=== PATIENT | male | born 1940 | race Caucasian/White ===

== ENCOUNTER → 2018-05-02 17:20 | Observation (INO) ==
--- NOTE | 2018-05-01 13:08 | Progress Note ---
Subjective Date: 05/01/18 Time: 13:05 Principal diagnosis: chest pain Interval history: Pt was seen in office today for chest pain/SOA at rest consistent with unstable angina class 4. Due to multiple CRF's he was admitted for stabilization with plans to proceed with cardiac cath in AM. Please see the office note on the chart. Exam - *Routine Neck Exam Present: supple. Absent: JVD, carotid bruit - *Routine Respiratory Exam Present: CTA bilaterally. Absent: accessory muscle use, rales, rhonchi, wheezes - *Routine Cardiovascular Exam Present: RRR. Absent: murmur, gallop, rubs - *Routine Neurological Exam Present: alert, oriented X3, moving all extremities Progress Note: A&P (1) Angina pectoris Status: Acute Current Visit: No (2) SOB (shortness of breath) Status: Acute Current Visit: No (3) Afib Status: Chronic Current Visit: No (4) CAD (coronary artery disease) Status: Chronic Current Visit: No (5) Diabetes mellitus Status: Chronic Current Visit: No (6) HHD (hypertensive heart disease) Status: Chronic Current Visit: No (7) HLD (hyperlipidemia) Status: Chronic Current Visit: No (8) Obesity Status: Chronic Current Visit: No Assessment and Plan for All Diagnoses:: continue home meds Add norvasc and nitro paste Cardiac cath in AM
[2018-05-01 15:09] LABS: Basophils # 0.1 K/mm3 (0-0.2); Basophils % 0.6 % (0.1-2.0); Eosinophils # 0.4 K/mm3 (0.0-0.4); Eosinophils % 4.1 % (0.1-12.0); Hematocrit 45.2 % (42.0-52.0); Hemoglobin 14.8 g/dL (14.1-18.0); Lymphocytes # 1.9 K/mm3 (0.7-4.5); Lymphocytes % 20.1 % (10-50); Mean Corpuscular HGB Conc 32.7 g/dL (31.8-35.4); Mean Corpuscular Hemoglobin 28.1 pg (27.0-31.2); Mean Platelet Volume 7.4 fl (7.4-10.4); Monocytes # 0.5 K/mm3 (0.1-1.0); Monocytes % 5.4 % (1.7-9.3); Neutrophils # 6.4 K/mm3 (1.8-7.8); Neutrophils % 69.8 % (37.0-80.0); Platelet Count 206 K/mm3 (142-424); Red Blood Count 5.26 M/mm3 (4.60-6.20); Red Cell Distribution Width 13.6 % (11.5-17.5); White Blood Count 9.2 K/mm3 (4.8-10.8)
[2018-05-01 15:12] LABS: INR 1.28 (0.9-1.1); Prothrombin Time 13.1 seconds (9.4-11.8)
[2018-05-01 23:28] LABS: Albumin Level 3.5 gm/dL (3.4-5.0); Bilirubin,Direct 0.1 mg/dL (0.0-0.2); Bilirubin,Indirect 0.4 mg/dL (0.0-0.9); Bilirubin,Total 0.5 mg/dL (0.2-1.0); Total Protein,Serum 7.1 gm/dL (6.4-8.2)
[2018-05-02 06:30] LABS: Chol/HDL Ratio 3.9 (1-3.5)
--- NOTE | 2018-05-02 07:45 | Pharmacy Consult Notes ---
[facility] Pharmacy VTE Monitoring - Patient Demographics Admission date: 05/01/18 Report Date: 05/02/18 Time: 07:45 Allergies/Adverse Reactions: Patient Allergies amoxicillin [From Augmentin] Allergy (Severe, Verified 05/01/18 13:16) edema clavulanic acid [From Augmentin] Allergy (Severe, Verified 05/01/18 13:16) edema Height: 1.88 m Weight: 137.24 kg - VTE Risk Labs: VTE Related Lab Results Hgb 14.8 g/dL (14.1-18.0) 05/01/18 13:08 Hct 45.2 % (42.0-52.0) 05/01/18 13:08 Plt Count 206 K/mm3 (142-424) 05/01/18 13:08 PT 13.1 seconds (9.4-11.8) H 05/01/18 13:08 INR 1.28 (0.9-1.1) H 05/01/18 13:08 BUN 15 mg/dL (7-18) 05/01/18 13:08 Creatinine 1.18 mg/dL (0.70-1.30) 05/01/18 13:08 Estimated Creat Clear 105 mL/min (50-200) 05/01/18 13:08 - Prophylaxis VTE Prophylaxis Ordered?: Yes Types of VTE Prophylaxis: TEDS Knee High Location of Applied Device: Bilateral Lower Extremeties - VTE Diagnosis Confirmed Treatment or plan recommended: Continue Current Treatment
--- NOTE | 2018-05-02 08:26 | Progress Note ---
Addendum entered and electronically signed by PEDRO Hernandez 05/02/18 12:51: Cardiac cath showed occlusion of SVG to diagonal. Medical therapy recommended. OK for discharge home on home meds plus isosorbide mononitrate 30 mg daily and norvasc 5 mg daily. Follow up in 2 wks. Original Note: Subjective Date: 05/02/18 Time: 08:25 Principal diagnosis: chest pain Interval history: 77-year-old white male in bed in no acute distress. No complaints of chest pain overnight. Complains of nasal congestion for which he usually takes Flonase. Exam Vital signs and Labs for Last 24 Hours: Temp Pulse Resp BP Pulse Ox 98.3 F 68 17 113/62 97 05/02/18 07:31 05/02/18 07:31 05/02/18 07:31 05/02/18 07:31 05/02/18 07:31 Laboratory Results - last 24 hr 05/01/18 13:08: WBC 9.2, RBC 5.26, Hgb 14.8, Hct 45.2, MCV 86.0, MCH 28.1, MCHC 32.7, RDW 13.6, Plt Count 206, MPV 7.4, Neut % (Auto) 69.8, Lymph % (Auto) 20.1, Lucas % (Auto) 5.4, Eos % (Auto) 4.1, Baso % (Auto) 0.6, Neut # (Auto) 6.4, Lymph # (Auto) 1.9, Lucas # (Auto) 0.5, Eos # (Auto) 0.4, Baso # (Auto) 0.1 05/01/18 13:08: PT 13.1 H, INR 1.28 H 05/01/18 13:08: Sodium 136, Potassium 4.0, Chloride 99, Carbon Dioxide 27, Anion Gap 14.0, BUN 15, Creatinine 1.18, Estimated Creat Clear 105, Estimated GFR 60, Est GFR ( Amer) 73, Glucose 369 H, Calcium 9.0 05/01/18 13:08: Total Bilirubin 0.5, Direct Bilirubin 0.1, Indirect Bilirubin 0.4, AST 19, ALT 33, Alkaline Phosphatase 145 H, Total Protein 7.1, Albumin 3.5 05/01/18 17:03: POC Glucose 364 H* 05/01/18 21:18: POC Glucose 271 H 05/02/18 05:46: POC Glucose 151 H 05/02/18 05:52: Triglycerides 145, Cholesterol 145, LDL Cholesterol 79, VLDL Cholesterol 29, HDL Cholesterol 37, Cholesterol/HDL Ratio 3.9 H I & O for Last 24 hours: Intake & Output 04/29/18 04/30/18 05/01/18 05/02/18 11:59 11:59 11:59 11:59 Intake Total 380 / 380 Output Total 800 / 800 Balance -420 / -420 Weight 302 lb 9 oz - *Routine Respiratory Exam Present: CTA bilaterally. Absent: accessory muscle use, rales, rhonchi, wheezes - *Routine Cardiovascular Exam Present: RRR. Absent: murmur, gallop, rubs Progress Note: A&P (1) Angina pectoris Status: Acute Current Visit: No (2) SOB (shortness of breath) Status: Acute Current Visit: No (3) Afib Status: Chronic Current Visit: No (4) CAD (coronary artery disease) Status: Chronic Current Visit: No (5) Diabetes mellitus Status: Chronic Current Visit: No (6) HHD (hypertensive heart disease) Status: Chronic Current Visit: No (7) HLD (hyperlipidemia) Status: Chronic Current Visit: No (8) Obesity Status: Chronic Current Visit: No Assessment and Plan for All Diagnoses:: Plan is for cardiac catheterization today with further recommendations to follow. Possible discharge home later this evening.
--- NOTE | 2018-05-02 16:40 | H&P/Discharge Summary ---
General - General Admission date:: 05/01/18 Discharge date: 05/02/18 *Admission Date: 05/01/18 *Chief complaint: chest pain *History of present illness: 77-year-old male patient was seen in Dr. Gutierrez's office yesterday complaining of chest pain and shortness of breath at rest consistent with unstable angina class 4. Due to multiple CRF's he was admitted for stabilization with plans to proceed with cardiac cath in AM. [facility] History I have reviewed the patient's past medical history: Yes 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: Reports:: Atrial Fibrillation, Coronary Artery Disease, Diabetes Mellitus Type 2, Gastroesophageal Reflux Disease(GERD), Hiatal Hernia, Hyperlipidemia, Hypertension Other 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: Reports: Anemia Other Surgeries: Yes: Angioplasty (, 2x 07/2012), Hernia Repair - *Social History Smoking Status: Former smoker Alcohol Intake: never Occupational Status: disabled - Psychiatric History Expresses thoughts of harming self/others: None Suicide Plan Description: No Plan Review of Systems - Review of Systems Review of systems:: pertinent systems reviewed and negative unless documented below - Constitutional Denies fever(s) - Eyes Denies change in vision - ENT Denies change in voice - *Cardiovascular Reports chest pain, Reports chest pain at rest, Reports chest pain with activity, Reports shortness of breath, Reports shortness of breath with activity - *Respiratory Reports shortness of breath with activity - *Gastrointestinal Denies difficulty swallowing - *Genitourinary Denies urinary frequency - *Musculoskeletal Denies decreased muscle mass - Integumentary/Breasts Denies rash - *Neurologic Denies restless legs - Psychiatric Denies anxiety - Endocrine Denies flushing - Hematologic/Lymphatic Denies enlarged lymph nodes - Allergic/Immunologic Denies lip swelling Exam Vital signs and Labs for Last 24 Hours: Temp Pulse Resp BP Pulse Ox 98.0 F 81 16 127/73 95 05/02/18 10:42 05/02/18 15:45 05/02/18 15:45 05/02/18 15:45 05/02/18 15:45 Laboratory Results - last 24 hr 05/01/18 13:08: Total Bilirubin 0.5, Direct Bilirubin 0.1, Indirect Bilirubin 0.4, AST 19, ALT 33, Alkaline Phosphatase 145 H, Total Protein 7.1, Albumin 3.5 05/01/18 17:03: POC Glucose 364 H* 05/01/18 21:18: POC Glucose 271 H 05/02/18 05:46: POC Glucose 151 H 05/02/18 05:52: Triglycerides 145, Cholesterol 145, LDL Cholesterol 79, VLDL Cholesterol 29, HDL Cholesterol 37, Cholesterol/HDL Ratio 3.9 H I & O for Last 24 hours: Intake & Output 04/30/18 05/01/18 05/02/18 05/03/18 11:59 11:59 11:59 11:59 Intake Total 380 / 380 240 / 240 Output Total 1100 / 1100 700 / 700 Balance -720 / -720 -460 / -460 Weight 302 lb 9 oz 302 lb 8.998 oz - *Routine HEENT Exam Head: Present: normocephalic Eye: Present: EOMI, PERRL ENT: Present: mucous membranes moist - *Routine Neck Exam Present: supple. Absent: lymphadenopathy - *Routine Respiratory Exam Present: CTA bilaterally - *Routine Cardiovascular Exam Present: RRR - *Routine Abdominal Exam Present: soft, normoactive bowel sounds. Absent: tenderness - *Routine Extremities Exam Absent: cyanosis, clubbing, edema - *Routine Skin Exam Present: warm. Absent: rash - *Routine Neurological Exam Present: alert, oriented X3 Hospital Course Hospital Course: heart cath IMPRESSION: 1. Coronary artery disease as described above 2. Preserved ejection fraction 3. Normal left ventricular end-diastolic pressure PLAN: 1. Medical management 2. Patient has been experiencing an indeterminate amount of emotional stress with the recent loss of his brother and 3. Low-dose anxiolytics may benefit patient in the short-term with his significant anxiety 4. Maximize antianginal medications with specific maintained on controlling atrial fibrillation rate. Higher dose beta blockers may benefit patient 5. LDL less than 55 6. Aggressive control of risk factors 7. Cardiac rehabilitation Results Labs on day of discharge: Labs from last 24 hours 05/02/18 05/02/18 05/01/18 05:52 05:46 21:18 POC Glucose 151 H 271 H Total Bilirubin Direct Bilirubin Indirect Bilirubin AST ALT Alkaline Phosphatase Total Protein Albumin Triglycerides 145 Cholesterol 145 LDL Cholesterol 79 VLDL Cholesterol 29 HDL Cholesterol 37 Cholesterol/HDL Ratio 3.9 H 05/01/18 05/01/18 17:03 13:08 POC Glucose 364 H* Total Bilirubin 0.5 Direct Bilirubin 0.1 Indirect Bilirubin 0.4 AST 19 ALT 33 Alkaline Phosphatase 145 H Total Protein 7.1 Albumin 3.5 Triglycerides Cholesterol LDL Cholesterol VLDL Cholesterol HDL Cholesterol Cholesterol/HDL Ratio DS: Diagnosis - Discharge Diagnosis (1) Angina pectoris Status: Acute (2) SOB (shortness of breath) Status: Acute (3) Afib Status: Chronic (4) CAD (coronary artery disease) Status: Chronic (5) Diabetes mellitus Status: Chronic (6) HHD (hypertensive heart disease) Status: Chronic (7) HLD (hyperlipidemia) Status: Chronic (8) Obesity Status: Chronic Discharge Medications - Medications for Discharge Home Medication List at Discharge: No Action acetaminophen 500 mg tablet 500 mg PO Q4H PRN PRN Reason: pain albuterol sulfate 1.25 mg/3 mL solution for nebulization 2.5 mg INHALATION Q6H PRN PRN Reason: breathing atorvastatin 40 mg tablet 40 mg PO HS tab fluticasone 50 mcg/actuation nasal spray,suspension 1 spray INTRANASAL DAILY g hydrocodone 7.5 mg-acetaminophen 325 mg tablet 1 tab PO Q6H insulin aspart U- 100 100 unit/mL subcutaneous pen 10 unit SUB-Q QAM ml clopidogrel 75 mg tablet 75 mg PO DAILY tab albuterol sulfate HFA 90 mcg/actuation aerosol inhaler 2 puff INHALATION Q6H insulin glargine (U-100) 100 unit/mL (3 mL) subcutaneous pen 55 unit SUB-Q BID ml isosorbide mononitrate ER 30 mg tablet,extended release 24 hr 30 mg PO DAILY #30 tab pantoprazole 40 mg tablet,delayed release 40 mg PO QAM torsemide 100 mg tablet 100 mg PO DAILY tab amlodipine 5 mg tablet 5 mg PO DAILY #30 tab Rivaroxaban [Xarelto 20mg Tablet] 20 mg PO DAILY Carvedilol [Carvedilol 25mg Tab] 50 mg PO BID Digoxin 125 mcg PO DAILY Disposition Disposition: Home, Self-Care
== END | disposition home or self-care (01) ==
LOC: 2ND
PROVIDERS: ADMIT Emergency Medicine; ATTEND Emergency Medicine
CPT/HCPCS: 36415; 80048; 80061; 80076; 82962; 85025; 85610; 93005; 93459; 99152; C1725; C1760; C1769; C1894; G0378; J1644; Q9967

== ENCOUNTER → 2019-01-15 14:06 | Outpatient (CLI) | payer MEDICARE, SELFPAY ==
--- NOTE | 2019-01-15 14:09 | CA_ITS ---
APPROVED REPORT EXAM: Comprehensive 2D, Doppler, and color-flow Echocardiogram Security Installation Sales Technician: Milly Beckford RDCS Ht: 6 ft 2 in Wt: 303lbs BSA: 2.59 BP: 135/74 mmHg Indications: DIZZINESS,CAD,AF,GALLOWAY,OBESITY,HTN,HLP 2D Dimensions LVOT 2.00 cm (M/F) 1.5-2.5 M-Mode Dimensions RVDd 3.20 cm (0.9-2.6) LA Diam 5.50 cm (1.9-4.0) LVDd 5.10 cm (3.5-5.7) Ao Diam 4.00 cm (2.0-3.7) LVDs 3.90 cm (3.5-5.7) AV Cusp 2.30 cm (1.5-2.6) IVSd 0.90 cm (0.6-1.1) PWd 1.00 cm (0.6-1.1) EF (Teich) 46.90% FS 23.50% EDV (Teich) 124.00 mL ESV (Teich) 65.90 mL LV Diastology E/A Ratio 3.8 Mitral Valve MV E Max Jacob. 92.80 (40-130 cm/s) MV A Velocity 24.70 (40-130 cm/s) E/A Ratio 3.80 Tricuspid Valve TR P. Velocity 320.00 cm/s RAP Estimate 10.00 mmHg RVSP 51.00 mmHg Left Ventricle Left atrium is moderately enlarged, left ventricular is normal size, there is mild concentric left ventricular hypertrophy, visually estimated ejection fraction 55% with no regional wall motion abnormality, diastolic parameters are inconclusive. Right Ventricle Right atrium and right ventricular mildly enlarged with normal contractility. Aortic Valve Aortic valve is minimally thickened and calcified, there is no aortic stenosis or aortic insufficiency. Mitral Valve Mitral valve is grossly normal, there is mild mitral regurgitation. Tricuspid Valve Tricuspid valve is grossly normal, there is mild tricuspid regurgitation, calculated right ventricular systolic pressure is 39 mmHg which is mildly elevated. Pulmonic Valve Pulmonic valve is poorly visualized. Great Vessels Aortic root is normal size. Pericardium No significant pericardial effusion noted. Conclusion 1. Biatrial enlargement, normal left ventricular size, mild concentric left ventricular hypertrophy, visually estimated ejection fraction 55% with no regional wall motion abnormality, diastolic parameters are inconclusive. 2. Mildly enlarged right ventricle with normal contractility. 3. Mild mitral and tricuspid regurgitation, calculated right ventricular systolic pressure is 39 mmHg which is mildly elevated. 4. No significant pericardial effusion noted. Electronically signed by : Mak Pineda, 01/15/2019 16:54:37
--- NOTE | 2019-01-15 14:09 | CA_ITS ---
APPROVED REPORT Supervisor Liquefaction: CT Laterality: Bilateral Study Quality: Fair Indications: dizziness Risk Factors Hypertension: Hyperlipidemia CAD, Doppler Spectral Velocity Analysis ECA (R) 244.00/ cm/s ECA (L) 81.10/ cm/s dICA (R) 95.30/31.40 cm/s dICA (L) 101.00/38.50 cm/s Marlen (R) 56.90/19.50 cm/s Marlen (L) 68.50/24.10 cm/s pICA (R) 48.10/14.80 cm/s pICA (L) 33.80/13.80 cm/s dCCA (R) 59.00/11.60 cm/s dCCA (L) 60.10/17.60 cm/s pCCA (R) 105.00/18.10 cm/s pCCA (L) 98.70/13.20 cm/s Vert (R) 38.80/ cm/s Vert (L) 68.90/ cm/s ICA/CCA 1.62 ICA/CCA 1.68 Findings Duplex evaluation demonstrates stenosis of the right proximal internal carotid artery in the range of 20-49%. Duplex evaluation demonstrates stenosis of the left proximal internal carotid artery in the range of 20-49%. Right ECA >60%. Duplex evaluation demonstrates antegrade flow of the bilateral Vertebral Arteries. Thyroid cysts noted. Conclusion Duplex evaluation demonstrates stenosis of the right proximal internal carotid artery in the range of 20-49%. Duplex evaluation demonstrates stenosis of the left proximal internal carotid artery in the range of 20-49%. Electronically signed by : Kel Wyatt MD 01/16/2019 13:30:29
== END ==
PROVIDERS: PCP Family Medicine; Visit Provider Nurse Practitioner Family
DX: R42 Dizziness and giddiness (principal); R07.9 Chest pain, unspecified; E11.9 Type 2 diabetes mellitus without complications; E66.09 Other obesity due to excess calories; I11.0 Hypertensive heart disease with heart failure; I25.118 Atherosclerotic heart disease of native coronary artery with other forms of angina pectoris; I48.2 Chronic atrial fibrillation; I50.32 Chronic diastolic (congestive) heart failure; R06.02 Shortness of breath
CPT/HCPCS: 93306; 93880

== ENCOUNTER → 2020-12-09 17:13 | Outpatient (CLI) | payer MEDICARE, SELFPAY ==
[2020-12-09 17:56] LABS: Basophils # 0.1 K/mm3 (0-0.2); Basophils % 0.6 % (0.1-2.0); Eosinophils # 0.5 K/mm3 (0.0-0.4); Eosinophils % 5.6 % (0.1-12.0); Hematocrit 41.9 % (42.0-52.0); Lymphocytes # 1.5 K/mm3 (0.7-4.5); Lymphocytes % 18.8 % (10-50); Mean Corpuscular HGB Conc 33.5 g/dL (31.8-35.4); Mean Corpuscular Hemoglobin 27.8 pg (27.0-31.2); Mean Corpuscular Volume 82.7 fl (80-94); Mean Platelet Volume 7.8 fl (7.4-10.4); Monocytes # 0.4 K/mm3 (0.1-1.0); Monocytes % 5.1 % (1.7-9.3); Neutrophils # 5.6 K/mm3 (1.8-7.8); Neutrophils % 69.9 % (37.0-80.0); Platelet Count 205 K/mm3 (142-424); Red Blood Count 5.06 M/mm3 (4.60-6.20); Red Cell Distribution Width 15.6 % (11.5-17.5)
[2020-12-09 18:12] LABS: Hemoglobin A1C 10.8 % (4.0-6.0)
[2020-12-09 19:09] LABS: Chloride 106 mmol/L (98-107); Sodium 139 mmol/L (136-145)
[2020-12-09 19:12] LABS: Alanine Aminotransferase 27 U/L (12-78); Albumin Level 3.9 g/dl (3.5-5.0); Albumin/Globulin Ratio 1.5 (1.1-1.8); Alkaline Phosphatase 144 U/L (38-126); Aspartate Amino Transferase 29 U/L (17-59); Bilirubin,Total 0.7 mg/dl (0.2-1.3); Blood Urea Nitrogen 24 mg/dl (9-20); Carbon Dioxide 22 mmol/L (22.0-30.0); Estimated Glomerular Filt Rate 59 ml/min (>60); GFR (African American) 71 ML/MIN (>60); Globulin 2.6 g/dL (1.3-3.2); Total Protein,Serum 6.5 g/dl (6.3-8.2)
[2020-12-09 19:43] LABS: Thyroid Stimulating Hormone 0.96 uIU/mL (0.465-4.68)
[2020-12-09 19:58] LABS: Glucose 397 mg/dl (74-100)
[2020-12-11 11:38] LABS: Hep A Ab, IgM Negative (Negative); Hepatitis B Core Antibody IgM Negative (Negative); Hepatitis B Surface Antigen Negative (Negative); Hepatitis C Antibody <0.1 s/co ratio (0.0-0.9)
== END ==
PROVIDERS: Visit Provider Family Medicine
DX: E11.9 Type 2 diabetes mellitus without complications (principal); E78.5 Hyperlipidemia, unspecified; I25.10 Atherosclerotic heart disease of native coronary artery without angina pectoris; R06.02 Shortness of breath; R42 Dizziness and giddiness; Z20.5 Contact with and (suspected) exposure to viral hepatitis; I50.9 Heart failure, unspecified; Z79.4 Long term (current) use of insulin; R74.8 Abnormal levels of other serum enzymes
CPT/HCPCS: 80053; 80074; 83036; 84443; 85025

== ENCOUNTER → 2021-03-21 14:36 | Outpatient (CLI) | payer MEDICARE, SELFPAY ==
--- NOTE | 2021-03-21 14:37 | CA_ITS ---
APPROVED REPORT EXAM: Comprehensive 2D, Doppler, and color-flow Echocardiogram [employer] Specialist: Kate Arvizu CRT Ht: 6 ft 2 in Wt: 295lbs BSA: 2.56 BP: 133/63 mmHg Indications: Congenital Heart Disease, Congestive Heart Failure, Shortness of Breath, Atrial Fibrillation, Obesity, Hyperlipidemia, Hypertension/HDD 2D Dimensions LVOT 2.00 cm (M/F) 1.5-2.5 LA Volume 91.80 mL LA Volume Index 35.90 mL/m2 (M/F) 16-34 M-Mode Dimensions RVDd 5.09 cm (0.9-2.6) LA Diam 4.47 cm (1.9-4.0) LVDd 5.09 cm (3.5-5.7) Ao Diam 4.83 cm (2.0-3.7) LVDs 3.48 cm (3.5-5.7) IVSd 1.61 cm (0.6-1.1) PWd 0.72 cm (0.6-1.1) EF (Teich) 59.30% FS 31.60% EDV (Teich) 123.20 mL TAPSE 1.28 (<1.7) ESV (Teich) 50.20 mL LV Diastology E Decel Time 200.00 (160-240 msec) E/A Ratio 5.26 MED E' 4.00 (< 7 cm/sec) MED A' 2.60 cm/s E'/MED E' Ratio 19.32 (>14) LAT E' 9.10 (<10 cm/sec) LAT A' 4.00 cm/s E/LAT E' Ratio 8.49 (>14) Mitral Valve MV E Max Jacob. 77.00 (40-130 cm/s) MV A Velocity 15.00 (40-130 cm/s) E/A Ratio 5.26 MV Decel. Time 200.00 (160-240 ms) MV PHT 59.00 ms Pulmonary Valve PV Peak Velocity 191.00 (50-150 cm/s) Tricuspid Valve TR P. Velocity 274.00 cm/s RAP Estimate 10.00 mmHg RVSP 40.10 mmHg Left Ventricle Technically difficult study, left atrium is mildly enlarged, left ventricle is normal size, mild concentric left ventricular hypertrophy, visually estimated ejection fraction 55% with no obvious regional wall motion abnormality, diastolic parameters are inconclusive. Right Ventricle Right atrium and right ventricle mildly enlarged with normal contractility. Aortic Valve Aortic valve is minimally thickened and calcified, there is no Doppler evidence of aortic stenosis or significant aortic insufficiency. Mitral Valve Mitral valve leaflets are minimally thickened, there is mild mitral regurgitation. Tricuspid Valve Tricuspid grossly normal, there is mild tricuspid regurgitation, calculated right ventricular systolic pressure 38 mmHg. Pulmonic Valve Pulmonic valve is poorly visualized. Great Vessels Aortic root is normal size. Inferior vena cava normal size with normal inspiratory collapse. Pericardium No significant pericardial effusion noted. Conclusion 1. Mild biatrial enlargement, normal left ventricular size, mild concentric left ventricular hypertrophy, visually estimated ejection fraction 55% with no regional wall motion abnormality, diastolic parameters inconclusive. 2. Mild mitral and tricuspid regurgitation. 3. Mildly enlarged right ventricle with normal contractility. 4. No significant pericardial effusion noted. 5. Inferior vena cava normal size with normal inspiratory collapse. Electronically signed by : Mak Pineda MD 03/21/2021 19:33:45
--- NOTE | 2021-03-21 14:37 | CA_ITS ---
APPROVED REPORT Horticulture Professor: NOAH Laterality: Bilateral Study Quality: Good, Due to body habitus. Indications: AFIB, dizziness, htn Risk Factors CAD, Doppler Spectral Velocity Analysis ECA (R) 202.10/2.80 cm/s ECA (L) 95.40/8.70 cm/s dICA (R) 63.60/14.10 cm/s dICA (L) 62.90/18.00 cm/s Marlen (R) 51.70/16.10 cm/s Marlen (L) 70.60/18.00 cm/s pICA (R) 34.70/14.10 cm/s pICA (L) 32.70/10.30 cm/s dCCA (R) 50.30/8.50 cm/s dCCA (L) 69.30/11.60 cm/s pCCA (R) 74.90/5.30 cm/s pCCA (L) 114.60/14.40 cm/s Vert (R) 48.30/12.00 cm/s Vert (L) 34.70/10.90 cm/s ICA/CCA 1.28 ICA/CCA 1.02 Findings Duplex evaluation demonstrates stenosis of the right proximal internal carotid artery in the range of 20-49% with PSV <140 cm/sec, EDV <100 cm/sec, and IC/CC Ratio <4.0. Duplex evaluation demonstrates stenosis of the left proximal internal carotid artery in the range of 20-49% with PSV <140 cm/sec, EDV <100 cm/sec, and IC/CC Ratio <4.0. Duplex evaluation demonstrates antegrade flow of the bilateral Vertebral Arteries. Moderate heterogenous plaque noted in bilateral distal CCA's. Conclusion Duplex evaluation demonstrates stenosis of the right proximal internal carotid artery in the range of 20-49% with PSV <140 cm/sec, EDV <100 cm/sec, and IC/CC Ratio <4.0. Duplex evaluation demonstrates stenosis of the left proximal internal carotid artery in the range of 20-49% with PSV <140 cm/sec, EDV <100 cm/sec, and IC/CC Ratio <4.0. Duplex evaluation demonstrates antegrade flow of the bilateral Vertebral Arteries. Moderate heterogenous plaque noted in bilateral distal CCA's. Electronically signed by : Kel Wyatt MD 03/22/2021 19:34:10
== END ==
PROVIDERS: PCP Family Medicine; Visit Provider Urology
DX: E66.9 Obesity, unspecified (principal); I25.10 Atherosclerotic heart disease of native coronary artery without angina pectoris; I48.91 Unspecified atrial fibrillation; I50.9 Heart failure, unspecified; R06.02 Shortness of breath; R42 Dizziness and giddiness; I11.0 Hypertensive heart disease with heart failure; Z68.37 Body mass index [BMI] 37.0-37.9, adult
CPT/HCPCS: 93306; 93880

== ENCOUNTER → 2022-01-12 21:27 | Outpatient (CLI) | payer MEDICARE, SELFPAY ==
[2022-01-12 16:50] LABS: Basophils # 0.1 K/mm3 (0-0.2); Basophils % 0.7 % (0.1-2.0); Eosinophils % 15.5 % (0.1-12.0); Hematocrit 45.8 % (42.0-52.0); Hemoglobin 14.2 g/dL (14.1-18.0); Lymphocytes # 1.4 K/mm3 (0.7-4.5); Mean Corpuscular HGB Conc 31.1 g/dL (31.8-35.4); Mean Corpuscular Hemoglobin 27.9 pg (27.0-31.2); Mean Corpuscular Volume 89.7 fl (80-94); Mean Platelet Volume 7.8 fl (7.4-10.4); Monocytes # 0.4 K/mm3 (0.1-1.0); Monocytes % 6.3 % (1.7-9.3); Neutrophils # 3.6 K/mm3 (1.8-7.8); Neutrophils % 55.5 % (37.0-80.0); Platelet Count 183 K/mm3 (142-424); Red Cell Distribution Width 14.4 % (11.5-17.5); White Blood Count 6.4 K/mm3 (4.8-10.8)
[2022-01-12 17:29] LABS: Hemoglobin A1C 8.3 % (4.0-6.0)
[2022-01-12 17:35] LABS: Chloride 107 mmol/L (98-107); Sodium 141 mmol/L (136-145)
[2022-01-12 17:36] LABS: Potassium 3.9 mmoL/L (3.5-5.1)
[2022-01-12 17:38] LABS: Alanine Aminotransferase 30 U/L (12-78); Albumin/Globulin Ratio 1.4 (1.1-1.8); Alkaline Phosphatase 161 U/L (38-126); Anion Gap 13.9 mEq/L (5-15); Aspartate Amino Transferase 36 U/L (17-59); Bilirubin,Total 0.4 mg/dl (0.2-1.3); Blood Urea Nitrogen 12 mg/dl (9-20); Carbon Dioxide 24 mmol/L (22.0-30.0); Cholesterol 159 mg/dl (140-200); Estimated Glomerular Filt Rate 93 ml/min (>60); GFR (African American) 113 ML/MIN (>60); Globulin 2.9 g/dL (1.3-3.2); Total Protein,Serum 6.9 g/dl (6.3-8.2); Triglycerides 188 mg/dl (30-150); VLDL Cholesterol 38 mg/dL (0-40)
[2022-01-12 17:39] LABS: Calcium 8.5 mg/dl (8.4-10.2); Chol/HDL Ratio 4.4 (1-3.5); Glucose 167 mg/dl (74-100); HDL Cholesterol 36 mg/dl (40-60)
[2022-01-12 17:50] LABS: Direct LDL Cholesterol 84.28 mg/dL (100-129)
[2022-01-12 18:11] LABS: Thyroid Stimulating Hormone 2.21 uIU/mL (0.465-4.68)
[2022-01-12 19:09] LABS: Prostate Specific Ag Screen 0.5 ng/ml (0.0-4.0)
== END ==
PROVIDERS: PCP Family Medicine; Visit Provider Family Medicine
DX: E78.5 Hyperlipidemia, unspecified (principal); Z12.5 Encounter for screening for malignant neoplasm of prostate; E66.09 Other obesity due to excess calories; Z68.39 Body mass index [BMI] 39.0-39.9, adult; E11.9 Type 2 diabetes mellitus without complications; Z79.4 Long term (current) use of insulin; I50.32 Chronic diastolic (congestive) heart failure
CPT/HCPCS: 80053; 80061; 83036; 84443; 85025; G0103

== ENCOUNTER → 2022-04-10 13:40 | Outpatient (CLI) | payer MEDICARE, SELFPAY ==
[2022-04-10 18:51] LABS: Basophils # 0.1 K/mm3 (0-0.2); Basophils % 1.1 % (0.1-2.0); Eosinophils # 0.9 K/mm3 (0.0-0.4); Eosinophils % 9.4 % (0.1-12.0); Hematocrit 48.6 % (42.0-52.0); Lymphocytes # 1.7 K/mm3 (0.7-4.5); Lymphocytes % 17.3 % (10-50); Mean Corpuscular HGB Conc 32.9 g/dL (31.8-35.4); Mean Corpuscular Volume 88.1 fl (80-94); Mean Platelet Volume 7.9 fl (7.4-10.4); Monocytes # 0.5 K/mm3 (0.1-1.0); Monocytes % 5.1 % (1.7-9.3); Neutrophils # 6.7 K/mm3 (1.8-7.8); Neutrophils % 67.1 % (37.0-80.0); Platelet Count 217 K/mm3 (142-424); Red Blood Count 5.52 M/mm3 (4.60-6.20); Red Cell Distribution Width 14.5 % (11.5-17.5); White Blood Count 9.9 K/mm3 (4.8-10.8)
== END ==
PROVIDERS: PCP Family Medicine; Visit Provider Family Medicine
DX: E66.09 Other obesity due to excess calories (principal); Z68.39 Body mass index [BMI] 39.0-39.9, adult
CPT/HCPCS: 85025

== ENCOUNTER → 2022-05-21 14:20 | Outpatient (CLI) | payer MEDICARE, SELFPAY ==
[2022-05-21 16:58] LABS: Microalbumin/Creatinine Ratio 51.5
[2022-05-21 16:59] LABS: Creatinine,Urine Random 39 mg/dL (Not Estab.)
== END ==
PROVIDERS: PCP Family Medicine; Visit Provider Family Medicine
DX: R30.0 Dysuria (principal); E11.9 Type 2 diabetes mellitus without complications
CPT/HCPCS: 82043; 82570; 87086

== ENCOUNTER → 2022-06-26 23:34 | Outpatient (CLI) | payer MEDICARE, SELFPAY ==
[2022-06-26 20:00] LABS: Hemoglobin A1C 9.4 % (4.0-6.0)
== END ==
PROVIDERS: PCP Family Medicine; Visit Provider Family Medicine
DX: E11.9 Type 2 diabetes mellitus without complications (principal); Z79.4 Long term (current) use of insulin
CPT/HCPCS: 83036

== ENCOUNTER 2022-07-18 12:56 | Observation (INO) | payer MEDICARE, SELFPAY ==
--- NOTE | 2022-07-18 13:10 | PC.NURSE ---
arrived to floor by w/c from [facility]
[2022-07-18 13:24] VITALS: BP 140/62; PULSE 75; RESP 18; TEMP 36.6; O2SAT 95; BMI 39.3
--- NOTE | 2022-07-18 13:35 | EXP.CARD.PN ---
Subjective Subjective Date: 07/18/22 Time: 13:35 Principal diagnosis: Diastolic CHF, labile HTN Interval history: Pt was seen in office today by Dr. Gutierrez and was admitted for complaint of SOA felt due to exacerbation of diastolic CHF. Patient also mentioned wide swings in blood pressure from 180/110 down to 100/50 mmHg. Will monitor blood pressure during stay. PMH: 1. CAD with history of CABG, 1998. Prior MIRELLA in 2012. [facility]. [facility], 05/02/2018,ANGIOGRAPHIC RESULTS: 1.? The left main artery? normal 2.? The left anterior descending artery? has proximal 20-30% stenosis and then occluded after the second diagonal artery 3.? The circumflex artery? is a nondominant yet still large vessel? and has a stent in the proximal segment which bifurcates into the first and second obtuse marginal artery. The ostial segment of the first obtuse marginal artery has 40% in-stent restenosis while the ostium of the second obtuse marginal artery stent has 20-30% stenoses. The second obtuse marginal artery has 70% or greater stenosis at an area less than 1 mm diameter. It then bifurcates into 2 1-mm branches 4.? The right coronary artery is a dominant vessel has proximal 20 and 30% stenoses followed by an area of vascular ectasia. An additional 20 and 30% stenoses are present in the mid segment. Distally there is moderate vascular ectasia. The posterior lateral branch is patent and medium in size. This vessel has an ostial 50-60% stenosis while the posterior descending artery is proximally occluded 5.? The SOLOMON ventriculogram reveals preserved 60% 6.? The left ventricular end-diastolic pressure 10 to 15 mmHg 7.? The KINCAID to the LAD is widely patent 8.? The saphenous vein graft to the right coronary artery is ostially occluded 9.? The saphenous vein graft the circumflex artery is ostially occluded 10.? The saphenous vein graft to the diagonal artery has a large thrombus in its proximal and mid segment. It is then occluded and thrombosed throughout its distal segment with no antegrade flow on to the [place] diagonal artery IMPRESSION: 1.? Coronary artery disease as described above 2.? Preserved ejection fraction 3.? Normal left ventricular end-diastolic pressure [facility]. [facility] with grafts, 08/23/2020, Dr. Art Oneil, [place], [place], PTCA/kissing balloon dilatation, noncompliant balloon to OM and circumflex with PCI/MIRELLA to proximal circumflex. Patent KINCAID to LAD, patent SVG to diagonal. C. C with grafts, 10/19/2021, Dr. Oneil at [facility], no intervention required. Severe three-vessel disease, occluded SVG to PDA, SVG to OM. Patent SVG to diagonal with graft vessel size mismatch. Patent stents circumflex with nonobstructive disease in OM. Patent stents in proximal RCA and distal RCA. Patent KINCAID to LAD. Patient did have V-fib during injection of the SVG to diagonal requiring defibrillation with 360 J. No further recurrence after that. 2. Chronic atrial fibrillation for which he is on anticoagulation with Xarelto 3. Diabetes mellitus 4. Hypertension A. Echo, 07/2019, biatrial enlargement, normal LV size, mild concentric LVH, EF 55% with no regional WMA. Diastolic parameters inconclusive. Mild RV enlargement with normal contractility. Mild MR/TR with RVSP 39 mmHg. B. Echocardiogram, 08/2020, mild LV dilatation, normal LV wall thickness with EF 60-65%. Biatrial enlargement, moderate. Mild MR. Estimated PA systolic pressure 43 mmHg. C. Echocardiogram, 10/18/2021, normal LV size, thickness with EF 60-65%. Normal RV size and systolic function. No significant valve disease noted. 5. Hyperlipidemia 6. Carotid artery disease, 20-49% bilaterally, 07/23/2021 Exam Data for Last 24 hours Vital signs and Labs for Last 24 Hours: Temp Pulse Resp BP Pulse Ox 97.8 F 75 18 140/62 95 07/18/22 13:24 07/18/22 13:24 07/18/22 13:24 07/18/22 13:24 07/18/22 13:24 I & O for Last 24 hours: Intake & Output 07/16/22 07/17/22
--- NOTE | 2022-07-18 14:05 | CA_ITS ---
FINAL REPORT TECHNIQUE: Grayscale, color Doppler and duplex Doppler ultrasound of the kidneys, aorta and renal arteries was performed. Multiple velocities were measured. CLINICAL HISTORY: labile HTN, Afib, CAD-CABG, Obesity FINDINGS: Aorta velocity: 81 cm/sec Right kidney: 15.1 cm. No evidence of hydronephrosis or mass. Right intrarenal RI: 0.79 Right renal artery velocity: 227 cm/sec. Right RAR (Renal artery-Aortic Ratio): 2.8 Left Kidney: 14.6 cm. No evidence of hydronephrosis or mass. Left intrarenal RI: 0.76 Left renal artery velocity: 146 cm/sec. Left RAR (Renal Artery-Aortic Ratio): 1.8 IMPRESSION: There is no evidence of renal artery stenosis on the left. There is less than 60% stenosis on the right. Recommend CTA or catheter angiogram. Reviewed, Interpreted and Dictated by Misbah Cordon III, MD Transcribed by Tammi Ferrari Authenticated and [facility]
--- NOTE | 2022-07-18 14:13 | XR_ITS ---
FINAL REPORT CLINICAL HISTORY: SOA, CHF COMPARISON: none FINDINGS: Two views of the chest were obtained. Cardiomegaly is noted. There is mild pulmonary vascular congestion. There is evidence of prior median sternotomy. No acute pulmonary abnormality is identified. There is no pneumothorax. The bony thorax is intact. IMPRESSION: Cardiomegaly with mild pulmonary vascular congestion. Reviewed, Interpreted and Dictated by Misbah Cordon III, MD Transcribed by Hoda Cooper Authenticated and [facility]
--- NOTE | 2022-07-18 14:19 | CA_ITS ---
APPROVED REPORT EXAM: Comprehensive 2D, Doppler, and color-flow Echocardiogram Communication Arts Lecturer: Geneva Mcfadden, RONIT, RVS Ht: 6 ft 0 in Wt: 306lbs BSA: 2.55 BP: 142/62 mmHg Rhythm: Atrial Fibrillation Indications: afib,Obesity, CHF, CAD-cabg, HTN, HLD, DM 2D Dimensions IVSd 1.59 cm M: 0.6-1.2 LVEF (Visual) 60.80 % PWd 1.34 cm M: 0.6 - 1.2 LA Volume 79.90 mL LVDd 5.70 cm M: 4.2 - 5.9 LA Volume Index 31.30 mL/m2 (M/F) 16-34 LVDs 3.82 cm M: 2.5 - 4.0 Aortic Root 3.35 cm M: 3.1 - 3.7 Left Atrium 5.08 cm M: 3.0 - 4.0 LVOT 2.22 cm (M/F) 1.5-2.5 M-Mode Dimensions RVDd 3.30 cm (0.9-2.6) LA Diam 5.20 cm (1.9-4.0) LVDd 5.76 cm (3.5-5.7) Ao Diam 3.84 cm (2.0-3.7) LVDs 4.33 cm (3.5-5.7) IVSd 1.56 cm (0.6-1.1) PWd 1.29 cm (0.6-1.1) EF (Teich) 48.50% EPSs 0.45 cm FS 24.80% EDV (Teich) 163.90 mL TAPSE 1.23 (<1.7) ESV (Teich) 84.40 mL LV Diastology MED E' 7.20 (< 7 cm/sec) LAT E' 7.10 (<10 cm/sec) Aortic Valve LVOT Max 48.00 (70-110 cm/s) LVOT VTI 8.89 cm AoV Peak Jacob. 105.00 (50-130 cm/s) AO Peak GR. 4.40 mmHg AO Mean GR. 2.30 (<5 mmHg) AO VTI 17.64 (18-25 cm) ROYAL (VTI) 1.95 (2.5-4.5 cm2) Pulmonary Valve PV Peak Velocity 80.00 (50-150 cm/s) AZ End VMAX 216.00 cm/s Tricuspid Valve TR P. Velocity 335.00 cm/s RAP Estimate 10.00 mmHg RVSP 54.80 mmHg Left Ventricle Left atrium is moderately enlarged, left ventricle is normal size mild concentric left ventricular hypertrophy, estimated ejection fraction 55% with no regional wall motion abnormality, diastolic parameters are inconclusive. Right Ventricle Right atrium and right ventricular moderately enlarged with normal contractility. Aortic Valve Aortic valve is thickened and calcified without Doppler evidence of aortic stenosis aortic insufficiency. Mitral Valve Mitral valve leaflets are minimally thickened, there is mild mitral regurgitation. Tricuspid Valve Tricuspid valve leaflets are minimally thickened, there is moderate tricuspid regurgitation, calculated right ventricular systolic pressure is 54 mmHg. Pulmonic Valve Pulmonic valve is poorly visualized. Great Vessels Aortic root is normal size. Inferior vena cava is mildly dilated with no significant inspiratory collapse. Pericardium No significant pericardial effusion noted. Conclusion 1. Biatrial enlargement, normal left ventricular size, mild concentric left ventricular hypertrophy, estimated ejection fraction is 55% with no regional wall motion abnormality, diastolic parameters are inconclusive. 2. Moderately enlarged right ventricle with normal contractility. 3. Mild mitral and moderate tricuspid regurgitation, calculated right ventricular systolic pressure is 54 mmHg. 4. No significant pericardial effusion noted. 5. Inferior vena cava is mildly dilated with no significant inspiratory collapse. Electronically signed by : Mak Pineda MD 07/19/2022 06:16:17
--- NOTE | 2022-07-18 14:48 | EXP.HP ---
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 His care was transitioned to [facility] inpatient service for management of acute on chronic HFpEF, uncontrolled blood pressure and dyspnea. The patient reports 5 to 6 months of shortness of air not improving with home medical therapy. He reports the shortness of air has increased in intensity and is now occurring with minimal exertional activity. He is NYHA class III. He has not identified any increasing pedal edema, cough, confusion or hemoptysis. He reports no calf edema or calf pain. He reports no associated fever or chills. He reports occasional retrosternal tightness lasting a few seconds and resolving spontaneously. He has identified elevated blood pressures with ED evaluations identifying his concerns. He reports occasional dizziness with no falls, syncope or mental status changes. He reports compliance with his NIPPV therapy at home. 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 [facility] 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 (Updated 07/18/22 @ 15:34 by Ollie Contreras MD) Afib BMI 39.0-39.9,adult CAD (coronary artery disease) CHF (congestive heart failure) Diabetes mellitus HHD (hypertensive heart disease) HLD (hyperlipidemia) OAB (overactive bladder) ONEIDA and COPD overlap syndrome Surgical History (Updated 07/18/22 @ 15:05 by Ollie Contreras MD) History of left heart catheterization (LHC) History of left inguinal hernia repair History of umbilical hernia repair Hx of CABG Family History (Updated 07/18/22 @ 15:13 by Ollie Contreras MD) Mother Coronary artery disease Father Tuberculosis Social History (Updated 07/18/22 @ 15:17 by Ollie Contreras MD) Smoking Status: Former smoker years smoked: 30 smoking status stop date: 1992 alcohol intake: never substance use type: denies use current occupational status: disabled Travel in the last 8 weeks: None Review of Systems Review of Systems Review of systems:: pertinent systems reviewed and negative unless documented below Constitutional Constitutional: Reports fatigue *Cardiovascular Cardiovascular: Reports dyspnea and Reports dyspnea on exertion *Respiratory Respiratory: Denies cough, Reports dyspnea, Reports dyspnea on exertion, Denies excessive phlegm production and Denies hemoptysis Endocrine Endocrine: Reports fatigue Meds Home Medications and Allergies Home Medications Medication Instructions Recorded Confirmed Type fluticasone propionate 50 1 spray intranasal DAILY nose 06/10/17 07/18/22 History mcg/actuation nasal spray,suspension albuterol sulfate 90 mcg/actuation 2 puff inhalation Q6H brething 01/12/22 07/18/22 Rx aerosol inhaler (ProAir HFA) #8.5 grams atorvastatin 40 mg tablet 40 mg PO HS Cholesterol #90 tabs 01/12/22 07/18/22 Rx clopidogrel 75 mg tablet (Plavix) 75 mg PO DAILY Blood thinner #90 01/12/22 07/18/22 Rx tabs empagliflozin 25 mg tablet 25 mg PO DAILY Diabetes 06/27/22 07/18/22 History (Jardiance) blood sugar diagnostic (Advanced 07/18/22 07/18/22 History Glucose Meter Test Strips) blood-glucose meter (Advanced 07/18/22 07/18/22 History Glucose Meter) carvedilol 25 mg tablet (Coreg) 25 mg PO BID High blood pressure 07/18/22 07/18/22 History citalopram 20 mg tablet 20 mg PO DAILY Depression 07/18/22 07/18/22 History digoxin 125 mcg (0.125 mg) tablet 125 mcg PO DAILY heart rate 07/18/22 07/18/22 History finasteride 5 mg tablet 5 mg PO DAILY bladder problems 07/18/22 07/18/22 History fluticasone 250 mcg-salmeterol 50 1 inh inhalation BID Breathing 07/18/22 07/18/22 History mcg/dose blistr powdr for problems inhalation furosemide 40 mg tablet 40 mg PO DAILY Fluid 07/18/22 07/18/22 History gabapentin 300 mg c
[2022-07-18 15:08] LABS: Chloride 102 mmol/L (98-107); Potassium 3.9 mmoL/L (3.5-5.1); Sodium 137 mmol/L (136-145)
[2022-07-18 15:10] LABS: Alanine Aminotransferase 33 U/L (12-78); Aspartate Amino Transferase 31 U/L (17-59); Bilirubin,Unconjugated 0.7 mg/dL (0.0-1.1); Blood Urea Nitrogen 15 mg/dl (9-20); Creatinine Clearance Estimated 116 mL/min (50-200); Estimated Glomerular Filt Rate 81 ml/min (>60); GFR (African American) 98 ML/MIN (>60)
[2022-07-18 15:11] LABS: Albumin Level 3.8 g/dl (3.5-5.0); Alkaline Phosphatase 132 U/L (38-126); Anion Gap 10.9 mEq/L (5-15); Bilirubin,Indirect 0.7 mg/dL (0.0-0.9); Bilirubin,Total 0.7 mg/dl (0.2-1.3); Calcium 8.5 mg/dl (8.4-10.2); Carbon Dioxide 28 mmol/L (22.0-30.0); Chol/HDL Ratio 5.4 (1-3.5); Cholesterol 163 mg/dl (140-200); Glucose 225 mg/dl (74-100); HDL Cholesterol 30 mg/dl (40-60); Total Protein,Serum 6.9 g/dl (6.3-8.2); Triglycerides 255 mg/dl (30-150); VLDL Cholesterol 51 mg/dL (0-40)
[2022-07-18 15:13] LABS: INR 1.39 (0.9-1.1); Prothrombin Time 14.7 seconds (10.1-12.5)
[2022-07-18 15:21] LABS: Magnesium 1.7 mg/dl (1.6-2.3); NT Pro Brain Natriuretic Pep. 1310 pg/mL (0-450)
[2022-07-18 15:23] LABS: Direct LDL Cholesterol 91.24 mg/dL (100-129)
[2022-07-18 15:26] LABS: Troponin I 0.01 ng/ml (0.00-0.034)
--- NOTE | 2022-07-18 15:33 | ECG_ITS ---
APPROVED REPORT Exam: Resting ECG HR:76 bpm ECG Measurements Heart Rate 76 AXES QRSd 166 QRS -83 QT 438 T 61 QTc 468 Conclusion ATRIAL FIBRILLATION RIGHT BUNDLE BRANCH BLOCK [120+ ms QRS DURATION, UPRIGHT V1, 40+ ms S IN I/aVL/V4/V5/V6] LEFT ANTERIOR FASCICULAR BLOCK [QRS AXIS <= -45, QR IN I, RS IN II] MODERATE T-WAVE ABNORMALITY, CONSIDER LATERAL ISCHEMIA [-0.1+ mV T-WAVE IN I/aVL/V5/V6] ABNORMAL ECG UNCONFIRMED REPORT Electronically signed by : Bk Johnson MD 07/18/2022 20:23:47
[2022-07-18 15:39] LABS: Basophils # 0.1 K/mm3 (0-0.2); Eosinophils # 0.7 K/mm3 (0.0-0.4); Eosinophils % 9.4 % (0.1-12.0); Hematocrit 42.6 % (42.0-52.0); Hemoglobin 13.8 g/dL (14.1-18.0); Lymphocytes # 1.2 K/mm3 (0.7-4.5); Lymphocytes % 16.5 % (10-50); Mean Corpuscular HGB Conc 32.4 g/dL (31.8-35.4); Mean Corpuscular Hemoglobin 28.6 pg (27.0-31.2); Mean Corpuscular Volume 88.3 fl (80-94); Mean Platelet Volume 7.7 fl (7.4-10.4); Monocytes # 0.4 K/mm3 (0.1-1.0); Monocytes % 5.1 % (1.7-9.3); Platelet Count 177 K/mm3 (142-424); Red Blood Count 4.83 M/mm3 (4.60-6.20); Red Cell Distribution Width 14.8 % (11.5-17.5); White Blood Count 7.4 K/mm3 (4.8-10.8)
[2022-07-18 16:00] VITALS: BP 134/76; PULSE 70; RESP 18; TEMP 36.8; O2SAT 100
[2022-07-18 16:04] LABS: Hemoglobin A1C 9.8 % (4.0-6.0)
[2022-07-18 16:33] VITALS: PULSE 70
[2022-07-18 17:35] LABS: Thyroid Stimulating Hormone 1.63 uIU/mL (0.465-4.68)
[2022-07-18 18:09] LABS: Troponin I 0.01 ng/ml (0.00-0.034)
[2022-07-18 18:24] VITALS: PULSE 71
[2022-07-18 18:31] LABS: POC Glucose,Bedside 239 (70-110)
[2022-07-18 19:09] LABS: Coronavirus 19, PCR Not Detected (NotDetected); Influenza A, PCR Not Detected (NotDetected); Influenza B, PCR Not Detected (NotDetected)
[2022-07-18 20:00] VITALS: BP 154/81; PULSE 85; RESP 18; TEMP 36.9; O2SAT 95
--- NOTE | 2022-07-18 20:30 | PC.NURSE ---
noted pt prescribed solostar lantus insulin which is new for patient, pt is on soliqua 50 units daily at home and has already taken his dose this am, confirmed with [address] to administer lantus as prescribed, telephone instructions given to administer the lantus as prescribed and hold ssi, recheck bs at 10.
[2022-07-18 21:18] LABS: Troponin I 0.02 ng/ml (0.00-0.034)
[2022-07-18 22:03] LABS: POC Glucose,Bedside 315 (70-110)
--- NOTE | 2022-07-18 22:45 | PC.NURSE ---
informed sixto allna of fsbs recheck is 263, instructions given to hold ssi at this time.
[2022-07-18 23:06] LABS: POC Glucose,Bedside 263 (70-110)
[2022-07-18 23:34] VITALS: PULSE 85
[2022-07-19] VITALS (7 sets, daily range): BP systolic 146–164; BP diastolic 69–79; PULSE 70–87; RESP 18; TEMP 36.7–37.1; O2SAT 91–97; BMI 39.1
--- NOTE | 2022-07-19 04:00 | PC.NURSE ---
no change from previous assessment, pt refused to wear cpap through the night, pt remains npo, telemetry reveals atrial fib with bbb, no acute distress.
[2022-07-19 06:36] LABS: POC Glucose,Bedside 141 (70-110)
--- NOTE | 2022-07-19 07:16 | HMH.PHAINT1 ---
Pharmacy Intervention Comments: Medication reconciliation completed using external fill history and list from last PCP visit (06/13/22)
--- NOTE | 2022-07-19 10:22 | EXP.CARD.PN ---
Subjective Subjective Date: 07/19/22 Time: 10:23 Principal diagnosis: Diastolic CHF, labile HTN Interval history: 82-year-old white male in bed in no acute distress. States his breathing and edema have improved. Dietary indiscretion (specifically his soda intake) reviewed with recommendation to drastically cut down his soda intake. BNP was elevated at 1300 Chest x-ray showed cardiomegaly with mild pulmonary congestion Renal duplex showed less than 60% stenosis on the right and no significant stenosis on the left. Echocardiogram results noted below: 1.? Biatrial enlargement, normal left ventricular size, mild concentric left ventricular hypertrophy, estimated ejection fraction is 55% with no regional wall motion abnormality, diastolic parameters are inconclusive. 2.? Moderately enlarged right ventricle with normal contractility. 3.? Mild mitral and moderate tricuspid regurgitation, calculated right ventricular systolic pressure is 54 mmHg. 4.? No significant pericardial effusion noted. 5.? Inferior vena cava is mildly dilated with no significant inspiratory collapse. Electronically signed by : Mak Pineda MD? 07/19/2022 06:16:17 Exam Data for Last 24 hours Vital signs and Labs for Last 24 Hours: Temp Pulse Resp BP Pulse Ox 98.1 F 80 18 164/79 H 91 L 07/19/22 07:40 07/19/22 08:00 07/19/22 07:40 07/19/22 07:40 07/19/22 07:40 Laboratory Results - last 24 hr 07/18/22 14:50: WBC 7.4, RBC 4.83, Hgb 13.8 L, Hct 42.6, MCV 88.3, MCH 28.6, MCHC 32.4, RDW 14.8, Plt Count 177, MPV 7.7, Neut % (Auto) 68.0, Lymph % (Auto) 16.5, [place] % (Auto) 5.1, Eos % (Auto) 9.4, Baso % (Auto) 1.0, Neut # (Auto) 5.0, Lymph # (Auto) 1.2, [place] # (Auto) 0.4, Eos # (Auto) 0.7 H, Baso # (Auto) 0.1 07/18/22 14:50: Sodium 137, Potassium 3.9, Chloride 102, Carbon Dioxide 28, Anion Gap 10.9, BUN 15, Creatinine 0.90, Estimated Creat Clear 116, Estimated GFR 81, Est GFR ( Amer) 98, Glucose 225 H, Calcium 8.5, Total Bilirubin 0.7, Direct Bilirubin 0.0, Conjugated Bilirubin 0.0, Indirect Bilirubin 0.7, Unconjugated Bilirubin 0.7, AST 31, ALT 33, Alkaline Phosphatase 132 H, NT-Pro-B Natriuret Pep 1310 H, Total Protein 6.9, Albumin 3.8, Triglycerides 255 H, Cholesterol 163, LDL Cholesterol Direct 91.24 L, VLDL Cholesterol 51 H, HDL Cholesterol 30 L, Cholesterol/HDL Ratio 5.4 H 07/18/22 14:50: Troponin I 0.01 07/18/22 14:50: PT 14.7 H, INR 1.39 H 07/18/22 14:50: Magnesium 1.7, TSH 1.63 07/18/22 14:50: Hemoglobin A1c 9.8 H 07/18/22 14:50: Digoxin 0.50 07/18/22 17:41: Troponin I 0.01 07/18/22 18:22: POC Glucose 239 H 07/18/22 19:00: SARS-CoV-2 (PCR) Not detected, Influenza A Untype (PCR) Not detected, Influenza Type B (PCR) Not detected 07/18/22 20:15: POC Glucose 315 H* 07/18/22 20:39: Troponin I 0.02 07/18/22 22:36: POC Glucose 263 H 07/19/22 06:26: POC Glucose 141 H I & O for Last 24 hours: Intake & Output 07/16/22 07/17/22 07/18/22 07/19/22 11:59 11:59 11:59 11:59 Intake Total 720 / 720 Output Total 2875 / 2875 Balance -2155 / -2155 Weight 305 lb 2 oz Constitutional Constitutional: no acute distress *Routine Respiratory Exam Respiratory: Present rhonchi and diminished air movement *Routine Cardiovascular Exam Cardiovascular: Present irregularly irregular *Routine Extremities Exam Extremities: Present edema Progress Note: A&P Assessment and plan (1) Acute on chronic heart failure with preserved ejection fraction (HFpEF): Status: Acute (2) ONEIDA and COPD overlap syndrome: Status: Acute (3) BMI 39.0-39.9,adult: Status: Acute (4) CAD (coronary artery disease): Problem details: MIRELLA and angioplasty (2021) per [facility] [place] Recent Cath in 08/2020 showed Occluded SVG X 2, patent KINCAID to LAD, patient SVG to diagonal, severe disease OM in 1 stent, mid circ. Medical management in 2018. MIRELLA in 2012. Hx of CABG. Status: Chronic (5) Afib: Status: Chronic (6) Diabetes mellitus: Status: Ch
--- NOTE | 2022-07-19 10:55 | EXP.DC.SUM ---
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 His care was transitioned to [facility] inpatient service for management of acute on chronic HFpEF, uncontrolled blood pressure and dyspnea. The patient reports 5 to 6 months of shortness of air not improving with home medical therapy. He reports the shortness of air has increased in intensity and is now occurring with minimal exertional activity. He is NYHA class III. He has not identified any increasing pedal edema, cough, confusion or hemoptysis. He reports no calf edema or calf pain. He reports no associated fever or chills. He reports occasional retrosternal tightness lasting a few seconds and resolving spontaneously. He has identified elevated blood pressures with ED evaluations identifying his concerns. He reports occasional dizziness with no falls, syncope or mental status changes. He reports compliance with his NIPPV therapy at home. 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 Hospital Course Hospital Course Hospital Course: The patient was admitted to the medical unit with cardiac monitoring. Cardiology was consulted. He underwent echocardiogram that identified LVH with EF 55%, aortic stenosis and elevated right ventricular systolic pressure 54 mmHg. His chest x-ray identified cardiomegaly with pulmonary vascular congestion. A duplex of his renal arteries identified <60% on right. Nursing staff reported improved blood pressures with restarting his home meds. The patient identified concerns with occasional medication noncompliance. Cardiology recommended discharge to follow-up in the office. He will undergo a CTA abdomen and pelvis with runoffs to better delineate his renal arteries and assess for peripheral vascular disease. He will continue with his chronic anticoagulation for A-fib and P2 Y12 inhibitor therapy for his coronary artery disease. We have recommended initiation of Eliquis and discontinuation of Xarelto with evidence concerning his age group and bleeding. His CBC and CMP identified normal results. His glucose is elevated with an hemoglobin A1c 9.8% identified uncontrolled diabetes. His proBNP was elevated. He was maintained on loop diuretic therapy with good diuresing. The patient identified improvement and inquired about discharge home. He will be discharged home to follow-up with his PCP in 1 week and utility aircrewman as scheduled. Exam Data for Last 24 hours Vital signs and Labs for Last 24 Hours: Temp Pulse Resp BP Pulse Ox 98.1 F 80 18 164/79 H 91 L 07/19/22 07:40 07/19/22 08:00 07/19/22 07:40 07/19/22 07:40 07/19/22 07:40 Laboratory Results - last 24 hr 07/18/22 14:50: WBC 7.4, RBC 4.83, Hgb 13.8 L, Hct 42.6, MCV 88.3, MCH 28.6, MCHC 32.4, RDW 14.8, Plt Count 177, MPV 7.7, Neut % (Auto) 68.0, Lymph % (Auto) 16.5, [place] % (Auto) 5.1, Eos % (Auto) 9.4, Baso % (Auto) 1.0, Neut # (Auto) 5.0, Lymph # (Auto) 1.2, [place] # (Auto) 0.4, Eos # (Auto) 0.7 H, Baso # (Auto) 0.1 07/18/22 14:50: Sodium 137, Potassium 3.9, Chloride 102, Carbon Dioxide 28, Anion Gap 10.9, BUN 15, Creatinine 0.90, Estimated Creat Clear 116, Estimated GFR 81, Est GFR ( Amer) 98, Glucose 225 H, Calcium 8.5, Total Bilirubin 0.7, Direct Bilirubin 0.0, Conjugated Bilirubin 0.0, Indirect Bilirubin 0.7, Unconjugated Bilirubin 0.7, AST 31, ALT 33, Alkaline Phosphatase 132 H, NT-Pro-B Natriuret Pep 1310 H, Total Protein 6.9, Albumin 3.8, Triglycerides 255 H, Cholesterol 163, LDL Cholesterol Direct 91.24 L, VLDL Cholesterol 51 H, HDL Cholesterol 30 L, Cholesterol/HDL Ratio 5.4 H 07/18/22 14:50: Troponin I 0.01 07/18/22 14:50: PT 14.7 H, INR 1.39 H 07/18/22 14:50: Magnesium 1.7, TSH 1.63 07/18/22 14:50: Hemoglobin A1c 9.8 H 07/18/22 14:50: Digoxin 0.50 07/18/22 17:41: Troponin I 0.01 07/18/22 18:22: POC Glucose 2
--- NOTE | 2022-07-19 11:16 | HMH.PHAINT1 ---
Pharmacy Intervention Comments: Discussed discharge medications with patient. Patient verbalized understanding and had no questions at this time.
--- NOTE | 2022-07-19 11:28 | PC.NURSE ---
Patient refused to have his blood glucose checked. Patient states, I would rather just do it like I do at home since I'm going home. The patient wished to take his usual insulin dose once he gets home.
--- NOTE | 2022-07-20 13:58 | CARE MANAGER ---
Contacted patient related to hospital discharge. Patient states he is feeling well. He did get his medication and is aware of follow up appointments. KAUSHIK New
== END 2022-07-19 11:38 | disposition home or self-care (01) ==
PROVIDERS: Physician Assistant; Admitting Provider Family Medicine; PCP Family Medicine; Visit Provider Family Medicine
DX: I25.118 Atherosclerotic heart disease of native coronary artery with other forms of angina pectoris (principal); I11.0 Hypertensive heart disease with heart failure; Z79.4 Long term (current) use of insulin; E11.65 Type 2 diabetes mellitus with hyperglycemia; E78.2 Mixed hyperlipidemia; Z95.1 Presence of aortocoronary bypass graft; Z79.01 Long term (current) use of anticoagulants; Z79.899 Other long term (current) drug therapy; I50.33 Acute on chronic diastolic (congestive) heart failure; E66.01 Morbid (severe) obesity due to excess calories; Z68.39 Body mass index [BMI] 39.0-39.9, adult; Z95.828 Presence of other vascular implants and grafts; Z20.822 Contact with and (suspected) exposure to COVID-19
CPT/HCPCS: G0378; G0379; 36415; 71046; 80048; 80061; 80076; 80162; 82962; 83036; 83735; 83880; 84443; 84484; 85025; 85610; 93005; 93306; 93976; 94640; C9803; U0003; U0005

== ENCOUNTER → 2022-07-30 10:05 | Outpatient (CLI) | payer MEDICARE, SELFPAY ==
--- NOTE | 2022-07-30 10:06 | CT_ITS ---
FINAL REPORT TECHNIQUE: Post contrast axial imaging of the aorta and bilateral lower extremity was obtained and reviewed.This study was performed with techniques to keep radiation doses as low as reasonably achievable (ALARA). Individualized dose reduction techniques using automated exposure control or adjustment of mA and/or kV according to the patient''s size were employed. CLINICAL HISTORY: labile hypertension, leg pain FINDINGS: There is no abdominal aortic aneurysm or dissection. Celiac axis is patent with mild stenosis seen of its origin. There is mild stenosis of the SMA, which is patent. There is a replaced hepatic artery arising from the SMA. Distal branches are patent. Calcifications are seen of the origins of the bilateral renal arteries without significant stenosis. ALINA is patent. Bilateral common iliac, external and internal iliac arteries are patent. Right: Superficial femoral, profundal and popliteal arteries are patent with scattered calcifications. Three-vessel runoff is seen in the proximal calf. At the level of the ankle, contrast is not well visualized. Some collateralization is seen at the medial foot. Left: Superficial femoral, profundal and popliteal arteries are patent with scattered calcifications. Contrast is seen only in the proximal portions of the calf vessels. No opacification is identified in the mid/distal calf. Lung bases demonstrate several right lower lung pulmonary nodules. Mixed density nodule is seen in the inferior right upper lobe measuring 12 mm. There is also a 12 mm nodule in the right middle lobe and 10 mm nodule just above the right hemidiaphragm. There is interlobular septal thickening. Mild edema not excluded. Review of the remaining abdomen and pelvis demonstrates no evidence of mass or adenopathy. There is no small bowel obstruction. Prostate is enlarged. There is no lymphadenopathy or ascites. No acute osseous abnormalities identified. IMPRESSION: Atherosclerotic disease, predominantly of the distal calf vessels bilaterally as above. No aneurysm or dissection. Right lower lung nodules which may be infectious, inflammatory or neoplastic. Recommend follow-up chest CT. Reviewed, Interpreted and Dictated by Lida Edward MD Transcribed by Kelly Gomez Authenticated and [facility]
== END ==
PROVIDERS: PCP Family Medicine; Visit Provider Internal Medicine
DX: E11.9 Type 2 diabetes mellitus without complications (principal); E66.09 Other obesity due to excess calories; G47.33 Obstructive sleep apnea (adult) (pediatric); I25.10 Atherosclerotic heart disease of native coronary artery without angina pectoris; J44.9 Chronic obstructive pulmonary disease, unspecified; R09.89 Other specified symptoms and signs involving the circulatory and respiratory systems; R60.0 Localized edema; Z68.39 Body mass index [BMI] 39.0-39.9, adult; Z79.4 Long term (current) use of insulin; I48.20 Chronic atrial fibrillation, unspecified
CPT/HCPCS: 75635; Q9967

== ENCOUNTER → 2022-09-13 23:11 | Outpatient (CLI) | payer MEDICARE, SELFPAY ==
[2022-09-13 18:26] LABS: Alanine Aminotransferase 51 U/L (12-78); Albumin Level 3.6 g/dl (3.5-5.0); Albumin/Globulin Ratio 1.3 (1.1-1.8); Alkaline Phosphatase 138 U/L (38-126); Anion Gap 18.1 mEq/L (5-15); Aspartate Amino Transferase 40 U/L (17-59); Bilirubin,Total 0.7 mg/dl (0.2-1.3); Blood Urea Nitrogen 19 mg/dl (9-20); Calcium 8.5 mg/dl (8.4-10.2); Carbon Dioxide 31 mmol/L (22.0-30.0); Chloride 93 mmol/L (98-107); Estimated Glomerular Filt Rate 64 ml/min (>60); GFR (African American) 78 ML/MIN (>60); Globulin 2.7 g/dL (1.3-3.2); Glucose 316 mg/dl (74-100); Potassium 4.1 mmoL/L (3.5-5.1); Sodium 138 mmol/L (136-145); Total Protein,Serum 6.3 g/dl (6.3-8.2)
[2022-09-13 18:58] LABS: Thyroid Stimulating Hormone 2.06 uIU/mL (0.465-4.68)
== END ==
PROVIDERS: PCP Family Medicine; Visit Provider Family Medicine
DX: E11.9 Type 2 diabetes mellitus without complications; Z79.4 Long term (current) use of insulin; Z09 Encounter for follow-up examination after completed treatment for conditions other than malignant neoplasm; I25.10 Atherosclerotic heart disease of native coronary artery without angina pectoris; R09.89 Other specified symptoms and signs involving the circulatory and respiratory systems; R60.0 Localized edema
CPT/HCPCS: 80053; 83036; 84443

== ENCOUNTER 2023-05-09 09:35 | Outpatient (CLI) | payer MEDICARE, SELFPAY ==
[2023-05-09 23:02] LABS: Amphetamine/Metha Screen,Urine Negative ng/ml (<1000); Barbiturates Screen,Urine Negative ng/ml (<200); Benzodiazepines Screen,Urine Negative ng/ml (<200); Cannabinoid Screen,Urine Negative ng/ml (<50); Cocaine Screen,Urine Negative ng/ml (<300); Methadone Screen,Urine Negative ng/ml (<300); Opiate Screen,Urine Positive ng/ml (<300)
[2023-05-09 23:11] LABS: Phencyclidine Screen,Urine Negative ng/ml (<25)
== END 2023-05-09 23:59 ==
LOC: LAB.DROPOF 05-10 10:37
PROVIDERS: PCP Family Medicine; Visit Provider Family Medicine
DX: Z79.899 Other long term (current) drug therapy (principal)
CPT/HCPCS: 80307

== ENCOUNTER 2023-05-29 12:14 | Observation (INO) | payer MEDICARE, SELFPAY ==
[2023-05-29] VITALS (18 sets, daily range): BP systolic 93–155; BP diastolic 53–85; PULSE 72–93; RESP 13–19; TEMP 36.5–36.8; O2SAT 91–96; BMI 36.8
--- NOTE | 2023-05-29 12:20 | ECG_ITS ---
APPROVED REPORT Exam: Resting ECG HR:79 bpm ECG Measurements Heart Rate 79 AXES QRSd 179 QRS -71 QT 441 T 18 QTc 476 Conclusion ATRIAL FIBRILLATION RIGHT BUNDLE BRANCH BLOCK [120+ ms QRS DURATION, UPRIGHT V1, 40+ ms S IN I/aVL/V4/V5/V6] LEFT ANTERIOR FASCICULAR BLOCK [QRS AXIS <= -45, QR IN I, RS IN II] ABNORMAL ECG UNCONFIRMED REPORT Electronically signed by : Bk Johnson MD 05/31/2023 14:42:16
--- NOTE | 2023-05-29 12:40 | XR_ITS ---
FINAL REPORT CLINICAL HISTORY: syncope, SOA, weakness COMPARISON: 07/18/2022 FINDINGS: SINGLE-VIEW CHEST There is moderate cardiomegaly. The patient is status post median sternotomy. There is mild interstitial opacity at bases, probably related to edema superimposed on chronic interstitial opacity. There is no pneumothorax. IMPRESSION: Edema superimposed on chronic interstitial opacity. Reviewed, Interpreted and Dictated by Damir Palmer MD Transcribed by Tammi Ferrari Authenticated and [facility]
[2023-05-29 12:47] LABS: Basophils % 0.6 % (0.1-2.0); Eosinophils # 0.8 K/mm3 (0.0-0.4); Eosinophils % 17.6 % (0.1-12.0); Hematocrit 35.5 % (42.0-52.0); Hemoglobin 11.3 g/dL (14.1-18.0); Lymphocytes % 20.3 % (10-50); Mean Corpuscular HGB Conc 31.9 g/dL (31.8-35.4); Mean Corpuscular Hemoglobin 27.8 pg (27.0-31.2); Mean Platelet Volume 6.9 fl (7.4-10.4); Monocytes # 0.4 K/mm3 (0.1-1.0); Monocytes % 7.3 % (1.7-9.3); Neutrophils # 2.6 K/mm3 (1.8-7.8); Neutrophils % 54.3 % (37.0-80.0); Platelet Count 151 K/mm3 (142-424); Red Blood Count 4.08 M/mm3 (4.60-6.20); Red Cell Distribution Width 15.5 % (11.5-17.5); White Blood Count 4.8 K/mm3 (4.8-10.8)
[2023-05-29 13:00] LABS: Chloride 108 mmol/L (98-107)
[2023-05-29 13:01] LABS: Potassium 3.9 mmoL/L (3.5-5.1); Sodium 141 mmol/L (136-145)
[2023-05-29 13:03] LABS: Alanine Aminotransferase 24 U/L (12-78); Alkaline Phosphatase 149 U/L (38-126); Aspartate Amino Transferase 31 U/L (17-59); Bilirubin,Total 0.7 mg/dl (0.2-1.3); Blood Urea Nitrogen 15 mg/dl (9-20); Creatinine Clearance Estimated 99 mL/min (50-200); Estimated Glomerular Filt Rate 64 ml/min (>60); GFR (African American) 78 ML/MIN (>60)
[2023-05-29 13:04] LABS: Albumin Level 3.4 g/dl (3.5-5.0); Anion Gap 7.9 mEq/L (5-15); Calcium 8.7 mg/dl (8.4-10.2); Carbon Dioxide 29 mmol/L (22.0-30.0); Globulin 3.3 g/dL (1.3-3.2); Glucose 141 mg/dl (74-100); Total Protein,Serum 6.7 g/dl (6.3-8.2)
[2023-05-29 13:15] LABS: NT Pro Brain Natriuretic Pep. 1350 pg/mL (0-450)
[2023-05-29 13:17] LABS: D-Dimer 0.66 ug/mL (0.0-0.5); Troponin I 0.02 ng/ml (0.00-0.034)
[2023-05-29 13:22] LABS: T4 (Thyroxine) 5.4 ug/dl (5.53-11.0)
[2023-05-29 13:36] LABS: Thyroid Stimulating Hormone 1.08 uIU/mL (0.465-4.68)
--- NOTE | 2023-05-29 14:31 | PC.NURSE ---
DR NAVAS AT BEDSIDE TO UPDATE PT
--- NOTE | 2023-05-29 14:42 | PC.NURSE ---
Case management notified of admission
--- NOTE | 2023-05-29 15:09 | PC.NURSE ---
REPORT CALLED TO KAUSHIK CARLSON
--- NOTE | 2023-05-29 15:39 | ED_ITS ---
Discharge Plan Disposition Patient Disposition: Admitted Condition: Good Clinical Impressions Clinical Impression: Orthostatic hypotension, General weakness, CHF exacerbation Discharge ED Provider: Franny Xie General Adult HPI General Chief complaint: Recheck/Abnormal Lab/Rx Stated complaint: Hypotension Time Seen by Provider: 05/29/23 12:19 Mode of Arrival: EMS Source of Information: Patient and EMS Limitations: No Limitations Description of Symptoms (Recalled from ER Triage Doc. by RN): Per EMS and Dr. Fritz' office patient was seen in office for a follow up related to having pneumonia 3 weeks ago. According to office staff patient was hypotensive, unsteady on his feet, and in afib in their office. EMS stated that the patient had a syncopal episode 2 weeks ago and has been dizzy every since. History of Present Illness HPI narrative: This patient is an 82-year-old male with a history of CAD status post CABG, CHF, atrial fibrillation, hypertension, hyperlipidemia, ONEIDA, hypertensive heart disease, and type 2 diabetes presenting to the emergency department for evaluation with concern for low blood pressure and high heart rate at his PCPs office today. Patient reports that he had pneumonia 3 weeks ago and had been doing better, however he has been unsteady on his feet and is felt weaker overall. He passed out 2 days ago while waiting in line at the [facility]. He states he has been feeling lightheaded ever since. He went to his PCPs office today, who noted that he was hypotensive and tachycardic. Given this, I seen him in for further evaluation and management. Patient reports compliance with all of his home medications. He denies any recent fevers, chills, chest pain, cough, congestion, abdominal pain, or other concerns. Related Data Home Medications Medication Instructions Recorded Confirmed fluticasone propionate 50 1 spray intranasal DAILY allergies 06/10/17 05/29/23 mcg/actuation nasal spray,suspension empagliflozin 25 mg tablet 25 mg PO DAILY Diabetes 06/27/22 05/29/23 (Jardiance) furosemide 40 mg tablet 40 mg PO DAILY 09/13/22 05/29/23 Previous Rx's Medication Instructions Recorded albuterol sulfate 2.5 mg/3 mL 2.5 mg (3 mL) inhalation Q6H #180 08/10/22 (0.083 %) solution for nebulization mL albuterol sulfate 90 mcg/actuation 2 puff inhalation QID PRN 08/10/22 aerosol inhaler Breathing problems #8.5 grams apixaban 5 mg tablet (Eliquis) 5 mg PO BID #60 tabs 09/13/22 finasteride 5 mg tablet See Rx Instructions .Route 09/18/22 .COMPLEX #90 tabs losartan 100 mg tablet 100 mg PO DAILY #90 tabs 09/20/22 ondansetron HCl 4 mg tablet 4 mg PO TID #45 tabs 10/15/22 aspirin 81 mg tablet,delayed See Rx Instructions .Route 12/07/22 release .COMPLEX #90 tabs carvedilol 25 mg tablet See Rx Instructions .Route 01/03/23 .COMPLEX #60 tabs hydralazine 50 mg tablet 50 mg PO BID #60 tabs 01/09/23 potassium chloride 20 mEq See Rx Instructions .Route 01/09/23 tablet,extended release(part/cryst) .COMPLEX #90 tabs torsemide 20 mg tablet 20 mg PO DAILY PRN edema #60 tabs 01/09/23 atorvastatin 40 mg tablet See Rx Instructions .Route 02/06/23 .COMPLEX #90 tabs citalopram 20 mg tablet See Rx Instructions .Route 02/06/23 .COMPLEX #90 tabs clopidogrel 75 mg tablet See Rx Instructions .Route 02/06/23 .COMPLEX #90 tabs digoxin 125 mcg (0.125 mg) tablet See Rx Instructions .Route 02/06/23 .COMPLEX #90 tabs isosorbide mononitrate 30 mg See Rx Instructions .Route 02/06/23 tablet,extended release 24 hr .COMPLEX #90 tabs pantoprazole 40 mg tablet,delayed See Rx Instructions .Route 02/06/23 release .COMPLEX #90 tabs tamsulosin 0.4 mg capsule See Rx Instructions .Route 02/06/23 .COMPLEX #90 caps blood-glucose meter #1 ea 03/15/23 gabapentin 300 mg capsule 300 mg PO TID Pain #90 caps 04/17/23 insulin NPH-regular 70-30 U-100 40 unit (0.4 mL) SQ BID #60 mL 04/23/23 insulin 100 unit/mL subcutaneous pen (Novolin 70-30 FlexPen U-100 Insulin) hydrocodone 7.5 mg-acetaminophen 1 tab PO TID PRN Pain #90 tabs 04/26/23 325 mg tablet triamcinolone acetonide 0.1 % 1 applic dental TID PRN mouth 05/09/23 dental paste irritation #5 grams fluticasone 250 mcg-salmeterol 50 See Rx Instructions .Route 05/17/23 mcg/dose blistr powdr for .COMPLEX #60 blisters inhalation Allergies Allergy/AdvReac Type Severity Reaction Status Date / Time amoxicillin [From Augmentin] Allergy Severe edema Verified 05/29/23 10:40 ciprofloxacin [From Cipro] Allergy Severe Redness of Verified 05/29/23 10:40 Skin clavulanic acid Allergy Severe edema Verified 05/29/23 10:40 [From Augmentin] [facility] Disclaimer: The information contained in this section may have been updated after the patient was seen, as this information can be updated by other users. 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 Afib BMI 39.0-39.9,adult CAD (coronary artery disease) CHF (congestive heart failure) Diabetes mellitus HHD (hypertensive heart disease) HLD (hyperlipidemia) OAB (overactive bladder) ONEIDA and COPD overlap syndrome Surgical History History of left heart catheterization (LHC) History of left inguinal hernia repair History of umbilical hernia repair Hx of CABG Family History Mother Coronary artery disease Father Tuberculosis Social History Smoking Status: Former smoker years smoked: 30 smoking status stop date: 1992 alcohol intake: never substance use type: denies use current occupational status: disabled Travel in the last 8 weeks: None ROS Obtained: Yes All systems reviewed & no additional complaints except as documented Physical Exam General General appearance: alert and in no apparent distress Head Head exam: atraumatic and normocephalic Eye Eye exam: Present normal appearance, PERRL and EOMI ENT ENT exam: Present normal exam, normal oropharynx, mucous membranes moist and normal external ear exam Neck Neck exam: Present normal inspection, full ROM and trachea midline; Absent tenderness Chest Chest inspection: Present normal inspection and symmetric chest wall rise; Ab sent tenderness Respiratory Respiratory exam: Present normal lung sounds bilaterally; Absent respiratory distress, wheezes, stridor or accessory muscle use Cardiovascular Cardiovascular exam: Present regular rate and normal rhythm Abdominal Exam Abdominal exam: Present soft; Absent distention, tenderness or guarding Extremities Exam Extremities exam: Present full ROM, normal capillary refill and edema (Mild bilateral lower extremity edema); Absent tenderness Back Exam Back exam: Present normal inspection and full ROM; Absent tenderness Neurological Exam Neurological exam: Present alert, oriented X3, CN II-XII intact and normal gait; Absent motor sensory deficit Psychiatric Psychiatric exam: Present normal affect and normal mood Skin Skin exam: Present warm and dry Medical Decision Making Medical Records Medical records reviewed: Yes I reviewed the patient's medical records. Atul Inquiry Pt receiving controlled substance: No Vital Signs: 05/29/23 12:14 05/29/23 12:30 05/29/23 13:01 Temperature 98.3 F Temperature Source Oral Pulse Rate 81 81 Pulse Rate [Orthostatic Lying Left Radial] Pulse Rate [Orthostatic Sitting Left Radial] Pulse Rate [Orthostatic Standing Left Radial] Pulse Rate [Radial] 88 Respiratory Rate 16 13 15 Blood Pressure 118/79 120/62 Blood Pressure [Orthostatic Lying Left Arm] Blood Pressure [Orthostatic Sitting Left Arm] Blood Pressure [Orthostatic Standing Left Arm] Blood Pressure [Right Arm] 122/60 Blood Pressure Mean Blood Pressure Mean [Right Arm] 80 Blood Pressure Source Blood Pressure Source [Right Arm] Automatic Cuff Blood Pressure Position Blood Pressure Position [Right Arm] Sitting 02 Sat by Pulse Oximetry 94 L 95 96 Oxygen Delivery Method Room Air Room Air Room Air 05/29/23 13:30 05/29/23 14:01 05/29/23 12:40 Temperature Temperature Source Pulse Rate 73 74 Pulse Rate [Orthostatic Lying Left Radial] 84 Pulse Rate [Orthostatic Sitting Left Radial] 82 Pulse Rate [Orthostatic Standing Left Radial] 89 Pulse Rate [Radial] Respiratory Rate 19 16 Blood Pressure 137/77 100/57 L Blood Pressure [Orthostatic Lying Left Arm] 113/62 Blood Pressure [Orthostatic Sitting Left Arm] 96/59 L Blood Pressure [Orthostatic Standing Left Arm] 93/53 L Blood Pressure [Right Arm] Blood Pressure Mean 71 Blood Pressure Mean [Right Arm] Blood Pressure Source Blood Pressure Source [Right Arm] Blood Pressure Position Blood Pressure Position [Right Arm] 02 Sat by Pulse Oximetry 95 96 Oxygen Delivery Method Room Air 05/29/23 14:09 05/29/23 14:10 05/29/23 14:11 Temperature Temperature Source Pulse Rate 77 86 83 Pulse Rate [Orthostatic Lying Left Radial] Pulse Rate [Orthostatic Sitting Left Radial] Pulse Rate [Orthostatic Standing Left Radial] Pulse Rate [Radial] Respiratory Rate 16 16 16 Blood Pressure 113/62 96/59 L 93/53 L Blood Pressure [Orthostatic Lying Left Arm] Blood Pressure [Orthostatic Sitting Left Arm] Blood Pressure [Orthostatic Standing Left Arm] Blood Pressure [Right Arm] Blood Pressure Mean Blood Pressure Mean [Right Arm] Blood Pressure Source Blood Pressure Source [Right Arm] Blood Pressure Position Supine Sitting Standing Blood Pressure Position [Right Arm] 02 Sat by Pulse Oximetry 94 L 91 L 94 L Oxygen Delivery Method Room Air Room Air Room Air 05/29/23 14:30 05/29/23 15:01 05/29/23 15:35 Temperature 98.3 F Temperature Source Oral Pulse Rate 84 74 74 Pulse Rate [Orthostatic Lying Left Radial] Pulse Rate [Orthostatic Sitting Left Radial] Pulse Rate [Orthostatic Standing Left Radial] Pulse Rate [Radial] Respiratory Rate 18 15 15 Blood Pressure 106/70 L 133/73 133/73 Blood Pressure [Orthostatic Lying Left Arm] Blood Pressure [Orthostatic Sitting Left Arm] Blood Pressure [Orthostatic Standing Left Arm] Blood Pressure [Right Arm] Blood Pressure Mean Blood Pressure Mean [Right Arm] Blood Pressure Source Automatic Cuff Blood Pressure Source [Right Arm] Blood Pressure Position Sitting Blood Pressure Position [Right Arm] 02 Sat by Pulse Oximetry 95 95 Oxygen Delivery Method Room Air Room Air Room Air 05/29/23 15:37 Temperature 98.1 F Temperature Source Oral Pulse Rate Pulse Rate [Orthostatic Lying Left Radial] Pulse Rate [Orthostatic Sitting Left Radial] Pulse Rate [Orthostatic Standing Left Radial] Pulse Rate [Radial] 77 Respiratory Rate 15 Blood Pressure Blood Pressure [Orthostatic Lying Left Arm] Blood Pressure [Orthostatic Sitting Left Arm] Blood Pressure [Orthostatic Standing Left Arm] Blood Pressure [Right Arm] 155/85 H Blood Pressure Mean Blood Pressure Mean [Right Arm] 108 Blood Pressure Source Blood Pressure Source [Right Arm] Automatic Cuff Blood Pressure Position Blood Pressure Position [Right Arm] Sitting 02 Sat by Pulse Oximetry 95 Oxygen Delivery Method Room Air Lab Data Lab results reviewed: Yes I reviewed the patient's lab results. Lab Results 05/29/23 12:32: WBC 4.8, RBC 4.08 L, Hgb 11.3 L, Hct 35.5 L, MCV 87.0, MCH 27.8, MCHC 31.9, RDW 15.5, Plt Count 151, MPV 6.9 L, Neut % (Auto) 54.3, Lymph % (Auto) 20.3, [place] % (Auto) 7.3, Eos % (Auto) 17.6 H, Baso % (Auto) 0.6, Neut # (Auto) 2.6, Lymph # (Auto) 1.0, [place] # (Auto) 0.4, Eos # (Auto) 0.8 H, Baso # (Auto) 0.0, D-Dimer 0.66 H, Sodium 141, Potassium 3.9, Chloride 108 H, Carbon Dioxide 29, Anion Gap 7.9, BUN 15, Creatinine 1.10, Estimated Creat Clear 99, Estimated GFR 64, Est GFR ( Amer) 78, Glucose 141 H, Calcium 8.7, Total Bilirubin 0.7, AST 31, ALT 24, Alkaline Phosphatase 149 H, Troponin I 0.02, NT-Pro-B Natriuret Pep 1350 H, Total Protein 6.7, Albumin 3.4 L, Globulin 3.3 H, Albumin/Globulin Ratio 1.0 L, TSH 1.08, Thyroxine (T4) 5.4 L 05/29/23 12:32 05/29/23 12:32 Orders (Tests/Meds): ED MEDICATIONS Generic Name Dose Route Start Last Admin Trade Name Freq PRN Reason Stop Dose Admin Insulin Human Lispro 0 unit 05/29/23 16:30 Humalog 100 Units/Ml 3ml Vial (Ssi) SQ 06/28/23 16:29 [facility] Protocol ORDERS Category Date Time Status XR chest portable Stat Exams 05/29/23 12:40 Completed Brain Natriuretic Peptide Stat Lab 05/29/23 12:32 Completed Complete Blood Count Auto Diff AMLAB Lab 05/30/23 06:00 Ordered Complete Blood Count Auto Diff Stat Lab 05/29/23 12:32 Completed Comprehensive Metabolic Panel AMLAB Lab 05/30/23 06:00 Ordered Comprehensive Metabolic Panel Stat Lab 05/29/23 12:32 Completed D-Dimer Stat Lab 05/29/23 12:32 Completed Hemoglobin A1C Routine Lab 05/29/23 12:37 Received Magnesium AMLAB Lab 05/30/23 06:00 Ordered T4 (Thyroxine) Stat Lab 05/29/23 12:32 Completed Thyroid Stimulating Hormone Stat Lab 05/29/23 12:32 Completed Troponin I Q3H Lab 05/29/23 15:45 Ordered Troponin I Q3H Lab 05/29/23 18:45 Ordered Troponin I Stat Lab 05/29/23 12:32 Completed ECG initial [place] Routine Y 05/29/23 12:20 Completed ECG Data Tracing #1: I reviewed this ECG and interpreted as documented below: Atrial fibrillation with a ventricular rate of 79 bpm. Right bundle branch block and left anterior fascicular block noted. No acute ST elevations concerning for STEMI. ECG initial impression date: 05/29/23 ECG initial impression time: 12:28 Medical Decision Narrative: In summary, this patient is a 82-year-old male presenting to the Emergency Department for evaluation of lightheadedness as well as hypotension and tachycardia at his primary care provider's office. Differential diagnoses considered include but are not limited to ACS, dysrhythmia, dehydration, JACK, overdiuresis, CHF exacerbation, sepsis. Ruling out the most morbid conditions drove assessment. On exam, the patient is alert and conversational and is nontoxic-appearing. Vitals are reassuring while at rest. Workup included CBC, CMP, BNP, chest x- ray, EKG, and orthostatic vital signs. I independently interpreted x-ray prior to the radiologist read and noted pulmonary edema. Please see their read for final interpretation. Labs were obtained that demonstrated elevated BNP without obvious other acute concerns. Orthostatic vital signs demonstrated significant orthostatic hypotension. Patient acutely became symptomatic. He has a complicated situation given that he has volume overload in the setting of CHF as well as orthostatic hypotension, which could be medication related. Given this, I feel that he would benefit from admission for continued monitoring and adjustment of his medications. I called and had an interactive discussion with the hospitalist, Dr. Joseph who graciously admit the patient for further evaluation and management. Critical Care Critical Care Time Critical Care Time: No
[2023-05-29 16:32] LABS: Troponin I 0.02 ng/ml (0.00-0.034)
--- NOTE | 2023-05-29 18:02 | EXP.HP ---
History of Present Illness *Admission Date: 05/29/23 *Reason for visit:: Dizzy, weak *History of present illness: Mr. Vasques is an 82-year-old male with history of CABG, diabetes, CAD, hypertension, CHF. Presented to his PCPs office today who sent him to the hospital for further evaluation. States he had pneumonia little over 3 weeks ago and was admitted at [place]. Did well and was discharged home to complete antibiotics. Has had some weakness since that time but became frankly hypotensive 2 days ago while at the [facility] with his nephew. States that he had an episode of approximately 15 minutes where he does not recall what happened and reportedly syncopized. Has had some occasional dizziness and weakness. Feels weak when he stands up. Increased shortness of breath but no new oxygen requirement. Has been wearing oxygen with his CPAP at night since his hospital admission but is on room air during the day. Denies fever, chest pain, nausea, vomiting. Sent to the ER for further evaluation by his PCP. In the ER, noted to have orthostatic hypotension. Chest imaging obtained showing pulmonary congestion. Labs remarkable for normal white cell count, electrolytes and creatinine within normal range. BNP elevated at 1350. Given his orthostatic hypotension with concurrent concern for volume overload, medicine consulted for admission. On evaluation after arriving to the floor, blood pressure showing improved. No other complaints at this time. [facility] Disclaimer: The information contained in this section may have been updated after the patient was seen, as this information can be updated by other users. 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 Afib BMI 39.0-39.9,adult CAD (coronary artery disease) CHF (congestive heart failure) Diabetes mellitus HHD (hypertensive heart disease) HLD (hyperlipidemia) OAB (overactive bladder) [place] and COPD overlap syndrome Surgical History History of left heart catheterization (LHC) History of left inguinal hernia repair History of umbilical hernia repair Hx of CABG Family History Father Mother Tuberculosis Father Coronary artery disease Mother Social History Smoking Status: Former smoker years smoked: 30 smoking status stop date: 1992 alcohol intake: never substance use type: denies use current occupational status: disabled Travel in the last 8 weeks: None Review of Systems Review of Systems Review of systems (narrative): 14 point review of systems performed, pertinent positives and negatives as per HPI Meds Home Medications and Allergies Home Medications Medication Instructions Recorded Confirmed Type fluticasone propionate 50 1 spray intranasal DAILY allergies 06/10/17 05/29/23 History mcg/actuation nasal spray,suspension empagliflozin 25 mg tablet 25 mg PO DAILY Diabetes 06/27/22 05/29/23 History (Jardiance) albuterol sulfate 2.5 mg/3 mL 2.5 mg (3 mL) inhalation Q6H #180 08/10/22 05/29/23 Rx (0.083 %) solution for nebulization mL albuterol sulfate 90 mcg/actuation 2 puff inhalation QID PRN 08/10/22 05/29/23 Rx aerosol inhaler Breathing problems #8.5 grams apixaban 5 mg tablet (Eliquis) 5 mg PO BID #60 tabs 09/13/22 05/29/23 Rx furosemide 40 mg tablet 40 mg PO DAILY 09/13/22 05/29/23 History finasteride 5 mg tablet See Rx Instructions .Route 09/18/22 05/29/23 Rx .COMPLEX #90 tabs losartan 100 mg tablet 100 mg PO DAILY #90 tabs 09/20/22 05/29/23 Rx ondansetron HCl 4 mg tablet 4 mg PO TID #45 tabs 10/15/22 05/29/23 Rx aspirin 81 mg tablet,delayed See Rx Instructions .Route 12/07/22 05/29/23 Rx release .COMPLEX #90 tabs hydralazine 50 mg tablet 50 mg PO BID #60 tabs 01/09/23 05/29/23 Rx potassium chloride 20 mEq See Rx Instructions .Route 01/09/23 05/29/23 Rx tablet,extended release(part/cryst) .COMPLEX #90 tabs torsemide 20 mg tablet 20 mg PO DAILY PRN edema #60 tabs 01/09/23 05/29/23 Rx atorvastatin 40 mg tablet See Rx Instructions .Route 02/06/23 05/29/23 Rx .COMPLEX #90 tabs citalopram 20 mg tablet See Rx Instructions .Route 02/06/23 05/29/23 Rx .COMPLEX #90 tabs clopidogrel 75 mg tablet See Rx Instructions .Route 02/06/23 05/29/23 Rx .COMPLEX #90 tabs digoxin 125 mcg (0.125 mg) tablet See Rx Instructions .Route 02/06/23 05/29/23 Rx .COMPLEX #90 tabs isosorbide mononitrate 30 mg See Rx Instructions .Route 02/06/23 05/29/23 Rx tablet,extended release 24 hr .COMPLEX #90 tabs pantoprazole 40 mg tablet,delayed See Rx Instructions .Route 02/06/23 05/29/23 Rx release .COMPLEX #90 tabs tamsulosin 0.4 mg capsule See Rx Instructions .Route 02/06/23 05/29/23 Rx .COMPLEX #90 caps blood-glucose meter #1 ea 03/15/23 05/29/23 Rx gabapentin 300 mg capsule 300 mg PO TID Pain #90 caps 04/17/23 05/29/23 Rx insulin NPH-regular 70-30 U-100 40 unit (0.4 mL) SQ BID #60 mL 04/23/23 05/29/23 Rx insulin 100 unit/mL subcutaneous pen (Novolin 70-30 FlexPen U-100 Insulin) hydrocodone 7.5 mg-acetaminophen 1 tab PO TID PRN Pain #90 tabs 04/26/23 05/29/23 Rx 325 mg tablet triamcinolone acetonide 0.1 % 1 applic dental TID PRN mouth 05/09/23 05/29/23 Rx dental paste irritation #5 grams fluticasone 250 mcg-salmeterol 50 See Rx Instructions .Route 05/17/23 05/29/23 Rx mcg/dose blistr powdr for .COMPLEX #60 blisters inhalation carvedilol 25 mg tablet 25 mg PO BID 05/29/23 05/29/23 History New Prescriptions to Start Prescriptions: Allergies Allergy/AdvReac Type Severity Reaction Status Date / Time amoxicillin [From Augmentin] Allergy Severe edema Verified 05/29/23 10:40 ciprofloxacin [From Cipro] Allergy Severe Redness of Verified 05/29/23 10:40 Skin clavulanic acid Allergy Severe edema Verified 05/29/23 10:40 [From Augmentin] Exam Data for Last 24 hours Vital signs and Labs for Last 24 Hours: Temp Pulse Resp BP Pulse Ox O2 Del Method 97.7 F 74 18 155/85 H 91 L Room Air 05/29/23 15:49 05/29/23 15:49 05/29/23 15:49 05/29/23 15:49 05/29/23 15:49 05/29/23 16:48 Laboratory Results - last 24 hr 05/29/23 12:32: WBC 4.8, RBC 4.08 L, Hgb 11.3 L, Hct 35.5 L, MCV 87.0, MCH 27.8, MCHC 31.9, RDW 15.5, Plt Count 151, MPV 6.9 L, Neut % (Auto) 54.3, Lymph % (Auto) 20.3, [place] % (Auto) 7.3, Eos % (Auto) 17.6 H, Baso % (Auto) 0.6, Neut # (Auto) 2.6, Lymph # (Auto) 1.0, [place] # (Auto) 0.4, Eos # (Auto) 0.8 H, Baso # (Auto) 0.0, D-Dimer 0.66 H, Sodium 141, Potassium 3.9, Chloride 108 H, Carbon Dioxide 29, Anion Gap 7.9, BUN 15, Creatinine 1.10, Estimated Creat Clear 99, Estimated GFR 64, Est GFR ( Amer) 78, Glucose 141 H, Calcium 8.7, Total Bilirubin 0.7, AST 31, ALT 24, Alkaline Phosphatase 149 H, Troponin I 0.02, NT-Pro-B Natriuret Pep 1350 H, Total Protein 6.7, Albumin 3.4 L, Globulin 3.3 H, Albumin/Globulin Ratio 1.0 L, TSH 1.08, Thyroxine (T4) 5.4 L 05/29/23 16:00: Troponin I 0.02 I & O for Last 24 hours: Intake & Output 05/26/23 05/27/23 05/28/23 05/29/23 23:59 23:59 23:59 23:59 Intake Total 240 / 240 Output Total 0 / 0 Balance 240 / 240 Weight 129.983 kg Constitutional Constitutional: no acute distress, obese, chronically ill appearing, disheveled and cooperative *Routine HEENT Exam Head: Present normocephalic Eye: Present EOMI and PERRL ENT: Present mucous membranes moist *Routine Neck Exam Neck: Present supple; Absent lymphadenopathy *Routine Respiratory Exam Respiratory: Present rhonchi, normal respiratory effort and symmetric chest movement; Absent rales, respiratory distress or wheezes *Routine Cardiovascular Exam Cardiovascular: Present RRR; Absent murmur *Routine Abdominal Exam Abdominal: Present soft, normoactive bowel sounds and obese; Absent tenderness *Routine Rectal Exam Rectal:: deferred *Routine Genitalia Exam Genitalia:: deferred *Routine Extremities Exam Extremities: Present edema (2+ to knees), full ROM, pulses intact and normal capillary refill; Absent cyanosis or clubbing *Routine Skin Exam Skin: Present warm; Absent rash *Routine Neurological Exam Neurological: Present alert, oriented X3, moving all extremities, vision grossly intact, hearing grossly intact and normal speech; Absent sensory deficit or motor deficit Routine Psychiatric Exam Psychiatric: Present normal affect, normal thought process, cooperative, good insight and good judgment Assessment and Plan *Assessment and plan (1) Orthostatic hypotension: Status: Acute Category: Medical Code(s): I95.1 - Orthostatic hypotension (2) General weakness: Status: Acute Category: Medical Code(s): R53.1 - Weakness (3) CHF exacerbation: Status: Acute Category: Medical Code(s): I50.9 - Heart failure, unspecified (4) [place] and COPD overlap syndrome: Status: Acute Category: Medical Code(s): G47.33 - Obstructive sleep apnea (adult) (pediatric); J44.9 - Chronic obstructive pulmonary disease, unspecified (5) CAD (coronary artery disease): Problem Comment: MIRELLA and angioplasty (2021) per [facility] in [place] Recent Cath in 08/2020 showed Occluded SVG X 2, patent KINCAID to LAD, patient SVG to diagonal, severe disease OM in 1 stent, mid circ. Medical management in 2018. MIRELLA in 2012. Hx of CABG. Status: Chronic Qualifiers: Associated angina: without angina Coronary Disease-Associated Artery/Lesion type: [place] artery [place] vs. transplanted heart: [place] heart Qualified Code(s): I25.10 - Atherosclerotic heart disease of [place] coronary artery without angina pectoris Category: Medical Code(s): I25.10 - Atherosclerotic heart disease of [place] coronary artery without angina pectoris (6) Afib: Status: Chronic Qualifiers: Atrial fibrillation type: chronic Qualified Code(s): I48.2 - Chronic atrial fibrillation Category: Medical Code(s): I48.91 - Unspecified atrial fibrillation (7) Diabetes mellitus: Status: Chronic Qualifiers: Diabetes mellitus complication status: without complication Diabetes mellitus terminal makeup operator insulin use: with care home use Diabetes mellitus type: type 2 Qualified Code(s): E11.9 - Type 2 diabetes mellitus without complications; Z79.4 - skilled nursing (current) use of insulin Category: Medical Code(s): E11.9 - Type 2 diabetes mellitus without complications (8) Obesity: Status: Chronic Qualifiers: Body mass index: BMI 39.0-39.9 Obesity classification: adult class 2 (BMI 35 - 39.9) Obesity type: due to excess calories Serious obesity comorbidity presence: without serious comorbidity Qualified Code(s): E66.09 - Other obesity due to excess calories; Z68.39 - Body mass index (BMI) 39.0-39.9, adult Category: Medical Code(s): E66.9 - Obesity, unspecified Plan 82-year-old male with orthostatic hypotension, syncope. Discussed case with ER, request admission for management of blood pressure, close monitoring of hemodynamics, cardiology consult. Medicine agreed to admit for further management. Problems addressed as follows: Orthostatic hypotension CAD status post CABG CHF -Cardiology consulted, appreciate their recommendations. - Adjustment to blood pressure regimen. Will continue Eliquis 5 mg twice daily, aspirin 81 mg daily, Lipitor 40 mg nightly. Will decrease carvedilol to 12.5 mg twice daily. Continue digoxin 0.125 mg daily. Continue Jardiance 25 mg daily. - Holding hydralazine. Holding isosorbide. Decrease losartan, transition to irbesartan at 37.5 mg daily. - Concern for volume overload on chest imaging, chest x-ray personally reviewed and shows pulmonary edema/pulmonary congestion. Elevated BNP 1350. Will diurese x 1 with Lasix 40 mg IV. -Attempting to obtain records from [place] for last echo approximately 2 months ago. If unable to obtain, will repeat echo to evaluate heart failure status - CBC, CMP, Mg pending in the morning COPD: continue to Advair and her. Does not having exacerbation symptoms. Continue albuterol nebulizer as needed every 6 hours Neuropathy: Continue gabapentin per home regimen Diabetes: - Continue Jardiance 25 mgl daily - SSI ACHS and FSGS. - A1c pending class 2 obesity complicates all aspect of his care Full code Cardiac diet Stephie
[2023-05-29 18:04] LABS: Hemoglobin A1C 9.4 % (4.0-6.0)
[2023-05-29] MEDS: FUROSEMIDE 40MG/4ML VIAL 40 MG IV (18:26)
[2023-05-29 20:24] LABS: POC Glucose,Bedside 215 (70-110)
[2023-05-29 20:42] LABS: Troponin I 0.02 ng/ml (0.00-0.034)
[2023-05-29] MEDS: ACETAMINOPHEN 325MG TAB 650 MG PO (21:13)
[2023-05-29] MEDS: TAMSULOSIN 0.4MG CAPSULE 0.400000000000000022 MG PO (21:14)
[2023-05-29] MEDS: PANTOPRAZOLE 40MG TABLET 40 MG PO (21:14)
[2023-05-29] MEDS: ATORVASTATIN 40MG TABLET 40 MG PO (21:15)
[2023-05-29] MEDS: APIXABAN 5MG TABLET 5 MG PO (21:15)
[2023-05-29] MEDS: humaLOG 100 UNITS/ML 3ML VIAL (SSI) SQ (21:15)
[2023-05-29] MEDS: CARVEDILOL 25MG TABLET 12.5 MG PO (21:18)
[2023-05-29] MEDS: GABAPENTIN 300MG CAPSULE 300 MG PO (23:00)
[2023-05-29] MEDS: ALBUTEROL 0.083% 2.5 MG/3 ML NEB IH (23:02)
[2023-05-30] VITALS (8 sets, daily range): BP systolic 108–155; BP diastolic 54–80; PULSE 77–89; RESP 16–18; TEMP 36.3–36.8; O2SAT 92–95; BMI 35.9
--- NOTE | 2023-05-30 05:11 | PC.NURSE ---
Patient has rested well this shift with no acute changes or complaints. Patient has been urinating per urinal in adequate amounts. Patients BLE has non pitting edema. Call kelley, personal belongings. bedside table, and water pitcher all within reach.
[2023-05-30] MEDS: FLUTICASONE/SALMETEROL 250/50MCG DISKUS 1 PUFF IH ×2 (05:40→18:15)
[2023-05-30] MEDS: ALBUTEROL 0.083% 2.5 MG/3 ML NEB IH ×4 (05:40→23:43)
[2023-05-30 06:11] LABS: POC Glucose,Bedside 138 (70-110)
[2023-05-30 07:55] LABS: Basophils % 0.8 % (0.1-2.0); Eosinophils % 17.5 % (0.1-12.0); Hematocrit 35.9 % (42.0-52.0); Hemoglobin 12.2 g/dL (14.1-18.0); Lymphocytes # 1.3 K/mm3 (0.7-4.5); Lymphocytes % 22.7 % (10-50); Mean Corpuscular HGB Conc 34.1 g/dL (31.8-35.4); Mean Corpuscular Hemoglobin 29.4 pg (27.0-31.2); Mean Platelet Volume 7.6 fl (7.4-10.4); Monocytes # 0.5 K/mm3 (0.1-1.0); Monocytes % 8.1 % (1.7-9.3); Neutrophils # 2.8 K/mm3 (1.8-7.8); Neutrophils % 50.9 % (37.0-80.0); Platelet Count 142 K/mm3 (142-424); Red Blood Count 4.17 M/mm3 (4.60-6.20); Red Cell Distribution Width 15.7 % (11.5-17.5); White Blood Count 5.5 K/mm3 (4.8-10.8)
[2023-05-30 08:03] LABS: Alanine Aminotransferase 20 U/L (12-78); Albumin Level 3.3 g/dl (3.5-5.0); Alkaline Phosphatase 150 U/L (38-126); Anion Gap 9.4 mEq/L (5-15); Aspartate Amino Transferase 29 U/L (17-59); Bilirubin,Total 0.8 mg/dl (0.2-1.3); Blood Urea Nitrogen 14 mg/dl (9-20); Calcium 8.4 mg/dl (8.4-10.2); Carbon Dioxide 29 mmol/L (22.0-30.0); Chloride 104 mmol/L (98-107); Creatinine Clearance Estimated 106 mL/min (50-200); Estimated Glomerular Filt Rate 72 ml/min (>60); GFR (African American) 87 ML/MIN (>60); Globulin 3.2 g/dL (1.3-3.2); Glucose 149 mg/dl (74-100); Magnesium 1.5 mg/dl (1.6-2.3); Potassium 3.4 mmoL/L (3.5-5.1); Sodium 139 mmol/L (136-145); Total Protein,Serum 6.5 g/dl (6.3-8.2)
--- NOTE | 2023-05-30 08:31 | HMH.PHAINT1 ---
Pharmacy Intervention Comments: Home med list verified with patient at bedside and with external pharmacy list.
[2023-05-30] MEDS: FUROSEMIDE 40MG/4ML VIAL 40 MG IV ×2 (10:24→16:31)
[2023-05-30] MEDS: IRBESARTAN 75MG TABLET 75 MG PO (10:24)
[2023-05-30] MEDS: APIXABAN 5MG TABLET 5 MG PO ×2 (10:25→21:18)
[2023-05-30] MEDS: CARVEDILOL 12.5MG TABLET 12.5 MG PO ×2 (10:25→21:18)
[2023-05-30] MEDS: GABAPENTIN 300MG CAPSULE 300 MG PO ×2 (10:25→21:18)
[2023-05-30] MEDS: CITALOPRAM 20MG TABLET 20 MG PO (10:25)
[2023-05-30] MEDS: ASPIRIN EC 81MG TABLET 81 MG PO (10:25)
[2023-05-30] MEDS: EMPAGLIFLOZIN 10MG TABLET 20 MG PO (10:25)
[2023-05-30] MEDS: DIGOXIN 0.125MG TABLET 125 MCG PO (10:25)
[2023-05-30] MEDS: CLOPIDOGREL 75MG TAB 75 MG PO (10:25)
[2023-05-30 10:36] LABS: POC Glucose,Bedside 242 (70-110)
[2023-05-30] MEDS: humaLOG 100 UNITS/ML 3ML VIAL (SSI) SQ ×3 (10:53→21:18)
[2023-05-30] MEDS: MAGNESIUM SULFATE IN WATER 2 GM/50 ML PIGGYBACK IV (12:10)
[2023-05-30] MEDS: ACETAMINOPHEN 325MG TAB 650 MG PO ×2 (12:17→23:32)
--- NOTE | 2023-05-30 13:57 | EXP.ACUTE.PN ---
Subjective *Date: 05/30/23 *Time: 22:21 Interval history: Feeling better this morning. Diuresing well. Put out almost 3 L negative fluid with single dose of Lasix. On room air. No nausea or vomiting. Denies any further dizziness. Repeat orthostatics this morning stable. No further orthostatic hypotension. Denies chest pain. Very hard of hearing Medical Exam Vital signs and Labs for Last 24 Hours: Vital Signs Temp Pulse Pulse Pulse Pulse Pulse Resp 05/30/23 12:33 05/30/23 08:00 05/30/23 10:43 05/30/23 10:25 78 05/30/23 08:00 97.4 F L 18 05/30/23 08:00 81 88 87 05/30/23 05:40 82 05/30/23 05:40 80 05/30/23 04:00 97.7 F 83 17 05/29/23 23:03 75 05/29/23 23:02 77 05/29/23 21:00 05/29/23 20:00 05/29/23 20:00 98 F 93 H 17 05/29/23 18:50 72 05/29/23 18:50 75 05/29/23 18:43 05/29/23 16:48 05/29/23 16:30 05/29/23 15:49 97.7 F 74 18 05/29/23 15:37 98.1 F 77 15 05/29/23 15:35 98.3 F 74 15 05/29/23 15:01 74 15 05/29/23 14:30 84 18 05/29/23 14:11 83 16 05/29/23 14:10 86 16 05/29/23 14:09 77 16 05/29/23 14:01 74 16 BP BP BP BP BP Pulse Ox O2 Del Method 05/30/23 12:33 Room Air 05/30/23 08:00 95 Room Air 05/30/23 10:43 Room Air 05/30/23 10:25 05/30/23 08:00 94 L Room Air 05/30/23 08:00 134/80 120/59 L 108/54 L 05/30/23 05:40 05/30/23 05:40 05/30/23 04:00 155/68 H 95 05/29/23 23:03 05/29/23 23:02 05/29/23 21:00 Room Air 05/29/23 20:00 Room Air 05/29/23 20:00 144/85 H 95 Room Air 05/29/23 18:50 05/29/23 18:50 05/29/23 18:43 Room Air 05/29/23 16:48 Room Air 05/29/23 16:30 Room Air 05/29/23 15:49 155/85 H 91 L Room Air 05/29/23 15:37 155/85 H 95 Room Air 05/29/23 15:35 133/73 Room Air 05/29/23 15:01 133/73 95 Room Air 05/29/23 14:30 106/70 L 95 Room Air 05/29/23 14:11 93/53 L 94 L Room Air 05/29/23 14:10 96/59 L 91 L Room Air 05/29/23 14:09 113/62 94 L Room Air 05/29/23 14:01 100/57 L 96 Intake and Output 05/29/23 05/30/23 05/30/23 23:59 07:59 15:59 Intake Total 240 / 360 120 / 650 530 / 650 Output Total 2225 / 3225 1250 / 3225 1974 Balance -1984 / -2864 -1130 / -257 -144 / Intake: Intake, Oral Amount 240 / 360 120 / 600 480 / 600 Intake, Total IV Amount 50 / 50 Magnesium Sulfate in Water 2 gm 50 / 50 In 50 ml @ 50 mls/hr IV ONCE ONE Rx#:[id number] Output: Output, Urine Amount 2225 / 3225 1250 / 3225 1974 Other: Number of Unmeasured Voids 0 1 Weight 127.142 kg Patient Weight 05/30/23 23:59 Weight 127.142 kg Laboratory Results - last 24 hr 05/29/23 12:32: TSH 1.08 05/29/23 12:37: Hemoglobin A1c 9.4 H 05/29/23 16:00: Troponin I 0.02 05/29/23 19:55: Troponin I 0.02 05/29/23 20:17: POC Glucose 215 H 05/30/23 05:59: POC Glucose 138 H 05/30/23 07:18: WBC 5.5, RBC 4.17 L, Hgb 12.2 L, Hct 35.9 L, MCV 86.0, MCH 29.4, MCHC 34.1, RDW 15.7, Plt Count 142, MPV 7.6, Neut % (Auto) 50.9, Lymph % (Auto) 22.7, [place] % (Auto) 8.1, Eos % (Auto) 17.5 H, Baso % (Auto) 0.8, Neut # (Auto) 2.8, Lymph # (Auto) 1.3, [place] # (Auto) 0.5, Eos # (Auto) 1.0 H, Baso # (Auto) 0.0, Sodium 139, Potassium 3.4 L, Chloride 104, Carbon Dioxide 29, Anion Gap 9.4, BUN 14, Creatinine 1.00, Estimated Creat Clear 106, Estimated GFR 72, Est GFR ( Amer) 87, Glucose 149 H, Calcium 8.4, Magnesium 1.5 L, Total Bilirubin 0.8, AST 29, ALT 20, Alkaline Phosphatase 150 H, Total Protein 6.5, Albumin 3.3 L, Globulin 3.2, Albumin/Globulin Ratio 1.0 L 05/30/23 10:23: POC Glucose 242 H I & O for Labs for Last 24 Hours: Intake & Output 05/27/23 05/28/23 05/29/23 05/30/23 23:59 23:59 23:59 23:59 Intake Total 240 / 360 650 / 650 Output Total 2225 / 3225 3225 / 3225 Balance -1985 / -2865 -2575 / -2575 Weight 129.983 kg 127.142 kg Constitutional: Present no acute distress, obese and chronically ill appearing Head: Present atraumatic and normocephalic ENT: Present normal exam Neck: Present normal inspection Respiratory: Present crackles and normal respiratory effort; Absent rhonchi or wheezes Cardiac: Present Reg Rate and Rhythm GI: Present soft and normal bowel sounds; Absent distention or tenderness Extremities: Present normal inspection, full ROM and edema (1+ lower extremities) Skin: Present intact; Absent erythema Neuro: Present Grossly Intact, alert, awake, oriented x 3 and moves all extremities Comment:: Very hard of hearing Assessment and Plan *Assessment and plan (1) Orthostatic hypotension: Status: Acute Category: Medical Code(s): I95.1 - Orthostatic hypotension (2) General weakness: Status: Acute Category: Medical Code(s): R53.1 - Weakness (3) CHF exacerbation: Status: Acute Category: Medical Code(s): I50.9 - Heart failure, unspecified (4) [place] and COPD overlap syndrome: Status: Acute Category: Medical Code(s): G47.33 - Obstructive sleep apnea (adult) (pediatric); J44.9 - Chronic obstructive pulmonary disease, unspecified (5) CAD (coronary artery disease): Problem Comment: MIRELLA and angioplasty (2021) per [facility] in [place] Recent Cath in 08/2020 showed Occluded SVG X 2, patent KINCAID to LAD, patient SVG to diagonal, severe disease OM in 1 stent, mid circ. Medical management in 2017. MIRELLA in 2012. Hx of CABG. Status: Chronic Qualifiers: Associated angina: without angina Coronary Disease-Associated Artery/Lesion type: [place] artery [place] vs. 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 insulin use: with termite exterminator helper use Diabetes mellitus type: type 2 Qualified Code(s): E11.9 - Type 2 diabetes mellitus without complications; Z79.4 - termite exterminator helper (current) use of insulin Category: Medical Code(s): E11.9 - Type 2 diabetes mellitus without complications (8) Obesity: Status: Chronic Qualifiers: Body mass index: BMI 39.0-39.9 Obesity classification: adult class 2 (BMI 35 - 39.9) Obesity type: due to excess calories Serious obesity comorbidity presence: without serious comorbidity Qualified Code(s): E66.09 - Other obesity due to excess calories; Z68.39 - Body mass index (BMI) 39.0-39.9, adult Category: Medical Code(s): E66.9 - Obesity, unspecified Plan 82-year-old male with orthostatic hypotension, syncope. Discussed case with ER, request admission for management of blood pressure, close monitoring of hemodynamics, cardiology consult. Medicine agreed to admit for further management. Showing good response to diuresis. Breathing a bit better. Continues to require inpatient management. Problems addressed as follows: Orthostatic hypotension CAD status post CABG CHF -Cardiology consulted, appreciate their recommendations. - Adjustment to blood pressure regimen. Will continue Eliquis 5 mg twice daily, aspirin 81 mg daily, Lipitor 40 mg nightly. Will decrease carvedilol to 12.5 mg twice daily. Continue digoxin 0.125 mg daily. Continue Jardiance 25 mg daily. - Holding hydralazine. Holding isosorbide. Decrease losartan, transition to irbesartan at 37.5 mg daily. -Responding to diuresis. Continue Lasix 40 mg IV daily -Attempting to obtain records from [place] for last echo approximately 2 months ago. If unable to obtain, will repeat echo to evaluate heart failure status - CBC, CMP, Mg pending in the morning COPD: continue Advair. Does not having exacerbation symptoms. Continue albuterol nebulizer as needed every 6 hours Neuropathy: Continue gabapentin per home regimen Diabetes: - Continue Jardiance 25 mg daily - SSI ACHS and FSGS. - A1c 9.4 class 2 obesity complicates all aspect of his care Full code Cardiac diet Stephie
[2023-05-30 16:36] LABS: POC Glucose,Bedside 205 (70-110)
[2023-05-30 20:37] LABS: POC Glucose,Bedside 241 (70-110)
[2023-05-30] MEDS: TAMSULOSIN 0.4MG CAPSULE 0.400000000000000022 MG PO (21:18)
[2023-05-30] MEDS: ATORVASTATIN 40MG TABLET 40 MG PO (21:18)
[2023-05-30] MEDS: PANTOPRAZOLE 40MG TABLET 40 MG PO (21:18)
[2023-05-31] VITALS (12 sets, daily range): BP systolic 93–138; BP diastolic 52–98; PULSE 56–104; RESP 16–18; TEMP 36.4–36.9; O2SAT 90–100; BMI 35.1
--- NOTE | 2023-05-31 04:13 | PC.NURSE ---
CONTINUES TO VOID LARGE AMTS OF CLEAR YELLOW URINE. ONLY COMPLAINT IS HEADACHE EARLY IN THE SHIFT. TREATED WITH TYLENOL. 02 SATS 93-95 % ON ROOM AIR. VITAL SIGNS STABLE. TRACE EDEMA BLEs. WANTS MIRALAX IN THE AM. SAYS NO BM X 5 DAYS.
[2023-05-31 05:19] LABS: POC Glucose,Bedside 171 (70-110)
[2023-05-31] MEDS: POLYETHYLENE GLYCOL 3350 17 GM PACKET PO (05:19)
[2023-05-31] MEDS: humaLOG 100 UNITS/ML 3ML VIAL (SSI) SQ ×3 (05:19→20:30)
[2023-05-31] MEDS: ALBUTEROL 0.083% 2.5 MG/3 ML NEB IH ×4 (06:48→23:44)
[2023-05-31] MEDS: FLUTICASONE/SALMETEROL 250/50MCG DISKUS 1 PUFF IH ×2 (06:49→18:00)
[2023-05-31 07:20] LABS: Basophils # 0.1 K/mm3 (0-0.2); Basophils % 0.7 % (0.1-2.0); Eosinophils # 1.1 K/mm3 (0.0-0.4); Eosinophils % 16.3 % (0.1-12.0); Hematocrit 38.2 % (42.0-52.0); Hemoglobin 13.1 g/dL (14.1-18.0); Lymphocytes # 1.6 K/mm3 (0.7-4.5); Lymphocytes % 22.7 % (10-50); Mean Corpuscular HGB Conc 34.4 g/dL (31.8-35.4); Mean Corpuscular Hemoglobin 28.9 pg (27.0-31.2); Mean Platelet Volume 7.5 fl (7.4-10.4); Monocytes # 0.5 K/mm3 (0.1-1.0); Monocytes % 6.8 % (1.7-9.3); Neutrophils # 3.7 K/mm3 (1.8-7.8); Neutrophils % 53.5 % (37.0-80.0); Platelet Count 176 K/mm3 (142-424); Red Blood Count 4.55 M/mm3 (4.60-6.20); Red Cell Distribution Width 15.6 % (11.5-17.5); White Blood Count 6.8 K/mm3 (4.8-10.8)
[2023-05-31 07:34] LABS: Alanine Aminotransferase 21 U/L (12-78); Albumin Level 3.6 g/dl (3.5-5.0); Albumin/Globulin Ratio 1.1 (1.1-1.8); Alkaline Phosphatase 152 U/L (38-126); Anion Gap 13.2 mEq/L (5-15); Aspartate Amino Transferase 29 U/L (17-59); Bilirubin,Total 0.8 mg/dl (0.2-1.3); Blood Urea Nitrogen 19 mg/dl (9-20); Calcium 9.3 mg/dl (8.4-10.2); Carbon Dioxide 29 mmol/L (22.0-30.0); Chloride 101 mmol/L (98-107); Creatinine Clearance Estimated 80 mL/min (50-200); Estimated Glomerular Filt Rate 53 ml/min (>60); GFR (African American) 64 ML/MIN (>60); Globulin 3.4 g/dL (1.3-3.2); Glucose 157 mg/dl (74-100); Magnesium 1.8 mg/dl (1.6-2.3); Potassium 3.2 mmoL/L (3.5-5.1); Sodium 140 mmol/L (136-145)
[2023-05-31] MEDS: APIXABAN 5MG TABLET 5 MG PO ×2 (08:27→20:30)
[2023-05-31] MEDS: ASPIRIN EC 81MG TABLET 81 MG PO (08:27)
[2023-05-31] MEDS: EMPAGLIFLOZIN 10MG TABLET 20 MG PO (08:27)
[2023-05-31] MEDS: DIGOXIN 0.125MG TABLET 125 MCG PO (08:27)
[2023-05-31] MEDS: CLOPIDOGREL 75MG TAB 75 MG PO (08:27)
[2023-05-31] MEDS: DOCUSATE SODIUM 100 MG CAPSULE PO ×2 (08:27→20:30)
[2023-05-31] MEDS: IRBESARTAN 75MG TABLET 75 MG PO (08:27)
[2023-05-31] MEDS: GABAPENTIN 300MG CAPSULE 300 MG PO ×2 (08:27→20:30)
[2023-05-31] MEDS: CARVEDILOL 12.5MG TABLET 12.5 MG PO ×2 (08:28→20:30)
[2023-05-31] MEDS: FUROSEMIDE 40MG/4ML VIAL 40 MG IV ×2 (08:28→15:16)
[2023-05-31] MEDS: CITALOPRAM 20MG TABLET 20 MG PO (08:28)
--- NOTE | 2023-05-31 08:47 | CA_ITS ---
APPROVED REPORT EXAM: Comprehensive 2D, Doppler, and color-flow Echocardiogram Supervisor [place]: Estelita Daniels RT(R) Ht: 6 ft 2 in Wt: 273lbs BSA: 2.48 BP: 155/85 mmHg Indications: orthostatic HTN, AFIB, CAD, CHF, DM, hyperlipidemia, [place], obesity 2D Dimensions LVEF (Neely's) 51.40 % M: 52 - 72 LV Volume 104.30 mL M: 62 - 150 LV Volume Index 42.1 mL/m2 M: 34 - 74 LA Volume 138.90 mL LA Volume Index 56.01 mL/m2 (M/F) 16-34 EF AP4 56.90 % EF AP2 44.2 % EF BP 51.4 % GL Strain -8.5 % M-Mode Dimensions RVDd 3.69 cm (0.9-2.6) LA Diam 5.37 cm (1.9-4.0) LVDd 3.69 cm (3.5-5.7) LVDs 2.97 cm (3.5-5.7) IVSd 1.70 cm (0.6-1.1) PWd 0.89 cm (0.6-1.1) EF (Teich) 40.80% FS 19.50% EDV (Teich) 57.80 mL ESV (Teich) 34.20 mL Tricuspid Valve TR P. Velocity 268.00 cm/s RAP Estimate 10.00 mmHg RVSP 38.70 mmHg Left Ventricle The left ventricle is normal size. The left ventricular systolic function is normal. The left ventricular ejection fraction is within the normal range. There is increased LV wall thickness. There is normal LV segmental wall motion. The left ventricular diastolic function is normal. LVEF is 55%. Right Ventricle The right ventricle is mildly to moderately dilated. Right ventricle is mildly hypokinetic. Atria Left atrium is severely dilated. Right atrium is severely dilated. The interatrial septum is not well visualized. Aortic Valve The aortic valve is mildly thickened. There is no aortic valvular stenosis. Trace aortic regurgitation. Mitral Valve The mitral valve leaflets are mildly thickened. No evidence of mitral valve stenosis. Mild mitral regurgitation. Tricuspid Valve The tricuspid valve leaflets are thin and pliable. Mild to moderate tricuspid regurgitation. RVSP is 30 mmHg + RA pressure. Pulmonic Valve The pulmonary valve is normal in structure. Trace pulmonic regurgitation. Great Vessels The aortic root is normal in size. The ascending aorta is normal in size. The IVC is not well visualized. Pericardium There is no pericardial effusion. Other Information Study Quality: Technically Difficult Conclusion Technically difficult study due to poor accoustic windows. Normal LV systolic function. Mild to moderate RV dilation with mild reduction in RV function. Mild MR. Mild to moderate TR. RVSP 30 mmHg + RA pressure. Electronically signed by : Latia Santiago MD 05/31/2023 19:56:39
--- NOTE | 2023-05-31 10:28 | HMH.OTEV ---
OT Inpatient Evaluation Rehab OT IP Evaluation Start: 05/31/23 09:24 Freq: ONCE Status: Active Protocol: Document 05/31/23 10:20 [facility] (Rec: 05/31/23 10:28 [facility] [id number]) Rehab OT IP Assessment Subjective History Pt oriented x 3 on arrival. Pt agreeable to engage in therapy evaluation. Pt was admitted on 05/29/23 due to orthostatic hypotension. History and physical report: Mr. Vasques is an 82-year- old male with history of CABG, diabetes, CAD, hypertension, CHF. Presented to his PCPs office today who sent him to the hospital for further evaluation. States he had pneumonia little over 3 weeks ago and was admitted at [place]. Did well and was discharged home to complete antibiotics. Has had some weakness since that time but became frankly hypotensive 2 days ago while at the [facility] with his nephew. States that he had an episode of approximately 15 minutes where he does not recall what happened and reportedly syncopized. Has had some occasional dizziness and weakness. Feels weak when he stands up. Increased shortness of breath but no new oxygen requirement. Has been wearing oxygen with his CPAP at night since his hospital admission but is on room air during the day. Denies fever, chest pain, nausea, vomiting. Sent to the ER for further evaluation by his PCP. In the ER, noted to have orthostatic hypotension. Chest imaging obtained showing pulmonary congestion. Labs remarkable for normal white cell count, electrolytes and creatinine within normal range. BNP elevated at 1350. Given his orthostatic hypotension with concurrent concern for volume overload, medicine consulted for admission. Subjective I was doing everything. Prior to being in the hospital , pt lived at home and his grandson lived with him. pt claims normally he is independent with all ADLs and IADLs. 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 He claims to be very active/ independent. Pt has a walker at home, but does not use it. Objective Patient Orientation Person,Place,Birthday Right Upper Extremity Gross ROM WFL Left Upper Extremity Gross ROM WFL Bed Mobility bed mobility-scooting,bed mobility - supine/sit Assist Level Contact Guard/Hand Hold Transfer Training Sit/Stand Transfer Assist Level Contact Guard/Hand Hold Lower Body Dressing Ability Standby Assistance Performing Toilet Hygiene Ability Standby Assistance Overall Commode/Toilet Transfer Ability Standby Assistance Commode/Toilet Transfer Technique Sit to/from Ambulatory Rehab OT IP prob,goals,plan Problems Date of Evaluation: 05/31/23 OT IP Problems Bed Mobility,Transfers,Balance ,Self care,Safety Rehab Potential Rehab Potential Good Equipment Needs Assistive Devices Straight Cane,Rolling / Wheeled Walker Plan OT intervention Plan Bed Mobility,Transfers,Balance ,Self care,Safety,Therapeutic Exercise OT Plan Frequency BID Duration LOS Discharge Goals Bed Mobility Ability Standby Assistance Sit to Stand Chair Transfer Ability Supervision/Stand by Chair Transfer Ability Supervision/Stand by Chair Transfer Technique Sit to/from Ambulatory Chair Transfer Assistive Devices Straight Cane,Rolling Walker Feeding Ability Independent Lower Body Dressing Ability Standby Assistance Upper Body Dressing Ability Standby Assistance Bathing Ability Standby Assistance Performing Toilet Hygiene Ability Standby Assistance Overall Commode/Toilet Transfer Ability Standby Assistance Commode/Toilet Transfer Technique Sit to/from Ambulatory Oral Care Assist Standby Assistance Decrease in Endurance No Discharge Plan OT Discharge Plan Pt appears to be close to baseline with functional transfers and ADL independence . Pt can return home with grandson once he is medically stable per phsyician. Therapist recommends home health OT evaluation for continued skilled therapy services. Eval Complexity Eval Charge Codes 01297 - Moderate Complexity PHYSICIAN CERTIFICATION: I certify the specified therapy services for Kel Vasques are required, authorized, and reviewed every 30 days.
[2023-05-31] MEDS: POTASSIUM CHLORIDE 20MEQ TAB 20 MEQ PO ×2 (11:07→20:29)
[2023-05-31] MEDS: MAGNESIUM SULFATE IN WATER 2 GM/50 ML PIGGYBACK IV (11:07)
[2023-05-31 11:12] LABS: POC Glucose,Bedside 245 (70-110)
--- NOTE | 2023-05-31 11:48 | EXP.CARD.CON ---
History of Present Illness History of Present Illness Consult date: 05/31/23 Requesting physician: Bernardino Joseph Consult reason: congestive heart failure Chief complaint: Shortness of breath and weakness History of present illness: 82-year-old white male seen in our office approximately 1 year ago. He has history of CABG, paroxysmal atrial fibrillation, diabetes, hypertension, biatrial enlargement with RV dilation and historically normal ejection fraction. Patient states he was doing well on his usual medical therapy until about 3 weeks ago at which point he developed pneumonia associated with diarrhea. He had some weight loss and decreased p.o. intake at that time and has had several episodes of hypotension with weakness associated with altered mental status. On day of arrival he had been at the [facility] with his family member and developed gradual onset of severe weakness and had to be lowered to the floor where he remained for approximately 15 minutes. Patient does not recall the scenario. EMS was called and on the arrival to the emergency room patient was found to be orthostatic. EKG showed atrial fibrillation with right bundle branch block and left anterior fascicular block, chest x-ray showed pulmonary vascular congestion, proBNP 1350. He was noted to be volume overloaded. He was diuresed on admission and BP meds lowered. His blood pressure is improving and he is diuresed over 6 L and currently asymptomatic. He did report mild dizziness when he was ambulating with PT earlier today. [facility] Disclaimer: The information contained in this section may have been updated after the patient was seen, as this information can be updated by other users. 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 Afib BMI 39.0-39.9,adult CAD (coronary artery disease) CHF (congestive heart failure) Diabetes mellitus HHD (hypertensive heart disease) HLD (hyperlipidemia) OAB (overactive bladder) ONE[place] and COPD overlap syndrome Surgical History History of left heart catheterization (LHC) History of left inguinal hernia repair History of umbilical hernia repair Hx of CABG Family History Mother Coronary artery disease Father Tuberculosis Social History Smoking Status: Former smoker years smoked: 30 smoking status stop date: 1992 alcohol intake: never substance use type: denies use current occupational status: disabled Travel in the last 8 weeks: None Review of Systems Constitutional Constitutional: Denies fatigue and Reports weakness Eyes Eyes: Denies loss of vision ENT Ears, Nose, Mouth, and Throat: Denies hearing loss and Denies vertigo *Cardiovascular Cardiovascular: Denies chest pain, Denies dyspnea and Reports syncope *Respiratory Respiratory: Denies cough and Denies dyspnea *Gastrointestinal Gastrointestinal: Denies change in stool character, Denies nausea and Denies vomiting *Genitourinary Genitourinary: Denies difficulty urinating *Musculoskeletal Musculoskeletal: Denies muscle weakness Integumentary/Breasts Skin/Breast: Denies changing lesions *Neurologic Neurologic: Denies loss of vision, Reports syncope, Denies vertigo and Reports weakness Comments: Transient altered mental status Endocrine Endocrine: Denies fatigue Exam Data for Last 24 hours Vital signs and Labs for Last 24 Hours: Temp Pulse Resp BP Pulse Ox O2 Del Method 98.4 F 73 18 124/61 100 Room Air 05/31/23 11:29 05/31/23 11:29 05/31/23 11:29 05/31/23 11:29 05/31/23 11:29 05/31/23 11:29 Laboratory Results - last 24 hr 05/30/23 16:28: POC Glucose 205 H 05/30/23 20:27: POC Glucose 241 H 05/31/23 05:12: POC Glucose 171 H 05/31/23 06:02: WBC 6.8, RBC 4.55 L, Hgb 13.1 L, Hct 38.2 L, MCV 84.0, MCH 28.9, MCHC 34.4, RDW 15.6, Plt Count 176, MPV 7.5, Neut % (Auto) 53.5, Lymph % (Auto) 22.7, Hanson % (Auto) 6.8, Eos % (Auto) 16.3 H, Baso % (Auto) 0.7, Neut # (Auto) 3.7, Lymph # (Auto) 1.6, Hanson # (Auto) 0.5, Eos # (Auto) 1.1 H, Baso # (Auto) 0.1, Sodium 140, Potassium 3.2 L, Chloride 101, Carbon Dioxide 29, Anion Gap 13.2, BUN 19 D, Creatinine 1.30 H D, Estimated Creat Clear 80, Estimated GFR 53 L, Est GFR ( Amer) 64 D, Glucose 157 H, Calcium 9.3, Magnesium 1.8 D, Total Bilirubin 0.8, AST 29, ALT 21, Alkaline Phosphatase 152 H, Total Protein 7.0, Albumin 3.6, Globulin 3.4 H, Albumin/Globulin Ratio 1.1, Digoxin 0.40 05/31/23 11:05: POC Glucose 245 H I & O for Last 24 hours: Intake & Output 05/28/23 05/29/23 05/30/23 05/31/23 23:59 23:59 23:59 23:59 Intake Total 240 / 360 1610 / 2054 444 / 444 Output Total 2225 / 3225 5425 / 6375 1600 / 1600 Balance -1985 / -2865 -3815 / -4321 -1156 / -1156 Weight 286 lb 9 oz 279 lb 15.793 oz 273 lb 8 oz Constitutional Constitutional: no acute distress and cooperative *Routine HEENT Exam Eye: Present PERRL *Routine Respiratory Exam Respiratory: Present CTA bilaterally; Absent accessory muscle use, wheezes or crackles *Routine Cardiovascular Exam Cardiovascular: Present RRR, Normal S1 and Normal S2; Absent murmur, gallop or rubs *Routine Abdominal Exam Abdominal: Present soft; Absent tenderness *Routine Extremities Exam Extremities: Present pulses intact; Absent cyanosis or edema *Routine Skin Exam Skin: Present intact; Absent erythema or wounds *Routine Neurological Exam Neurological: Present alert and oriented X3 Routine Psychiatric Exam Psychiatric: Present cooperative Meds Home Medications and Allergies Home Medications Medication Instructions Recorded Confirmed Type fluticasone propionate 50 1 spray intranasal DAILY PRN 06/10/17 05/29/23 History mcg/actuation nasal Allergies spray,suspension empagliflozin 25 mg tablet 25 mg PO DAILY Diabetes 06/27/22 05/29/23 History (Jardiance) albuterol sulfate 2.5 mg/3 mL 2.5 mg (3 mL) inhalation Q6H #180 08/10/22 05/29/23 Rx (0.083 %) solution for nebulization mL apixaban 5 mg tablet (Eliquis) 5 mg PO BID #60 tabs 09/13/22 05/29/23 Rx furosemide 40 mg tablet 40 mg PO DAILY 09/13/22 05/29/23 History losartan 100 mg tablet 100 mg PO DAILY #90 tabs 09/20/22 05/29/23 Rx blood-glucose meter #1 ea 03/15/23 05/29/23 Rx insulin NPH-regular 70-30 U-100 40 unit (0.4 mL) SQ BID #60 mL 04/23/23 05/29/23 Rx insulin 100 unit/mL subcutaneous pen (Novolin 70-30 FlexPen U-100 Insulin) hydrocodone 7.5 mg-acetaminophen 1 tab PO TID PRN Pain #90 tabs 04/26/23 05/29/23 Rx 325 mg tablet triamcinolone acetonide 0.1 % 1 applic dental TID PRN mouth 05/09/23 05/29/23 Rx dental paste irritation #5 grams carvedilol 25 mg tablet 25 mg PO BID 05/29/23 05/29/23 History albuterol sulfate 90 mcg/actuation 2 inh inhalation QID PRN Shortness 05/30/23 05/30/23 History aerosol inhaler Of Breath aspirin 81 mg tablet,delayed 81 mg PO AM 05/30/23 05/30/23 History release atorvastatin 40 mg tablet 40 mg PO HS 05/30/23 05/30/23 History citalopram 20 mg tablet 20 mg PO DAILY 05/30/23 05/30/23 History clopidogrel 75 mg tablet 75 mg PO AM 05/30/23 05/30/23 History digoxin 125 mcg (0.125 mg) tablet 125 mcg PO DAILY 05/30/23 05/30/23 History finasteride 5 mg tablet 5 mg PO DAILY 05/30/23 05/30/23 History fluticasone 250 mcg-salmeterol 50 1 inh inhalation BID 05/30/23 05/30/23 History mcg/dose blistr powdr for inhalation gabapentin 300 mg capsule 300 mg PO TID PRN Nerve Pain 05/30/23 05/30/23 History isosorbide mononitrate 30 mg 30 mg PO AM 05/30/23 05/30/23 History tablet,extended release 24 hr pantoprazole 40 mg tablet,delayed 40 mg PO DAILY 05/30/23 05/30/23 History release potassium chloride 20 mEq 20 meq PO AM 05/30/23 05/30/23 History tablet,extended release(part/cryst) tamsulosin 0.4 mg capsule 0.4 mg PO DAILY 05/30/23 05/30/23 History New Prescriptions to Start Prescriptions: Allergies Allergy/AdvReac Type Severity Reaction Status Date / Time amoxicillin [From Augmentin] Allergy Severe edema Verified 05/29/23 10:40 ciprofloxacin [From Cipro] Allergy Severe Redness of Verified 05/29/23 10:40 Skin clavulanic acid Allergy Severe edema Verified 05/29/23 10:40 [From Augmentin] Assessment and Plan *Assessment and plan (1) Orthostatic hypotension: Status: Acute Category: Medical Code(s): I95.1 - Orthostatic hypotension (2) CHF exacerbation: Status: Acute Category: Medical Code(s): I50.9 - Heart failure, unspecified (3) Syncope: Status: Acute Category: Medical Code(s): R55 - Syncope and collapse (4) Hypotension: Status: Acute Category: Medical Code(s): I95.9 - Hypotension, unspecified (5) CAD (coronary artery disease): Problem Comment: MIRELLA and angioplasty (2021) per [facility] in [place] Recent Cath in 08/2020 showed Occluded SVG X 2, patent KINCAID to LAD, patient SVG to diagonal, severe disease OM in 1 stent, mid circ. Medical management in 2018. MIRELLA in 2012. Hx of CABG. Status: Chronic Qualifiers: Coronary Disease-Associated Artery/Lesion type: seminole artery [place] vs. transplanted heart: seminole heart Associated angina: without angina Qualified Code(s): I25.10 - Atherosclerotic heart disease of seminole coronary artery without angina pectoris Category: Medical Code(s): I25.10 - Atherosclerotic heart disease of seminole coronary artery without angina pectoris (6) Afib: Status: Chronic Qualifiers: Atrial fibrillation type: chronic Qualified Code(s): I48.2 - Chronic atrial fibrillation Category: Medical Code(s): I48.91 - Unspecified atrial fibrillation Plan Orthostatic hypotension -Secondary to recent pneumonia and diarrhea and heart failure meds -Agree with reduction of of oral meds Acute on chronic HFpEF -Echo July 2022 showed biatrial enlargement, RV dilation, EF 55% -Patient presented with proBNP 1350 and vascular congestion on chest x-ray -Patient has diuresed 6 L and breathing much easier -Resume Coreg irbesartan Jardiance as tolerated -Echo pending Multivessel CAD status post CABG -Denies angina here -Continue Eliquis Plavix and statin Paroxysmal atrial fibrillation -Patient rate controlled A-fib here -Continue monitoring on telemetry, he would benefit from outpatient heart monitor due to his recurrent near syncope -Continue Eliquis Coreg and digoxin for now. Check digoxin level
[2023-05-31] MEDS: KETOROLAC 30MG/ML VIAL 30 MG IV (12:04)
--- NOTE | 2023-05-31 12:29 | HMH.PTEV ---
Physical Therapy Evaluation Rehab PT IP Evaluation Start: 05/31/23 09:24 Freq: ONCE Status: Active Protocol: Document 05/31/23 12:18 [facility]IGUEL (Rec: 05/31/23 12:27 MIGUEL [id number]) Subjective/History History History Per History and physical report: Mr. Vasques is an 82-year -old male with history of CABG , diabetes, CAD, hypertension, CHF. Presented to his PCPs office today who sent him to the hospital for further evaluation. States he had pneumonia little over 3 weeks ago and was admitted at [place]. Did well and was discharged home to complete antibiotics. Has had some weakness since that time but became frankly hypotensive 2 days ago while at the [facility] with his nephew. States that he had an episode of approximately 15 minutes where he does not recall what happened and reportedly syncopized. Has had some occasional dizziness and weakness. Feels weak when he stands up. Increased shortness of breath but no new oxygen requirement. Has been wearing oxygen with his CPAP at night since his hospital admission but is on room air during the day. Denies fever, chest pain, nausea, vomiting. Sent to the ER for further evaluation by his PCP. In the ER, noted to have orthostatic hypotension. Chest imaging obtained showing pulmonary congestion. Labs remarkable for normal white cell count, electrolytes and creatinine within normal range. BNP elevated at 1350. Given his orthostatic hypotension with concurrent concern for volume overload, medicine consulted for admission. Subjective Subjective Pt agreed to PT evaluation. PLOF: pt reports independence with functional mobility. Pt lives at home and his grandson lives with him. Pt driving prior and owns RW but primarily walks without it. New diagnosis of cancer in past 12 No months? Rehab PT IP Eval Objective Appearance Patient Behavior Appropriate,Cooperative Patient Orientation Person,Place,Year,Situation Speech Pattern Clear Ambulation Patient Able to Ambulate Yes Ambulation Observation Ambulation Distance (feet) 20 Ambulation Assistive Device None Ambulation Ability Minimal x 2 (25% assist) Transfers Bed Transfer Ability Independent Sit to Stand Bed Transfer Ability Supervision/Stand by Rehab PT IP prob,goals,plan Problems Date of Evaluation: 05/31/23 PT IP Problems Gait,Balance,Safety Rehab Potential Rehab Potential Good Equipment Needs Assistive Devices Rolling / Wheeled Walker Plan PT Intervention Plan Transfers,Gait,Balance,Safety, Therapeutic Exercise Other Intervention Plan 1-2 times daily PT Plan Frequency Daily Duration LOS Discharge Goals Sit to Stand Chair Transfer Ability Independent Ambulation Assistive Device Rolling Walker Ambulation Distance (feet) 60 Discharge Plan PT Discharge Plan Pt demonstrated IND with most functional mobility. Pt required intermittent Min A x 2 when losing balance during ambulation without RW. Recommending pt use RW for ambulation. Pt okay to d/c home when deemed medically necessary. Pt would benefit from skilled inpatient therapy to address functional mobility deficits, promote safety, and prevent further functional decline. Eval Complexity Eval Charge Codes 40502 - High Complexity PHYSICIAN CERTIFICATION: I certify the specified therapy services for Kel Vasques are required, authorized, and reviewed every 30 days.
--- NOTE | 2023-05-31 12:42 | SW/DCPLANNER ---
I spoke w/ this patient regarding plans once medically stable for discharge. PT/OT evaluated patient and recommended returning home w/ home health services. I spoke w/ patient this afternoon regarding home health: patient is not interested in services. Patient stated that he is independent at home and his grandson helps him at this time. I will continue to follow up w/ this patient to assist w/ any needs/new orders.
[2023-05-31 16:21] LABS: POC Glucose,Bedside 187 (70-110)
--- NOTE | 2023-05-31 16:43 | PC.NURSE ---
Pt. states he almost fell and caught himself and landed on the bed. States he isn't hurt and he was assessed to be okay. Charge nurse aware. Pt. states he will call out when needing to get up form the bed. Bed alarm place.
--- NOTE | 2023-05-31 17:49 | P.PN_ITS ---
Subjective *Date: 05/31/23 *Time: 17:49 Interval history: Patient feeling better today, -6 L total since hospitalization. Awaiting cardiology consult. On room air. Afebrile. Very hard of hearing. Complaining of drainage from his right ear. Medical Exam Vital signs and Labs for Last 24 Hours: Vital Signs Temp Pulse Pulse Resp BP Pulse Ox O2 Del Method 05/31/23 16:38 Room Air 05/31/23 15:39 98.4 F 75 18 93/53 L 95 Room Air 05/31/23 13:12 Room Air 05/31/23 12:53 77 05/31/23 12:53 80 05/31/23 12:23 Room Air 05/31/23 11:29 98.4 F 73 18 124/61 100 Room Air 05/31/23 10:54 Room Air 05/31/23 08:27 65 05/31/23 08:00 98.2 F 56 L 18 111/56 L 90 L Room Air 05/31/23 07:36 95 Room Air 05/31/23 07:34 Room Air 05/31/23 06:48 92 H 05/31/23 06:48 89 05/31/23 06:30 Room Air 05/31/23 04:00 97.6 F 79 16 119/52 L 98 Room Air 05/31/23 05:00 Room Air 05/31/23 02:56 Room Air 05/31/23 01:00 Room Air 05/31/23 00:00 98.4 F 84 17 135/70 95 Room Air 05/30/23 23:00 Room Air 05/30/23 21:00 Room Air 05/30/23 20:00 93 L Room Air 05/30/23 23:44 77 05/30/23 23:44 77 05/30/23 20:00 97.9 F 89 16 140/67 93 L Room Air 05/30/23 18:16 84 05/30/23 18:16 84 Intake and Output 05/31/23 05/31/23 05/31/23 07:59 15:59 23:59 Intake Total 444 / 1044 600 / 1044 Output Total 950 / 1700 750 / 1700 Balance -506 / -656 -150 / -656 Intake: Intake, Oral Amount 444 / 994 550 / 994 Intake, Total IV Amount 50 / 50 Magnesium Sulfate in Water 2 gm 50 / 50 In 50 ml @ 50 mls/hr IV ONCE ONE Rx#:[id number] Output: Output, Urine Amount 950 / 1700 750 / 1700 Other: Number of Voids 4 Number of Unmeasured Voids 0 Weight 124.058 kg Patient Weight 05/31/23 23:59 Weight 124.058 kg Laboratory Results - last 24 hr 05/30/23 20:27: POC Glucose 241 H 05/31/23 05:12: POC Glucose 171 H 05/31/23 06:02: WBC 6.8, RBC 4.55 L, Hgb 13.1 L, Hct 38.2 L, MCV 84.0, MCH 28.9, MCHC 34.4, RDW 15.6, Plt Count 176, MPV 7.5, Neut % (Auto) 53.5, Lymph % (Auto) 22.7, [place] % (Auto) 6.8, Eos % (Auto) 16.3 H, Baso % (Auto) 0.7, Neut # (Auto) 3.7, Lymph # (Auto) 1.6, [place] # (Auto) 0.5, Eos # (Auto) 1.1 H, Baso # (Auto) 0.1, Sodium 140, Potassium 3.2 L, Chloride 101, Carbon Dioxide 29, Anion Gap 13.2, BUN 19 D, Creatinine 1.30 H D, Estimated Creat Clear 80, Estimated GFR 53 L, Est GFR ( Amer) 64 D, Glucose 157 H, Calcium 9.3, Magnesium 1.8 D, Total Bilirubin 0.8, AST 29, ALT 21, Alkaline Phosphatase 152 H, Total Protein 7.0, Albumin 3.6, Globulin 3.4 H, Albumin/Globulin Ratio 1.1, Digoxin 0.40 05/31/23 11:05: POC Glucose 245 H 05/31/23 16:13: POC Glucose 187 H I & O for Labs for Last 24 Hours: Intake & Output 05/28/23 05/29/23 05/30/23 05/31/23 23:59 23:59 23:59 23:59 Intake Total 240 / 360 1610 / 2054 1044 / 1044 Output Total 2225 / 3225 5425 / 6375 1700 / 1700 Balance -1984 / -5188 -3815 / -4321 -656 / -656 Weight 129.983 kg 127 kg 124.058 kg Constitutional: Present no acute distress, obese and chronically ill appearing Head: Present atraumatic and normocephalic ENT: Present normal exam Comment:: Scant drainage from right ear, has otitis externa on exam Neck: Present normal inspection Respiratory: Present crackles and normal respiratory effort; Absent rhonchi or wheezes Cardiac: Present Reg Rate and Rhythm GI: Present soft and normal bowel sounds; Absent distention or tenderness Extremities: Present normal inspection, full ROM and edema (1+ lower extremities) Skin: Present intact; Absent erythema Neuro: Present Grossly Intact, alert, awake, oriented x 3 and moves all extremities Comment:: Very hard of hearing Assessment and Plan *Assessment and plan (1) Orthostatic hypotension: Status: Acute Category: Medical Code(s): I95.1 - Orthostatic hypotension (2) General weakness: Status: Acute Category: Medical Code(s): R53.1 - Weakness (3) CHF exacerbation: Status: Acute Category: Medical Code(s): I50.9 - Heart failure, unspecified (4) ONEIDA and COPD overlap syndrome: Status: Acute Category: Medical Code(s): G47.33 - Obstructive sleep apnea (adult) (pediatric); J44.9 - Chronic obstructive pulmonary disease, unspecified (5) CAD (coronary artery disease): Problem Comment: MIRELLA and angioplasty (2021) per [facility] in [place] Recent Cath in 08/2020 showed Occluded SVG X 2, patent KINCAID to LAD, patient SVG to diagonal, severe disease OM in 1 stent, mid circ. Medical management in 2018. MIRELLA in 2012. Hx of CABG. Status: Chronic Qualifiers: Coronary Disease-Associated Artery/Lesion type: [place] artery [place] vs. transplanted heart: [place] heart Associated angina: without angina Qualified Code(s): I25.10 - Atherosclerotic heart disease of [place] coronary artery without angina pectoris Category: Medical Code(s): I25.10 - Atherosclerotic heart disease of [place] coronary artery without angina pectoris (6) Afib: Status: Chronic Qualifiers: Atrial fibrillation type: chronic Qualified Code(s): I48.2 - Chronic atrial fibrillation Category: Medical Code(s): I48.91 - Unspecified atrial fibrillation (7) Diabetes mellitus: Status: Chronic Qualifiers: Diabetes mellitus type: type 2 Diabetes mellitus senior care insulin use: with terminologist use Diabetes mellitus complication status: without complication Qualified Code(s): E11.9 - Type 2 diabetes mellitus without complications; Z79.4 - nursing home (current) use of insulin Category: Medical Code(s): E11.9 - Type 2 diabetes mellitus without complications (8) Obesity: Status: Chronic Qualifiers: Obesity type: due to excess calories Obesity classification: adult class 2 (BMI 35 - 39.9) Serious obesity comorbidity presence: without serious comorbidity Body mass index: BMI 39.0-39.9 Qualified Code(s): E66.09 - Other obesity due to excess calories; Z68.39 - Body mass index (BMI) 39.0-39.9, adult Category: Medical Code(s): E66.9 - Obesity, unspecified Plan 82-year-old male with orthostatic hypotension, syncope. Discussed case with ER, request admission for management of blood pressure, close monitoring of hemodynamics, cardiology consult. Medicine agreed to admit for further management. Showing good response to diuresis. Breathing a bit better. Continues to require inpatient management. Problems addressed as follows: Orthostatic hypotension CAD status post CABG CHF -Cardiology consulted, appreciate their recommendations. Repeat echo obtained, echo from July of last year showed biatrial enlargement and RV dilation, EF 55%. Discussed case with cardiology, recommend continuing carvedilol at reduced dose, irbesartan, Jardiance. Continue Eliquis, Plavix, statin for multivessel CAD status post CABG and A-fib. Recommend language tutor at discharge. Continue digoxin, dig level pending. - Holding hydralazine. Holding isosorbide. -Responding to diuresis. Continue Lasix 40 mg IV daily - CBC, CMP, Mg pending in the morning Potassium 3.4, magnesium 1.5, will replace IV today. Kidney function stable with BUN of 14 and creatinine of 1. COPD: continue Advair. Does not having exacerbation symptoms. Continue albuterol nebulizer as needed every 6 hours Neuropathy: Continue gabapentin per home regimen Diabetes: - Continue Jardiance 25 mg daily - SSI ACHS and FSGS. - A1c 9.4 class 2 obesity complicates all aspect of his care Full code Cardiac diet Eliquis
[2023-05-31] MEDS: PANTOPRAZOLE 40MG TABLET 40 MG PO (20:29)
[2023-05-31] MEDS: ATORVASTATIN 40MG TABLET 40 MG PO (20:30)
[2023-05-31] MEDS: TAMSULOSIN 0.4MG CAPSULE 0.400000000000000022 MG PO (20:30)
[2023-05-31 20:32] LABS: POC Glucose,Bedside 219 (70-110)
[2023-06-01] VITALS: BP 124/75; PULSE 80; RESP 18; TEMP 36.8; O2SAT 95
[2023-06-01 04:00] VITALS: BP 120/62; PULSE 81; RESP 18; TEMP 36.6; O2SAT 98; BMI 35.4
[2023-06-01 05:43] LABS: POC Glucose,Bedside 171 (70-110)
[2023-06-01] MEDS: humaLOG 100 UNITS/ML 3ML VIAL (SSI) SQ (06:07)
[2023-06-01 06:20] VITALS: PULSE 75; PULSE 79
[2023-06-01] MEDS: FLUTICASONE/SALMETEROL 250/50MCG DISKUS 1 PUFF IH (06:20)
[2023-06-01] MEDS: ALBUTEROL 0.083% 2.5 MG/3 ML NEB IH (06:20)
[2023-06-01 07:11] LABS: Alanine Aminotransferase 22 U/L (12-78); Albumin Level 3.6 g/dl (3.5-5.0); Albumin/Globulin Ratio 1.1 (1.1-1.8); Alkaline Phosphatase 151 U/L (38-126); Anion Gap 12.7 mEq/L (5-15); Aspartate Amino Transferase 30 U/L (17-59); Bilirubin,Total 0.8 mg/dl (0.2-1.3); Blood Urea Nitrogen 28 mg/dl (9-20); Carbon Dioxide 28 mmol/L (22.0-30.0); Chloride 102 mmol/L (98-107); Creatinine Clearance Estimated 74 mL/min (50-200); Estimated Glomerular Filt Rate 49 ml/min (>60); GFR (African American) 59 ML/MIN (>60); Globulin 3.3 g/dL (1.3-3.2); Glucose 168 mg/dl (74-100); Potassium 3.7 mmoL/L (3.5-5.1); Sodium 139 mmol/L (136-145); Total Protein,Serum 6.9 g/dl (6.3-8.2)
[2023-06-01 07:12] LABS: Basophils % 0.5 % (0.1-2.0); Eosinophils # 1.2 K/mm3 (0.0-0.4); Eosinophils % 17.3 % (0.1-12.0); Hematocrit 38.7 % (42.0-52.0); Hemoglobin 13.1 g/dL (14.1-18.0); Lymphocytes # 1.5 K/mm3 (0.7-4.5); Lymphocytes % 21.6 % (10-50); Mean Corpuscular HGB Conc 33.9 g/dL (31.8-35.4); Mean Corpuscular Hemoglobin 28.9 pg (27.0-31.2); Mean Corpuscular Volume 85.1 fl (80-94); Mean Platelet Volume 7.5 fl (7.4-10.4); Monocytes # 0.6 K/mm3 (0.1-1.0); Monocytes % 8.1 % (1.7-9.3); Neutrophils # 3.7 K/mm3 (1.8-7.8); Neutrophils % 52.6 % (37.0-80.0); Platelet Count 160 K/mm3 (142-424); Red Blood Count 4.55 M/mm3 (4.60-6.20); Red Cell Distribution Width 15.7 % (11.5-17.5)
--- NOTE | 2023-06-01 07:21 | EXP.DC.SUM ---
General Admission date:: 05/29/23 Discharge date: 06/01/23 HPI HPI HPI: Mr. Vasques is an 82-year-old male with history of CABG, diabetes, CAD, hypertension, CHF. Presented to his PCPs office today who sent him to the hospital for further evaluation. States he had pneumonia little over 3 weeks ago and was admitted at [place]. Did well and was discharged home to complete antibiotics. Has had some weakness since that time but became frankly hypotensive 2 days ago while at the [facility] with his nephew. States that he had an episode of approximately 15 minutes where he does not recall what happened and reportedly syncopized. Has had some occasional dizziness and weakness. Feels weak when he stands up. Increased shortness of breath but no new oxygen requirement. Has been wearing oxygen with his CPAP at night since his hospital admission but is on room air during the day. Denies fever, chest pain, nausea, vomiting. Sent to the ER for further evaluation by his PCP. In the ER, noted to have orthostatic hypotension. Chest imaging obtained showing pulmonary congestion. Labs remarkable for normal white cell count, electrolytes and creatinine within normal range. BNP elevated at 1350. Given his orthostatic hypotension with concurrent concern for volume overload, medicine consulted for admission. On evaluation after arriving to the floor, blood pressure showing improved. No other complaints at this time. Hospital Course Hospital Course Hospital Course: 82-year-old male with orthostatic hypotension, syncope. Discussed case with ER, request admission for management of blood pressure, close monitoring of hemodynamics, cardiology consult. Medicine agreed to admit for further management. Showed good response to diuresis. Breathing better. Blood pressure is better controlled with adjustments to regimen. Stable for discharge home with follow-up with cardiology. Problems addressed as follows: Orthostatic hypotension CAD status post CABG CHF -Cardiology consulted, appreciate their recommendations. Repeat echo obtained, echo from July of last year showed biatrial enlargement and RV dilation, EF 55%. Repeat echo with preserved ejection fraction, severe biatrial dilation. Found to have elevated right heart pressures and RA pressure. Discussed case with cardiology during admission. Recommended continuing carvedilol at reduced dose. Continue Jardiance. Given soft blood pressure on day of discharge, held irbesartan. Continued Eliquis, Plavix, statin for multivessel CAD status post CABG and A-fib. Additional findings on echo necessitating further outpatient management as follows: In the setting of increased LV wall thickness, biatrial dilation, and symptomatic CHF, further evaluation on an outpatient basis for infiltrative diseases, namely amyloidosis, is recommended with PYP scan, cardiac MRI (amyloidosis protocol), and lab work-up. Continued digoxin. Holding hydralazine and isosorbide. Adjustments made to diuretic regimen. Patient's electrolytes stable during admission. Stable for discharge home with outpatient follow-up for further management. No syncope during admission. COPD: continue Advair. Does not having exacerbation symptoms. Continue albuterol nebulizer as needed every 6 hours Neuropathy: Continue gabapentin per home regimen Diabetes: - Continue Jardiance 25 mg daily. Needs further adjustments to regimen as an outpatient. A1c 9.4 during admission. Goal with his age and comorbidities would be A1c less than 8. Noted to have some pain in right ear. Noted to have otitis externa. Drops initiated during admission. Spent 30 minutes in discharge counseling, documentation, chart review, and direct care with patient. Exam Data for Last 24 hours Vital signs and Labs for Last 24 Hours: Temp Pulse Resp BP Pulse Ox O2 Del Method 98.2 F 65 18 111/56 L 90 L Room Air 05/31/23 08:00 05/31/23 08:27 05/31/23 08:00 05/31/23 08:00 05/31/23 08:00 05/31/23 08:00 Laboratory Results - last 24 hr 05/30/23 16:28: POC Glucose 205 H 05/30/23 20:27: POC Glucose 241 H 05/31/23 05:12: POC Glucose 171 H 05/31/23 06:02: WBC 6.8, RBC 4.55 L, Hgb 13.1 L, Hct 38.2 L, MCV 84.0, MCH 28.9, MCHC 34.4, RDW 15.6, Plt Count 176, MPV 7.5, Neut % (Auto) 53.5, Lymph % (Auto) 22.7, [place] % (Auto) 6.8, Eos % (Auto) 16.3 H, Baso % (Auto) 0.7, Neut # (Auto) 3.7, Lymph # (Auto) 1.6, [place] # (Auto) 0.5, Eos # (Auto) 1.1 H, Baso # (Auto) 0.1, Sodium 140, Potassium 3.2 L, Chloride 101, Carbon Dioxide 29, Anion Gap 13.2, BUN 19 D, Creatinine 1.30 H D, Estimated Creat Clear 80, Estimated GFR 53 L, Est GFR ( Amer) 64 D, Glucose 157 H, Calcium 9.3, Magnesium 1.8 D, Total Bilirubin 0.8, AST 29, ALT 21, Alkaline Phosphatase 152 H, Total Protein 7.0, Albumin 3.6, Globulin 3.4 H, Albumin/Globulin Ratio 1.1, Digoxin 0.40 I & O for Last 24 hours: Intake & Output 05/28/23 05/29/23 05/30/23 05/31/23 23:59 23:59 23:59 23:59 Intake Total 240 / 360 1610 / 2054 444 / 444 Output Total 2225 / 3225 5425 / 6375 1600 / 1600 Balance -1985 / -2865 -3815 / -4321 -1156 / -1156 Weight 129.983 kg 127 kg 124.058 kg Constitutional Constitutional: no acute distress, obese and chronically ill appearing *Routine HEENT Exam Head: Present normocephalic Eye: Present EOMI and PERRL ENT: Present mucous membranes moist Comments: Scant drainage right ear, *Routine Neck Exam Neck: Present supple; Absent lymphadenopathy *Routine Respiratory Exam Respiratory: Present CTA bilaterally; Absent rhonchi, wheezes or crackles *Routine Cardiovascular Exam Cardiovascular: Present RRR *Routine Abdominal Exam Abdominal: Present soft and normoactive bowel sounds; Absent tenderness *Routine Extremities Exam Extremities: Present edema (1+ in BLE); Absent cyanosis or clubbing *Routine Skin Exam Skin: Present warm; Absent rash *Routine Neurological Exam Neurological: Present alert, oriented X3 and moving all extremities; Absent altered mental status Comments: hard of hearing Results Data Completed and Pending Labs on day of discharge: Labs from last 24 hours 05/31/23 05/31/23 05/30/23 06:02 05:12 20:27 WBC 6.8 RBC 4.55 L Hgb 13.1 L Hct 38.2 L MCV 84.0 MCH 28.9 MCHC 34.4 RDW 15.6 Plt Count 176 MPV 7.5 Neut % (Auto) 53.5 Lymph % (Auto) 22.7 [place] % (Auto) 6.8 Eos % (Auto) 16.3 H Baso % (Auto) 0.7 Neut # (Auto) 3.7 Lymph # (Auto) 1.6 [place] # (Auto) 0.5 Eos # (Auto) 1.1 H Baso # (Auto) 0.1 Sodium 140 Potassium 3.2 L Chloride 101 Carbon Dioxide 29 Anion Gap 13.2 BUN 19 D Creatinine 1.30 H D Estimated Creat Clear 80 Estimated GFR 53 L Est GFR ( Amer) 64 D Glucose 157 H POC Glucose 171 H 241 H Calcium 9.3 Magnesium 1.8 D Total Bilirubin 0.8 AST 29 ALT 21 Alkaline Phosphatase 152 H Total Protein 7.0 Albumin 3.6 Globulin 3.4 H Albumin/Globulin Ratio 1.1 Digoxin 0.40 05/30/23 16:28 WBC RBC Hgb Hct MCV MCH MCHC RDW Plt Count MPV Neut % (Auto) Lymph % (Auto) [place] % (Auto) Eos % (Auto) Baso % (Auto) Neut # (Auto) Lymph # (Auto) [place] # (Auto) Eos # (Auto) Baso # (Auto) Sodium Potassium Chloride Carbon Dioxide Anion Gap BUN Creatinine Estimated Creat Clear Estimated GFR Est GFR ( Amer) Glucose POC Glucose 205 H Calcium Magnesium Total Bilirubin AST ALT Alkaline Phosphatase Total Protein Albumin Globulin Albumin/Globulin Ratio Digoxin DS: Diagnosis Discharge Diagnosis (1) Orthostatic hypotension: Status: Acute Code(s): I95.1 - Orthostatic hypotension (2) General weakness: Status: Acute Code(s): R53.1 - Weakness (3) CHF exacerbation: Status: Acute Code(s): I50.9 - Heart failure, unspecified (4) [place] and COPD overlap syndrome: Status: Acute Code(s): G47.33 - Obstructive sleep apnea (adult) (pediatric); J44.9 - Chronic obstructive pulmonary disease, unspecified (5) CAD (coronary artery disease): Status: Chronic Code(s): I25.10 - Atherosclerotic heart disease of [place] coronary artery without angina pectoris Qualifiers: Associated angina: without angina Coronary Disease-Associated Artery/Lesion type: [place] artery [place] vs. transplanted heart: [place] heart Qualified Code(s): I25.10 - Atherosclerotic heart disease of [place] coronary artery without angina pectoris Problem details: MIRELLA and angioplasty (2021) per [facility] in [place] Recent Cath in 08/2020 showed Occluded SVG X 2, patent KINCAID to LAD, patient SVG to diagonal, severe disease OM in 1 stent, mid circ. Medical management in 2018. MIRELLA in 2013. Hx of CABG. (6) Afib: Status: Chronic Code(s): I48.91 - Unspecified atrial fibrillation Qualifiers: Atrial fibrillation type: chronic Qualified Code(s): I48.2 - Chronic atrial fibrillation (7) Diabetes mellitus: Status: Chronic Code(s): E11.9 - Type 2 diabetes mellitus without complications Qualifiers: Diabetes mellitus complication status: without complication Diabetes mellitus buttermaker helper insulin use: with skilled nursing use Diabetes mellitus type: type 2 Qualified Code(s): E11.9 - Type 2 diabetes mellitus without complications; Z79.4 - jail (current) use of insulin (8) Obesity: Status: Chronic Code(s): E66.9 - Obesity, unspecified Qualifiers: Body mass index: BMI 39.0-39.9 Obesity classification: adult class 2 (BMI 35 - 39.9) Obesity type: due to excess calories Serious obesity comorbidity presence: without serious comorbidity Qualified Code(s): E66.09 - Other obesity due to excess calories; Z68.39 - Body mass index (BMI) 39.0-39.9, adult Meds Home Medications and Allergies Home Medications Medication Instructions Recorded Confirmed Type fluticasone propionate 50 1 spray intranasal DAILY PRN 06/10/17 05/29/23 History mcg/actuation nasal Allergies spray,suspension empagliflozin 25 mg tablet 25 mg PO DAILY Diabetes 06/27/22 05/29/23 History (Jardiance) albuterol sulfate 2.5 mg/3 mL 2.5 mg (3 mL) inhalation Q6H #180 08/10/22 05/29/23 Rx (0.083 %) solution for nebulization mL apixaban 5 mg tablet (Eliquis) 5 mg PO BID #60 tabs 09/13/22 05/29/23 Rx furosemide 40 mg tablet 40 mg PO DAILY 09/13/22 05/29/23 History blood-glucose meter #1 ea 03/15/23 05/29/23 Rx insulin NPH-regular 70-30 U-100 40 unit (0.4 mL) SQ BID #60 mL 04/23/23 05/29/23 Rx insulin 100 unit/mL subcutaneous pen (Novolin 70-30 FlexPen U-100 Insulin) hydrocodone 7.5 mg-acetaminophen 1 tab PO TID PRN Pain #90 tabs 04/26/23 05/29/23 Rx 325 mg tablet triamcinolone acetonide 0.1 % 1 applic dental TID PRN mouth 05/09/23 05/29/23 Rx dental paste irritation #5 grams albuterol sulfate 90 mcg/actuation 2 inh inhalation QID PRN Shortness 05/30/23 05/30/23 History aerosol inhaler Of Breath aspirin 81 mg tablet,delayed 81 mg PO AM 05/30/23 05/30/23 History release atorvastatin 40 mg tablet 40 mg PO HS 05/30/23 05/30/23 History citalopram 20 mg tablet 20 mg PO DAILY 05/30/23 05/30/23 History clopidogrel 75 mg tablet 75 mg PO AM 05/30/23 05/30/23 History digoxin 125 mcg (0.125 mg) tablet 125 mcg PO DAILY 05/30/23 05/30/23 History finasteride 5 mg tablet 5 mg PO DAILY 05/30/23 05/30/23 History fluticasone 250 mcg-salmeterol 50 1 inh inhalation BID 05/30/23 05/30/23 History mcg/dose blistr powdr for inhalation gabapentin 300 mg capsule 300 mg PO TID PRN Nerve Pain 05/30/23 05/30/23 History pantoprazole 40 mg tablet,delayed 40 mg PO DAILY 05/30/23 05/30/23 History release potassium chloride 20 mEq 20 meq PO AM 05/30/23 05/30/23 History tablet,extended release(part/cryst) tamsulosin 0.4 mg capsule 0.4 mg PO DAILY 05/30/23 05/30/23 History carvedilol 25 mg tablet 12.5 mg PO BID 30 days #0 tabs 06/01/23 05/29/23 Rx [id number]-[id number] 3.5 4 drp otic (ear) QID 7 days #0 mL 06/01/23 Rx mg-10,000 unit/mL-1 % ear drops,susp New Prescriptions to Start Prescriptions: Allergies Allergy/AdvReac Type Severity Reaction Status Date / Time amoxicillin [From Augmentin] Allergy Severe edema Verified 05/29/23 10:40 ciprofloxacin [From Cipro] Allergy Severe Redness of Verified 05/29/23 10:40 Skin clavulanic acid Allergy Severe edema Verified 05/29/23 10:40 [From Augmentin] prednisone AdvReac Intermediate Agitated Verified 06/01/23 09:47 Discharge Plan Disposition Patient Disposition: Home, Self-Care Condition: Fair Follow up Plan Follow up with: Xander Gutierrez MD [Staff Physician] - Enter time for follow up (The office will call you with a follow up appt. ) Hernandez Fritz MD [Primary Care Provider] - 06/13/23 2:45 pm Prescriptions/Medication Reconciliation: New hmrwglqw-lomipwozb-TE 3.5-10,000-1 mg/mL-unit/mL-% Drops,Suspension 4 drp otic (ear) QID 7 Days Qty: 0 0RF Continued fluticasone propionate 50 mcg/actuation spray,suspension 1 spray INTRANASAL DAILY PRN (Reason: Allergies) Jardiance 25 mg tablet 25 mg PO DAILY albuterol sulfate 2.5 mg /3 mL (0.083 %) solution for nebulization 2.5 mg inhalation Q6H Qty: 180 10RF furosemide 40 mg tablet 40 mg PO DAILY Eliquis 5 mg tablet 5 mg PO BID Qty: 60 10RF triamcinolone acetonide 0.1 % paste 1 applic dental TID PRN (Reason: mouth irritation) Qty: 5 10RF Rx Instructions: Use after food and/or drink and/or oral hygiene (DME) blood-glucose meter Misc See Rx Instructions .ROUTE .MEDSUPPLY Qty: 1 0RF Rx Instructions: As directed Novolin 70-30 FlexPen U-100 100 unit/mL (70-30) insulin pen 40 unit SQ BID Qty: 60 3RF hydrocodone-acetaminophen 7.5-325 mg tablet 1 tab PO TID PRN (Reason: Pain) Qty: 90 0RF atorvastatin 40 mg tablet 40 mg PO HS fluticasone propion-salmeterol 250-50 mcg/dose blister with device 1 inh INHALATION BID clopidogrel 75 mg tablet 75 mg PO AM citalopram 20 mg tablet 20 mg PO DAILY Patient Comments: TAKE ONE TABLET BY MOUTH DAILY potassium chloride 20 mEq tablet,ER particles/crystals 20 meq PO AM tamsulosin 0.4 mg capsule 0.4 mg PO DAILY Patient Comments: TAKE ONE CAPSULE BY MOUTH DAILY pantoprazole 40 mg tablet,delayed release (DR/EC) 40 mg PO DAILY Patient Comments: TAKE ONE TABLET BY MOUTH DAILY digoxin 125 mcg (0.125 mg) tablet 125 mcg PO DAILY albuterol sulfate 90 mcg/actuation HFA aerosol inhaler 2 inh INHALATION QID PRN (Reason: Shortness Of Breath) finasteride 5 mg tablet 5 mg PO DAILY aspirin 81 mg tablet,delayed release (DR/EC) 81 mg PO AM gabapentin 300 mg capsule 300 mg PO TID PRN (Reason: Nerve Pain ) Changed carvedilol 25 mg tablet 12.5 mg PO BID 30 Days Qty: 0 0RF Discontinued losartan 100 mg tablet 100 mg PO DAILY Qty: 90 3RF isosorbide mononitrate 30 mg tablet extended release 24 hr 30 mg PO AM Problem Reconciliation Problems Reviewed?: Yes Patient Discharge Instructions ACTIVITY: Continue current activity DIET: continue same diet Patient Instructions: Heart Failure, Orthostatic Hypotension, DI for Orthostatic Hypotension, DI for Heart Failure Providers Primary Care Provider: Hernandez Fritz Admit Provider: Bernardino Joseph Attending Provider: Bernardino Joseph
[2023-06-01 07:26] LABS: Magnesium 2.2 mg/dl (1.6-2.3)
[2023-06-01 08:00] VITALS: BP 107/52; BP 119/57; BP 138/71; PULSE 81; RESP 18; TEMP 36.5; O2SAT 93; O2SAT 95
[2023-06-01] MEDS: GABAPENTIN 300MG CAPSULE 300 MG PO (09:15)
[2023-06-01] MEDS: EMPAGLIFLOZIN 10MG TABLET 20 MG PO (09:15)
[2023-06-01] MEDS: CARVEDILOL 12.5MG TABLET 12.5 MG PO (09:16)
[2023-06-01] MEDS: CITALOPRAM 20MG TABLET 20 MG PO (09:16)
[2023-06-01] MEDS: ASPIRIN EC 81MG TABLET 81 MG PO (09:17)
[2023-06-01] MEDS: IRBESARTAN 75MG TABLET 75 MG PO (09:17)
[2023-06-01] MEDS: POTASSIUM CHLORIDE 20MEQ TAB 20 MEQ PO (09:18)
[2023-06-01] MEDS: CLOPIDOGREL 75MG TAB 75 MG PO (09:18)
[2023-06-01] MEDS: DOCUSATE SODIUM 100 MG CAPSULE PO (09:19)
[2023-06-01 09:20] VITALS: PULSE 65
[2023-06-01] MEDS: DIGOXIN 0.125MG TABLET 125 MCG PO (09:20)
[2023-06-01] MEDS: APIXABAN 5MG TABLET 5 MG PO (09:21)
[2023-06-01] MEDS: FUROSEMIDE 40 MG TABLET PO (09:22)
[2023-06-01] MEDS: NEOMYCIN-POLYMYXIN-HC OTIC SUSP 10ML OT (09:23)
--- NOTE | 2023-06-04 11:37 | CARE MANAGER ---
Attempted to contact patient related to hospital discharge left VM message. KAUSHIK New
== END 2023-06-01 11:13 | disposition home or self-care (01) ==
LOC: ER 14:23 → 2ND 15:49
PROVIDERS: Physician Assistant; Admitting Provider Internal Medicine Adolescent Medicine; Emergency Provider Emergency Medicine; PCP Family Medicine; Visit Provider Internal Medicine Adolescent Medicine
DX: I95.1 Orthostatic hypotension (principal); I11.0 Hypertensive heart disease with heart failure; I50.33 Acute on chronic diastolic (congestive) heart failure; R53.1 Weakness; G47.33 Obstructive sleep apnea (adult) (pediatric); J44.9 Chronic obstructive pulmonary disease, unspecified; I25.10 Atherosclerotic heart disease of native coronary artery without angina pectoris; I48.0 Paroxysmal atrial fibrillation; E11.9 Type 2 diabetes mellitus without complications; Z79.4 Long term (current) use of insulin; E66.09 Other obesity due to excess calories; Z68.39 Body mass index [BMI] 39.0-39.9, adult; Z95.1 Presence of aortocoronary bypass graft
CPT/HCPCS: 36415; 71045; 80053; 80162; 82962; 83036; 83735; 83880; 84436; 84443; 84484; 85025; 85378; 93005; 93306; 94640; 97163; 97166; 97530; 99285; G0378; J3475

== ENCOUNTER 2023-11-29 15:00 | Outpatient (CLI) | payer MEDICARE, SELFPAY ==
[2023-11-29 18:30] LABS: Basophils % 0.7 % (0.1-2.0); Eosinophils # 0.5 K/mm3 (0.0-0.4); Eosinophils % 10.9 % (0.1-12.0); Hematocrit 38.4 % (42.0-52.0); Hemoglobin 12.1 g/dL (14.1-18.0); Lymphocytes # 0.9 K/mm3 (0.7-4.5); Lymphocytes % 18.8 % (10-50); Mean Corpuscular HGB Conc 31.6 g/dL (31.8-35.4); Mean Corpuscular Hemoglobin 28.7 pg (27.0-31.2); Mean Corpuscular Volume 90.8 fl (80-94); Mean Platelet Volume 7.7 fl (7.4-10.4); Monocytes # 0.3 K/mm3 (0.1-1.0); Monocytes % 6.9 % (1.7-9.3); Neutrophils # 3.1 K/mm3 (1.8-7.8); Neutrophils % 62.7 % (37.0-80.0); Platelet Count 149 K/mm3 (142-424); Red Blood Count 4.23 M/mm3 (4.60-6.20); Red Cell Distribution Width 16.2 % (11.5-17.5); White Blood Count 4.9 K/mm3 (4.8-10.8)
[2023-11-29 18:52] LABS: Alanine Aminotransferase 18 U/L (12-78); Albumin Level 3.5 g/dl (3.5-5.0); Albumin/Globulin Ratio 1.2 (1.1-1.8); Alkaline Phosphatase 142 U/L (38-126); Aspartate Amino Transferase 38 U/L (17-59); Bilirubin,Total 1.2 mg/dl (0.2-1.3); Blood Urea Nitrogen 12 mg/dl (9-20); Calcium 9.3 mg/dl (8.4-10.2); Carbon Dioxide 27 mmol/L (22.0-30.0); Chloride 106 mmol/L (98-107); Estimated Glomerular Filt Rate 64 ml/min (>60); GFR (African American) 78 ML/MIN (>60); Glucose 122 mg/dl (74-100); Sodium 140 mmol/L (136-145); Total Protein,Serum 6.5 g/dl (6.3-8.2)
[2023-11-29 19:20] LABS: Thyroid Stimulating Hormone 2.25 uIU/mL (0.465-4.68)
== END 2023-11-29 23:59 | disposition home or self-care (01) ==
LOC: LAB.DROPOF 12-02 15:01
PROVIDERS: PCP Family Medicine; Visit Provider Family Medicine
DX: E07.9 Disorder of thyroid, unspecified (principal); I95.1 Orthostatic hypotension
CPT/HCPCS: 80050; 80053; 84443; 85025

== ENCOUNTER 2024-01-30 13:37 | Outpatient (CLI) | payer MEDICARE, SELFPAY | END 2024-01-30 23:59 | disposition home or self-care (01) | LOC: LAB 02-03 13:38 | PROVIDERS: Visit Provider Nurse Practitioner | DX: H92.11 Otorrhea, right ear (principal); H92.01 Otalgia, right ear; R42 Dizziness and giddiness; H91.91 Unspecified hearing loss, right ear; Z96.22 Myringotomy tube(s) status | CPT/HCPCS: 87070; 87077; 87186 ==

== ENCOUNTER 2024-02-04 16:40 | Observation (INO) | payer MEDICARE, SELFPAY ==
[2024-02-04] VITALS (12 sets, daily range): BP systolic 113–152; BP diastolic 50–86; PULSE 78–105; RESP 16–20; TEMP 36.4–37; O2SAT 92–98; BMI 36.6
--- NOTE | 2024-02-04 16:45 | ECG_ITS ---
APPROVED REPORT Exam: Resting ECG HR:105 bpm ECG Measurements Heart Rate 105 AXES QRSd 165 QRS -66 QT 398 T 90 QTc 459 Conclusion A-fib RVR Right bundle branch block Left anterior fascicular block T wave changes lateral and high lateral leads concerning for ischemia, repolarization abnormality in inferior leads with concern for elevations in lead III Electronically signed by : MARY ANNE COSME, 02/04/2024 19:00:25
--- NOTE | 2024-02-04 16:46 | ED_ITS ---
Discharge Plan Disposition Patient Disposition: Admitted Condition: Fair Clinical Impressions Clinical Impression: CHF exacerbation, Near syncope, Atrial fibrillation with rapid ventricular response Discharge ED Provider: Connor Rouse General Adult HPI <PEDRO Vance - Last Filed: 02/04/24 22:11> General Chief complaint: Syncope Stated complaint: chest pain Time Seen by Provider: 02/04/24 16:46 History of Present Illness HPI narrative: Patient presents for evaluation of dizziness near syncope exercise intolerance and intermittent chest pain. Patient has a longstanding history of cardiovascular disease with multiple interventions in the past but most recently had a cardiac cath done at [facility] less than 2 months ago that reportedly did not require intervention, chronic atrial fibrillation on chronic anticoagulation, morbid obesity, history of retained myringotomy tube and was due for cardiac clearance today in the cardiology clinic prior to a planned surgery, history of CHF, history of hypertension, history of obstructive sleep apnea, history of COPD, history of diabetes on long-acting insulin, hyperlipidemia, history of diabetic neuropathy and chronic pain. On arrival patient had a near syncopal event and trying getting out of the car but did not and has not had a full syncopal event, is not currently having chest pain but feels lightheaded and dizzy when standing. He denies fever chills hemoptysis hematochezia melena nausea vomiting or diarrhea.. Related Data Home Medications ?Medication ?Instructions ?Recorded ?Confirmed fluticasone propionate 50 1 spray intranasal DAILY PRN 06/10/17 01/29/24 mcg/actuation nasal Allergies spray,suspension Previous Rx's ?Medication ?Instructions ?Recorded albuterol sulfate 2.5 mg/3 mL 2.5 mg (3 mL) inhalation Q6H #180 08/10/22 (0.083 %) solution for nebulization mL blood-glucose meter #1 ea 03/15/23 blood sugar diagnostic (Accu-Chek #100 ea 06/18/23 Guide test strips) furosemide 40 mg tablet 40 mg PO DAILY #30 tabs 06/24/23 apixaban 5 mg tablet (Eliquis) 5 mg PO BID #60 tabs 08/09/23 metoprolol succinate 25 mg 25 mg PO DAILY #90 tabs 09/20/23 tablet,extended release 24 hr (Toprol XL) fluticasone 250 mcg-salmeterol 50 1 inh inhalation BID #60 ea 10/07/23 mcg/dose blistr powdr for inhalation albuterol sulfate 90 mcg/actuation 2 inh inhalation QID PRN Shortness 10/31/23 aerosol inhaler Of Breath #8.5 grams insulin NPH-regular 70-30 U-100 40 unit (0.4 mL) SQ BID #60 mL 12/23/23 insulin 100 unit/mL subcutaneous pen (Humulin 70/30 U-100 KwikPen) insulin NPH-regular 70-30 U-100 40 unit (0.4 mL) SQ BID #60 mL 12/23/23 insulin 100 unit/mL subcutaneous pen (Novolin 70-30 FlexPen U-100 Insulin) aspirin 81 mg tablet,delayed 81 mg PO AM #90 tabs 12/31/23 release gabapentin 300 mg capsule 300 mg PO TID PRN Nerve Pain #90 01/17/24 caps hydrocodone 7.5 mg-acetaminophen 1 tab PO TID PRN Pain #90 tabs 01/27/24 325 mg tablet trazodone 50 mg tablet 50 mg PO HS #90 tabs 01/27/24 atorvastatin 40 mg tablet 40 mg PO HS #90 tabs 01/28/24 citalopram 20 mg tablet See Rx Instructions .Route 01/28/24 .COMPLEX #90 tabs digoxin 125 mcg (0.125 mg) tablet See Rx Instructions .Route 01/28/24 .COMPLEX #90 tabs pantoprazole 40 mg tablet,delayed See Rx Instructions .Route 01/28/24 release .COMPLEX #90 tabs tamsulosin 0.4 mg capsule See Rx Instructions .Route 01/28/24 .COMPLEX #90 caps doxycycline hyclate 100 mg capsule 100 mg PO BID 10 days #20 caps 01/29/24 tobramycin 0.3 %-dexamethasone 0.1 2 drp ophthalmic (eye) QID change 01/29/24 % eye drops,suspension above route to EAR; right ear #10 mL Allergies Allergy/AdvReac Type Severity Reaction Status Date / Time amoxicillin [From Augmentin] Allergy Severe edema Verified 01/29/24 15:39 ciprofloxacin [From Cipro] Allergy Severe Redness of Verified 01/29/24 15:39 Skin clavulanic acid Allergy Severe edema Verified 01/29/24 15:39 [From Augmentin] prednisone AdvReac Intermediate Agitated Verified 01/29/24 15:39 PFSH <PEDRO Vance - Last Filed: 02/04/24 22:11> [facility] Disclaimer: The information contained in this section may have been updated after the patient was seen, as this information can be updated by other users. 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 Retained myringotomy tube Hearing difficulty of right ear Otorrhea of right ear Otalgia, right ear BMI 39.0-39.9,adult [place] and COPD overlap syndrome OAB (overactive bladder) CHF (congestive heart failure) Diabetes mellitus Afib HLD (hyperlipidemia) HHD (hypertensive heart disease) CAD (coronary artery disease) Surgical History History of left inguinal hernia repair History of umbilical hernia repair History of left heart catheterization (LHC) Hx of CABG Family History Mother Coronary artery disease Father Tuberculosis Social History (Updated 02/04/24 @ 20:58 by Sabrina Christiansen RN) Smoking Status: Former smoker years smoked: 30 smoking status stop date: 1992 alcohol intake: never substance use type: denies use current occupational status: disabled Travel in the last 8 weeks: None Other 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 Have you received the Flu Vaccine for this season: No Have you received the Pneumonia Vaccine: Yes <PEDRO Vance - Last Filed: 02/04/24 22:11> ROS Obtained: Yes Systems reviewed as appropriate & no additional complaints except as documented Physical Exam <PEDRO Vance - Last Filed: 02/04/24 22:11> General General appearance: alert and in no apparent distress Respiratory Respiratory exam: Present normal lung sounds bilaterally Cardiovascular Cardiovascular exam: Present tachycardia and irregular rhythm Neurological Exam Neurological exam: Present alert and oriented X3 Medical Decision Making <PEDRO Vance - Last Filed: 02/04/24 22:11> Medical Records Medical records reviewed: Yes I reviewed the patient's medical records. Screening: Per USPSTF and CDC recommendations, given the prevalence of disease in our region, it is our hospital?s policy to screen for HIV and viral Hepatitis for all patients aged 18 and over and those with ongoing risk factors. Atlu Inquiry Pt receiving controlled substance: No Vital Signs: 02/04/24 16:41 02/04/24 16:55 02/04/24 17:39 Temperature 98.6 F Temperature Source Oral Pulse Rate 79 93 H Pulse Rate [Orthostatic Lying] Pulse Rate [Orthostatic Sitting] Pulse Rate [Orthostatic Standing] Pulse Rate [Right Radial] 79 Respiratory Rate 20 Blood Pressure 140/81 Blood Pressure [Orthostatic Lying Left Arm] Blood Pressure [Orthostatic Sitting Left Arm] Blood Pressure [Orthostatic Standing Left Arm] Blood Pressure [Right Arm] 113/64 Blood Pressure Mean 100 Blood Pressure Mean [Right Arm] 80 02 Sat by Pulse Oximetry 92 L 98 Oxygen Delivery Method Room Air Room Air 02/04/24 17:41 02/04/24 17:42 02/04/24 17:44 Temperature Temperature Source Pulse Rate 83 100 H Pulse Rate [Orthostatic Lying] 94 H Pulse Rate [Orthostatic Sitting] 84 Pulse Rate [Orthostatic Standing] 92 H Pulse Rate [Right Radial] Respiratory Rate Blood Pressure 126/69 121/50 L Blood Pressure [Orthostatic Lying Left Arm] 140/81 Blood Pressure [Orthostatic Sitting Left Arm] 126/69 Blood Pressure [Orthostatic Standing Left Arm] 121/50 L Blood Pressure [Right Arm] Blood Pressure Mean 88 76 Blood Pressure Mean [Right Arm] 02 Sat by Pulse Oximetry 97 95 Oxygen Delivery Method Room Air Room Air 02/04/24 18:01 02/04/24 18:31 02/04/24 19:56 Temperature 98.2 F Temperature Source Pulse Rate 79 105 H 82 Pulse Rate [Orthostatic Lying] Pulse Rate [Orthostatic Sitting] Pulse Rate [Orthostatic Standing] Pulse Rate [Right Radial] Respiratory Rate 20 Blood Pressure 152/83 H 126/86 134/81 Blood Pressure [Orthostatic Lying Left Arm] Blood Pressure [Orthostatic Sitting Left Arm] Blood Pressure [Orthostatic Standing Left Arm] Blood Pressure [Right Arm] Blood Pressure Mean 102 104 Blood Pressure Mean [Right Arm] 02 Sat by Pulse Oximetry 98 96 Oxygen Delivery Method Room Air Room Air Room Air Lab Data Lab results reviewed: Yes I reviewed the patient's lab results. Lab Results 02/04/24 16:47: WBC 6.0, RBC 4.57 L, Hgb 13.0 L, Hct 41.9 L, MCV 91.6, MCH 28.4, MCHC 31.1 L, RDW 17.0, Plt Count 185, MPV 7.8, Neut % (Auto) 70.4, Lymph % (Auto) 14.1, Sampson % (Auto) 7.9, Eos % (Auto) 6.5, Baso % (Auto) 1.2, Neut # (Auto) 4.3, Lymph # (Auto) 0.9, Sampson # (Auto) 0.5, Eos # (Auto) 0.4, Baso # (Auto) 0.1, Sodium 138, Potassium 3.7, Chloride 101, Carbon Dioxide 26, Anion Gap 14.7, BUN 16, Creatinine 1.10, Estimated Creat Clear 96, Estimated GFR 64, Est GFR ( Amer) 78, Glucose 191 H, Calcium 9.5, Total Bilirubin 1.5 H, AST 42, ALT 30, Alkaline Phosphatase 201 H, Troponin I 0.03, NT-Pro-B Natriuret Pep 3730 H, Total Protein 7.9, Albumin 4.2, Globulin 3.7 H, Albumin/Globulin Ratio 1.1 02/04/24 19:30: Troponin I 0.02 02/04/24 16:47 02/04/24 16:47 Orders (Tests/Meds): ED MEDICATIONS Generic Name Dose Route Start Last Admin Trade Name Freq PRN Reason Stop Dose Admin Acetaminophen 650 mg 02/04/24 19:32 Acetaminophen 325mg Tab PO 03/05/24 19:31 Q4HP PRN Fever or Mild Pain (1-3) Ondansetron HCl 4 mg 02/04/24 19:32 Ondansetron 4mg/2ml Vial IV 03/05/24 19:31 Q8HP PRN Nausea ORDERS Category Date Time Status XR chest portable Stat Exams 02/04/24 17:10 Completed BNP [NT Pro Brain Natriuretic Pep.] Stat Lab 02/04/24 16:47 Completed Basic Metabolic Panel AMLAB Lab 02/05/24 06:00 Ordered Basic Metabolic Panel AMLAB Lab 02/06/24 06:00 Ordered Basic Metabolic Panel AMLAB Lab 02/07/24 06:00 Ordered Complete Blood Count Auto Diff AMLAB Lab 02/05/24 06:00 Ordered Complete Blood Count Auto Diff AMLAB Lab 02/06/24 06:00 Ordered Complete Blood Count Auto Diff AMLAB Lab 02/07/24 06:00 Ordered Complete Blood Count Auto Diff Stat Lab 02/04/24 16:47 Completed Comprehensive Metabolic Panel Stat Lab 02/04/24 16:47 Completed Troponin I Q3H Lab 02/04/24 19:30 Completed Troponin I Q3H Lab 02/04/24 23:15 Ordered Troponin I Stat Lab 02/04/24 16:47 Completed HEART Score History (anamnesis): Moderately suspicious ECG: Significant ST-deviation Age: >65 years Risk factors: Atherosclerosis history Troponin: 1-3x normal limit HEART Score: 8 Medical Decision Narrative: In summary patient is a 83-year-old male who presents to the emergency department for evaluation of near syncope. Patient is normotensive at 113/64 but and atrial fibrillation RVR on upon arrival, afebrile. Physical exam shows a rapid irregularly irregular rate and rhythm and twelve-lead EKG shows atrial fibrillation with rapid ventricular response with ST changes, normal breath sounds but satting at 92% on room air initially normal heart sounds no dependent edema noted. Differential diagnosis includes A-fib RVR versus ACS versus heart failure etc. Initial workup will be conducted with twelve-lead EKG plain film chest x-ray hematologic labs. Initial interventions include supplemental O2. Initial workup reviewed by me and my informal interpretation is plain film chest x-ray shows pulmonary edema and pleural effusions prior to radiology read, his initial troponin is 0.02 and his NT proBNP is elevated at 3730. Given this I had an interactive discussion with hospital medicine regarding patient management and patient will be admitted for further evaluation and care and cardiology evaluation. <Connor Rouse MD - Last Filed: 02/04/24 22:15> Vital Signs: 02/04/24 16:41 02/04/24 16:55 02/04/24 17:39 Temperature 98.6 F Temperature Source Oral Pulse Rate 79 93 H Pulse Rate [Orthostatic Lying] Pulse Rate [Orthostatic Sitting] Pulse Rate [Orthostatic Standing] Pulse Rate [Right Radial] 79 Respiratory Rate 20 Blood Pressure 140/81 Blood Pressure [Orthostatic Lying Left Arm] Blood Pressure [Orthostatic Sitting Left Arm] Blood Pressure [Orthostatic Standing Left Arm] Blood Pressure [Right Arm] 113/64 Blood Pressure Mean 100 Blood Pressure Mean [Right Arm] 80 02 Sat by Pulse Oximetry 92 L 98 Oxygen Delivery Method Room Air Room Air 02/04/24 17:41 02/04/24 17:42 02/04/24 17:44 Temperature Temperature Source Pulse Rate 83 100 H Pulse Rate [Orthostatic Lying] 94 H Pulse Rate [Orthostatic Sitting] 84 Pulse Rate [Orthostatic Standing] 92 H Pulse Rate [Right Radial] Respiratory Rate Blood Pressure 126/69 121/50 L Blood Pressure [Orthostatic Lying Left Arm] 140/81 Blood Pressure [Orthostatic Sitting Left Arm] 126/69 Blood Pressure [Orthostatic Standing Left Arm] 121/50 L Blood Pressure [Right Arm] Blood Pressure Mean 88 76 Blood Pressure Mean [Right Arm] 02 Sat by Pulse Oximetry 97 95 Oxygen Delivery Method Room Air Room Air 02/04/24 18:01 02/04/24 18:31 02/04/24 19:56 Temperature 98.2 F Temperature Source Pulse Rate 79 105 H 82 Pulse Rate [Orthostatic Lying] Pulse Rate [Orthostatic Sitting] Pulse Rate [Orthostatic Standing] Pulse Rate [Right Radial] Respiratory Rate 20 Blood Pressure 152/83 H 126/86 134/81 Blood Pressure [Orthostatic Lying Left Arm] Blood Pressure [Orthostatic Sitting Left Arm] Blood Pressure [Orthostatic Standing Left Arm] Blood Pressure [Right Arm] Blood Pressure Mean 102 104 Blood Pressure Mean [Right Arm] 02 Sat by Pulse Oximetry 98 96 Oxygen Delivery Method Room Air Room Air Room Air Lab Data Lab Results 02/04/24 16:47: WBC 6.0, RBC 4.57 L, Hgb 13.0 L, Hct 41.9 L, MCV 91.6, MCH 28.4, MCHC 31.1 L, RDW 17.0, Plt Count 185, MPV 7.8, Neut % (Auto) 70.4, Lymph % (Auto) 14.1, Sampson % (Auto) 7.9, Eos % (Auto) 6.5, Baso % (Auto) 1.2, Neut # (Auto) 4.3, Lymph # (Auto) 0.9, Sampson # (Auto) 0.5, Eos # (Auto) 0.4, Baso # (Auto) 0.1, Sodium 138, Potassium 3.7, Chloride 101, Carbon Dioxide 26, Anion Gap 14.7, BUN 16, Creatinine 1.10, Estimated Creat Clear 96, Estimated GFR 64, Est GFR ( Amer) 78, Glucose 191 H, Calcium 9.5, Total Bilirubin 1.5 H, AST 42, ALT 30, Alkaline Phosphatase 201 H, Troponin I 0.03, NT-Pro-B Natriuret Pep 3730 H, Total Protein 7.9, Albumin 4.2, Globulin 3.7 H, Albumin/Globulin Ratio 1.1 02/04/24 19:30: Troponin I 0.02 Orders (Tests/Meds): ED MEDICATIONS Generic Name Dose Route Start Last Admin Trade Name Freq PRN Reason Stop Dose Admin Acetaminophen 650 mg 02/04/24 19:32 Acetaminophen 325mg Tab PO 03/05/24 19:31 Q4HP PRN Fever or Mild Pain (1-3) Ondansetron HCl 4 mg 02/04/24 19:32 Ondansetron 4mg/2ml Vial IV 03/05/24 19:31 Q8HP PRN Nausea ORDERS Category Date Time Status XR chest portable Stat Exams 02/04/24 17:10 Completed BNP [NT Pro Brain Natriuretic Pep.] Stat Lab 02/04/24 16:47 Completed Basic Metabolic Panel AMLAB Lab 02/05/24 06:00 Ordered Basic Metabolic Panel AMLAB Lab 02/06/24 06:00 Ordered Basic Metabolic Panel AMLAB Lab 02/07/24 06:00 Ordered Complete Blood Count Auto Diff AMLAB Lab 02/05/24 06:00 Ordered Complete Blood Count Auto Diff AMLAB Lab 02/06/24 06:00 Ordered Complete Blood Count Auto Diff AMLAB Lab 02/07/24 06:00 Ordered Complete Blood Count Auto Diff Stat Lab 02/04/24 16:47 Completed Comprehensive Metabolic Panel Stat Lab 02/04/24 16:47 Completed Troponin I Q3H Lab 02/04/24 19:30 Completed Troponin I Q3H Lab 02/04/24 23:15 Ordered Troponin I Stat Lab 02/04/24 16:47 Completed HEART Score HEART Score: 8 Medical Decision Narrative: In summary patient is a 83-year-old male who presents to the emergency department for evaluation of near syncope. Patient is normotensive at 113/64 but and atrial fibrillation RVR on upon arrival, afebrile. Physical exam shows a rapid irregularly irregular rate and rhythm and twelve-lead EKG shows atrial fibrillation with rapid ventricular response with ST changes, normal breath sounds but satting at 92% on room air initially normal heart sounds no dependent edema noted. Differential diagnosis includes A-fib RVR versus ACS versus heart failure etc. Initial workup will be conducted with twelve-lead EKG plain film chest x-ray hematologic labs. Initial interventions include supplemental O2. Initial workup reviewed by me and my informal interpretation is plain film chest x-ray shows pulmonary edema and pleural effusions prior to radiology read, his initial troponin is 0.02 and his NT proBNP is elevated at 3730. Given this I had an interactive discussion with hospital medicine regarding patient management and patient will be admitted for further evaluation and care and cardiology evaluation. I was consulted by the WATSON, and we discussed the complexity of the problems being addressed. I approved the treatment and management plan for this patient's care in the Emergency Department, thus performing a substantive portion of the medical decision making. Connor Rouse MD Critical Care <PEDRO Vance - Last Filed: 02/04/24 22:11> Critical Care Time Critical Care Time: No
--- NOTE | 2024-02-04 17:10 | XR_ITS ---
PROCEDURE INFORMATION: Exam: XR Chest Exam date and time: 02/04/2024 5:16 PM Age: 83 years old Clinical indication: Shortness of breath TECHNIQUE: Imaging protocol: Radiologic exam of the chest. Views: 1 view. COMPARISON: CR XR CHEST PORTABLE 05/29/2023 12:43 PM FINDINGS: Lungs: Pulmonary vascular congestion and bilateral infiltrates concerning for pulmonary edema. Pleural spaces: Unremarkable. No pleural effusion. No pneumothorax. Heart/Mediastinum: [id number] cardiomegaly. Bones/joints: Previous median sternotomy and CABG. IMPRESSION: CHF.
--- NOTE | 2024-02-04 17:20 | PC.NURSE ---
XR AT BEDSIDE
[2024-02-04 18:00] LABS: Chloride 101 mmol/L (98-107)
[2024-02-04 18:01] LABS: Albumin Level 4.2 g/dl (3.5-5.0); Potassium 3.7 mmoL/L (3.5-5.1); Sodium 138 mmol/L (136-145)
[2024-02-04 18:04] LABS: Alanine Aminotransferase 30 U/L (12-78); Albumin/Globulin Ratio 1.1 (1.1-1.8); Alkaline Phosphatase 201 U/L (38-126); Anion Gap 14.7 mEq/L (5-15); Aspartate Amino Transferase 42 U/L (17-59); Bilirubin,Total 1.5 mg/dl (0.2-1.3); Blood Urea Nitrogen 16 mg/dl (9-20); Calcium 9.5 mg/dl (8.4-10.2); Carbon Dioxide 26 mmol/L (22.0-30.0); Creatinine Clearance Estimated 96 mL/min (50-200); Estimated Glomerular Filt Rate 64 ml/min (>60); GFR (African American) 78 ML/MIN (>60); Globulin 3.7 g/dL (1.3-3.2); Glucose 191 mg/dl (74-100); Total Protein,Serum 7.9 g/dl (6.3-8.2)
[2024-02-04 18:10] LABS: Basophils # 0.1 K/mm3 (0-0.2); Basophils % 1.2 % (0.1-2.0); Eosinophils # 0.4 K/mm3 (0.0-0.4); Eosinophils % 6.5 % (0.1-12.0); Hematocrit 41.9 % (42.0-52.0); Lymphocytes # 0.9 K/mm3 (0.7-4.5); Lymphocytes % 14.1 % (10-50); Mean Corpuscular HGB Conc 31.1 g/dL (31.8-35.4); Mean Corpuscular Hemoglobin 28.4 pg (27.0-31.2); Mean Corpuscular Volume 91.6 fl (80-94); Mean Platelet Volume 7.8 fl (7.4-10.4); Monocytes # 0.5 K/mm3 (0.1-1.0); Monocytes % 7.9 % (1.7-9.3); Neutrophils # 4.3 K/mm3 (1.8-7.8); Neutrophils % 70.4 % (37.0-80.0); Platelet Count 185 K/mm3 (142-424); Red Blood Count 4.57 M/mm3 (4.60-6.20)
[2024-02-04 18:13] LABS: NT Pro Brain Natriuretic Pep. 3730 pg/mL (0-450)
[2024-02-04 18:15] LABS: Troponin I 0.03 ng/ml (0.00-0.034)
--- NOTE | 2024-02-04 19:37 | PC.NURSE ---
2nd trop drawn and sent to lab
--- NOTE | 2024-02-04 19:57 | PC.NURSE ---
called report yaa jones rn on and answered all questions
[2024-02-04 20:16] LABS: Troponin I 0.02 ng/ml (0.00-0.034)
--- NOTE | 2024-02-04 20:26 | PC.NURSE ---
Patient arrived to floor via wheelchair from ED at 20:22.
[2024-02-04 21:27] LABS: POC Glucose,Bedside 197 (70-110)
--- NOTE | 2024-02-04 21:59 | EXP.HP ---
History of Present Illness *Admission Date: 02/04/24 *Reason for visit:: Dizziness *History of present illness: Patient still having left lower patient is a 83-year-old male with past medical history of atrial fibrillation on Eliquis, hypertension, obstructive sleep apnea, diabetes mellitus who presented to hospital due to dizziness lightheadedness especially while standing up and getting out of the car. Patient denies loss of consciousness, patient denied chest pain shortness of breath nausea vomiting diarrhea constipation abdominal evaluation. On further evaluation in the emergency department patient was found to have irregular heart rate and was diagnosed with A-fib with RVR. Patient was also noted to have pulmonary edema and pleural effusions PFSH [facility] Disclaimer: The information contained in this section may have been updated after the patient was seen, as this information can be updated by other users. 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 Retained myringotomy tube Hearing difficulty of right ear Otorrhea of right ear Otalgia, right ear BMI 39.0-39.9,adult [place] and COPD overlap syndrome OAB (overactive bladder) CHF (congestive heart failure) Diabetes mellitus Afib HLD (hyperlipidemia) HHD (hypertensive heart disease) CAD (coronary artery disease) Surgical History History of left inguinal hernia repair History of umbilical hernia repair History of left heart catheterization (LHC) Hx of CABG Family History Mother Coronary artery disease Father Tuberculosis Social History (Updated 02/04/24 @ 20:58 by Sabrina Christiansen RN) Smoking Status: Former smoker years smoked: 30 smoking status stop date: 1992 alcohol intake: never substance use type: denies use current occupational status: disabled Travel in the last 8 weeks: None Other 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 Have you received the Flu Vaccine for this season: Yes Have you received the Pneumonia Vaccine: Yes Review of Systems Review of Systems Review of systems (narrative): as per HPI Meds Home Medications and Allergies Home Medications ?Medication ?Instructions ?Recorded ?Confirmed ?Type fluticasone propionate 50 1 spray intranasal DAILY PRN 06/10/17 01/29/24 History mcg/actuation nasal Allergies spray,suspension albuterol sulfate 2.5 mg/3 mL 2.5 mg (3 mL) inhalation Q6H #180 08/10/22 01/29/24 Rx (0.083 %) solution for nebulization mL blood-glucose meter #1 ea 03/15/23 01/29/24 Rx blood sugar diagnostic (Accu-Chek #100 ea 06/18/23 01/29/24 Rx Guide test strips) furosemide 40 mg tablet 40 mg PO DAILY #30 tabs 06/24/23 01/29/24 Rx apixaban 5 mg tablet (Eliquis) 5 mg PO BID #60 tabs 08/09/23 01/29/24 Rx metoprolol succinate 25 mg 25 mg PO DAILY #90 tabs 09/20/23 01/29/24 Rx tablet,extended release 24 hr (Toprol XL) fluticasone 250 mcg-salmeterol 50 1 inh inhalation BID #60 ea 10/07/23 01/29/24 Rx mcg/dose blistr powdr for inhalation albuterol sulfate 90 mcg/actuation 2 inh inhalation QID PRN Shortness 10/31/23 01/29/24 Rx aerosol inhaler Of Breath #8.5 grams insulin NPH-regular 70-30 U-100 40 unit (0.4 mL) SQ BID #60 mL 12/23/23 01/29/24 Rx insulin 100 unit/mL subcutaneous pen (Humulin 70/30 U-100 KwikPen) insulin NPH-regular 70-30 U-100 40 unit (0.4 mL) SQ BID #60 mL 12/23/23 01/29/24 Rx insulin 100 unit/mL subcutaneous pen (Novolin 70-30 FlexPen U-100 Insulin) aspirin 81 mg tablet,delayed 81 mg PO AM #90 tabs 12/31/23 01/29/24 Rx release gabapentin 300 mg capsule 300 mg PO TID PRN Nerve Pain #90 01/17/24 01/29/24 Rx caps hydrocodone 7.5 mg-acetaminophen 1 tab PO TID PRN Pain #90 tabs 01/27/24 01/29/24 Rx 325 mg tablet trazodone 50 mg tablet 50 mg PO HS #90 tabs 01/27/24 01/29/24 Rx atorvastatin 40 mg tablet 40 mg PO HS #90 tabs 01/28/24 01/29/24 Rx citalopram 20 mg tablet See Rx Instructions .Route 01/28/24 01/29/24 Rx .COMPLEX #90 tabs digoxin 125 mcg (0.125 mg) tablet See Rx Instructions .Route 01/28/24 01/29/24 Rx .COMPLEX #90 tabs pantoprazole 40 mg tablet,delayed See Rx Instructions .Route 01/28/24 01/29/24 Rx release .COMPLEX #90 tabs tamsulosin 0.4 mg capsule See Rx Instructions .Route 01/28/24 01/29/24 Rx .COMPLEX #90 caps doxycycline hyclate 100 mg capsule 100 mg PO BID 10 days #20 caps 01/29/24 01/29/24 Rx tobramycin 0.3 %-dexamethasone 0.1 2 drp ophthalmic (eye) QID change 01/29/24 01/29/24 Rx % eye drops,suspension above route to EAR; right ear #10 mL New Prescriptions to Start Prescriptions: Allergies Allergy/AdvReac Type Severity Reaction Status Date / Time amoxicillin [From Augmentin] Allergy Severe edema Verified 01/29/24 15:39 ciprofloxacin [From Cipro] Allergy Severe Redness of Verified 01/29/24 15:39 Skin clavulanic acid Allergy Severe edema Verified 01/29/24 15:39 [From Augmentin] prednisone AdvReac Intermediate Agitated Verified 01/29/24 15:39 Exam Data for Last 24 hours Vital signs and Labs for Last 24 Hours: Temp Pulse Resp BP Pulse Ox O2 Del Method 98.2 F 82 20 134/81 96 Room Air 02/04/24 19:56 02/04/24 19:56 02/04/24 19:56 02/04/24 19:56 02/04/24 18:31 02/04/24 19:56 Laboratory Results - last 24 hr 02/04/24 16:47: WBC 6.0, RBC 4.57 L, Hgb 13.0 L, Hct 41.9 L, MCV 91.6, MCH 28.4, MCHC 31.1 L, RDW 17.0, Plt Count 185, MPV 7.8, Neut % (Auto) 70.4, Lymph % (Auto) 14.1, Mineral % (Auto) 7.9, Eos % (Auto) 6.5, Baso % (Auto) 1.2, Neut # (Auto) 4.3, Lymph # (Auto) 0.9, Mineral # (Auto) 0.5, Eos # (Auto) 0.4, Baso # (Auto) 0.1, Sodium 138, Potassium 3.7, Chloride 101, Carbon Dioxide 26, Anion Gap 14.7, BUN 16, Creatinine 1.10, Estimated Creat Clear 96, Estimated GFR 64, Est GFR ( Amer) 78, Glucose 191 H, Calcium 9.5, Total Bilirubin 1.5 H, AST 42, ALT 30, Alkaline Phosphatase 201 H, Troponin I 0.03, NT-Pro-B Natriuret Pep 3730 H, Total Protein 7.9, Albumin 4.2, Globulin 3.7 H, Albumin/Globulin Ratio 1.1 02/04/24 19:30: Troponin I 0.02 02/04/24 21:14: POC Glucose 197 H I & O for Last 24 hours: Intake & Output 02/01/24 02/02/24 02/03/24 02/04/24 23:59 23:59 23:59 23:59 Weight 129.274 kg Constitutional Constitutional: no acute distress *Routine HEENT Exam Head: Present normocephalic Eye: Present EOMI and PERRL ENT: Present mucous membranes moist *Routine Neck Exam Neck: Present supple; Absent lymphadenopathy *Routine Respiratory Exam Respiratory: Present decreased breath sounds *Routine Cardiovascular Exam Cardiovascular: Present tachycardia and irregular rhythm *Routine Abdominal Exam Abdominal: Present soft and normoactive bowel sounds; Absent tenderness *Routine Rectal Exam Rectal:: deferred *Routine Genitalia Exam Genitalia:: deferred *Routine Extremities Exam Extremities: Present edema; Absent cyanosis or clubbing *Routine Skin Exam Skin: Present warm; Absent rash *Routine Neurological Exam Neurological: Present alert and oriented X3 Assessment and Plan *Assessment and plan (1) Atrial fibrillation with rapid ventricular response: Status: Acute Category: Medical Code(s): I48.91 - Unspecified atrial fibrillation (2) Near syncope: Status: Acute Category: Medical Code(s): R55 - Syncope and collapse (3) CHF exacerbation: Status: Acute Category: Medical Code(s): I50.9 - Heart failure, unspecified (4) Diabetes mellitus: Status: Chronic Qualifiers: Diabetes mellitus type: type 2 Diabetes mellitus mcc insulin use: with mcc use Diabetes mellitus complication status: without complication Qualified Code(s): E11.9 - Type 2 diabetes mellitus without complications; Z79.4 - intermediate manager (current) use of insulin Category: Medical Code(s): E11.9 - Type 2 diabetes mellitus without complications Plan Patient still having left lower patient is a 83-year-old male with past medical history of atrial fibrillation on Eliquis, hypertension, obstructive sleep apnea, diabetes mellitus who presented to hospital due to dizziness lightheadedness especially while standing up and getting out of the car. Patient denies loss of consciousness, patient denied chest pain shortness of breath nausea vomiting diarrhea constipation abdominal evaluation. On further evaluation in the emergency department patient was found to have irregular heart rate and was diagnosed with A-fib with RVR. Patient was also noted to have pulmonary edema and pleural effusions Assessment and plan A-fib with RVR Monitor on cardiac telemetry Resume home Eliquis Consult cardiology Consult home digoxin Acute CHF with preserved ejection fraction 40 IV Lasix twice daily Closely monitor creatinine Cardiology has been consulted Resume home Jardiance, aspirin, Eliquis, Coreg History of COPD Resume home inhaler therapy Diabetes mellitus Insulin sliding scale DVT prophylaxis on Eliquis
[2024-02-04] MEDS: ACETAMINOPHEN 325MG TAB 650 MG PO (22:44)
[2024-02-04 23:41] LABS: Troponin I 0.02 ng/ml (0.00-0.034)
[2024-02-04] MEDS: APIXABAN 5MG TABLET 5 MG PO (23:44)
[2024-02-04] MEDS: ALBUTEROL 0.083% 2.5 MG/3 ML NEB IH (23:51)
[2024-02-05] VITALS (12 sets, daily range): BP systolic 123–162; BP diastolic 57–82; PULSE 70–120; RESP 16–22; TEMP 36.4–37.5; O2SAT 94–99; BMI 36.6
--- NOTE | 2024-02-05 05:25 | PC.NURSE ---
Patient's med reconciliation has not been completed due to patient being unaware of exactly what medications he is currently taking. He states his PCP has recently put some of his medications on hold and he was not sure of which ones it was.
[2024-02-05 06:14] LABS: POC Glucose,Bedside 113 (70-110)
[2024-02-05] MEDS: ASPIRIN EC 81MG TABLET 81 MG PO (06:51)
[2024-02-05] MEDS: ALBUTEROL 0.083% 2.5 MG/3 ML NEB IH ×3 (06:52→23:41)
[2024-02-05 07:01] LABS: Chloride 105 mmol/L (98-107)
[2024-02-05 07:02] LABS: Potassium 3.4 mmoL/L (3.5-5.1); Sodium 139 mmol/L (136-145)
[2024-02-05 07:05] LABS: Anion Gap 11.4 mEq/L (5-15); Blood Urea Nitrogen 15 mg/dl (9-20); Calcium 8.8 mg/dl (8.4-10.2); Carbon Dioxide 26 mmol/L (22.0-30.0); Creatinine Clearance Estimated 106 mL/min (50-200); Estimated Glomerular Filt Rate 81 ml/min (>60); GFR (African American) 98 ML/MIN (>60); Glucose 108 mg/dl (74-100)
[2024-02-05 08:27] LABS: Basophils % 0.6 % (0.1-2.0); Eosinophils # 0.4 K/mm3 (0.0-0.4); Eosinophils % 8.1 % (0.1-12.0); Hematocrit 33.7 % (42.0-52.0); Lymphocytes # 0.9 K/mm3 (0.7-4.5); Lymphocytes % 16.2 % (10-50); Mean Corpuscular HGB Conc 31.7 g/dL (31.8-35.4); Mean Corpuscular Hemoglobin 28.6 pg (27.0-31.2); Mean Corpuscular Volume 90.4 fl (80-94); Mean Platelet Volume 8.4 fl (7.4-10.4); Monocytes # 0.5 K/mm3 (0.1-1.0); Monocytes % 8.8 % (1.7-9.3); Neutrophils # 3.6 K/mm3 (1.8-7.8); Neutrophils % 66.4 % (37.0-80.0); Platelet Count 149 K/mm3 (142-424); Red Blood Count 3.73 M/mm3 (4.60-6.20); Red Cell Distribution Width 16.9 % (11.5-17.5); White Blood Count 5.4 K/mm3 (4.8-10.8)
[2024-02-05] MEDS: APIXABAN 5MG TABLET 5 MG PO ×2 (08:44→21:50)
[2024-02-05] MEDS: METOPROLOL SUCCINATE XL 25MG TABLET 25 MG PO (08:44)
[2024-02-05] MEDS: FUROSEMIDE 40MG/4ML VIAL 40 MG IV ×2 (08:45→16:08)
[2024-02-05] MEDS: PANTOPRAZOLE 40MG TABLET 40 MG PO ×2 (08:45→21:51)
[2024-02-05] MEDS: CITALOPRAM 20MG TABLET 20 MG PO (08:45)
[2024-02-05 08:53] LABS: Hemoglobin 10.7 g/dL (14.1-18.0)
[2024-02-05] MEDS: DIGOXIN 0.125MG TABLET 125 MCG PO (09:37)
[2024-02-05] MEDS: humaLOG MIX 75/25 3ML FLEXPEN 40 UNIT SQ (09:38)
--- NOTE | 2024-02-05 09:40 | CA_ITS ---
APPROVED REPORT EXAM: Comprehensive 2D, Doppler, and color-flow Echocardiogram Manager Of Loss Prevention Operations: RONIT Mitchell, RVS Ht: 6 ft 0 in Wt: 285lbs BSA: 2.48 BP: 134/81 mmHg Rhythm: Atrial Fibrillation Indications: Syncope, Dehydration, Afib, CAD, CHF, [place], Ex-smoker 2D Dimensions Left Atrium 5.06 cm M: 3.0 - 4.0 LA Volume 126.90 mL LA Volume Index 51.832923 mL/m2 (M/F) 16-34 M-Mode Dimensions RVDd 4.60 cm (0.9-2.6) LA Diam 6.07 cm (1.9-4.0) LVDd 5.54 cm (3.5-5.7) LVDs 4.08 cm (3.5-5.7) IVSd 1.61 cm (0.6-1.1) PWd 1.47 cm (0.6-1.1) EF (Teich) 44.10% EPSs 0.82 cm FS 22.00% EDV (Teich) 131.20 mL TAPSE 1.28 (<1.7) ESV (Teich) 73.40 mL LV Diastology E Decel Time 157 (160-240 msec) E/A Ratio 4.14 MED A' 5.50 cm/s LAT A' 5.50 cm/s Aortic Valve ROYAL Index 1.16 cm2/m2 AoV Peak Jacob. 95.0 (50-130 cm/s) AO Peak GR. 3.60 mmHg AO Mean GR. 1.80 (<5 mmHg) AO VTI 16.3 (18-25 cm) ROYAL (VTI) 2.94 (2.5-4.5 cm2) Mitral Valve MV A Velocity 23.0 (40-130 cm/s) E/A Ratio 4.14 Pulmonary Valve PV Peak Velocity 88.0 (50-150 cm/s) MT End VMAX 226.0 cm/s Tricuspid Valve TR P. Velocity 366.00 cm/s RAP Estimate 10.00 mmHg RVSP 63.40 mmHg Left Ventricle The left ventricle is normal size. Left ventricular systolic function is mildly decreased. There is increased LV wall thickness. There is mild global hypokinesis present. Diastolic function is indeterminate. LVEF is 45%. Right Ventricle The right ventricle is moderately dilated. Right ventricle is mildly hypokinetic. Atria The left atrium severely dilated. The right atrium is severely dilated. The interatrial septum is not well-visualized. Aortic Valve The aortic valve is mildly thickened. There is no aortic valvular stenosis. Trace aortic regurgitation. Mitral Valve Mild mitral annular calcification is present. The mitral valve leaflets are mildly thickened. No evidence of mitral valve stenosis. Mild mitral regurgitation. Tricuspid Valve The tricuspid valve leaflets are thin and pliable. Moderate tricuspid regurgitation. RVSP is 45 mmHg + RA pressure. Pulmonic Valve The pulmonary valve is normal in structure. Mild pulmonic regurgitation. Great Vessels The aortic root is normal in size. The ascending aorta is not well-visualized. The IVC is not well-visualized. Pericardium There is no pericardial effusion. Other Information Study Quality: Technically Difficult Conclusion Technically difficult study due to poor acoustic windows. Mildly reduced LV systolic function (LVEF 45%). Moderate RV dilation with mild reduction in RV function. Severe biatrial dilation. Moderate TR. Mild MR, mild PI. When directly compared to prior study from 05/2023, the reduction in LV systolic function is new. Electronically signed by : Latia Santiago MD 02/05/2024 11:17:54
[2024-02-05 11:32] LABS: POC Glucose,Bedside 136 (70-110)
--- NOTE | 2024-02-05 11:40 | P.CONCA_ITS ---
History of Present Illness History of Present Illness Consult date: 02/05/24 Requesting physician: Ritika Miller Consult reason: hypotension Chief complaint: syncope History of present illness: 83-year-old white male established patient of Dr. Washington through in [place] with history of CABG, HFpEF, paroxysmal A-fib, COPD, diabetes, obesity. Patient states he had a heart cath with his bombsight specialist approximately 2 to 3 weeks ago, no stenting required. He has been having trouble managing blood pressure with systolic running as low as 90s with weakness then elevating greater than 200. Primary bombsight specialist has been reducing his meds. Approximately 4 to 5 days ago patient developed severe diarrhea for several days. He also has chronic ongoing right ear drainage and pain. He presented here for recurrent episodes of dizziness with occasional syncope. His episode of syncope yesterday was after standing from a seated position. Orthostatic vital signs here were positive for orthostasis and workup was also consistent with dehydration. He has been receiving fluids overnight and is feeling some better this morning. [facility] Disclaimer: The information contained in this section may have been updated after the patient was seen, as this information can be updated by other users. 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 Retained myringotomy tube Hearing difficulty of right ear Otorrhea of right ear Otalgia, right ear BMI 39.0-39.9,adult [place] and COPD overlap syndrome OAB (overactive bladder) CHF (congestive heart failure) Diabetes mellitus Afib HLD (hyperlipidemia) HHD (hypertensive heart disease) CAD (coronary artery disease) Surgical History History of left inguinal hernia repair History of umbilical hernia repair History of left heart catheterization (LHC) Hx of CABG Family History Mother Coronary artery disease Father Tuberculosis Social History Smoking Status: Former smoker years smoked: 30 smoking status stop date: 1992 alcohol intake: never substance use type: denies use current occupational status: disabled Travel in the last 8 weeks: None Review of Systems Constitutional Constitutional: Denies fatigue and Denies weakness Comments: [place] Eyes Eyes: Denies loss of vision ENT Ears, Nose, Mouth, and Throat: Denies hearing loss and Denies vertigo *Cardiovascular Cardiovascular: Denies chest pain, Denies dyspnea and Denies syncope *Respiratory Respiratory: Denies cough and Denies dyspnea *Gastrointestinal Gastrointestinal: Denies change in stool character, Denies nausea and Denies vomiting *Genitourinary Genitourinary: Denies difficulty urinating *Musculoskeletal Musculoskeletal: Denies muscle weakness Integumentary/Breasts Skin/Breast: Denies changing lesions *Neurologic Neurologic: Denies loss of vision, Denies syncope, Denies vertigo and Denies weakness Endocrine Endocrine: Denies fatigue Exam Data for Last 24 hours Vital signs and Labs for Last 24 Hours: Temp Pulse Resp BP Pulse Ox O2 Del Method O2 Flow Rate 98.2 F 80 22 149/82 H 97 Room Air 3 02/05/24 08:00 02/05/24 09:37 02/05/24 08:00 02/05/24 08:00 02/05/24 08:00 02/05/24 11:00 02/05/24 08:00 Laboratory Results - last 24 hr 02/04/24 16:47: WBC 6.0, RBC 4.57 L, Hgb 13.0 L, Hct 41.9 L, MCV 91.6, MCH 28.4, MCHC 31.1 L, RDW 17.0, Plt Count 185, MPV 7.8, Neut % (Auto) 70.4, Lymph % (Auto) 14.1, Sampson % (Auto) 7.9, Eos % (Auto) 6.5, Baso % (Auto) 1.2, Neut # (Auto) 4.3, Lymph # (Auto) 0.9, Sampson # (Auto) 0.5, Eos # (Auto) 0.4, Baso # (Auto) 0.1, Sodium 138, Potassium 3.7, Chloride 101, Carbon Dioxide 26, Anion Gap 14.7, BUN 16, Creatinine 1.10, Estimated Creat Clear 96, Estimated GFR 64, Est GFR ( Amer) 78, Glucose 191 H, Calcium 9.5, Total Bilirubin 1.5 H, AST 42, ALT 30, Alkaline Phosphatase 201 H, Troponin I 0.03, NT-Pro-B Natriuret Pep 3730 H, Total Protein 7.9, Albumin 4.2, Globulin 3.7 H, Albumin/Globulin Ratio 1.1 02/04/24 19:30: Troponin I 0.02 02/04/24 21:14: POC Glucose 197 H 02/04/24 23:14: Troponin I 0.02 02/05/24 06:05: POC Glucose 113 H 02/05/24 06:34: WBC 5.4, RBC 3.73 L, Hgb 10.7 L D, Hct 33.7 L, MCV 90.4, MCH 28.6, MCHC 31.7 L, RDW 16.9, Plt Count 149, MPV 8.4, Neut % (Auto) 66.4, Lymph % (Auto) 16.2, Sampson % (Auto) 8.8, Eos % (Auto) 8.1, Baso % (Auto) 0.6, Neut # (Auto) 3.6, Lymph # (Auto) 0.9, Sampson # (Auto) 0.5, Eos # (Auto) 0.4, Baso # (Auto) 0.0, Sodium 139, Potassium 3.4 L, Chloride 105, Carbon Dioxide 26, Anion Gap 11.4, BUN 15, Creatinine 0.90, Estimated Creat Clear 106, Estimated GFR 81, Est GFR ( Amer) 98 D, Glucose 108 H D, Calcium 8.8 02/05/24 11:23: POC Glucose 136 H I & O for Last 24 hours: Intake & Output 02/02/24 02/03/24 02/04/24 02/05/24 23:59 23:59 23:59 23:59 Intake Total 540 / 540 Output Total 1525 / 1525 Balance -985 / -985 Weight 285 lb 8 oz 285 lb 11.117 oz Constitutional Constitutional: no acute distress and cooperative Comments: [place] *Routine HEENT Exam Eye: Present PERRL *Routine Respiratory Exam Respiratory: Present CTA bilaterally; Absent accessory muscle use, wheezes or crackles *Routine Cardiovascular Exam Cardiovascular: Present RRR, Normal S1 and Normal S2; Absent murmur, gallop or rubs *Routine Abdominal Exam Abdominal: Present soft; Absent tenderness *Routine Extremities Exam Extremities: Present pulses intact; Absent cyanosis or edema *Routine Skin Exam Skin: Present intact; Absent erythema or wounds *Routine Neurological Exam Neurological: Present alert and oriented X3 Routine Psychiatric Exam Psychiatric: Present cooperative Meds Home Medications and Allergies Home Medications ?Medication ?Instructions ?Recorded ?Confirmed ?Type fluticasone propionate 50 1 spray intranasal DAILY PRN 06/10/17 01/29/24 History mcg/actuation nasal Allergies spray,suspension albuterol sulfate 2.5 mg/3 mL 2.5 mg (3 mL) inhalation Q6H #180 08/10/22 01/29/24 Rx (0.083 %) solution for nebulization mL blood-glucose meter #1 ea 03/15/23 02/05/24 Rx blood sugar diagnostic (Accu-Chek #100 ea 06/18/23 02/05/24 Rx Guide test strips) furosemide 40 mg tablet 40 mg PO DAILY #30 tabs 06/24/23 01/29/24 Rx apixaban 5 mg tablet (Eliquis) 5 mg PO BID #60 tabs 08/09/23 01/29/24 Rx metoprolol succinate 25 mg 25 mg PO DAILY #90 tabs 09/20/23 01/29/24 Rx tablet,extended release 24 hr (Toprol XL) fluticasone 250 mcg-salmeterol 50 1 inh inhalation BID #60 ea 10/07/23 01/29/24 Rx mcg/dose blistr powdr for inhalation albuterol sulfate 90 mcg/actuation 2 inh inhalation QID PRN Shortness 10/31/23 01/29/24 Rx aerosol inhaler Of Breath #8.5 grams insulin NPH-regular 70-30 U-100 40 unit (0.4 mL) SQ BID #60 mL 12/23/23 01/29/24 Rx insulin 100 unit/mL subcutaneous pen (Humulin 70/30 U-100 KwikPen) insulin NPH-regular 70-30 U-100 40 unit (0.4 mL) SQ BID #60 mL 12/23/23 01/29/24 Rx insulin 100 unit/mL subcutaneous pen (Novolin 70-30 FlexPen U-100 Insulin) aspirin 81 mg tablet,delayed 81 mg PO AM #90 tabs 12/31/23 01/29/24 Rx release gabapentin 300 mg capsule 300 mg PO TID PRN Nerve Pain #90 01/17/24 01/29/24 Rx caps hydrocodone 7.5 mg-acetaminophen 1 tab PO TID PRN Pain #90 tabs 01/27/24 01/29/24 Rx 325 mg tablet trazodone 50 mg tablet 50 mg PO HS #90 tabs 01/27/24 01/29/24 Rx atorvastatin 40 mg tablet 40 mg PO HS #90 tabs 01/28/24 01/29/24 Rx citalopram 20 mg tablet See Rx Instructions .Route 01/28/24 01/29/24 Rx .COMPLEX #90 tabs digoxin 125 mcg (0.125 mg) tablet See Rx Instructions .Route 01/28/24 01/29/24 Rx .COMPLEX #90 tabs pantoprazole 40 mg tablet,delayed See Rx Instructions .Route 01/28/24 01/29/24 Rx release .COMPLEX #90 tabs tamsulosin 0.4 mg capsule See Rx Instructions .Route 01/28/24 01/29/24 Rx .COMPLEX #90 caps doxycycline hyclate 100 mg capsule 100 mg PO BID 10 days #20 caps 01/29/24 01/29/24 Rx tobramycin 0.3 %-dexamethasone 0.1 2 drp ophthalmic (eye) QID change 01/29/24 01/29/24 Rx % eye drops,suspension above route to EAR; right ear #10 mL New Prescriptions to Start Prescriptions: Allergies Allergy/AdvReac Type Severity Reaction Status Date / Time amoxicillin [From Augmentin] Allergy Severe edema Verified 01/29/24 15:39 ciprofloxacin [From Cipro] Allergy Severe Redness of Verified 01/29/24 15:39 Skin clavulanic acid Allergy Severe edema Verified 01/29/24 15:39 [From Augmentin] prednisone AdvReac Intermediate Agitated Verified 01/29/24 15:39 Assessment and Plan *Assessment and plan (1) Orthostatic hypotension: Status: Acute Category: Medical Code(s): I95.1 - Orthostatic hypotension (2) Atrial fibrillation with rapid ventricular response: Status: Acute Category: Medical Code(s): I48.91 - Unspecified atrial fibrillation (3) Otorrhea of right ear: Status: Acute Category: Medical Code(s): H92.11 - Otorrhea, right ear (4) Syncope and collapse: Status: Acute Category: Medical Code(s): R55 - Syncope and collapse Plan Syncope - appears multifactorial - known chronic issues with hypotension - 20pt drop in BP during orthostatic vital signs here - recent severe diarrhea 4 days ago - ongoing right ear drainage, pain, and vertigo - A-fib is noted but chronic and reasonably well controlled - consider addition of Midodrine if not improving intermediate but would avoid in setting of HFrEF - add compressions stockings, stand slowly, consider use of rolader PAF - known chronic A-fib in setting of severe biatrial dilation (will be rate control only) - recommend heart monitor at discharge to r/o pauses and SSS - cont home dose Eliquis, Digoxin, Metoprolol (recently adjusted by his primary cardiolgist) CAD s/p CABG - CCS = 0 - EKG - A-fib - C 2-[address] Dara mendieta, no stents per pt HFrEF - NYHA = 2-3 on arrival with pulm edema and ProBNP 3K - improving - ECHO here shows EF 45% with Mod RV dilation, severe biatriald ilation, moderate TR - avoid ARNI/MRA/SLGT-2 due to recurrent hypotension and syncope with falls
[2024-02-05] MEDS: ACETAMINOPHEN 325MG TAB 650 MG PO (12:16)
[2024-02-05] MEDS: POTASSIUM CHLORIDE 20MEQ TAB 40 MEQ PO ×2 (12:16→16:08)
--- NOTE | 2024-02-05 12:44 | ECG_ITS ---
APPROVED REPORT Exam: Resting ECG HR:83 bpm ECG Measurements Heart Rate 83 AXES QRSd 176 QRS -74 QT 423 T 6 QTc 463 Conclusion ATRIAL FIBRILLATION RIGHT BUNDLE BRANCH BLOCK [120+ ms QRS DURATION, UPRIGHT V1, 40+ ms S IN I/aVL/V4/V5/V6] LEFT ANTERIOR FASCICULAR BLOCK [QRS AXIS <= -45, QR IN I, RS IN II] ABNORMAL ECG UNCONFIRMED REPORT Electronically signed by : Bk Johnson MD 02/07/2024 15:26:04
--- NOTE | 2024-02-05 13:31 | PC.NURSE ---
pt is unable to complete med rec because he doesnt know what he takes . and Pharmacy aware
--- NOTE | 2024-02-05 13:41 | HMH.PHAINT1 ---
Pharmacy Intervention Comments: HOME MEDICATION LIST VERIFIED USING LIST FROM OUTPATIENT PHARMACY DUE TO PATIENTS POOR HISTORIAN.
--- NOTE | 2024-02-05 14:24 | HMH.PTEV ---
Physical Therapy Evaluation Rehab PT IP Evaluation Start: 02/05/24 11:05 Freq: ONCE Status: Active Protocol: Document 02/05/24 14:20 MIGUEL (Rec: 02/05/24 14:24 MIGUEL [id number]) Subjective/History History History Per H&P: Patient is a 83-year -old male with past medical history of atrial fibrillation on Eliquis, hypertension, obstructive sleep apnea, diabetes mellitus who presented to hospital due to dizziness lightheadedness especially while standing up and getting out of the car. Subjective Subjective Pt reports he lives in a home with his grandson. Pt reports he was IND with all mobility prior to admission. Pt was still driving. Pt had 1 [address] his home. Pt used a cane intermittent. Reports a couple of falls in past month. New diagnosis of cancer in past 12 No months? Rehab PT IP Eval Objective Appearance Patient Behavior Appropriate,Cooperative Patient Orientation Person,Situation Difficulty following instructions none Speech Pattern Clear Ambulation Patient Able to Ambulate Yes Ambulation Observation IP General Gait Pattern Observation No Deviations/Normal Ambulation Distance (feet) 30 Ambulation Assistive Device None Ambulation Ability Supervision/Stand by Balance Ability to Arise Able, w/o using arms Sitting Balance Steady, safe Standing Balance Narrow stance w/o support Dynamic Sitting Balance Ability Good Dynamic Standing Balance Ability Good Transfers Sit to Stand Bed Transfer Ability Supervision/Stand by Rehab PT IP prob,goals,plan Problems Date of Evaluation: 02/05/24 Rehab Potential Rehab Potential Innapropriate for Skilled Therapy Discharge Plan PT Discharge Plan Pt safe to d/c home when deemed medically necessary d/t current level of mobility, home set-up, and family support. Pt not appropriate for skilled acute care PT at this time d/t pt?s mobility being at baseline. Eval Complexity Eval Charge Codes 49563 - Low Complexity PHYSICIAN CERTIFICATION: I certify the specified therapy services for Kel Vasques are required, authorized, and reviewed every 30 days.
--- NOTE | 2024-02-05 14:50 | HMH.OTEV ---
OT Inpatient Evaluation Rehab OT IP Evaluation Start: 02/05/24 11:05 Freq: ONCE Status: Active Protocol: Document 02/05/24 14:34 [email or web address] (Rec: 02/05/24 14:50 NINOSKA [id number]) Rehab OT IP Assessment Subjective History Patient still having left lower patient is a 83-year-old male with past medical history of atrial fibrillation on Eliquis, hypertension, obstructive sleep apnea, diabetes mellitus who presented to hospital due to dizziness lightheadedness especially while standing up and getting out of the car. Patient denies loss of consciousness, patient denied chest pain shortness of breath nausea vomiting diarrhea constipation abdominal evaluation. On further evaluation in the emergency department patient was found to have irregular heart rate and was diagnosed with A-fib with RVR. Patient was also noted to have pulmonary edema and pleural effusions. Patient lives at home with grandson. Independent with ADLs and fx'l mobility. Subjective I can get up. Analysis Patient's bed mobility, transfers, ambulation and ADLs during initial evaluation. Patient completed all tasks independently. Objective Patient Orientation Person,Name,Age,Birthday,Year Right Upper Extremity Gross ROM WFL Left Upper Extremity Gross ROM WFL Bed Mobility bed mobility - supine/sit Assist Level Independent Transfer Training Sit/Stand/Pivot Transfer Assist Level Independent Chair Transfer Ability Independent Chair Transfer Technique Sit to/from Ambulatory Chair Transfer Assistive Devices None Lower Body Dressing Ability Independent Rehab OT IP prob,goals,plan Problems Date of Evaluation: 02/05/24 Rehab Potential Rehab Potential Innapropriate for Skilled Therapy Discharge Plan OT Discharge Plan Patient appears to be at baseline. Recommend patient to return home after medical d/c . Eval Complexity Eval Charge Codes 87565 - Low Complexity PHYSICIAN CERTIFICATION: I certify the specified therapy services for Kel Vasques are required, authorized, and reviewed every 30 days.
--- NOTE | 2024-02-05 15:59 | EXP.PN ---
Subjective *Date: 02/05/24 *Time: 16:04 Interval history: Patient states he feels a lot better today, including lower extremity swelling after diuresis. Denies chest pain, shortness of breath. Exam Data for Last 24 hours Vital signs and Labs for Last 24 Hours: Temp Pulse Resp BP Pulse Ox O2 Del Method O2 Flow Rate 98.2 F 79 19 153/80 H 94 L Room Air 3 02/05/24 08:00 02/05/24 12:00 02/05/24 12:00 02/05/24 12:00 02/05/24 12:00 02/05/24 15:00 02/05/24 08:00 Laboratory Results - last 24 hr 02/04/24 16:47: WBC 6.0, RBC 4.57 L, Hgb 13.0 L, Hct 41.9 L, MCV 91.6, MCH 28.4, MCHC 31.1 L, RDW 17.0, Plt Count 185, MPV 7.8, Neut % (Auto) 70.4, Lymph % (Auto) 14.1, Sandoval % (Auto) 7.9, Eos % (Auto) 6.5, Baso % (Auto) 1.2, Neut # (Auto) 4.3, Lymph # (Auto) 0.9, Sandoval # (Auto) 0.5, Eos # (Auto) 0.4, Baso # (Auto) 0.1, Sodium 138, Potassium 3.7, Chloride 101, Carbon Dioxide 26, Anion Gap 14.7, BUN 16, Creatinine 1.10, Estimated Creat Clear 96, Estimated GFR 64, Est GFR ( Amer) 78, Glucose 191 H, Calcium 9.5, Total Bilirubin 1.5 H, AST 42, ALT 30, Alkaline Phosphatase 201 H, Troponin I 0.03, NT-Pro-B Natriuret Pep 3730 H, Total Protein 7.9, Albumin 4.2, Globulin 3.7 H, Albumin/Globulin Ratio 1.1 02/04/24 19:30: Troponin I 0.02 02/04/24 21:14: POC Glucose 197 H 02/04/24 23:14: Troponin I 0.02 02/05/24 06:05: POC Glucose 113 H 02/05/24 06:34: WBC 5.4, RBC 3.73 L, Hgb 10.7 L D, Hct 33.7 L, MCV 90.4, MCH 28.6, MCHC 31.7 L, RDW 16.9, Plt Count 149, MPV 8.4, Neut % (Auto) 66.4, Lymph % (Auto) 16.2, Sandoval % (Auto) 8.8, Eos % (Auto) 8.1, Baso % (Auto) 0.6, Neut # (Auto) 3.6, Lymph # (Auto) 0.9, Sandoval # (Auto) 0.5, Eos # (Auto) 0.4, Baso # (Auto) 0.0, Sodium 139, Potassium 3.4 L, Chloride 105, Carbon Dioxide 26, Anion Gap 11.4, BUN 15, Creatinine 0.90, Estimated Creat Clear 106, Estimated GFR 81, Est GFR ( Amer) 98 D, Glucose 108 H D, Calcium 8.8 02/05/24 11:23: POC Glucose 136 H I & O for Last 24 hours: Intake & Output 02/02/24 02/03/24 02/04/24 02/05/24 23:59 23:59 23:59 23:59 Intake Total 840 / 840 Output Total 2175 / 2175 Balance -1335 / -1335 Weight 129.501 kg 129.589 kg Constitutional Constitutional: no acute distress *Routine HEENT Exam Head: Present normocephalic Eye: Present EOMI and PERRL ENT: Present mucous membranes moist *Routine Neck Exam Neck: Present supple; Absent lymphadenopathy *Routine Respiratory Exam Respiratory: Present CTA bilaterally *Routine Cardiovascular Exam Cardiovascular: Present RRR *Routine Abdominal Exam Abdominal: Present soft and normoactive bowel sounds; Absent tenderness *Routine Extremities Exam Extremities: Present edema; Absent cyanosis or clubbing Comments: Trace lower extremity pitting edema. *Routine Skin Exam Skin: Present warm; Absent rash *Routine Neurological Exam Neurological: Present alert and oriented X3 Assessment and Plan *Assessment and plan (1) Atrial fibrillation with rapid ventricular response: Status: Acute Category: Medical Code(s): I48.91 - Unspecified atrial fibrillation (2) Acute heart failure with preserved ejection fraction (HFpEF): Status: Acute Category: Medical Code(s): I50.31 - Acute diastolic (congestive) heart failure Plan Patient still having left lower patient is a 83-year-old male with past medical history of atrial fibrillation on Eliquis, hypertension, obstructive sleep apnea, diabetes mellitus who presented to hospital due to dizziness lightheadedness especially while standing up and getting out of the car. Patient denies loss of consciousness, patient denied chest pain shortness of breath nausea vomiting diarrhea constipation abdominal evaluation. On further evaluation in the emergency department patient was found to have irregular heart rate and was diagnosed with A-fib with RVR. Patient was also noted to have pulmonary edema and pleural effusions #HFpEF exacerbation #Dizziness ? Improving with diuresis. Symptoms of SOB, dizziness also improving. Renal function also improving. ? IV Lasix 40 mg twice daily. Takes Lasix 40 mg as needed at home. ? ECHO LVEF 45% with mild global hypokinesis. ? Cardiology consulted, no plans for other interventions. Recommended discontinuing Jardiance given recent falls. ? PT OT consulted, pending recommendations. ? Continue to monitor renal function and electrolytes, creatinine today 0.9 from 1.1 yesterday. ? Anticipate discharge tomorrow after at least 24 hours of diuresis and if stable. #A-fib with RVR, resolved ?Rate controlled. Monitor on cardiac telemetry Continue home Eliquis, digoxin. History of COPD Resume home inhaler therapy Diabetes mellitus Insulin sliding scale DVT prophylaxis on Eliquis
[2024-02-05 16:19] LABS: POC Glucose,Bedside 137 (70-110)
[2024-02-05] MEDS: ONDANSETRON 4MG/2ML VIAL 4 MG IV (17:39)
[2024-02-05] MEDS: FLUTICASONE/SALMETEROL 250/50MCG DISKUS 1 PUFF IH (18:11)
--- NOTE | 2024-02-05 19:17 | ECG_ITS ---
APPROVED REPORT Exam: Resting ECG HR:112 bpm ECG Measurements Heart Rate 112 AXES QRSd 156 QRS -57 QT 364 T 7 QTc 430 Conclusion ATRIAL FIBRILLATION WITH RAPID VENTRICULAR RESPONSE RIGHT BUNDLE BRANCH BLOCK [120+ ms QRS DURATION, UPRIGHT V1, 40+ ms S IN I/aVL/V4/V5/V6] LEFT ANTERIOR FASCICULAR BLOCK [QRS AXIS <= -45, QR IN I, RS IN II] ABNORMAL ECG UNCONFIRMED REPORT Electronically signed by : Bk Johnson MD 02/07/2024 15:25:43
--- NOTE | 2024-02-05 19:41 | PC.NURSE ---
pt is a&o x4 and currently resting in bed. lung sounds clear. tolerating room air well with sats >90%. vss. fsbs 136 and 137 this shift, so no ss insulin was given. pt has been receiving lasix to diurese with large amounts of output. pt had a bm this shift. pt complained of headache and indigestion and was treated per jul. pt has been afib with bbb on tele this shift. around 1245 this RN was notified of pt showing VTACH on monitor. MD notified and EKG completed. pt showed no abnormal changes on strip. no new orders per MD. this same thing happened around 1916 with the same outcome. no new changes to new ekg strip. pt has no complaints at this time. call light within reach.
[2024-02-05] MEDS: TAMSULOSIN 0.4MG CAPSULE 0.4 MG PO (21:51)
[2024-02-05] MEDS: TRAZODONE 50MG TABLET 50 MG PO (21:51)
[2024-02-05] MEDS: ATORVASTATIN 40MG TABLET 40 MG PO (21:51)
[2024-02-05 22:10] LABS: POC Glucose,Bedside 167 (70-110)
--- NOTE | 2024-02-05 22:10 | PC.NURSE ---
Patient's bedside fingerstick glucose was 167 for 21:00. Patient has two orders for insulin coverage in the MAR. One was for Insulin Lispro per sliding scale, and the patient would be getting 5 units according to his glucose reading. The other order was for the patient's personal flex pen, HumaLOG mix 75/25, and he would get 40 units not per sliding scale. Dr Miller was paged at 22:07 to clarify which order would need to be given. Dr Miller stated that the patient should be given the first order, Lispro insulin 5 units. The patient's personal flex pen insulin (40 units) was not to be given at this time.
[2024-02-05] MEDS: humaLOG 100 UNITS/ML 10ML VIAL (SSI) SQ (22:19)
[2024-02-05] MEDS: GABAPENTIN 300MG CAPSULE 300 MG PO (22:21)
--- NOTE | 2024-02-05 23:08 | PC.NURSE ---
Patient received gabapentin 300 mg PO per JUL at 22:21. Patient was complaining of a sharp and intermittent jolting pain in his left leg. At this time, patient says that he continues to have the same pain and wanted to request to have a lidocaine topical patch. Dr Miller was paged and an order for a lidocaine patch topical once daily was obtained.
[2024-02-05] MEDS: LIDOCAINE 5% TRANSDERMAL PATCH 1 EACH TP (23:21)
[2024-02-06] VITALS (7 sets, daily range): BP systolic 86–142; BP diastolic 58–96; PULSE 74–116; RESP 16–20; TEMP 36.5–36.9; O2SAT 93–99; BMI 35.4
--- NOTE | 2024-02-06 05:09 | PC.NURSE ---
Patient is alert and oriented x4. Patient's heart rhythm has fluctuated from afib (baseline) into v-tach periodically throughout the night on telemetry; patient has not had any long runs of v-tach, and the patient would return to his baseline quite quickly (see previous note). Patient has gotten several EKGs during the previous shift along with a baseline EKG at the beginning of this shift that have been cleared with no abnormalities by the MDs; no acute changes concerning the heart rhythm have been noted thus far. Patient has stated he feels fine and has not had any complaints of epigastria pain or indigestion this shift. However, patient started to complain of a sharp and jolting pain in his left leg; an order for a lidocaine patch was obtained from Paul NEGRETE per request by patient. The patient was able to rest after lidocaine patch was applied to leg; he has not had any further complaints of the sharp leg pain. Patient's left lung had decreased air movement compared to the right lobe upon auscultation this shift. Patient's bowel sounds were active in all quadrants. Patient has below-knee scrapes on both of his legs due to a fall. Patient's abdomen was slightly distended; patient reported no discomfort. Patient has been using his urinal at bedside; adequate output has been noticed this shift. Urine was clear and yellow. Patient does not have any complaints. He is observed to have eyes closed, respirations even and unlabored on 3 L of oxygen via nasal cannula, and no apparent distress at this time. He has remained resting in bed with self-turns this shift. Patient's oxygen saturations have remained > 90%; however, blood pressures have been slightly hypotensive and his heart rate has remained tachycardic this shift. No further acute changes noted thus far. Call light within reach.
[2024-02-06] MEDS: ALBUTEROL 0.083% 2.5 MG/3 ML NEB IH (06:05)
[2024-02-06] MEDS: FLUTICASONE/SALMETEROL 250/50MCG DISKUS 1 PUFF IH (06:06)
[2024-02-06 06:19] LABS: POC Glucose,Bedside 124 (70-110)
[2024-02-06] MEDS: ASPIRIN EC 81MG TABLET 81 MG PO (06:28)
[2024-02-06 06:55] LABS: Chloride 102 mmol/L (98-107)
[2024-02-06 06:56] LABS: Potassium 3.5 mmoL/L (3.5-5.1); Sodium 139 mmol/L (136-145)
[2024-02-06 06:58] LABS: Blood Urea Nitrogen 16 mg/dl (9-20); Creatinine Clearance Estimated 103 mL/min (50-200); Estimated Glomerular Filt Rate 72 ml/min (>60); GFR (African American) 87 ML/MIN (>60)
[2024-02-06 06:59] LABS: Anion Gap 9.5 mEq/L (5-15); Calcium 8.8 mg/dl (8.4-10.2); Carbon Dioxide 31 mmol/L (22.0-30.0); Glucose 128 mg/dl (74-100)
[2024-02-06 07:12] LABS: Magnesium 1.6 mg/dl (1.6-2.3)
[2024-02-06 07:32] LABS: Basophils # 0.1 K/mm3 (0-0.2); Basophils % 0.9 % (0.1-2.0); Eosinophils # 0.5 K/mm3 (0.0-0.4); Eosinophils % 7.3 % (0.1-12.0); Hemoglobin 11.1 g/dL (14.1-18.0); Lymphocytes % 16.7 % (10-50); Mean Corpuscular HGB Conc 30.8 g/dL (31.8-35.4); Mean Corpuscular Volume 90.9 fl (80-94); Mean Platelet Volume 7.1 fl (7.4-10.4); Monocytes # 0.5 K/mm3 (0.1-1.0); Neutrophils # 4.1 K/mm3 (1.8-7.8); Neutrophils % 67.1 % (37.0-80.0); Platelet Count 152 K/mm3 (142-424); Red Blood Count 3.96 M/mm3 (4.60-6.20); Red Cell Distribution Width 16.4 % (11.5-17.5); White Blood Count 6.1 K/mm3 (4.8-10.8)
--- NOTE | 2024-02-06 08:40 | XR_ITS ---
FINAL REPORT CLINICAL HISTORY: CHF, COPD COMPARISON: 02/04/2024 and 05/29/2023 FINDINGS: The heart is moderately enlarged.. Sternotomy wires are present. There is coarse interstitial opacity in both lungs, but on the current exam there is some slight increased opacity in the left perihilar region concerning for left perihilar pneumonia. There are no pleural effusions. There is no pneumothorax. There is no osseous abnormality. IMPRESSION: Findings concerning for left perihilar pneumonia. Reviewed, Interpreted and Dictated by Damir Palmer MD Transcribed by Emi Leung Authenticated and [facility]
--- NOTE | 2024-02-06 08:52 | PC.NURSE ---
orthostatic BP reported to nurse and charted.
[2024-02-06 09:07] LABS: NT Pro Brain Natriuretic Pep. 2280 pg/mL (0-450)
[2024-02-06] MEDS: ACETAMINOPHEN 325MG TAB 650 MG PO (09:20)
[2024-02-06] MEDS: MIDODRINE HCL 5 MG TABLET PO ×2 (09:20→12:15)
[2024-02-06] MEDS: METOPROLOL SUCCINATE XL 25MG TABLET 25 MG PO (09:21)
[2024-02-06] MEDS: CLOPIDOGREL 75MG TAB 75 MG PO (09:21)
[2024-02-06] MEDS: POTASSIUM CHLORIDE 20MEQ TAB 20 MEQ PO (09:21)
[2024-02-06] MEDS: APIXABAN 5MG TABLET 5 MG PO (09:21)
[2024-02-06] MEDS: CITALOPRAM 20MG TABLET 20 MG PO (09:21)
[2024-02-06] MEDS: IRBESARTAN 75MG TABLET 37.5 MG PO (09:21)
[2024-02-06] MEDS: FUROSEMIDE 40MG/4ML VIAL 40 MG IV (09:22)
[2024-02-06] MEDS: FINASTERIDE 5MG TABLET 5 MG PO (09:22)
[2024-02-06] MEDS: DIGOXIN 0.125MG TABLET 125 MCG PO (09:23)
[2024-02-06] MEDS: humaLOG MIX 75/25 3ML FLEXPEN 40 UNIT SQ (09:32)
[2024-02-06] MEDS: GABAPENTIN 300MG CAPSULE 300 MG PO (09:32)
--- NOTE | 2024-02-06 10:44 | P.PN_ITS ---
Subjective Subjective Date: 02/06/24 Time: 10:44 Interval history: Diuresed nearly 4 L. His breathing is back to baseline and he states his dizziness resolved although he is still positive for orthostatic hypotension this morning. Exam Data for Last 24 hours Vital signs and Labs for Last 24 Hours: Temp Pulse Resp BP Pulse Ox O2 Del Method O2 Flow Rate 98 F 115 H 17 128/73 96 Nasal Cannula 3 02/06/24 08:00 02/06/24 09:23 02/06/24 08:00 02/06/24 08:51 02/06/24 08:00 02/06/24 06:52 02/06/24 06:52 FiO2 32 02/05/24 18:21 Laboratory Results - last 24 hr 02/05/24 11:23: POC Glucose 136 H 02/05/24 15:59: POC Glucose 137 H 02/05/24 21:56: POC Glucose 167 H 02/06/24 06:11: POC Glucose 124 H 02/06/24 06:21: WBC 6.1, RBC 3.96 L, Hgb 11.1 L, Hct 36.0 L, MCV 90.9, MCH 28.0, MCHC 30.8 L, RDW 16.4, Plt Count 152, MPV 7.1 L, Neut % (Auto) 67.1, Lymph % (Auto) 16.7, Divide % (Auto) 8.0, Eos % (Auto) 7.3, Baso % (Auto) 0.9, Neut # (Auto) 4.1, Lymph # (Auto) 1.0, Divide # (Auto) 0.5, Eos # (Auto) 0.5 H, Baso # (Auto) 0.1, Sodium 139, Potassium 3.5, Chloride 102, Carbon Dioxide 31 H, Anion Gap 9.5, BUN 16, Creatinine 1.00, Estimated Creat Clear 103, Estimated GFR 72, Est GFR ( Amer) 87, Glucose 128 H, Calcium 8.8, Magnesium 1.6, NT-Pro-B Natriuret Pep 2280 H I & O for Last 24 hours: Intake & Output 02/03/24 02/04/24 02/05/24 02/06/24 23:59 23:59 23:59 23:59 Intake Total 1260 / 1500 780 / 780 Output Total 5075 / 5625 650 / 650 Balance -3815 / -4125 130 / 130 Weight 285 lb 8 oz 285 lb 11.117 oz 276 lb 4.8 oz Constitutional Constitutional: no acute distress and cooperative Comments: [place] *Routine HEENT Exam Eye: Present PERRL *Routine Respiratory Exam Respiratory: Present CTA bilaterally; Absent accessory muscle use, wheezes or crackles *Routine Cardiovascular Exam Cardiovascular: Present RRR, Normal S1 and Normal S2; Absent murmur, gallop or rubs *Routine Abdominal Exam Abdominal: Present soft; Absent tenderness *Routine Extremities Exam Extremities: Present pulses intact; Absent cyanosis or edema *Routine Skin Exam Skin: Present intact; Absent erythema or wounds *Routine Neurological Exam Neurological: Present alert and oriented X3 Routine Psychiatric Exam Psychiatric: Present cooperative Progress Note: A&P Assessment and plan (1) Atrial fibrillation with rapid ventricular response: Status: Acute (2) HFrEF (heart failure with reduced ejection fraction): Status: Acute Assessment and Plan Assessment and Plan for All Diagnoses:: Syncope - appears multifactorial - known chronic issues with hypotension - 20pt drop in BP during orthostatic vital signs here - recent severe diarrhea 4 days ago - ongoing right ear drainage, pain, and vertigo - A-fib is noted but chronic and reasonably well controlled - Midodrine added by primary service - paradoxically, pt states dizziness resolved/improved after diureses although he's still orthostatic PAF - known chronic A-fib in setting of severe biatrial dilation (will be rate control only) - recommend heart monitor at discharge to r/o pauses and SSS - cont home dose Eliquis, Digoxin, Metoprolol (recently adjusted by his primary diet supervisor) CAD s/p CABG - CCS = 0 - EKG - A-fib - LHC 2-[address] Dara mendieta, no stents per pt HFrEF - NYHA = 2-3 on arrival with pulm edema and ProBNP 3K - improving, has diuresed 3.6L - ECHO here shows EF 45% with Mod RV dilation, severe biatriald ilation, modera te TR - avoid ARNI/MRA/SLGT-2 due to recurrent hypotension and syncope with falls CV stable for DC home. Patient needs follow-up with his primary diet supervisor, Dr. Diamond, 1 to 2 weeks postdischarge. CV discharge medication list: Eliquis 5 mg 1 p.o. twice daily Atorvastatin 40 mg 1 p.o. nightly Plavix 75 mg 1 p.o. daily Digoxin 0.125 mg 1 p.o. daily Lasix 40 mg 1 p.o. daily Irbesartan 37.5 mg 1 p.o. daily Toprol-XL 25 mg 1 p.o. daily Midodrine 5 mg 1 p.o. 3 times daily
--- NOTE | 2024-02-06 11:50 | EXP.DC.SUM ---
General Admission date:: 02/04/24 HPI HPI HPI: Patient still having left lower patient is a 83-year-old male with past medical history of atrial fibrillation on Eliquis, hypertension, obstructive sleep apnea, diabetes mellitus who presented to hospital due to dizziness lightheadedness especially while standing up and getting out of the car. Patient denies loss of consciousness, patient denied chest pain shortness of breath nausea vomiting diarrhea constipation abdominal evaluation. On further evaluation in the emergency department patient was found to have irregular heart rate and was diagnosed with A-fib with RVR. Patient was also noted to have pulmonary edema and pleural effusions Hospital Course Hospital Course Hospital Course: Patient still having left lower patient is a 83-year-old male with past medical history of atrial fibrillation on Eliquis, hypertension, obstructive sleep apnea, diabetes mellitus who presented to hospital due to dizziness lightheadedness especially while standing up and getting out of the car. Patient denies loss of consciousness, patient denied chest pain shortness of breath nausea vomiting diarrhea constipation abdominal evaluation. On further evaluation in the emergency department patient was found to have irregular heart rate and was diagnosed with A-fib with RVR. Patient was also noted to have pulmonary edema and pleural effusions #HFpEF exacerbation #Dizziness #Orthostatic hypotension ? Improved with IV Lasix diuresis. Symptoms of SOB, dizziness also improved. Renal function also improved after diuresis. - Continued to have positive orthostatic vitals. ? ECHO LVEF 45% with mild global hypokinesis. ? Cardiology consulted, no plans for other interventions. Recommended discontinuing Jardiance given recent falls. ? PT OT consulted, stated patient is at baseline without further PT needs. - Started midrodine 2.5mg TID. - Changed Lasix 40mg to daily. - Will follow-up with cardiology within 1 week. #A-fib with RVR, resolved ?Rate controlled. Continue home Eliquis, digoxin. Exam Data for Last 24 hours Vital signs and Labs for Last 24 Hours: Temp Pulse Resp BP Pulse Ox O2 Del Method O2 Flow Rate 98 F 115 H 17 128/73 96 Nasal Cannula 3 02/06/24 08:00 02/06/24 09:23 02/06/24 08:00 02/06/24 08:51 02/06/24 08:00 02/06/24 06:52 02/06/24 06:52 FiO2 32 02/05/24 18:21 Laboratory Results - last 24 hr 10/02/24 15:59: POC Glucose 137 H 02/05/24 21:56: POC Glucose 167 H 02/06/24 06:11: POC Glucose 124 H 02/06/24 06:21: WBC 6.1, RBC 3.96 L, Hgb 11.1 L, Hct 36.0 L, MCV 90.9, MCH 28.0, MCHC 30.8 L, RDW 16.4, Plt Count 152, MPV 7.1 L, Neut % (Auto) 67.1, Lymph % (Auto) 16.7, Lander % (Auto) 8.0, Eos % (Auto) 7.3, Baso % (Auto) 0.9, Neut # (Auto) 4.1, Lymph # (Auto) 1.0, Lander # (Auto) 0.5, Eos # (Auto) 0.5 H, Baso # (Auto) 0.1, Sodium 139, Potassium 3.5, Chloride 102, Carbon Dioxide 31 H, Anion Gap 9.5, BUN 16, Creatinine 1.00, Estimated Creat Clear 103, Estimated GFR 72, Est GFR ( Amer) 87, Glucose 128 H, Calcium 8.8, Magnesium 1.6, NT-Pro-B Natriuret Pep 2280 H I & O for Last 24 hours: Intake & Output 02/03/24 02/04/24 02/05/24 02/06/24 23:59 23:59 23:59 23:59 Intake Total 1260 / 1500 780 / 780 Output Total 5075 / 5625 650 / 650 Balance -3815 / -4125 130 / 130 Weight 129.501 kg 129.589 kg 125.328 kg Constitutional Constitutional: no acute distress *Routine HEENT Exam Head: Present normocephalic Eye: Present EOMI and PERRL ENT: Present mucous membranes moist *Routine Neck Exam Neck: Present supple; Absent lymphadenopathy *Routine Respiratory Exam Respiratory: Present CTA bilaterally *Routine Cardiovascular Exam Cardiovascular: Present RRR *Routine Abdominal Exam Abdominal: Present soft and normoactive bowel sounds; Absent tenderness *Routine Extremities Exam Extremities: Present edema; Absent cyanosis or clubbing Comments: Trace lower extremity pitting edema. *Routine Skin Exam Skin: Present warm; Absent rash *Routine Neurological Exam Neurological: Present alert and oriented X3 Results Data Completed and Pending Labs on day of discharge: Labs from last 24 hours 02/06/24 02/06/24 02/05/24 06:21 06:11 21:56 WBC 6.1 RBC 3.96 L Hgb 11.1 L Hct 36.0 L MCV 90.9 MCH 28.0 MCHC 30.8 L RDW 16.4 Plt Count 152 MPV 7.1 L Neut % (Auto) 67.1 Lymph % (Auto) 16.7 Lander % (Auto) 8.0 Eos % (Auto) 7.3 Baso % (Auto) 0.9 Neut # (Auto) 4.1 Lymph # (Auto) 1.0 Lander # (Auto) 0.5 Eos # (Auto) 0.5 H Baso # (Auto) 0.1 Sodium 139 Potassium 3.5 Chloride 102 Carbon Dioxide 31 H Anion Gap 9.5 BUN 16 Creatinine 1.00 Estimated Creat Clear 103 Estimated GFR 72 Est GFR ( Amer) 87 Glucose 128 H POC Glucose 124 H 167 H Calcium 8.8 Magnesium 1.6 NT-Pro-B Natriuret Pep 2280 H 02/05/24 15:59 WBC RBC Hgb Hct MCV MCH MCHC RDW Plt Count MPV Neut % (Auto) Lymph % (Auto) Lander % (Auto) Eos % (Auto) Baso % (Auto) Neut # (Auto) Lymph # (Auto) Lander # (Auto) Eos # (Auto) Baso # (Auto) Sodium Potassium Chloride Carbon Dioxide Anion Gap BUN Creatinine Estimated Creat Clear Estimated GFR Est GFR ( Amer) Glucose POC Glucose 137 H Calcium Magnesium NT-Pro-B Natriuret Pep DS: Diagnosis Discharge Diagnosis (1) Atrial fibrillation with rapid ventricular response: Status: Resolved Code(s): I48.91 - Unspecified atrial fibrillation (2) HFrEF (heart failure with reduced ejection fraction): Status: Inactive Code(s): I50.20 - Unspecified systolic (congestive) heart failure Meds Home Medications and Allergies Home Medications ?Medication ?Instructions ?Recorded ?Confirmed ?Type blood-glucose meter #1 ea 03/15/23 02/05/24 Rx blood sugar diagnostic (Accu-Chek #100 ea 06/18/23 02/05/24 Rx Guide test strips) metoprolol succinate 25 mg 25 mg PO DAILY #90 tabs 09/20/23 02/05/24 Rx tablet,extended release 24 hr (Toprol XL) fluticasone 250 mcg-salmeterol 50 1 inh inhalation BID #60 ea 10/07/23 02/05/24 Rx mcg/dose blistr powdr for inhalation insulin NPH-regular 70-30 U-100 40 unit (0.4 mL) SQ BID #60 mL 12/23/23 02/05/24 Rx insulin 100 unit/mL subcutaneous pen (Humulin 70/30 U-100 KwikPen) aspirin 81 mg tablet,delayed 81 mg PO AM #90 tabs 12/31/23 02/05/24 Rx release gabapentin 300 mg capsule 300 mg PO TID PRN Nerve Pain #90 01/17/24 02/05/24 Rx caps hydrocodone 7.5 mg-acetaminophen 1 tab PO TID PRN Pain #90 tabs 01/27/24 02/05/24 Rx 325 mg tablet trazodone 50 mg tablet 50 mg PO HS #90 tabs 01/27/24 02/05/24 Rx atorvastatin 40 mg tablet 40 mg PO HS #90 tabs 01/28/24 02/05/24 Rx apixaban 5 mg tablet (Eliquis) 5 mg PO BID 02/05/24 02/05/24 History citalopram 20 mg tablet 20 mg PO DAILY 02/05/24 02/05/24 History clopidogrel 75 mg tablet 75 mg PO DAILY 02/05/24 02/05/24 History digoxin 125 mcg (0.125 mg) tablet 125 mcg PO DAILY 02/05/24 02/05/24 History finasteride 5 mg tablet 5 mg PO DAILY 02/05/24 02/05/24 History losartan 25 mg tablet 25 mg PO DAILY 02/05/24 02/05/24 History pantoprazole 40 mg tablet,delayed 40 mg PO DAILY 02/05/24 02/05/24 History release potassium chloride 20 mEq 20 meq PO DAILY 02/05/24 02/05/24 History tablet,extended release(part/cryst) tamsulosin 0.4 mg capsule 0.4 mg PO DAILY 02/05/24 02/05/24 History furosemide 40 mg tablet 40 mg PO DAILY #30 tabs 02/06/24 Rx midodrine 5 mg tablet 2.5 mg (1/2 x 5 mg) PO TID #90 tabs 02/06/24 Rx New Prescriptions to Start Prescriptions: furosemide Ness,Regino midodrine Princessvee,Reigno Allergies Allergy/AdvReac Type Severity Reaction Status Date / Time amoxicillin [From Augmentin] Allergy Severe edema Verified 02/10/24 12:28 ciprofloxacin [From Cipro] Allergy Severe Redness of Verified 02/10/24 12:28 Skin clavulanic acid Allergy Severe edema Verified 02/10/24 12:28 [From Augmentin] prednisone AdvReac Intermediate Agitated Verified 02/10/24 12:28 Discharge Plan Disposition Patient Disposition: Home, Self-Care Condition: Fair Follow up Plan Follow up with: Mitchell Morales PA [[facility] [employer]] - 2 weeks Prescriptions/Medication Reconciliation: New midodrine 5 mg Tablet 2.5 mg PO TID Qty: 90 0RF Continued metoprolol succinate [Toprol XL] 25 mg tablet extended release 24 hr 25 mg PO DAILY Qty: 90 3RF hydrocodone-acetaminophen 7.5-325 mg tablet 1 tab PO TID PRN (Reason: Pain) Qty: 90 0RF trazodone 50 mg tablet 50 mg PO HS Qty: 90 3RF (DME) blood-glucose meter Misc See Rx Instructions .ROUTE .MEDSUPPLY Qty: 1 0RF Rx Instructions: As directed (DME) Accu-Chek Guide test strips Strip See Rx Instructions .Route Qty: 100 10RF Rx Instructions: As directed fluticasone propion-salmeterol 250-50 mcg/dose blister with device 1 inh INHALATION BID Qty: 60 2RF Humulin 70/30 U-100 KwikPen 100 unit/mL (70-30) insulin pen 40 unit SQ BID Qty: 60 3RF aspirin 81 mg tablet,delayed release (DR/EC) 81 mg PO AM Qty: 90 0RF gabapentin 300 mg capsule 300 mg PO TID PRN (Reason: Nerve Pain ) Qty: 90 5RF atorvastatin 40 mg tablet 40 mg PO HS Qty: 90 1RF clopidogrel 75 mg tablet 75 mg PO DAILY citalopram 20 mg tablet 20 mg PO DAILY Patient Comments: TAKE ONE TABLET BY MOUTH DAILY potassium chloride 20 mEq tablet,ER particles/crystals 20 meq PO DAILY Patient Comments: TAKE ONE TABLET BY MOUTH EVERY MORNING tamsulosin 0.4 mg capsule 0.4 mg PO DAILY Patient Comments: TAKE ONE CAPSULE BY MOUTH EVERY MORNING pantoprazole 40 mg tablet,delayed release (DR/EC) 40 mg PO DAILY Patient Comments: TAKE ONE TABLET BY MOUTH EVERY MORNING losartan 25 mg tablet 25 mg PO DAILY Patient Comments: TAKE ONE TABLET BY MOUTH DAILY digoxin 125 mcg (0.125 mg) tablet 125 mcg PO DAILY Patient Comments: TAKE ONE TABLET BY MOUTH EVERY MORNING finasteride 5 mg tablet 5 mg PO DAILY Eliquis 5 mg tablet 5 mg PO BID Patient Comments: TAKE ONE TABLET BY MOUTH EVERY MORNING and TAKE ONE TABLET BY MOUTH EVERY EVENING furosemide 40 mg tablet 40 mg PO DAILY Qty: 30 0RF Discontinued doxycycline hyclate 100 mg capsule 100 mg PO BID 10 Days Qty: 20 0RF Problem Reconciliation Problems Reviewed?: Yes Patient Discharge Instructions DIET: continue same diet Additional Instructions: Please follow-up with your venereal disease investigator within 1 week of discharge. Start taking Lasix 40 mg daily instead of as needed. Patient Instructions: DI for Heart Failure Print Language: Vietnamese Providers Primary Care Provider: Provider,Referral Admit Provider: Regino Arzola Attending Provider: Regino Arzola
[2024-02-06 11:52] LABS: POC Glucose,Bedside 169 (70-110)
[2024-02-06] MEDS: humaLOG 100 UNITS/ML 10ML VIAL (SSI) SQ (12:14)
--- NOTE | 2024-02-07 14:00 | CARE MANAGER ---
Contacted patient related to hospital discharge. Patient reports confusion with medications and nausea. We reviewed his medications and he states he understands them now. Offered home health services and patient declined. He reports that he will follow up with PCP as well and go over medications. He denies any other questions or concerns at this time. KAUSHIK New
== END 2024-02-06 14:00 | disposition home or self-care (01) ==
LOC: ER 19:34 → 2ND 19:57
PROVIDERS: Internal Medicine; Physician Assistant; Admitting Provider Student in an Organized Health Care Education/Training Program; Emergency Provider Emergency Medicine; Visit Provider Student in an Organized Health Care Education/Training Program
DX: I48.91 Unspecified atrial fibrillation (principal); R55 Syncope and collapse; E11.9 Type 2 diabetes mellitus without complications; Z79.4 Long term (current) use of insulin; I50.31 Acute diastolic (congestive) heart failure; I95.1 Orthostatic hypotension; H92.11 Otorrhea, right ear; Z79.899 Other long term (current) drug therapy; Z79.01 Long term (current) use of anticoagulants; G47.33 Obstructive sleep apnea (adult) (pediatric)
CPT/HCPCS: 36415; 71045; 80048; 80053; 82962; 83735; 83880; 84484; 85025; 93005; 93306; 94640; 97161; 97165; 99285; G0378; J1940; J2405; J7613

== ENCOUNTER 2024-04-01 09:42 | Day surgery (SDC) | payer MEDICARE, SELFPAY ==
[2024-02-10 12:36] VITALS: BMI 34.7
[2024-03-31 11:10] VITALS: BMI 35.6
[2024-04-01] VITALS (15 sets, daily range): BP systolic 101–158; BP diastolic 67–101; PULSE 74–126; RESP 16–18; TEMP 36.4–37.4; O2SAT 92–98
[2024-04-01] MEDS: LACTATED RINGERS 1000ML 1,000 ML 25 ML IV (10:32)
[2024-04-01 10:38] LABS: Basophils # 0.1 K/mm3 (0-0.2); Basophils % 0.6 % (0.1-2.0); Eosinophils # 0.4 K/mm3 (0.0-0.4); Eosinophils % 5.4 % (0.1-12.0); Hematocrit 39.3 % (42.0-52.0); Hemoglobin 12.5 g/dL (14.1-18.0); Lymphocytes # 0.8 K/mm3 (0.7-4.5); Lymphocytes % 10.5 % (10-50); Mean Corpuscular HGB Conc 31.7 g/dL (31.8-35.4); Mean Corpuscular Hemoglobin 28.2 pg (27.0-31.2); Mean Corpuscular Volume 88.8 fl (80-94); Mean Platelet Volume 7.1 fl (7.4-10.4); Monocytes # 0.4 K/mm3 (0.1-1.0); Monocytes % 5.1 % (1.7-9.3); Neutrophils # 6.2 K/mm3 (1.8-7.8); Neutrophils % 78.5 % (37.0-80.0); Platelet Count 132 K/mm3 (142-424); Red Blood Count 4.42 M/mm3 (4.60-6.20); Red Cell Distribution Width 17.1 % (11.5-17.5)
[2024-04-01 10:48] LABS: Chloride 107 mmol/L (98-107); Sodium 141 mmol/L (136-145)
[2024-04-01 10:49] LABS: Potassium 3.8 mmoL/L (3.5-5.1)
[2024-04-01 10:51] LABS: Blood Urea Nitrogen 11 mg/dl (9-20); Creatinine Clearance Estimated 103 mL/min (50-200); Estimated Glomerular Filt Rate 81 ml/min (>60); GFR (African American) 98 ML/MIN (>60)
[2024-04-01 10:52] LABS: Anion Gap 13.8 mEq/L (5-15); Carbon Dioxide 24 mmol/L (22.0-30.0); Glucose 177 mg/dl (74-100)
--- NOTE | 2024-04-01 11:34 | EXP.OP.NOTE ---
Date of procedure: 06/03/24 Pre-op Diagnosis:: Retained right ear tube, tympanic membrane perforation, chronic otitis externa Post-op Diagnosis:: Retained right ear tube, tympanic membrane perforation, chronic otitis externa Procedure performed:: Ear tube removal and Gelfoam myringoplasty right side Surgeon:: Kel Carpenter MD WIRE PHOTO OPERATOR:: Abdi Lai Anesthesia: GETA Estimated blood loss (mL): 0 Operative findings:: Retained right ear tube, surrounding otitis externa, no evidence of otitis media, small underlying tympanic membrane perforation perforattion is central and 10% in size Operative note:: The patient was brought to the operating room and after adequate general anesthesia the right ear was draped in the usual sterile fashion and the operating microscope employed to visualize the tympanic membrane. Cerumen and dried blood were removed from the ear canal and the tympanic membrane visualized. There was no evidence of cholesteatoma or otitis media. The retained ear tube was no longer functional but was wedged in the inferior anterior ankle. Ear tube was carefully removed with alligator forceps and then the small perforation plugged with Gelfoam as a myringoplasties patch. TobraDex drops were applied and the procedure concluded. All counts correct blood loss minimal patient was sent recovery in stable condition Condition: stable Disposition: PACU Complications:: No complication
--- NOTE | 2024-04-01 11:41 | EXP.ANES.CKL ---
[facility] Disclaimer: The information contained in this section may have been updated after the patient was seen, as this information can be updated by other users. 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 HFrEF (heart failure with reduced ejection fraction) Polypharmacy Rash Retained myringotomy tube Hearing difficulty of right ear Otorrhea of right ear Otalgia, right ear BMI 39.0-39.9,adult [place] and COPD overlap syndrome OAB (overactive bladder) CHF (congestive heart failure) Diabetes mellitus Afib HLD (hyperlipidemia) HHD (hypertensive heart disease) CAD (coronary artery disease) MIRELLA and angioplasty (2021) per [facility] in [place] Recent Cath in 08/2020 showed Occluded SVG X 2, patent KINCAID to LAD, patient SVG to diagonal, severe disease OM in 1 stent, mid circ. Medical management in 2017. MIRELLA in 2012. Hx of CABG. Surgical History History of left inguinal hernia repair History of umbilical hernia repair History of left heart catheterization (LHC) Hx of CABG Family History Mother Coronary artery disease Father Tuberculosis Social History (Updated 04/01/24 @ 10:26 by Eloina Stubbs RN) Smoking Status: Former smoker years smoked: 30 smoking status stop date: 1992 alcohol intake: never substance use type: denies use current occupational status: retired and disabled Travel in the last 8 weeks: None [facility] Anesthesia Checklist Patient Identification Patient Identification: Arm Band Structural Data Admitted From: Home Planned Operative Procedure/s: Right Ear Tube Removal + Gelfoam Myringoplasty Consent for Planned Operative Procedure(s) Verified: Yes Verified Documents: Surgical Consent and History and Physical NPO Status Verified Time NPO: 00:00 Additional verifications Anesthesia Reactions: No Hx Blood Transfusions: No Blood Transfusion Reaction: No Airway Assessment Mallampati Score:: Class II C-Spine Mobility Assessed: Yes TMJ Mobility Assessed: Yes Dentition: Edentulous Neurological Assessment Level of Consciousness: Awake, Alert and Appropriate Anesthesia Plan Anesthesia Risk discussed: Yes Anesthesia Plan: Verified ASA Class: IV Anesthesia Type: General
--- NOTE | 2024-04-01 11:42 | EXP.ANES.I ---
[facility] Anesthesia Record Part I Anesthesia Record I Intake, IV Amount: 800 Hydration: Adequate Estimated blood loss (mL): 0 Urine output (mL): 0 Blood Products used (#): none Blood Pressure: 115/71 SaO2: 96 Pulse Rate: 124 Airway Patency: Patent Respiratory Rate: 16 Temperature: 99.4 F Patient is:: Drowsy and Stable Stable to PACU at:: 11:35
--- NOTE | 2024-04-01 11:46 | SUR.PHASEI ---
evaluated patients heart rate while patient is recovering in PACU, recommended to give patient his normal dose of metoprolol and to be evaluated again by before patient is discharged.
[2024-04-01 11:48] LABS: POC Glucose,Bedside 155 (70-110)
[2024-04-01] MEDS: HYDROMORPHONE 2MG/ML SYRINGE 0.5 MG IV (11:57)
[2024-04-01] MEDS: METOPROLOL SUCCINATE XL 25MG TABLET 25 MG PO (12:02)
--- NOTE | 2024-04-01 12:17 | SUR.PHASEI ---
1205- pt transported to post op. last Evans notified of giving the pt Metorpolol 25mg by mouth per Dr. eMrrill verbal orders. Pt to remain in post op until Dr. plummer sees the pt and heart rate is controlled.
--- NOTE | 2024-04-01 12:56 | EXP.ANES.II ---
[facility] Anesthesia Record Part II Anesthesia Record Part II Discharge Time: 12:05 Destination: Surgical Day Care (OP Surgery) PACU nurse assessment reviewed?: Yes Patient Condition:: Good Anesthesia Complications:: None Swallowing reflex intact?: Yes Airway Patency: Patent Cyanosis?: No Blood Pressure: 115/80 SaO2: 98 Respiratory Rate: 16 Pulse Rate: 115 Temperature: 99.4 F Mental Status: Alert & Oriented Pain level:: 0 Nausea and/or vomitting:: None Intake, IV Amount: 0 Hydration: Adequate Comments:: Pt with known chronic Afib and extensive cardiac history. Preoperatively and immediately prior to procedure, pt's HR 120's-130's. Upon arriving to PACU, pt's HR remains 120's-130's. Dr. Santiago was in the outpatient area and I had him take a look at the pt. He ordered for his home Metoprolol dose to be given and to monitor the pt for a few hours to assess if HR becomes more controlled before being discharged home.
--- NOTE | 2024-04-01 13:44 | SUR.PHASEII ---
per MD Santiago, if pt HR still uncontrolled at 1400 give 5mg IV Lopressor ONCE.
[2024-04-01] MEDS: METOPROLOL TARTRATE 5MG/5ML VIAL 5 MG IV (14:00)
--- NOTE | 2024-04-01 14:43 | SUR.PHASEII ---
1400- pt given 5mg IV Lopressor 1415- MD Santiago notified that pt is at a controlled rate between 80-90bpm 1443- Cardiology staff called back and said pt is good to be discharged.
[2024-04-01 15:09] LABS: POC Glucose,Bedside 166 (70-110)
== END 2024-04-01 14:48 | disposition home or self-care (01) ==
PROVIDERS: PCP Family Medicine; Visit Provider Otolaryngology
PROC: (CPT 69610; principal; 2024-04-01 10:30)
DX: H60.61 Unspecified chronic otitis externa, right ear (principal); H72.01 Central perforation of tympanic membrane, right ear; T85.698A Other mechanical complication of other specified internal prosthetic devices, implants and grafts, initial encounter
CPT/HCPCS: 69610; 80048; 82962; 85025; J1171; J2405; J3010; J7120

== ENCOUNTER 2024-04-06 20:08 | Observation (INO) | payer MEDICARE, SELFPAY ==
[2024-04-06 20:09] VITALS: BP 161/113; PULSE 133; RESP 24; TEMP 36.8; O2SAT 95; BMI 35.9
--- NOTE | 2024-04-06 20:22 | ECG_ITS ---
APPROVED REPORT Exam: Resting ECG HR:143 bpm ECG Measurements Heart Rate 143 AXES QRSd 154 QRS 253 QT 320 T 27 QTc 403 Conclusion ATRIAL FIBRILLATION WITH RAPID VENTRICULAR RESPONSE RIGHT AXIS DEVIATION [QRS AXIS > 100] RIGHT BUNDLE BRANCH BLOCK [120+ ms QRS DURATION, UPRIGHT V1, 40+ ms S IN I/aVL/V4/V5/V6] ABNORMAL ECG Electronically signed by : MARIUM NAVAS, 04/06/2024 23:46:56
[2024-04-06 20:31] VITALS: BP 170/101; PULSE 91; RESP 25; O2SAT 96
--- NOTE | 2024-04-06 20:34 | CT_ITS ---
PROCEDURE INFORMATION: Exam: CTA Abdomen and Pelvis With Contrast Exam date and time: 04/06/2024 9:17 PM Age: 83 years old Clinical indication: Shortness of breath; Additional info: SOA, tachycardic, nausea/vom, epigastric pain TECHNIQUE: Imaging protocol: Computed tomographic angiography of the abdomen and pelvis with contrast. Exam focused on the arteries. 3D rendering (Not supervised by radiologist): MIP and/or 3D reconstructed images were created by the technologist. Radiation optimization: All CT scans at this facility use at least one of these dose optimization techniques: automated exposure control; mA and/or kV adjustment per patient size (includes targeted exams where dose is matched to clinical indication); or iterative reconstruction. Contrast material: ISOVUE; Contrast volume: 80 ml; Contrast route: INTRAVENOUS (IV); COMPARISON: CT ANGIO ABDOMEN/FEMORAL 07/30/2022 10:38 AM FINDINGS: Heart: Moderate cardiomegaly. Coronary artery calcifications. Esophagus: The esophagus is normal. Aorta: The aorta demonstrates moderate atherosclerotic calcification. No evidence for aortic aneurysm or dissection. Celiac trunk and mesenteric arteries: No occlusion or significant stenosis. Renal arteries: Extensive calcific plaque right renal artery which may represent a moderate to high-grade stenosis. Right iliac arteries: No occlusion or significant stenosis. Left iliac arteries: No occlusion or significant stenosis. Other arteries: Calcific atherosclerosis at the visceral artery origins but the vessels appear patent. Liver: No mass. Gallbladder and biliary ducts: The gallbladder is normal. Pancreas: Pancreas appears normal. Spleen: Spleen is normal Adrenal glands: The adrenal glands appear normal. Kidneys and ureters: The kidneys are normal. Stomach and bowel: Moderate infiltration around the duodenum with mild wall thickening image -219. Duodenal diverticulum coronal image . Nonspecific colonic gas pattern. Stomach is distended with fluid and debris. Appendix: No evidence of appendicitis. Intraperitoneal space: No free air. Small amount of free fluid right paracolic gutter. Mild mesenteric infiltration coronal image . Lymph nodes: Unremarkable. No enlarged lymph nodes. Urinary bladder: Mild bladder wall thickening. Reproductive: Prostatomegaly. Bones/joints: The lumbar spine demonstrates mild degenerative changes at multiple levels. Soft tissues: Fat filled left inguinal hernia. IMPRESSION: 1. No free air. 2. Small amount of free fluid right paracolic gutter. 3. No evidence for aortic aneurysm or dissection. 4. Moderate infiltration around the duodenum with mild wall thickening image -219. The constellation of findings is worrisome for duodenitis. 5. Mild mesenteric infiltration coronal image . Findings may reflect contiguous inflammation from duodenitis. 6. Duodenal diverticulum coronal image . 7. Nonspecific colonic gas pattern. 8. Calcific atherosclerosis at the visceral artery origins but the vessels appear patent. 9. Extensive calcific plaque right renal artery which may represent a moderate to high-grade stenosis. 10. The aorta demonstrates moderate atherosclerotic calcification.
--- NOTE | 2024-04-06 20:34 | CT_ITS ---
PROCEDURE INFORMATION: Exam: CTA Chest With Contrast Exam date and time: 04/06/2024 9:17 PM Age: 83 years old Clinical indication: Shortness of breath; Additional info: SOA, tachycardic, nausea/vom, epigastric pain TECHNIQUE: Imaging protocol: Computed tomographic angiography of the chest with contrast. Exam focused on the arteries. 3D rendering (Not supervised by radiologist): MIP and/or 3D reconstructed images were created by the technologist. Radiation optimization: All CT scans at this facility use at least one of these dose optimization techniques: automated exposure control; mA and/or kV adjustment per patient size (includes targeted exams where dose is matched to clinical indication); or iterative reconstruction. Contrast material: ISOVUE; Contrast volume: 80 ml; Contrast route: INTRAVENOUS (IV); COMPARISON: CT ANGIO CHEST PE PROTOCOL 04/06/2024 9:17 PM FINDINGS: Pulmonary arteries: No central or large peripheral pulmonary emboli. Great vessels off aortic arch: Moderate calcific plaque in the aortic arch and great vessel origins. Aorta: Mild calcific atherosclerosis of the descending thoracic aorta. Lungs: Interlobular septal thickening and subpleural reticulation in the lung bases . No focal airspace consolidation. Pleural spaces: Smal/moderate l right pleural effusion. Small left pleural effusion. Heart: Moderate cardiomegaly. Coronary arteries: Prior CABG. Coronary calcifications and coronary stents. Lymph nodes: Moderately extensive mediastinal adenopathy with individual nodes ranging in size up to 21 mm image 5/47. Bones/joints: Sternotomy wires. Mild multilevel degenerative change of the thoracic spine. Soft tissues: Unremarkable. IMPRESSION: 1. No central or large peripheral pulmonary emboli. 2. Moderately extensive mediastinal adenopathy with individual nodes ranging in size up to 21 mm image 5/47. 3. Small/moderate right pleural effusion. Small left pleural effusion. 4. Interlobular septal thickening and subpleural reticulation in the lung bases . Findings consistent with chronic interstitial lung disease. 5. No focal airspace consolidation.
--- NOTE | 2024-04-06 20:38 | HMH.EDGENADL ---
Discharge Plan Disposition Patient Disposition: Admitted Condition: Good Clinical Impressions Clinical Impression: Atrial fibrillation with rapid ventricular response, Abdominal pain, epigastric, Nausea & vomiting, Mediastinal adenopathy, Pleural effusion, Interstitial lung disease, Duodenitis, Renal artery stenosis Discharge ED Provider: Franny Xie General Adult HPI General Chief complaint: Nausea/Vomiting/Diarrhea Stated complaint: sent by Lam nausea, cough Time Seen by Provider: 04/06/24 20:15 Mode of Arrival: Wheelchair Source of Information: Patient Limitations: No Limitations Description of Symptoms (Recalled from ER Triage Doc. by RN): pt to ED with c/o N/V/D X 2-3 days. Pt reports upper abd pain, and is tender with palpation. Pt also reports headache. Pt states he was seen at [facility] yesterday, and they did a full workup and told him nothing was wrong. History of Present Illness HPI narrative: This patient is a 83-year-old male with a history of atrial fibrillation on metoprolol and digoxin, anticoagulation with Eliquis, CAD status post CABG on aspirin and Plavix, CHF with an EF of 45%, prior umbilical hernia repair presenting to the emergency department for evaluation with concern for severe epigastric pain, nausea, and vomiting. Patient states he also has had cough and shortness of breath. He notes has been feeling bad for several days now but symptoms acutely got worse today. He also notes that he is now having a headache. He states he was seen yesterday at [facility] and they did a workup and told him nothing was wrong. He continues to feel poorly, so his PCP advised that he should come here. He notes concern that he has not been able to keep his medications down because of the profuse vomiting Related Data Home Medications ?Medication ?Instructions ?Recorded ?Confirmed finasteride 5 mg tablet 5 mg PO DAILY 02/05/24 04/06/24 potassium chloride 20 mEq 20 meq PO DAILY 02/05/24 04/06/24 tablet,extended release(part/cryst) clopidogrel 75 mg tablet (Plavix) See Rx Instructions .Route .COMPLEX 03/31/24 04/06/24 trazodone 50 mg tablet 50 mg PO DAILY 04/01/24 04/06/24 Previous Rx's ?Medication ?Instructions ?Recorded blood-glucose meter #1 ea 03/15/23 blood sugar diagnostic (Accu-Chek #100 ea 06/18/23 Guide test strips) metoprolol succinate 25 mg 25 mg PO DAILY #90 tabs 09/20/23 tablet,extended release 24 hr (Toprol XL) insulin NPH-regular 70-30 U-100 40 unit (0.4 mL) SQ BID #60 mL 12/23/23 insulin 100 unit/mL subcutaneous pen (Humulin 70/30 U-100 KwikPen) gabapentin 300 mg capsule 300 mg PO TID PRN Nerve Pain #90 01/17/24 caps polyethylene glycol 3350 17 17 g PO BID #238 grams 02/21/24 gram/dose oral powder (Miralax) midodrine 5 mg tablet 2.5 mg (1/2 x 5 mg) PO TID #90 tabs 02/24/24 digoxin 125 mcg (0.125 mg) tablet 125 mcg PO DAILY #90 tabs 03/13/24 fluticasone 250 mcg-salmeterol 50 1 inh inhalation BID #60 ea 03/13/24 mcg/dose blistr powdr for inhalation Allergies Allergy/AdvReac Type Severity Reaction Status Date / Time amoxicillin (From Augmentin) Allergy Severe edema Verified 04/01/24 10:05 ciprofloxacin (From Cipro) Allergy Severe Redness of Verified 04/01/24 10:05 Skin clavulanic acid (From Allergy Severe edema Verified 04/01/24 10:05 Augmentin) prednisone AdvReac Intermediate Agitated Verified 04/01/24 10:05 [facility] Disclaimer: The information contained in this section may have been updated after the patient was seen, as this information can be updated by other users. 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 HFrEF (heart failure with reduced ejection fraction) Polypharmacy Rash Retained myringotomy tube Hearing difficulty of right ear Otorrhea of right ear Otalgia, right ear BMI 39.0-39.9,adult [place] and COPD overlap syndrome OAB (overactive bladder) CHF (congestive heart failure) Diabetes mellitus Afib HLD (hyperlipidemia) HHD (hypertensive heart disease) CAD (coronary artery disease) Surgical History History of left inguinal hernia repair History of umbilical hernia repair History of left heart catheterization (LHC) Hx of CABG Family History Mother Coronary artery disease Father Tuberculosis Social History Smoking Status: Unknown if ever smoked years smoked: 30 smoking status stop date: 1992 alcohol intake: never substance use type: denies use current occupational status: retired and disabled Travel in the last 8 weeks: None Other 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 Have you received the Flu Vaccine for this season: No Have you received the Pneumonia Vaccine: Yes ROS Obtained: Yes All systems reviewed & no additional complaints except as documented Physical Exam General General appearance: alert and obese Comment: Uncomfortable appearing, actively vomiting Head Head exam: atraumatic and normocephalic Eye Eye exam: Present normal appearance, PERRL and EOMI ENT ENT exam: Present normal oropharynx, mucous membranes dry and normal external ear exam Neck Neck exam: Present normal inspection, full ROM and trachea midline; Absent tenderness Chest Chest inspection: Present normal inspection and symmetric chest wall rise; Absent tenderness Respiratory Respiratory exam: Present normal lung sounds bilaterally; Absent respiratory distress, wheezes, stridor or accessory muscle use Cardiovascular Cardiovascular exam: Present tachycardia and irregular rhythm Abdominal Exam Abdominal exam: Present tenderness (Epigastric) and guarding (Voluntary in the epigastric region); Absent distention, rebound or rigidity Extremities Exam Extremities exam: Present normal inspection, full ROM and normal capillary refill; Absent tenderness or edema Back Exam Back exam: Present normal inspection and full ROM; Absent tenderness Neurological Exam Neurological exam: Present alert, oriented X3, CN II-XII intact and normal gait; Absent motor sensory deficit Psychiatric Psychiatric exam: Present normal affect and normal mood Skin Skin exam: Present warm and dry Medical Decision Making Medical Records Medical records reviewed: Yes I reviewed the patient's medical records. Screening: Per USPSTF and CDC recommendations, given the prevalence of disease in our region, it is our hospital?s policy to screen for HIV and viral Hepatitis for all patients aged 18 and over and those with ongoing risk factors. Atul Inquiry Pt receiving controlled substance: No Vital Signs: 04/06/24 20:09 04/06/24 20:31 04/06/24 21:00 Temperature 98.2 F Temperature Source Oral Pulse Rate 91 H 150 H Pulse Rate [Apical] 133 H Respiratory Rate 24 25 H 23 Blood Pressure 170/101 H 185/131 H Blood Pressure [Right Arm] 161/113 H Blood Pressure Mean 116 144 Blood Pressure Mean [Right Arm] 129 Blood Pressure Source [Right Arm] Automatic Cuff Blood Pressure Position [Right Arm] Sitting 02 Sat by Pulse Oximetry 95 96 92 L Oxygen Delivery Method Room Air 04/06/24 21:31 04/06/24 22:00 Temperature Temperature Source Pulse Rate 134 H 114 H Pulse Rate [Apical] Respiratory Rate 25 H 22 Blood Pressure 152/95 H 150/86 H Blood Pressure [Right Arm] Blood Pressure Mean 114 105 Blood Pressure Mean [Right Arm] Blood Pressure Source [Right Arm] Blood Pressure Position [Right Arm] 02 Sat by Pulse Oximetry 94 L 93 L Oxygen Delivery Method Lab Data Lab results reviewed: Yes I reviewed the patient's lab results. Lab Results 04/06/24 20:20: WBC 6.4, RBC 4.54 L, Hgb 12.6 L, Hct 40.0 L, MCV 88.0, MCH 27.8, MCHC 31.6 L, RDW 17.3, Plt Count 178, MPV 7.1 L, Neut % (Auto) 68.4, Lymph % (Auto) 17.5, Cache % (Auto) 5.9, Eos % (Auto) 7.4, Baso % (Auto) 0.9, Neut # (Auto) 4.4, Lymph # (Auto) 1.1, Cache # (Auto) 0.4, Eos # (Auto) 0.5 H, Baso # (Auto) 0.1, PT 11.9, INR 1.07, APTT 29.1, Sodium 139, Potassium 4.0, Chloride 107, Carbon Dioxide 24, Anion Gap 12.0, BUN 8 L, Creatinine 0.90, Estimated Creat Clear 104, Estimated GFR 81, Est GFR ( Amer) 98, Glucose 161 H, Calcium 8.9, Phosphorus 3.0, Magnesium 1.7, Total Bilirubin 1.4 H, AST 35, ALT 36, Alkaline Phosphatase 263 H, Troponin I 0.02, C-Reactive Protein 17.6 H, NT-Pro-B Natriuret Pep 2730 H, Total Protein 7.2, Albumin 3.8, Globulin 3.4 H, Albumin/Globulin Ratio 1.1, Lipase 34, Procalcitonin 0.050, TSH 1.16, Thyroxine (T4) 7.9 04/06/24 20:34: VBG pH 7.36, VBG pCO2 40.9, VBG pO2 30.1, VBG HCO3 22.7 L, VBG Total CO2 23.9, VBG O2 Saturation 55.6, VBG Base Excess -2.7 L, VBG Lactic Acid 3.0 H 04/06/24 20:45: Lactate 1.7, HIV 1&2 Antibody Rapid Preliminary reactive 04/06/24 21:58: Urine Color Dark yellow, Urine Appearance Clear, Urine pH 6.0, Ur Specific [place] >= 1.030, Urine Protein 1+ A, Urine Glucose (UA) Negative, Urine Ketones Negative, Urine Blood Negative, Urine Nitrate Negative, Urine Bilirubin Negative, Urine Urobilinogen >=8.0, Ur Leukocyte Esterase Negative, Urine WBC 3-5, Ur Squamous Epith Cells 3-5, Urine Bacteria 1+, Urine Mucus 1+ 04/06/24 20:20 04/06/24 20:20 Orders (Tests/Meds): ED MEDICATIONS Discontinued Medications Generic Name Dose Route Start Last Admin Trade Name Freq PRN Reason Stop Dose Admin Acetaminophen 1,000 mg 04/06/24 20:35 04/06/24 20:41 Acetaminophen 1,000mg/100ml Vial IV 04/06/24 20:36 1,000 mg ONCE ONE Administration Digoxin 125 mcg 04/06/24 22:52 04/06/24 22:58 Digoxin 0.125mg Tablet PO 04/06/24 22:53 125 mcg ONCE ONE Administration Diltiazem HCl 15 mg 04/06/24 21:42 04/06/24 21:48 Diltiazem 25mg/5ml Vial IV 04/06/24 21:43 15 mg ONCE ONE Administration Diltiazem HCl 60 mg 04/06/24 21:42 04/06/24 21:48 Diltiazem 30mg Tablet PO 04/06/24 21:43 60 mg ONCE ONE Administration Sodium Chloride 1,000 mls @ 999 mls/hr 04/06/24 20:35 04/06/24 20:41 Sod Chlor 0.9% 1000ml Bag IV 04/06/24 21:35 999 mls/hr .Q1H1M ONE Administration Iopamidol 80 ml 04/06/24 21:22 04/06/24 21:22 Iopamidol-370 (76%);100ml Bottle IV 04/06/24 21:23 80 ml ONCE ONE Administration Ketorolac Tromethamine 15 mg 04/06/24 20:35 04/06/24 20:40 Ketorolac 30mg/Ml Vial IV 04/06/24 20:36 15 mg ONCE ONE Administration Ondansetron HCl 4 mg 04/06/24 20:35 04/06/24 20:40 Ondansetron 4mg/2ml Vial IV 04/06/24 20:36 4 mg ONCE ONE Administration Sodium Chloride 50 ml 04/06/24 21:22 04/06/24 21:22 0.9 % Sodium Chloride 50 Ml Vial IV 04/06/24 21:23 50 ml ONCE ONE Administration Sodium Chloride 10 ml 04/06/24 21:22 04/06/24 21:22 Sodium Chloride 0.9% 10ml Syr (Rad Only) IV 04/06/24 21:23 10 ml ONCE ONE Administration ORDERS Category Date Time Status CT angio abdomen pelvis Stat Cat Scan 04/06/24 20:34 Completed CTA Chest [CT angio chest PE protocol] Stat Cat Scan 04/06/24 20:34 Completed BNP [NT Pro Brain Natriuretic Pep.] Stat Lab 04/06/24 20:20 Completed CRP [C-Reactive Protein] Stat Lab 04/06/24 20:20 Completed Complete Blood Count Auto Diff Stat Lab 04/06/24 20:20 Completed Comprehensive Metabolic Panel Stat Lab 04/06/24 20:20 Completed Digoxin Stat Lab 04/06/24 21:45 Received HIV (1&2) Antibody Rapid Stat Lab 04/06/24 20:45 Completed Hep C Ab with Reflex to RNA Stat Lab 04/06/24 20:20 Received Lactic Acid Stat Lab 04/06/24 20:45 Completed Lipase Stat Lab 04/06/24 20:20 Completed Magnesium Stat Lab 04/06/24 20:20 Completed PT INR [Prothrombin Time INR] Stat Lab 04/06/24 20:20 Completed PTT [Activated Partial Thrombo Time] Stat Lab 04/06/24 20:20 Completed Phosphorous Stat Lab 04/06/24 20:20 Completed Procalcitonin Stat Lab 04/06/24 20:20 Completed Rapid PCR Covid and Flu A/B Stat Lab 04/06/24 Completed T4 (Thyroxine) Stat Lab 04/06/24 20:20 Completed TSH [Thyroid Stimulating Hormone] Stat Lab 04/06/24 20:20 Completed Trop I [Troponin I] Stat Lab 04/06/24 20:20 Completed Troponin I Q3H Lab 04/06/24 23:45 Ordered Troponin I Q3H Lab 04/07/24 02:45 Ordered UA [Urinalysis and Microscopic] Stat Lab 04/06/24 21:58 Completed Blood Culture Stat Micro 04/06/24 20:55 Stop Req VBG [Venous Blood Gas] Stat RT 04/06/24 20:34 Completed ECG Data Tracing #1: I reviewed this ECG and interpreted as documented below: Atrial fibrillation with rapid ventricular response with a ventricular rate of 143 bpm. Right axis deviation noted. Right bundle branch block noted. No obvious acute STEMI. ECG initial impression date: 04/06/24 ECG initial impression time: 20:23 Medical Decision Narrative: In summary, this patient is a 83-year-old male presenting to the Emergency Department for evaluation of epigastric pain, nausea, vomiting, shortness of breath, cough, and headache. Differential diagnoses considered include but are not limited to viral syndrome, pneumonia, pancreatitis, gastroenteritis, dehydration, JACK, colitis, bowel obstruction. Ruling out the most morbid conditions drove assessment. It should be noted patient's history includes extensive cardiovascular history which or may not be at goal therapy. This complicates all aspects of care by increasing patient's risk for morbidity. I reviewed patient's past medical records and noted recent admission for CHF exacerbation as well as prior cardiology notes and workups as detailed in HPI. On exam, the patient is uncomfortable appearing, tachycardic with a regular rhythm, and appears clinically dry. He has epigastric tenderness with voluntary guarding. He is actively retching. Workup included broad lab evaluation to evaluate for infectious, metabolic, cardiac causes of his symptoms as well as CT scan of the chest, abdomen, and pelvis. EKG was obtained that demonstrates A-fib with RVR with a rate in the 140s to 150s. Patient was given 1 L bolus of IV fluids to see if this improves his heart rate and clinical hydration status. Will use caution not to volume overload him in the setting of CHF, as he recently required diuresis upon admission. He was given IV Zofran, acetaminophen, Toradol for symptomatic improvement. I independently interpreted CT scans prior to the radiologist read and noted concerns for duodenitis. Please see their read for final interpretation. Patient also has multiple other incidental findings such as some fluid in the paracolic gutter, mediastinal adenopathy, pleural effusions, interstitial lung disease. labs were obtained that demonstrated mildly elevated BNP, but overall workup is very reassuring. Preliminary HIV testing is positive with reflex RNA pending. Patient was given p.o. diltiazem and IV diltiazem for attempted rate control. He did get good rate control initially with rate improvement to the low 100s. We also got good nausea control with medications above, so we will trial his p.o. digoxin to see if this further helps with rate control. Ultimately, he continues to be hemodynamically stable. Workup concerning for duodenitis, which I feel is likely the cause of his pain, nausea, and vomiting. He also has other incidental findings that he was notified of. Ultimately given his pain, nausea, vomiting, and A-fib with RVR, I feel he would benefit from admission for continued monitoring. I had an interactive discussion with the hospitalist who admitted the patient in stable condition. Critical Care Critical Care Time Critical Care Time: Yes Attestation: On 04/06/24, the high probability of a clinically significant, sudden or life threatening deterioration of the following system(s) required my full and direct attention, intervention and personal management. The time I documented below is in addition to time spent performing reported procedures but includes the following listed in this critical care notation. Total Time Total Critical Care Time: 30
[2024-04-06] MEDS: KETOROLAC 30MG/ML VIAL 15 MG IV (20:40)
[2024-04-06] MEDS: ONDANSETRON 4MG/2ML VIAL 4 MG IV (20:40)
[2024-04-06] MEDS: ACETAMINOPHEN 1,000MG/100ML VIAL 1000 MG IV (20:41)
[2024-04-06] MEDS: 0.9 % SODIUM CHLORIDE 1000ML 1,000 ML 999 ML IV (20:41)
[2024-04-06 20:49] LABS: VBG Base Excess -2.7 mmol/L (-2.4-2.3); VBG HCO3 22.7 mmol/L (23-30); VBG Oxygen Saturation 55.6 % (50-70); VBG PCO2 40.9 mmol/L (35-51); VBG PH 7.36 mmol/L (7.31-7.41); VBG PO2 30.1 mmol/L (28-40); VBG Total CO2 23.9 mmol/L (23-27)
[2024-04-06 20:50] LABS: Basophils # 0.1 K/mm3 (0-0.2); Basophils % 0.9 % (0.1-2.0); Eosinophils # 0.5 K/mm3 (0.0-0.4); Eosinophils % 7.4 % (0.1-12.0); Hemoglobin 12.6 g/dL (14.1-18.0); Lymphocytes # 1.1 K/mm3 (0.7-4.5); Lymphocytes % 17.5 % (10-50); Mean Corpuscular HGB Conc 31.6 g/dL (31.8-35.4); Mean Corpuscular Hemoglobin 27.8 pg (27.0-31.2); Mean Platelet Volume 7.1 fl (7.4-10.4); Monocytes # 0.4 K/mm3 (0.1-1.0); Monocytes % 5.9 % (1.7-9.3); Neutrophils # 4.4 K/mm3 (1.8-7.8); Neutrophils % 68.4 % (37.0-80.0); Platelet Count 178 K/mm3 (142-424); Red Blood Count 4.54 M/mm3 (4.60-6.20); Red Cell Distribution Width 17.3 % (11.5-17.5); White Blood Count 6.4 K/mm3 (4.8-10.8)
[2024-04-06 20:51] LABS: Alanine Aminotransferase 36 U/L (12-78); Albumin Level 3.8 g/dl (3.5-5.0); Albumin/Globulin Ratio 1.1 (1.1-1.8); Alkaline Phosphatase 263 U/L (38-126); Aspartate Amino Transferase 35 U/L (17-59); Bilirubin,Total 1.4 mg/dl (0.2-1.3); Blood Urea Nitrogen 8 mg/dl (9-20); Calcium 8.9 mg/dl (8.4-10.2); Carbon Dioxide 24 mmol/L (22.0-30.0); Chloride 107 mmol/L (98-107); Creatinine Clearance Estimated 104 mL/min (50-200); Estimated Glomerular Filt Rate 81 ml/min (>60); GFR (African American) 98 ML/MIN (>60); Globulin 3.4 g/dL (1.3-3.2); Glucose 161 mg/dl (74-100); Lipase 34 U/L (23-300); Magnesium 1.7 mg/dl (1.6-2.3); Sodium 139 mmol/L (136-145); Total Protein,Serum 7.2 g/dl (6.3-8.2)
[2024-04-06 20:56] LABS: C-Reactive Protein 17.6 mg/L (0-4)
[2024-04-06 20:57] LABS: Activated Partial Thrombo Time 29.1 seconds (22.8-30.6); INR 1.07 (0.9-1.1); Prothrombin Time 11.9 seconds (10.1-12.5)
[2024-04-06 21:00] VITALS: BP 185/131; PULSE 150; RESP 23; O2SAT 92
[2024-04-06 21:04] LABS: Coronavirus 19, PCR Not Detected (NotDetected); Influenza A, PCR Not Detected (NotDetected); Influenza B, PCR Not Detected (NotDetected)
[2024-04-06 21:04] LABS: Lactic Acid 1.7 mmol/L (0.7-2.1)
[2024-04-06 21:06] LABS: NT Pro Brain Natriuretic Pep. 2730 pg/mL (0-450); Troponin I 0.02 ng/ml (0.00-0.034)
[2024-04-06 21:11] LABS: T4 (Thyroxine) 7.9 ug/dl (5.53-11.0)
--- NOTE | 2024-04-06 21:18 | PC.NURSE ---
George michele called and stated that pts IV in LAC will not flush. New IV started to RAC
[2024-04-06] MEDS: SODIUM CHLORIDE 0.9% 10ML SYR (RAD ONLY) 10 ML IV (21:22)
[2024-04-06] MEDS: IOPAMIDOL-370 (76%);100ML BOTTLE 80 ML IV (21:22)
[2024-04-06] MEDS: 0.9 % SODIUM CHLORIDE 50 ML VIAL IV (21:22)
[2024-04-06 21:24] LABS: Thyroid Stimulating Hormone 1.16 uIU/mL (0.465-4.68)
[2024-04-06 21:31] VITALS: BP 152/95; PULSE 134; RESP 25; O2SAT 94
[2024-04-06] MEDS: dilTIAZem 25MG/5ML VIAL 15 MG IV (21:48)
[2024-04-06] MEDS: dilTIAZem 30MG TABLET 60 MG PO (21:48)
--- NOTE | 2024-04-06 21:59 | PC.NURSE ---
Urine sent up to lab at this time.
[2024-04-06 22:00] VITALS: BP 150/86; PULSE 114; RESP 22; O2SAT 93
[2024-04-06 22:02] LABS: Microscopic, Urine URINE MICROSCOPIC (MICROSCOPIC)
--- NOTE | 2024-04-06 22:02 | PC.NURSE ---
PO and IV Dilt given per JUL. HR now 98. BP 150/86
[2024-04-06 22:06] LABS: Appearance,Urine CLEAR (Clear); Blood, Urine Negative (Negative); Glucose,Urine (UA) Negative (Negative); Ketones,Urine Negative (Negative); Leukocyte Esterase,Urine Negative (Negative); Nitrate,Urine Negative (Negative); Protein,Urine 1+ (Negative); Specific Gravity, Urine >= 1.030 (1.005-1.030); Urobilinogen,Urine >=8.0 EU/dl (0.2)
[2024-04-06 22:21] LABS: Bilirubin,Urine Negative (Negative); Color,Urine Dark Yellow (Yellow)
[2024-04-06 22:35] LABS: Bacteria,Urine 1+ /lpf; Mucus,Urine 1+ /lpf
[2024-04-06] MEDS: DIGOXIN 0.125MG TABLET 125 MCG PO (22:58)
[2024-04-06 23:21] LABS: Digoxin < 0.40 ng/ml (0.2-2.00)
--- NOTE | 2024-04-06 23:36 | PC.NURSE ---
Patient arrived to floor via wheelchair from ED at 23:31.
[2024-04-06 23:43] VITALS: BP 132/88; PULSE 74; RESP 18; TEMP 37.2; O2SAT 98
[2024-04-07] VITALS (16 sets, daily range): BP systolic 126–149; BP diastolic 59–106; PULSE 91–140; RESP 16–23; TEMP 36.4–36.9; O2SAT 94–99; BMI 36.3; BMI 36.2
[2024-04-07 00:16] LABS: Troponin I 0.02 ng/ml (0.00-0.034)
[2024-04-07 00:50] LABS: Reflex Lactic Add Lactic Reflex
[2024-04-07] MEDS: IPRATROPIUM/ALBUTEROL 3 ML NEB IH ×5 (00:57→23:06)
--- NOTE | 2024-04-07 01:03 | P.HP_ITS ---
<Statement entered by Regino Arzola MD - 04/12/24 14:25> I personally evaluated patient and agree with plan of care as outlined by [employer] below. History of Present Illness *Admission Date: 04/07/24 *Reason for visit:: Nausea vomiting and diarrhea,, not able to keep medications down atrial fib *History of present illness: This patient is a 83-year-old male presenting to the Emergency Department for evaluation of epigastric pain, nausea, vomiting, watery diarrhea , shortness of breath, cough, and headache. Differential diagnoses considered include but are not limited to viral syndrome, pneumonia. Patient also noted as being preliminary reactive on his HIV-1/2 testing. The main reason for admission is the nausea and vomiting and diarrhea and not being able to keep his medication down with his heart rate increasing and with his history of A-fib., Digoxin levels were actually low., Noting some increased bilirubin in the urine.. I spoken with the ER physician gone over the treatment that been given to him and do agree that we need to stabilize the patient's nausea and vomiting and be able to get him back to being able to take his regular home medicines without losing them.. Also noting the nausea with the vomiting and this watery diarrhea. That there may be a secondary infection. On evaluation of his CT scan of his lungs see quite a bit of pleural effusion on top of this.. Patient is noted moderately extensive adenopathy of the mediastinal region. Patient also noted with a history of sleep apnea supposed to be on CPAP has been worked up for COPD but he has not smoked for many years, also history of CABG, CHF A- fib hypertension and diabetes mellitus with some cardiomegaly. Last note for ejection fraction showed approximately 45%. Noting it from 02/04/2024 he was also had increased Lasix due to her history of CHF but having also episodes of orthostatic hypotension in the past. So I do feel that the patient's best interest to be able to admit him at this time continue to monitor for his fluid balance try to lower this nausea vomiting to allow him to start to take his regular home medications get his digoxin levels back to therapeutic levels being able to lower his tachycardia.. Also labs will be sent out for PCR testing due to the HIV. preliminary findings patient denies any tattoos, or blood transfusions in the past.. He does use subcu insulin though and there are small bruises on his stomach where he uses to inject himself for his diabetes. He gave no indication of illicit drug use or IV use. [facility] Disclaimer: The information contained in this section may have been updated after the patient was seen, as this information can be updated by other users. 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 HFrEF (heart failure with reduced ejection fraction) Polypharmacy Rash Retained myringotomy tube Hearing difficulty of right ear Otorrhea of right ear Otalgia, right ear BMI 39.0-39.9,adult [place] and COPD overlap syndrome OAB (overactive bladder) CHF (congestive heart failure) Diabetes mellitus Afib HLD (hyperlipidemia) HHD (hypertensive heart disease) CAD (coronary artery disease) Surgical History History of left inguinal hernia repair History of umbilical hernia repair History of left heart catheterization (LHC) Hx of CABG Family History Mother Coronary artery disease Father Tuberculosis Social History (Updated 04/07/24 @ 00:23 by Sandra Castro RN) Smoking Status: Former smoker years smoked: 30 smoking status stop date: 1992 alcohol intake: former substance use type: denies use current occupational status: retired and disabled Travel in the last 8 weeks: None Other 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 Have you received the Flu Vaccine for this season: Yes (02/26) Have you received the Pneumonia Vaccine: Yes Review of Systems Review of Systems Review of systems:: pertinent systems reviewed and negative unless documented below Review of systems (narrative): Patient is hard of hearing but is able to hear you if you are talking directly to him.. He noted he does not feel particularly bad at this point in time, that he does not feel he has to vomit at this moment. But that he also noted his diarrhea is water Constitutional Constitutional: Reports as per HPI, Reports body ache(s) and Reports weakness Eyes Eyes: Reports as per HPI ENT Ears, Nose, Mouth, and Throat: Reports as per HPI *Cardiovascular Cardiovascular: Reports as per HPI and Reports dyspnea on exertion Comments: Patient noted he has shortness of breath with activity regularly this is not changed much., He denies any chest pain or pressure upon the chest *Respiratory Respiratory: Reports as per HPI and Reports dyspnea on exertion *Gastrointestinal Gastrointestinal: Reports as per HPI, Reports bloating, Reports change in stool character (Watery diarrhea), Reports nausea and Reports vomiting *Genitourinary Genitourinary: Reports as per HPI *Musculoskeletal Musculoskeletal: Reports as per HPI and Reports myalgias Integumentary/Breasts Skin/Breast: Reports as per HPI *Neurologic Neurologic: Reports as per HPI and Reports weakness Psychiatric Psychiatric: Reports as per HPI Endocrine Endocrine: Reports as per HPI Hematologic/Lymphatic Hematologic/Lymphatic: Reports as per HPI Allergic/Immunologic Allergic/Immunologic: Reports as per HPI Meds Home Medications and Allergies Home Medications ?Medication ?Instructions ?Recorded ?Confirmed ?Type blood-glucose meter #1 ea 03/15/23 04/06/24 Rx blood sugar diagnostic (Accu-Chek #100 ea 06/18/23 04/06/24 Rx Guide test strips) metoprolol succinate 25 mg 25 mg PO DAILY #90 tabs 09/20/23 04/06/24 Rx tablet,extended release 24 hr (Toprol XL) insulin NPH-regular 70-30 U-100 40 unit (0.4 mL) SQ BID #60 mL 12/23/23 04/06/24 Rx insulin 100 unit/mL subcutaneous pen (Humulin 70/30 U-100 KwikPen) gabapentin 300 mg capsule 300 mg PO TID PRN Nerve Pain #90 01/17/24 04/06/24 Rx caps finasteride 5 mg tablet 5 mg PO DAILY 02/05/24 04/06/24 History potassium chloride 20 mEq 20 meq PO DAILY 02/05/24 04/06/24 History tablet,extended release(part/cryst) polyethylene glycol 3350 17 17 g PO BID #238 grams 02/21/24 04/06/24 Rx gram/dose oral powder (Miralax) midodrine 5 mg tablet 2.5 mg (1/2 x 5 mg) PO TID #90 tabs 02/24/24 04/06/24 Rx digoxin 125 mcg (0.125 mg) tablet 125 mcg PO DAILY #90 tabs 03/13/24 04/06/24 Rx fluticasone 250 mcg-salmeterol 50 1 inh inhalation BID #60 ea 03/13/24 04/06/24 Rx mcg/dose blistr powdr for inhalation clopidogrel 75 mg tablet (Plavix) See Rx Instructions .Route .COMPLEX 03/31/24 04/06/24 History trazodone 50 mg tablet 50 mg PO DAILY 04/01/24 04/06/24 History New Prescriptions to Start Prescriptions: Allergies Allergy/AdvReac Type Severity Reaction Status Date / Time amoxicillin (From Augmentin) Allergy Severe edema Verified 04/01/24 10:05 ciprofloxacin (From Cipro) Allergy Severe Redness of Verified 04/01/24 10:05 Skin clavulanic acid (From Allergy Severe edema Verified 04/01/24 10:05 Augmentin) prednisone AdvReac Intermediate Agitated Verified 04/01/24 10:05 Exam Data for Last 24 hours Vital signs and Labs for Last 24 Hours: Temp Pulse Resp BP Pulse Ox O2 Del Method O2 Flow Rate 98.9 F 93 H 18 132/88 96 Nasal Cannula 2 04/06/24 23:43 04/07/24 00:59 04/06/24 23:43 04/06/24 23:43 04/07/24 00:59 04/07/24 00:59 04/07/24 00:59 Laboratory Results - last 24 hr 04/06/24 20:20: WBC 6.4, RBC 4.54 L, Hgb 12.6 L, Hct 40.0 L, MCV 88.0, MCH 27.8, MCHC 31.6 L, RDW 17.3, Plt Count 178, MPV 7.1 L, Neut % (Auto) 68.4, Lymph % (Auto) 17.5, [place] % (Auto) 5.9, Eos % (Auto) 7.4, Baso % (Auto) 0.9, Neut # (Auto) 4.4, Lymph # (Auto) 1.1, Oliver # (Auto) 0.4, Eos # (Auto) 0.5 H, Baso # (Auto) 0.1, PT 11.9, INR 1.07, APTT 29.1, Sodium 139, Potassium 4.0, Chloride 107, Carbon Dioxide 24, Anion Gap 12.0, BUN 8 L, Creatinine 0.90, Estimated Creat Clear 104, Estimated GFR 81, Est GFR ( Amer) 98, Glucose 161 H, Calcium 8.9, Phosphorus 3.0, Magnesium 1.7, Total Bilirubin 1.4 H, AST 35, ALT 36, Alkaline Phosphatase 263 H, Troponin I 0.02, C-Reactive Protein 17.6 H, NT-Pro-B Natriuret Pep 2730 H, Total Protein 7.2, Albumin 3.8, Globulin 3.4 H, Albumin/Globulin Ratio 1.1, Lipase 34, Procalcitonin 0.050, TSH 1.16, Thyroxine (T4) 7.9 04/06/24 20:34: VBG pH 7.36, VBG pCO2 40.9, VBG pO2 30.1, VBG HCO3 22.7 L, VBG Total CO2 23.9, VBG O2 Saturation 55.6, VBG Base Excess -2.7 L, VBG Lactic Acid 3.0 H 04/06/24 20:45: Lactate 1.7, HIV 1&2 Antibody Rapid Preliminary reactive 04/06/24 21:45: Digoxin < 0.40 04/06/24 21:58: Urine Color Dark yellow, Urine Appearance Clear, Urine pH 6.0, Ur Specific [place] >= 1.030, Urine Protein 1+ A, Urine Glucose (UA) Negative, Urine Ketones Negative, Urine Blood Negative, Urine Nitrate Negative, Urine Bilirubin Negative, Urine Urobilinogen >=8.0, Ur Leukocyte Esterase Negative, Urine WBC 3-5, Ur Squamous Epith Cells 3-5, Urine Bacteria 1+, Urine Mucus 1+ 04/06/24 23:42: Troponin I 0.02 04/06/24 : SARS-CoV-2 (PCR) Not detected, Influenza A Untype (PCR) Not detected, Influenza Type B (PCR) Not detected I & O for Last 24 hours: Intake & Output 04/04/24 04/05/24 04/06/24 04/07/24 05:59 05:59 05:59 05:59 Weight 280 lb Radiology Reports for the Last 24 Hours: CT scan of the abdomen, duodenal wall thickening. And significant right renal artery calcification plaque Lung CT shows right lung effusion moderate left less in the left lung. Also moderately to extensive mediastinal adenopathy noted also sternal wiring from previous cardiac surgery Constitutional Constitutional: no acute distress, morbidly obese, chronically ill appearing and cooperative Comments: Very pleasant gentleman that is in a good mood talks well., He let she know to talk directly at him as his hearing is poor. *Routine HEENT Exam Head: Present normocephalic and atraumatic Eye: Present EOMI, PERRL and normal accommodation ENT: Present nares patent and external ear normal Comments: Recent surgery on right ear related to removal of ear tube *Routine Neck Exam Neck: Present supple and full ROM Comments: Large amount of loose skin with significant thickening of the skin of the neck with large amounts of wrinkling Routine Chest/Breast/Axilla Exam Comments: No chest wall tenderness found during the exam. *Routine Respiratory Exam Respiratory: Present CTA bilaterally, normal respiratory effort, able to speak in complete sentences and symmetric chest movement Comments: Patient's lung sounds relatively clear. He is very thick hard to distinguish light sounds. But could not hear any rales or rhonchi related to the pleural effusion on the right noted on the CT scan *Routine Cardiovascular Exam Cardiovascular: Present RRR and murmur Comments: Fairly loud holistic murmurs both systolic and diastolic., Heart makes a lot of extra noise basically kind of sounds like a washing machine. Did not note any significant edema to lower extremities during the exam *Routine Abdominal Exam Abdominal: Present soft, distended and obese Comments: Large rounded abdomen normal bowel sounds. No significant tenderness to palpation, abdomen too large to note any enlarged organs *Routine Rectal Exam Rectal:: deferred *Routine Genitalia Exam Genitalia:: deferred *Routine Extremities Exam Extremities: Present full ROM and pulses intact Comments: Patient's skin does show the aging of an 83-year-old man. But nailbeds have brisk capillary refill., Noted multiple color changes in several areas of the patient's next arms legs., But no significant breakdown Routine Back/Spine/Pelvis Exam Back/Spine: Present full ROM Comments: And examining the patient he is able to stand and transfer without any problem I did not walk him but he moves in a stretcher very well he showed no indication of having any significant back pain *Routine Skin Exam Skin: Present intact, dry, petechiae and lesions Comments: Skin is kind of poor and turgor. But with his age this may be normal showing large amounts of sun damage throughout his years., Several areas of what she would call age spotting.. *Routine Neurological Exam Neurological: Present alert, oriented X3 and vision grossly intact Comments: Patient does have right ear hearing loss., No other neurologic deficits were obvious he can move both sides of his body without any signs of deficiency. His limbs move well follows instructions well. Routine Psychiatric Exam Psychiatric: Present normal affect, normal thought process, cooperative, good insight and good judgment Comments: Gentleman is very polite and nice. 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 So I feel that there is no deficits in his thought processes at this time H&P: Result Impressions 1. Nausea, vomiting, watery diarrhea, causing the patient not to be able to take his oral medications. 2. Atrial fibs with tachycardia, as noted above not being able to take his regular med 3. Positive preliminary finding on an HIV testing 4. Long history of diabetes mellitus 5. Former smoker Imaging and Cardiology CT scan - abdomen: Status: image reviewed by me Additional comments: CT of the abdomen showed nothing that appeared to be significantly acute do agree there may be some wall thickening in the duodenum. 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 Plus evidence of previous cardiac surgery Assessment and Plan *Assessment and plan (1) Nausea & vomiting: Status: Acute Qualifiers: Vomiting type: unspecified Qualified Code(s): R11.2 - Nausea with vomiting, unspecified Category: Medical Code(s): R11.2 - Nausea with vomiting, unspecified (2) Atrial fibrillation with rapid ventricular response: Status: Acute Category: Medical Code(s): I48.91 - Unspecified atrial fibrillation (3) Pleural effusion: Status: Acute Category: Medical Code(s): J90 - Pleural effusion, not elsewhere classified (4) Interstitial lung disease: Status: Acute Category: Medical Code(s): J84.9 - Interstitial pulmonary disease, unspecified (5) Mediastinal adenopathy: Status: Acute Category: Medical Code(s): R59.0 - Localized enlarged lymph nodes (6) Renal artery stenosis: Status: Acute Category: Medical Code(s): I70.1 - Atherosclerosis of renal artery (7) Duodenitis: Status: Acute Category: Medical Code(s): K29.80 - Duodenitis without bleeding (8) Diabetes mellitus: Status: Chronic Qualifiers: Diabetes mellitus type: type 2 Diabetes mellitus long chain quiller tender insulin use: with long chain quiller tender use Diabetes mellitus complication status: without complication Qualified Code(s): E11.9 - Type 2 diabetes mellitus without complications; Z79.4 - assisted (current) use of insulin Category: Medical Code(s): E11.9 - Type 2 diabetes mellitus without complications (9) Positive laboratory testing for human immunodeficiency virus: Status: Acute Category: Medical Code(s): Z21 - Asymptomatic human immunodeficiency virus [HIV] infection status (10) Obesity: Status: Chronic Qualifiers: Obesity type: due to excess calories Obesity classification: adult class 2 (BMI 35 - 39.9) Serious obesity comorbidity presence: without serious comorbidity Body mass index: BMI 39.0-39.9 Qualified Code(s): E66.09 - Other obesity due to excess calories; Z68.39 - Body mass index (BMI) 39.0-39.9, adult Category: Medical Code(s): E66.9 - Obesity, unspecified (11) Hearing difficulty of right ear: Status: Acute Category: Medical Code(s): H91.91 - Unspecified hearing loss, right ear Plan 1. Due to the patient's nausea vomiting diarrhea not being able to take oral medication we will go ahead and admit him tonight to be able to continue to treat his atrial fibs with now increasing tachycardia.. 2. Pleural effusion with long history of smoking in the past will continue with pulmonary toileting monitor oxygen needs., This may be a chronic problems at this time have not added antibiotics. 3. Noting CT scan showing renal artery stenosis and and gastric wall thickening will continue to monitor this and will treat or refer if it is worsened, patient will be informed about this so that they may follow-up as outpatient for if any procedure is needed for the renal artery stenosis. 4. Diabetes mellitus will continue to monitor the patient with ACHS fingersticks and sliding scale., Will recheck hemoglobin A1c with morning labs 5. Positive preliminary HIV screening I have gone ahead and ordered a PCR this will be drawn in the morning but is a send out lab we will have to notify patient of value at a future date 6. Patient's obesity with his difficulty in hearing or chronic problems, will monitor weight if begins to lose weight if not able to stop this nausea vomiting and diarrhea. But this will be chronic issues that he is continue to follow-up with he did recently have an ear tube removed from the right ear please see past notes.
[2024-04-07 01:32] LABS: Lactic Acid Follow Up (RFLX 1) 1.4 mmol/L (0.7-2.1)
--- NOTE | 2024-04-07 03:17 | PC.NURSE ---
04/07/24. Pt is an 83 y/o male admitted from the ED to [facility]. Pt. came into the ED for nausea, vomitimg, diarrhea, abdominal pain and headache. Pt. is alert and orientated x 4. Admission history obtained. Per patient daughter may be able to bring in home meds later today and BiPAP Pt. states that he is tired and has a headache. Pt clean up, cardiac moniotor attached. Personal items and call kelley in reach. vital signs stable.
[2024-04-07 03:44] LABS: Troponin I 0.02 ng/ml (0.00-0.034)
[2024-04-07 06:36] LABS: POC Glucose,Bedside 123 (70-110)
[2024-04-07 06:56] LABS: Albumin Level 3.1 g/dl (3.5-5.0); Chloride 111 mmol/L (98-107); Potassium 3.6 mmoL/L (3.5-5.1); Sodium 139 mmol/L (136-145)
[2024-04-07 06:59] LABS: Alanine Aminotransferase 27 U/L (12-78); Alkaline Phosphatase 229 U/L (38-126); Anion Gap 8.6 mEq/L (5-15); Aspartate Amino Transferase 30 U/L (17-59); Bilirubin,Total 1.2 mg/dl (0.2-1.3); Blood Urea Nitrogen 9 mg/dl (9-20); Calcium 8.2 mg/dl (8.4-10.2); Carbon Dioxide 23 mmol/L (22.0-30.0); Creatinine Clearance Estimated 105 mL/min (50-200); Estimated Glomerular Filt Rate 81 ml/min (>60); GFR (African American) 98 ML/MIN (>60); Glucose 136 mg/dl (74-100); Magnesium 1.7 mg/dl (1.6-2.3); Total Protein,Serum 6.1 g/dl (6.3-8.2)
[2024-04-07 07:08] LABS: Basophils % 0.6 % (0.1-2.0); Eosinophils # 0.4 K/mm3 (0.0-0.4); Eosinophils % 8.7 % (0.1-12.0); Hematocrit 32.5 % (42.0-52.0); Lymphocytes # 1.1 K/mm3 (0.7-4.5); Lymphocytes % 23.6 % (10-50); Mean Corpuscular HGB Conc 32.7 g/dL (31.8-35.4); Mean Corpuscular Hemoglobin 27.9 pg (27.0-31.2); Mean Corpuscular Volume 85.5 fl (80-94); Monocytes # 0.3 K/mm3 (0.1-1.0); Monocytes % 5.8 % (1.7-9.3); Neutrophils # 2.8 K/mm3 (1.8-7.8); Neutrophils % 61.5 % (37.0-80.0); Platelet Count 134 K/mm3 (142-424); Red Cell Distribution Width 17.4 % (11.5-17.5); White Blood Count 4.5 K/mm3 (4.8-10.8)
[2024-04-07 07:10] LABS: Hemoglobin 10.6 g/dL (14.1-18.0)
[2024-04-07 08:05] LABS: Hemoglobin A1C 7.5 % (4.0-6.0)
[2024-04-07 08:16] LABS: Thyroid Stimulating Hormone 1.13 uIU/mL (0.465-4.68)
[2024-04-07] MEDS: ENOXAPARIN 40MG/0.4ML SYRINGE 40 MG SUBCUT (08:43)
--- NOTE | 2024-04-07 08:50 | HMH.PHAINT1 ---
Pharmacy Intervention Comments: HOME MEDICATIONS VERIFIED VIA OUTPATIENT PHARMACY
--- NOTE | 2024-04-07 09:05 | EXP.CARD.CON ---
History of Present Illness History of Present Illness Consult date: 04/07/24 Requesting physician: Bernardino Joseph Consult reason: shortness of breath Chief complaint: diarrhea Additional 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:: 1. CAD A. CABG, 1998 B. Multiple coronary stents, most recent stent in last 6 months but most recent LHC without stenting, 01/2024, Dr. Cordova in [place], [place] 2. DM 3. ONEIDA and COPD overlap syndrome 4. Obesity 5. Chronic atrial fibrillation A. On chronic anticoagulation 6. Carotid artery stenosis, moderate, 2021 7. Dyslipidemia 8. History of orthostatic hypotension, chronic and recurrent, treated with midodrine A. Right renal artery stenosis, moderate to severe, abdominal CTA, 04/2024 9. HFrEF A. EF 45%, 02/2024 10. Hypertension A. Echo, EF 45%, moderate RV dilation with mild reduction in RV function. Severe biatrial dilation. Moderate TR. Mild MR and PI. History of present illness: This patient is a 83-year-old male presenting to the Emergency Department for evaluation of epigastric pain, nausea, vomiting, watery diarrhea , shortness of breath, cough, and headache. Differential diagnoses considered include but are not limited to viral syndrome, pneumonia. Patient also noted as being preliminary reactive on his HIV-1/2 testing. The main reason for admission is the nausea and vomiting and diarrhea and not being able to keep his medication down with his heart rate increasing and with his history of A-fib., Digoxin levels were actually low., Noting some increased bilirubin in the urine.. I spoken with the ER physician gone over the treatment that been given to him and do agree that we need to stabilize the patient's nausea and vomiting and be able to get him back to being able to take his regular home medicines without losing them.. Also noting the nausea with the vomiting and this watery diarrhea. That there may be a secondary infection. On evaluation of his CT scan of his lungs see quite a bit of pleural effusion on top of this.. Patient is noted moderately extensive adenopathy of the mediastinal region. Patient also noted with a history of sleep apnea supposed to be on CPAP has been worked up for COPD but he has not smoked for many years, also history of CABG, CHF A-fib hypertension and diabetes mellitus with some cardiomegaly. Last note for ejection fraction showed approximately 45%. Noting it from 02/04/2024 he was also had increased Lasix due to her history of CHF but having also episodes of orthostatic hypotension in the past. So I do feel that the patient's best interest to be able to admit him at this time continue to monitor for his fluid balance try to lower this nausea vomiting to allow him to start to take his regular home medications get his digoxin levels back to therapeutic levels being able to lower his tachycardia.. Also labs will be sent out for PCR testing due to the HIV. preliminary findings patient denies any tattoos, or blood transfusions in the past.. He does use subcu insulin though and there are small bruises on his stomach where he uses to inject himself for his diabetes. He gave no indication of illicit drug use or IV use. The above per Obdulio Rocha APRN admission note. Above confirmed with patient. Clinically stable from cardiac standpoint prior to onset of N, V and diarrhea and inability to take meds as prescribed. Denies any chest pain, pressure or tightness. [facility] Disclaimer: The information contained in this section may have been updated after the patient was seen, as this information can be updated by other users. 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 HFrEF (heart failure with reduced ejection fraction) Polypharmacy Rash Retained myringotomy tube Hearing difficulty of right ear Otorrhea of right ear Otalgia, right ear BMI 39.0-39.9,adult ONEIDA and COPD overlap syndrome OAB (overactive bladder) CHF (congestive heart failure) Diabetes mellitus Afib HLD (hyperlipidemia) HHD (hypertensive heart disease) CAD (coronary artery disease) Surgical History History of left inguinal hernia repair History of umbilical hernia repair History of left heart catheterization (LHC) Hx of CABG Family History Mother Coronary artery disease Father Tuberculosis Social History (Updated 04/07/24 @ 00:23 by Sandra Castro RN) Smoking Status: Former smoker years smoked: 30 smoking status stop date: 1992 alcohol intake: former substance use type: denies use current occupational status: retired and disabled Travel in the last 8 weeks: None Review of Systems Review of Systems Review of systems:: pertinent systems reviewed and negative unless documented below Constitutional Constitutional: Reports weakness *Cardiovascular Cardiovascular: Denies chest pain and Denies dyspnea *Respiratory Respiratory: Denies dyspnea *Neurologic Neurologic: Reports as per HPI and Reports weakness Exam Data for Last 24 hours Vital signs and Labs for Last 24 Hours: Temp Pulse Resp BP Pulse Ox O2 Del Method O2 Flow Rate 98.3 F 120 H 19 142/59 H 98 Nasal Cannula 2 04/07/24 07:27 04/07/24 08:00 04/07/24 07:27 04/07/24 07:27 04/07/24 07:27 04/07/24 07:27 04/07/24 07:27 Laboratory Results - last 24 hr 04/06/24 20:20: WBC 6.4, RBC 4.54 L, Hgb 12.6 L, Hct 40.0 L, MCV 88.0, MCH 27.8, MCHC 31.6 L, RDW 17.3, Plt Count 178, MPV 7.1 L, Neut % (Auto) 68.4, Lymph % (Auto) 17.5, [place] % (Auto) 5.9, Eos % (Auto) 7.4, Baso % (Auto) 0.9, Neut # (Auto) 4.4, Lymph # (Auto) 1.1, [place] # (Auto) 0.4, Eos # (Auto) 0.5 H, Baso # (Auto) 0.1, PT 11.9, INR 1.07, APTT 29.1, Sodium 139, Potassium 4.0, Chloride 107, Carbon Dioxide 24, Anion Gap 12.0, BUN 8 L, Creatinine 0.90, Estimated Creat Clear 104, Estimated GFR 81, Est GFR ( Amer) 98, Glucose 161 H, Calcium 8.9, Phosphorus 3.0, Magnesium 1.7, Total Bilirubin 1.4 H, AST 35, ALT 36, Alkaline Phosphatase 263 H, Troponin I 0.02, C-Reactive Protein 17.6 H, NT-Pro-B Natriuret Pep 2730 H, Total Protein 7.2, Albumin 3.8, Globulin 3.4 H, Albumin/Globulin Ratio 1.1, Lipase 34, Procalcitonin 0.050, TSH 1.16, Thyroxine (T4) 7.9 04/06/24 20:34: VBG pH 7.36, VBG pCO2 40.9, VBG pO2 30.1, VBG HCO3 22.7 L, VBG Total CO2 23.9, VBG O2 Saturation 55.6, VBG Base Excess -2.7 L, VBG Lactic Acid 3.0 H 04/06/24 20:45: Lactate 1.7, HIV 1&2 Antibody Rapid Preliminary reactive 04/06/24 21:45: Digoxin < 0.40 04/06/24 21:58: Urine Color Dark yellow, Urine Appearance Clear, Urine pH 6.0, Ur Specific [place] >= 1.030, Urine Protein 1+ A, Urine Glucose (UA) Negative, Urine Ketones Negative, Urine Blood Negative, Urine Nitrate Negative, Urine Bilirubin Negative, Urine Urobilinogen >=8.0, Ur Leukocyte Esterase Negative, Urine WBC 3-5, Ur Squamous Epith Cells 3-5, Urine Bacteria 1+, Urine Mucus 1+ 04/06/24 23:42: Troponin I 0.02 04/06/24 : SARS-CoV-2 (PCR) Not detected, Influenza A Untype (PCR) Not detected, Influenza Type B (PCR) Not detected 04/07/24 01:10: Lactate 1.4 04/07/24 03:05: Troponin I 0.02 04/07/24 06:03: POC Glucose 123 H 04/07/24 06:15: WBC 4.5 L D, RBC 3.80 L, Hgb 10.6 L D, Hct 32.5 L, MCV 85.5, MCH 27.9, MCHC 32.7, RDW 17.4, Plt Count 134 L, MPV 7.0 L, Neut % (Auto) 61.5, Lymph % (Auto) 23.6, [place] % (Auto) 5.8, Eos % (Auto) 8.7, Baso % (Auto) 0.6, Neut # (Auto) 2.8, Lymph # (Auto) 1.1, [place] # (Auto) 0.3, Eos # (Auto) 0.4, Baso # (Auto) 0.0, Sodium 139, Potassium 3.6, Chloride 111 H, Carbon Dioxide 23, Anion Gap 8.6, BUN 9, Creatinine 0.90, Estimated Creat Clear 105, Estimated GFR 81, Est GFR ( Amer) 98, Glucose 136 H, Hemoglobin A1c 7.5 H, Calcium 8.2 L, Magnesium 1.7, Total Bilirubin 1.2, AST 30, ALT 27, Alkaline Phosphatase 229 H, Total Protein 6.1 L, Albumin 3.1 L D, Globulin 3.0, Albumin/Globulin Ratio 1.0 L, TSH 1.13 I & O for Last 24 hours: Intake & Output 04/04/24 04/05/24 04/06/24 04/07/24 11:59 11:59 11:59 11:59 Intake Total 540 / 540 Output Total 100 / 100 Balance 440 / 440 Weight 282 lb 11.2 oz Constitutional Constitutional: no acute distress *Routine Respiratory Exam Respiratory: Present CTA bilaterally; Absent rhonchi or wheezes *Routine Cardiovascular Exam Cardiovascular: Present tachycardia and irregularly irregular *Routine Extremities Exam Extremities: Absent edema *Routine Neurological Exam Neurological: Present alert, oriented X3 and CN II-XII intact Meds Home Medications and Allergies Home Medications ?Medication ?Instructions ?Recorded ?Confirmed ?Type metoprolol succinate 25 mg 25 mg PO DAILY #90 tabs 09/20/23 04/07/24 Rx tablet,extended release 24 hr (Toprol XL) finasteride 5 mg tablet 5 mg PO DAILY 02/05/24 04/07/24 History potassium chloride 20 mEq 20 meq PO DAILY 02/05/24 04/07/24 History tablet,extended release(part/cryst) midodrine 5 mg tablet 2.5 mg (1/2 x 5 mg) PO TID #90 tabs 02/24/24 04/07/24 Rx digoxin 125 mcg (0.125 mg) tablet 125 mcg PO DAILY #90 tabs 03/13/24 04/07/24 Rx fluticasone 250 mcg-salmeterol 50 1 inh inhalation BID #60 ea 03/13/24 04/07/24 Rx mcg/dose blistr powdr for inhalation trazodone 50 mg tablet 50 mg PO HS 04/01/24 04/07/24 History albuterol sulfate 90 mcg/actuation 2 inh inhalation QIDP PRN 04/07/24 04/07/24 History aerosol inhaler Shortness Of Breath Or Wheezing apixaban 5 mg tablet (Eliquis) 5 mg PO BID 04/07/24 04/07/24 History aspirin 81 mg tablet,delayed 81 mg PO AM 04/07/24 04/07/24 History release atorvastatin 40 mg tablet 40 mg PO HS 04/07/24 04/07/24 History blood sugar diagnostic (Accu-Chek 04/07/24 04/07/24 History Guide test strips) clopidogrel 75 mg tablet 75 mg PO AM 04/07/24 04/07/24 History furosemide 20 mg tablet 20 mg PO DAILYP PRN Edema 04/07/24 04/07/24 History gabapentin 300 mg capsule 300 mg PO TIDP PRN Pain (Scale 04/07/24 04/07/24 History Score 1-6) insulin NPH-regular 70-30 U-100 40 unit SQ BID 04/07/24 04/07/24 History insulin 100 unit/mL subcutaneous pen (Novolin 70-30 FlexPen U-100 Insulin) New Prescriptions to Start Prescriptions: Allergies Allergy/AdvReac Type Severity Reaction Status Date / Time amoxicillin (From Augmentin) Allergy Severe edema Verified 04/01/24 10:05 ciprofloxacin (From Cipro) Allergy Severe Redness of Verified 04/01/24 10:05 Skin clavulanic acid (From Allergy Severe edema Verified 04/01/24 10:05 Augmentin) prednisone AdvReac Intermediate Agitated Verified 04/01/24 10:05 Assessment and Plan *Assessment and plan (1) Abdominal pain, epigastric: Status: Acute Category: Medical Code(s): R10.13 - Epigastric pain (2) Nausea & vomiting: Status: Acute Qualifiers: Vomiting type: unspecified Qualified Code(s): R11.2 - Nausea with vomiting, unspecified Category: Medical Code(s): R11.2 - Nausea with vomiting, unspecified (3) Atrial fibrillation with rapid ventricular response: Status: Acute Category: Medical Code(s): I48.91 - Unspecified atrial fibrillation (4) Positive laboratory testing for human immunodeficiency virus: Status: Acute Category: Medical Code(s): Z21 - Asymptomatic human immunodeficiency virus [HIV] infection status (5) Diabetes mellitus: Status: Chronic Qualifiers: Diabetes mellitus type: type 2 Diabetes mellitus usp insulin use: with ferry terminal agent use Diabetes mellitus complication status: without complication Qualified Code(s): E11.9 - Type 2 diabetes mellitus without complications; Z79.4 - ocean transportation intermediary (current) use of insulin Category: Medical Code(s): E11.9 - Type 2 diabetes mellitus without complications (6) Obesity: Status: Chronic Qualifiers: Obesity type: due to excess calories Obesity classification: adult class 2 (BMI 35 - 39.9) Serious obesity comorbidity presence: without serious comorbidity Body mass index: BMI 39.0-39.9 Qualified Code(s): E66.09 - Other obesity due to excess calories; Z68.39 - Body mass index (BMI) 39.0-39.9, adult Category: Medical Code(s): E66.9 - Obesity, unspecified (7) ONE[place] and COPD overlap syndrome: Status: Acute Category: Medical Code(s): G47.33 - Obstructive sleep apnea (adult) (pediatric); J44.9 - Chronic obstructive pulmonary disease, unspecified (8) CAD (coronary artery disease): Problem Comment: MIRELLA and angioplasty (2021) per [facility] in [place] Recent Cath in 08/2020 showed Occluded SVG X 2, patent KINCAID to LAD, patient SVG to diagonal, severe disease OM in 1 stent, mid circ. Medical management in 2017. MIRELLA in 2012. Hx of CABG. Status: Chronic Qualifiers: Coronary Disease-Associated Artery/Lesion type: [place] artery [place] vs. transplanted heart: [place] heart Associated angina: without angina Qualified Code(s): I25.10 - Atherosclerotic heart disease of [place] coronary artery without angina pectoris Category: Medical Code(s): I25.10 - Atherosclerotic heart disease of [place] coronary artery without angina pectoris Plan 1. Abdominal pain with N, V and diarrhea with evidence of duodenitis on abdominal CTA -per hospitalist, starting PPI -pt feeling better today 2. A. fib with RVR -off home meds recently due to N,V and diarrhea -resume digoxin, metoprolol and eliquis 3. Orthostatic hypotension, chronic and recurrent -on midodrine -moderate to high-grade stenosis of right renal artery noted on abdominal CTA, 04/06/2024 4. CAD with history of CABG -on aspirin and plavix along with atorvastatin -most recent coronary stenting about 6 months ago, Dr. Cordova in [place] -echo, 02/2024, EF 45% -troponins normal this admission 5. ONE[place] and COPD overlap syndrome 6. DM with 1+ proteinuria -per hospitalist -Hgb A1C 7.5 7. Possible HIV -mediastinal adenopathy noted on CTA of chest, 04/06/2024 8. HFrEF -EF 45% in 02/2024 -BNP 2730 Pt feeling better this AM. Resume home meds. Possibly home today. Follow up with Dr. Cordova in [place] as previously scheduled.
[2024-04-07] MEDS: PANTOPRAZOLE SODIUM 80 MG in 0.9 % SODIUM CHLORIDE 100 ML 100 MG IV (09:26)
--- NOTE | 2024-04-07 09:36 | P.CONS_ITS ---
History of Present Illness History of present illness: Mr. Vasques is a 83-year-old prior smoker greater than [id number] smoking the last more greater than 15 years ago presented to the ER worsening respiratory distress and abdominal discomfort was called for further evaluation and management. [facility] Disclaimer: The information contained in this section may have been updated after the patient was seen, as this information can be updated by other users. 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 HFrEF (heart failure with reduced ejection fraction) Polypharmacy Rash Retained myringotomy tube Hearing difficulty of right ear Otorrhea of right ear Otalgia, right ear BMI 39.0-39.9,adult ONEIDA and COPD overlap syndrome OAB (overactive bladder) CHF (congestive heart failure) Diabetes mellitus Afib HLD (hyperlipidemia) HHD (hypertensive heart disease) CAD (coronary artery disease) Surgical History History of left inguinal hernia repair History of umbilical hernia repair History of left heart catheterization (LHC) Hx of CABG Family History Mother Coronary artery disease Father Tuberculosis Social History (Updated 04/07/24 @ 00:23 by aSndra Castro RN) Smoking Status: Former smoker years smoked: 30 smoking status stop date: 1992 alcohol intake: former substance use type: denies use current occupational status: retired and disabled Travel in the last 8 weeks: None Review of Systems Constitutional Constitutional: Reports fatigue and Reports weakness Eyes Eyes: Denies eye discharge, Denies dry eyes, Denies irritation and Denies itchy eyes ENT Ears, Nose, Mouth, and Throat: Denies epistaxis, Denies facial pain, Denies lip swelling and Denies throat swelling *Cardiovascular Cardiovascular: Reports dyspnea and Reports dyspnea on exertion *Respiratory Respiratory: Denies change in phlegm color, Reports chest congestion, Reports cough, Reports dyspnea, Reports dyspnea on exertion, Denies excessive phlegm production and Denies wheezing *Gastrointestinal Gastrointestinal: Denies abdominal pain and Reports change in bowel habits *Musculoskeletal Musculoskeletal: Reports back pain, Reports myalgias and Reports other (No small joint swelling or Pain) *Neurologic Neurologic: Reports as per HPI and Reports weakness Psychiatric Psychiatric: Denies homicidal ideation and Denies suicidal ideation Endocrine Endocrine: Reports fatigue and Denies heat intolerance Hematologic/Lymphatic Hematologic/Lymphatic: Denies easy bleeding and Denies lymphadenopathy Allergic/Immunologic Allergic/Immunologic: Denies itchy eyes, Denies lip swelling, Denies throat swelling and Denies wheezing Pulmonology Exam Inpatient Vital signs and Labs for Last 24 Hours: Temp Pulse Resp BP Pulse Ox O2 Del Method O2 Flow Rate 98.3 F 120 H 19 142/59 H 98 Room Air 2 04/07/24 07:27 04/07/24 08:00 04/07/24 07:27 04/07/24 07:27 04/07/24 07:27 04/07/24 08:00 04/07/24 07:27 Laboratory Results - last 24 hr 04/06/24 20:20: WBC 6.4, RBC 4.54 L, Hgb 12.6 L, Hct 40.0 L, MCV 88.0, MCH 27.8, MCHC 31.6 L, RDW 17.3, Plt Count 178, MPV 7.1 L, Neut % (Auto) 68.4, Lymph % (Auto) 17.5, [place] % (Auto) 5.9, Eos % (Auto) 7.4, Baso % (Auto) 0.9, Neut # (Auto) 4.4, Lymph # (Auto) 1.1, [place] # (Auto) 0.4, Eos # (Auto) 0.5 H, Baso # (Auto) 0.1, PT 11.9, INR 1.07, APTT 29.1, Sodium 139, Potassium 4.0, Chloride 107, Carbon Dioxide 24, Anion Gap 12.0, BUN 8 L, Creatinine 0.90, Estimated Creat Clear 104, Estimated GFR 81, Est GFR ( Amer) 98, Glucose 161 H, Calcium 8.9, Phosphorus 3.0, Magnesium 1.7, Total Bilirubin 1.4 H, AST 35, ALT 36, Alkaline Phosphatase 263 H, Troponin I 0.02, C-Reactive Protein 17.6 H, N T-Pro-B Natriuret Pep 2730 H, Total Protein 7.2, Albumin 3.8, Globulin 3.4 H, Albumin/Globulin Ratio 1.1, Lipase 34, Procalcitonin 0.050, TSH 1.16, Thyroxine (T4) 7.9 04/06/24 20:34: VBG pH 7.36, VBG pCO2 40.9, VBG pO2 30.1, VBG HCO3 22.7 L, VBG Total CO2 23.9, VBG O2 Saturation 55.6, VBG Base Excess -2.7 L, VBG Lactic Acid 3.0 H 04/06/24 20:45: Lactate 1.7, HIV 1&2 Antibody Rapid Preliminary reactive 04/06/24 21:45: Digoxin < 0.40 04/06/24 21:58: Urine Color Dark yellow, Urine Appearance Clear, Urine pH 6.0, Ur Specific [place] >= 1.030, Urine Protein 1+ A, Urine Glucose (UA) Negative, Urine Ketones Negative, Urine Blood Negative, Urine Nitrate Negative, Urine Bilirubin Negative, Urine Urobilinogen >=8.0, Ur Leukocyte Esterase Negative, Urine WBC 3-5, Ur Squamous Epith Cells 3-5, Urine Bacteria 1+, Urine Mucus 1+ 04/06/24 23:42: Troponin I 0.02 04/06/24 : SARS-CoV-2 (PCR) Not detected, Influenza A Untype (PCR) Not detected, Influenza Type B (PCR) Not detected 04/07/24 01:10: Lactate 1.4 04/07/24 03:05: Troponin I 0.02 04/07/24 06:03: POC Glucose 123 H 04/07/24 06:15: WBC 4.5 L D, RBC 3.80 L, Hgb 10.6 L D, Hct 32.5 L, MCV 85.5, MCH 27.9, MCHC 32.7, RDW 17.4, Plt Count 134 L, MPV 7.0 L, Neut % (Auto) 61.5, Lymph % (Auto) 23.6, [place] % (Auto) 5.8, Eos % (Auto) 8.7, Baso % (Auto) 0.6, Neut # (Auto) 2.8, Lymph # (Auto) 1.1, [place] # (Auto) 0.3, Eos # (Auto) 0.4, Baso # (Auto) 0.0, Sodium 139, Potassium 3.6, Chloride 111 H, Carbon Dioxide 23, Anion Gap 8.6, BUN 9, Creatinine 0.90, Estimated Creat Clear 105, Estimated GFR 81, Est GFR ( Amer) 98, Glucose 136 H, Hemoglobin A1c 7.5 H, Calcium 8.2 L, Magnesium 1.7, Total Bilirubin 1.2, AST 30, ALT 27, Alkaline Phosphatase 229 H, Total Protein 6.1 L, Albumin 3.1 L D, Globulin 3.0, Albumin/Globulin Ratio 1.0 L , TSH 1.13 I & O for Labs for Last 24 Hours: Intake & Output 04/04/24 04/05/24 04/06/24 04/07/24 23:59 23:59 23:59 23:59 Intake Total 540 / 540 Output Total 100 / 100 Balance 440 / 440 Weight 280 lb 282 lb 11.2 oz Constitutional: Present moderate distress Head: Present normocephalic and atraumatic ENT: Present normal exam, normal oropharynx and mucous membranes moist Neck: Present normal inspection and full ROM Respiratory: Present crackles and able to speak in complete sentences; Absent prolonged expiratory phase, stridor, wheezes or diminished air movement Cardiac: Present S1/S2, Tachycardia and radial pulses present GI: Present soft and distention; Absent tenderness or guarding Skin: Present intact; Absent cyanosis or jaundice Neuro: Present alert, awake and oriented x 3 Extremities: Present normal inspection; Absent clubbing or cyanosis Psychiatric: Present normal affect and cooperative Meds Home Medications and Allergies Home Medications ?Medication ?Instructions ?Recorded ?Confirmed ?Type metoprolol succinate 25 mg 25 mg PO DAILY #90 tabs 09/20/23 04/07/24 Rx tablet,extended release 24 hr (Toprol XL) finasteride 5 mg tablet 5 mg PO DAILY 02/05/24 04/07/24 History potassium chloride 20 mEq 20 meq PO DAILY 02/05/24 04/07/24 History tablet,extended release(part/cryst) midodrine 5 mg tablet 2.5 mg (1/2 x 5 mg) PO TID #90 tabs 02/24/24 04/07/24 Rx digoxin 125 mcg (0.125 mg) tablet 125 mcg PO DAILY #90 tabs 03/13/24 04/07/24 Rx fluticasone 250 mcg-salmeterol 50 1 inh inhalation BID #60 ea 03/13/24 04/07/24 Rx mcg/dose blistr powdr for inhalation trazodone 50 mg tablet 50 mg PO HS 04/01/24 04/07/24 History albuterol sulfate 90 mcg/actuation 2 inh inhalation QIDP PRN 04/07/24 04/07/24 History aerosol inhaler Shortness Of Breath Or Wheezing apixaban 5 mg tablet (Eliquis) 5 mg PO BID 04/07/24 04/07/24 History aspirin 81 mg tablet,delayed 81 mg PO AM 04/07/24 04/07/24 History release atorvastatin 40 mg tablet 40 mg PO HS 04/07/24 04/07/24 History blood sugar diagnostic (Accu-Chek 04/07/24 04/07/24 History Guide test strips) clopidogrel 75 mg tablet 75 mg PO AM 04/07/24 04/07/24 History furosemide 20 mg tablet 20 mg PO DAILYP PRN Edema 04/07/24 04/07/24 History gabapentin 300 mg capsule 300 mg PO TIDP PRN Pain (Scale 04/07/24 04/07/24 History Score 1-6) insulin NPH-regular 70-30 U-100 40 unit SQ BID 04/07/24 04/07/24 History insulin 100 unit/mL subcutaneous pen (Novolin 70-30 FlexPen U-100 Insulin) New Prescriptions to Start Prescriptions: Allergies Allergy/AdvReac Type Severity Reaction Status Date / Time amoxicillin (From Augmentin) Allergy Severe edema Verified 04/01/24 10:05 ciprofloxacin (From Cipro) Allergy Severe Redness of Verified 04/01/24 10:05 Skin clavulanic acid (From Allergy Severe edema Verified 04/01/24 10:05 Augmentin) prednisone AdvReac Intermediate Agitated Verified 04/01/24 10:05 Results Laboratory Findings 04/07/24 06:15 04/07/24 06:15 PT/INR, D-dimer PT 11.9 seconds (10.1-12.5) 04/06/24 20:20 INR 1.07 (0.9-1.1) 04/06/24 20:20 Abnormal lab findings: Abnormal Labs 04/06/24 04/06/24 04/06/24 20:20 20:34 21:58 WBC RBC 4.54 L Hgb 12.6 L Hct 40.0 L MCHC 31.6 L Plt Count MPV 7.1 L Eos # (Auto) 0.5 H VBG HCO3 22.7 L VBG Base Excess -2.7 L VBG Lactic Acid 3.0 H Chloride BUN 8 L Glucose 161 H POC Glucose Hemoglobin A1c Calcium Total Bilirubin 1.4 H Alkaline Phosphatase 263 H C-Reactive Protein 17.6 H NT-Pro-B Natriuret Pep 2730 H Total Protein Albumin Globulin 3.4 H Albumin/Globulin Ratio Urine Protein 1+ A 04/07/24 04/07/24 06:03 06:15 WBC 4.5 L D RBC 3.80 L Hgb 10.6 L D Hct 32.5 L MCHC Plt Count 134 L MPV 7.0 L Eos # (Auto) VBG HCO3 VBG Base Excess VBG Lactic Acid Chloride 111 H BUN Glucose 136 H POC Glucose 123 H Hemoglobin A1c 7.5 H Calcium 8.2 L Total Bilirubin Alkaline Phosphatase 229 H C-Reactive Protein NT-Pro-B Natriuret Pep Total Protein 6.1 L Albumin 3.1 L D Globulin Albumin/Globulin Ratio 1.0 L Urine Protein Assessment and Plan *Assessment and plan (1) Pleural effusion: Status: Acute Category: Medical Code(s): J90 - Pleural effusion, not elsewhere classified (2) Mediastinal adenopathy: Status: Acute Category: Medical Code(s): R59.0 - Localized enlarged lymph nodes Plan Mr. Vasques is a 83-year-old prior smoker greater than [id number] smoking the last more greater than 15 years ago presented to the ER worsening respiratory distress and abdominal discomfort was called for further evaluation and management. CTA upon admission no evidence of pulmonary emboli bilateral small pleural effusions right greater than left. Adjacent interstitial/atelectatic changes noted. The mild subpleural interstitial changes also noted on his CT abdomen from July 2022 remained stable. Mediastinal lymphadenopathy noted. Station 7, 4L and station 4R. Station 4R partially calcified. No abdominal/axillary lymphadenopathy reported, less concerning for HIV-associated lymphoma in the setting of HIV screen positive. Leukopenia noted. Patient at baseline using albuterol inhaler on as-needed basis using the 1-3 times per day. Wheezing and nocturnal oxygen supplementation at 3 L. Not using any oxygen supplementation during the daytime. On initial examination patient does not appear to be in any respiratory distress. No significant wheezing noted on auscultation. Plan: No need for thoracentesis at this point of time. DuoNebs 4 times daily as needed Will follow about the resolution of noted lymphadenopathy with CT chest as an outpatient basis No need for antibiotics or steroids from pulmonary standpoint. # Thank you for involving pulmonary in this patient care. Will continue to follow.
[2024-04-07] MEDS: humaLOG 100 UNITS/ML 10ML VIAL (SSI) SUBCUT ×2 (10:48→17:11)
[2024-04-07] MEDS: ACETAMINOPHEN 325MG TAB 650 MG PO ×2 (10:53→19:48)
[2024-04-07 11:16] LABS: POC Glucose,Bedside 187 (70-110)
[2024-04-07] MEDS: ONDANSETRON 4MG/2ML VIAL 4 MG IV (14:08)
--- NOTE | 2024-04-07 14:42 | ECG_ITS ---
APPROVED REPORT Exam: Resting ECG HR:129 bpm ECG Measurements Heart Rate 129 AXES QRSd 169 QRS -71 QT 350 T 28 QTc 426 Conclusion ATRIAL FIBRILLATION WITH RAPID VENTRICULAR RESPONSE WITH ABERRANT CONDUCTION OR VENTRICULAR PREMATURE COMPLEXES RIGHT BUNDLE BRANCH BLOCK [120+ ms QRS DURATION, UPRIGHT V1, 40+ ms S IN I/aVL/V4/V5/V6] LEFT ANTERIOR FASCICULAR BLOCK [QRS AXIS <= -45, QR IN I, RS IN II] ST DEPRESSION, CONSIDER SUBENDOCARDIAL INJURY [0.1+ mV ST DEPRESSION] ABNORMAL ECG UNCONFIRMED REPORT Electronically signed by : Bk Johnson MD 04/08/2024 20:55:23
[2024-04-07] MEDS: DIGOXIN 0.125MG TABLET 125 MCG PO (14:48)
[2024-04-07] MEDS: METOPROLOL SUCCINATE XL 25MG TABLET 25 MG PO (14:49)
--- NOTE | 2024-04-07 15:33 | PC.NURSE ---
patient is alert and oriented x4 and remains on RA. remains in afib on tele with his heart rate reaching in the 150s at times. MD aware and new orders were placed, (see MAR) patient stated he had a BM this AM, pt also stated his BM was hard and noted blood in stool. I did not see the pts BM. MD aware. he has c/o nausea once this shift and a headache treated per MAR. pt is currently lying in bed, no further requests at this time, call light within reach, family at bedside.
[2024-04-07] MEDS: METOPROLOL TARTRATE 5MG/5ML VIAL 5 MG IV ×2 (16:35→23:50)
[2024-04-07 17:14] LABS: POC Glucose,Bedside 158 (70-110)
--- NOTE | 2024-04-07 17:59 | EXP.PN ---
Subjective *Date: 04/19/24 *Time: 19:42 Interval history: Continues to have nausea and decreased tolerance to food, and some diarrhea. Exam Data for Last 24 hours Vital signs and Labs for Last 24 Hours: Temp Pulse Resp BP Pulse Ox O2 Del Method O2 Flow Rate 98.2 F 123 H 22 140/64 96 Room Air 2 04/07/24 16:00 04/07/24 16:00 04/07/24 16:00 04/07/24 16:00 04/07/24 16:00 04/07/24 17:00 04/07/24 07:27 Laboratory Results - last 24 hr 04/06/24 20:20: WBC 6.4, RBC 4.54 L, Hgb 12.6 L, Hct 40.0 L, MCV 88.0, MCH 27.8, MCHC 31.6 L, RDW 17.3, Plt Count 178, MPV 7.1 L, Neut % (Auto) 68.4, Lymph % (Auto) 17.5, [place] % (Auto) 5.9, Eos % (Auto) 7.4, Baso % (Auto) 0.9, Neut # (Auto) 4.4, Lymph # (Auto) 1.1, [place] # (Auto) 0.4, Eos # (Auto) 0.5 H, Baso # (Auto) 0.1, PT 11.9, INR 1.07, APTT 29.1, Sodium 139, Potassium 4.0, Chloride 107, Carbon Dioxide 24, Anion Gap 12.0, BUN 8 L, Creatinine 0.90, Estimated Creat Clear 104, Estimated GFR 81, Est GFR ( Amer) 98, Glucose 161 H, Calcium 8.9, Phosphorus 3.0, Magnesium 1.7, Total Bilirubin 1.4 H, AST 35, ALT 36, Alkaline Phosphatase 263 H, Troponin I 0.02, C-Reactive Protein 17.6 H, NT-Pro-B Natriuret Pep 2730 H, Total Protein 7.2, Albumin 3.8, Globulin 3.4 H, Albumin/Globulin Ratio 1.1, Lipase 34, Procalcitonin 0.050, TSH 1.16, Thyroxine (T4) 7.9 04/06/24 20:34: VBG pH 7.36, VBG pCO2 40.9, VBG pO2 30.1, VBG HCO3 22.7 L, VBG Total CO2 23.9, VBG O2 Saturation 55.6, VBG Base Excess -2.7 L, VBG Lactic Acid 3.0 H 04/06/24 20:45: Lactate 1.7, HIV 1&2 Antibody Rapid Preliminary reactive 04/06/24 21:45: Digoxin < 0.40 04/06/24 21:58: Urine Color Dark yellow, Urine Appearance Clear, Urine pH 6.0, Ur Specific [place] >= 1.030, Urine Protein 1+ A, Urine Glucose (UA) Negative, Urine Ketones Negative, Urine Blood Negative, Urine Nitrate Negative, Urine Bilirubin Negative, Urine Urobilinogen >=8.0, Ur Leukocyte Esterase Negative, Urine WBC 3-5, Ur Squamous Epith Cells 3-5, Urine Bacteria 1+, Urine Mucus 1+ 04/06/24 23:42: Troponin I 0.02 04/06/24 : SARS-CoV-2 (PCR) Not detected, Influenza A Untype (PCR) Not detected, Influenza Type B (PCR) Not detected 04/07/24 01:10: Lactate 1.4 04/07/24 03:05: Troponin I 0.02 04/07/24 06:03: POC Glucose 123 H 04/07/24 06:15: WBC 4.5 L D, RBC 3.80 L, Hgb 10.6 L D, Hct 32.5 L, MCV 85.5, MCH 27.9, MCHC 32.7, RDW 17.4, Plt Count 134 L, MPV 7.0 L, Neut % (Auto) 61.5, Lymph % (Auto) 23.6, [place] % (Auto) 5.8, Eos % (Auto) 8.7, Baso % (Auto) 0.6, Neut # (Auto) 2.8, Lymph # (Auto) 1.1, [place] # (Auto) 0.3, Eos # (Auto) 0.4, Baso # (Auto) 0.0, Sodium 139, Potassium 3.6, Chloride 111 H, Carbon Dioxide 23, Anion Gap 8.6, BUN 9, Creatinine 0.90, Estimated Creat Clear 105, Estimated GFR 81, Est GFR ( Amer) 98, Glucose 136 H, Hemoglobin A1c 7.5 H, Calcium 8.2 L, Magnesium 1.7, Total Bilirubin 1.2, AST 30, ALT 27, Alkaline Phosphatase 229 H, Total Protein 6.1 L, Albumin 3.1 L D, Globulin 3.0, Albumin/Globulin Ratio 1.0 L, TSH 1.13 04/07/24 10:42: POC Glucose 187 H 04/07/24 17:07: POC Glucose 158 H I & O for Last 24 hours: Intake & Output 04/04/24 04/05/24 04/06/24 04/07/24 23:59 23:59 23:59 23:59 Intake Total 1080 / 1080 Output Total 100 / 100 Balance 980 / 980 Weight 127.006 kg 128.231 kg Constitutional Constitutional: no acute distress and obese *Routine HEENT Exam Head: Present normocephalic Eye: Present EOMI and PERRL ENT: Present mucous membranes moist *Routine Neck Exam Neck: Present supple; Absent lymphadenopathy *Routine Respiratory Exam Respiratory: Present CTA bilaterally *Routine Cardiovascular Exam Cardiovascular: Present RRR *Routine Abdominal Exam Abdominal: Present soft and normoactive bowel sounds; Absent tenderness *Routine Extremities Exam Extremities: Present edema; Absent cyanosis or clubbing Comments: Trace lower extremity pitting edema. *Routine Skin Exam Skin: Present warm; Absent rash *Routine Neurological Exam Neurological: Present alert and oriented X3 Assessment and Plan *Assessment and plan (1) Duodenitis: Status: Acute Category: Medical Code(s): K29.80 - Duodenitis without bleeding Plan Kel Vasques is a 83 year old male who presented with respiratory distress, nausea/vomiting/diarrhea, abdominal discomfort. #Duodenitis ? Nausea/vomiting/diarrhea for the past week. Likely in setting of viral illness exacerbated by possible HIV undergoing further workup. ? IV Protonix 40 mg twice daily for now. ? Discussed with GI, recommended diarrhea panel to evaluate for cryptococcus versus other pathogens. ? Follow-up diarrhea panel. ? Continue conservative management. Avoid NSAIDs. #Positive HIV screen ? Pending quantitative PCR at this time. Patient denies risk factors for HIV. - Mediastinal adenopathy noted on CTA of chest, 04/06/2024. - Pulmonary consulted, no plans for intervention at this time. Will follow on outpatient basis. #Afib RVR - HR 120s. Had not been tolerating home meds. - Cardiology consulted, Restarted home digoxin, metoprolol and Eliquis. 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 Lasix as needed. #CAD s/p CABG - Resume home aspirin, statin. #Type 2 diabetes - Hemoglobin A1c 7.5 on admission. - LDSSI, ACHS glucose checks.
[2024-04-07 19:57] LABS: POC Glucose,Bedside 143 (70-110)
[2024-04-07] MEDS: APIXABAN 5MG TABLET 5 MG PO (20:06)
--- NOTE | 2024-04-07 23:46 | EXP.EVENT.NO ---
23:45 nurse reported that the patient's heart rate was increasing again., Had received report that the patient had received metoprolol 5 mg IV for this reason earlier today.. Will go ahead and repeat that 1 time and await further results..
[2024-04-08] VITALS (8 sets, daily range): BP systolic 119–143; BP diastolic 66–75; PULSE 80–140; RESP 18–20; TEMP 36.4–36.7; O2SAT 97–99; BMI 35.9
[2024-04-08 06:02] LABS: POC Glucose,Bedside 154 (70-110)
[2024-04-08] MEDS: humaLOG 100 UNITS/ML 10ML VIAL (SSI) SUBCUT ×2 (06:04→10:48)
[2024-04-08] MEDS: IPRATROPIUM/ALBUTEROL 3 ML NEB IH (06:10)
--- NOTE | 2024-04-08 06:13 | PC.NURSE ---
Pt A&OX4. Pt tolerating 3L nasal cannula throughout the night. Lung sounds clear and bowel sounds hyperactive. He has not complained on any N/V this shift. Stool sample still needed. Unable to have a BM. Has remained Afib on tele. Hr reached to the 140s. 5mg Metoprolol given. Rate currently 104. Family has remained at bedside. No complaints at this time, call light within reach.
[2024-04-08 07:16] LABS: HCV Ab Non Reactive (Non Reactive); HIV Screen 4th Generation wRfx Non Reactive (Non Reactive)
[2024-04-08] MEDS: METOPROLOL SUCCINATE XL 25MG TABLET 25 MG PO (08:02)
[2024-04-08] MEDS: DIGOXIN 0.125MG TABLET 125 MCG PO (08:02)
[2024-04-08] MEDS: PANTOPRAZOLE 40MG VIAL 40 MG IV (08:04)
[2024-04-08] MEDS: APIXABAN 5MG TABLET 5 MG PO (08:04)
[2024-04-08] MEDS: METOPROLOL TARTRATE 5MG/5ML VIAL 5 MG IV (08:09)
--- NOTE | 2024-04-08 08:12 | P.PN_ITS ---
Subjective Subjective Date: 04/08/24 Time: 08:12 Principal diagnosis: Duodenitis, A. fib with RVR Interval history: 83-year-old white male in bed in no acute distress. Patient had a event last night with atrial fibrillation with a rapid ventricular response that responded to IV metoprolol. This a.m. nurse relates he is currently having another tachycardic episode in A-fib. We will again give IV Lopressor and his home dose of metoprolol. Exam Data for Last 24 hours Vital signs and Labs for Last 24 Hours: Temp Pulse Resp BP Pulse Ox O2 Del Method O2 Flow Rate 97.6 F 130 H 18 129/66 97 Nasal Cannula 3 04/08/24 04:00 04/08/24 08:02 04/08/24 04:00 04/08/24 04:00 04/08/24 06:10 04/08/24 06:50 04/08/24 06:50 Laboratory Results - last 24 hr 04/06/24 20:20: Hepatitis C Antibody Non reactive, HIV 1&2 Ag/Ab, 4th Gen Non reactive 04/07/24 06:15: TSH 1.13 04/07/24 10:42: POC Glucose 187 H 04/07/24 17:07: POC Glucose 158 H 04/07/24 19:50: POC Glucose 143 H 04/08/24 05:55: POC Glucose 154 H I & O for Last 24 hours: Intake & Output 04/05/24 04/06/24 04/07/24 04/08/24 11:59 11:59 11:59 11:59 Intake Total 540 / 540 1260 / 1260 Output Total 100 / 100 0 / 0 Balance 440 / 440 1260 / 1260 Weight 282 lb 11.2 oz 280 lb 2 oz Microbiology Reports for the Last 24 Hours: Microbiology 04/06/24 20:55 Blood Blood Culture - Preliminary NO GROWTH AFTER 24 HOURS 04/06/24 20:45 Blood Blood Culture - Preliminary NO GROWTH AFTER 24 HOURS Constitutional Constitutional: no acute distress *Routine Respiratory Exam Respiratory: Present CTA bilaterally *Routine Cardiovascular Exam Cardiovascular: Present tachycardia and irregularly irregular Progress Note: A&P Assessment and plan (1) Pleural effusion: Status: Acute (2) Mediastinal adenopathy: Status: Acute (3) Renal artery stenosis: Status: Acute (4) Atrial fibrillation with rapid ventricular response: Status: Acute (5) CAD (coronary artery disease): Problem details: MIRELLA and angioplasty (2021) per [facility] in [place] Recent Cath in 08/2020 showed Occluded SVG X 2, patent KINCAID to LAD, patient SVG to diagonal, severe disease OM in 1 stent, mid circ. Medical management in 2018. MIRELLA in 2013. Hx of CABG. Status: Chronic (6) Diabetes mellitus: Status: Chronic Assessment and Plan Assessment and Plan for All Diagnoses:: 1. Abdominal pain with N, V and diarrhea with evidence of duodenitis on abdominal CTA -per hospitalist, started PPI -pt feeling better today 2. A. fib with RVR -off home meds recently due to N,V and diarrhea -continue digoxin, metoprolol and eliquis 3. Orthostatic hypotension, chronic and recurrent -on midodrine -moderate to high-grade stenosis of right renal artery noted on abdominal CTA, 04/06/2024 4. CAD with history of CABG -on aspirin and plavix along with atorvastatin -most recent coronary stenting about 6 months ago, Dr. Cordova in [place] -echo, 02/2024, EF 45% -troponins normal this admission 5. ONEIDA and COPD overlap syndrome 6. DM with 1+ proteinuria -per hospitalist -Hgb A1C 7.5 7. Possible HIV -mediastinal adenopathy noted on CTA of chest, 04/06/2024 8. HFrEF -EF 45% in 02/2024 -BNP 2730 IV lasix times one today Increase metoprolol succinate to 25 mg BID for better heart rate/rhythm control Discussed possible referral to EP for ablation. Will need to be addressed as outpatient. Stable for discharge home later today. Resume home meds except increase metoprolol succinate to 25 mg BID.
[2024-04-08 08:43] LABS: Basophils % 0.6 % (0.1-2.0); Eosinophils # 0.6 K/mm3 (0.0-0.4); Eosinophils % 12.6 % (0.1-12.0); Hematocrit 31.6 % (42.0-52.0); Hemoglobin 10.2 g/dL (14.1-18.0); Lymphocytes # 0.9 K/mm3 (0.7-4.5); Lymphocytes % 18.7 % (10-50); Mean Corpuscular HGB Conc 32.2 g/dL (31.8-35.4); Mean Corpuscular Hemoglobin 27.9 pg (27.0-31.2); Mean Corpuscular Volume 86.6 fl (80-94); Mean Platelet Volume 8.4 fl (7.4-10.4); Monocytes # 0.4 K/mm3 (0.1-1.0); Monocytes % 7.8 % (1.7-9.3); Neutrophils # 2.8 K/mm3 (1.8-7.8); Neutrophils % 60.3 % (37.0-80.0); Platelet Count 138 K/mm3 (142-424); Red Blood Count 3.65 M/mm3 (4.60-6.20); Red Cell Distribution Width 17.6 % (11.5-17.5); White Blood Count 4.6 K/mm3 (4.8-10.8)
[2024-04-08 08:54] LABS: Albumin Level 3.1 g/dl (3.5-5.0); Chloride 112 mmol/L (98-107); Potassium 3.5 mmoL/L (3.5-5.1); Sodium 140 mmol/L (136-145)
[2024-04-08 08:57] LABS: Alanine Aminotransferase 25 U/L (12-78); Albumin/Globulin Ratio 1.1 (1.1-1.8); Alkaline Phosphatase 214 U/L (38-126); Anion Gap 9.5 mEq/L (5-15); Aspartate Amino Transferase 30 U/L (17-59); Bilirubin,Total 0.9 mg/dl (0.2-1.3); Blood Urea Nitrogen 12 mg/dl (9-20); Carbon Dioxide 22 mmol/L (22.0-30.0); Creatinine Clearance Estimated 104 mL/min (50-200); Estimated Glomerular Filt Rate 72 ml/min (>60); GFR (African American) 87 ML/MIN (>60); Globulin 2.9 g/dL (1.3-3.2)
[2024-04-08 08:58] LABS: Calcium 8.3 mg/dl (8.4-10.2); Glucose 186 mg/dl (74-100)
--- NOTE | 2024-04-08 09:45 | EXP.PULM.PN ---
Subjective *Date: 04/08/24 *Time: 10:40 Interval history: No acute respiratory vents overnight. Denies any new respiratory complaints. Pulmonology Exam Inpatient Vital signs and Labs for Last 24 Hours: Temp Pulse Resp BP Pulse Ox O2 Del Method O2 Flow Rate 98.1 F 118 H 20 119/70 99 Nasal Cannula 2 04/08/24 09:00 04/08/24 09:00 04/08/24 09:00 04/08/24 09:00 04/08/24 09:00 04/08/24 09:00 04/08/24 09:00 Laboratory Results - last 24 hr 04/06/24 20:20: Hepatitis C Antibody Non reactive, HIV 1&2 Ag/Ab, 4th Gen Non reactive 04/07/24 10:42: POC Glucose 187 H 04/07/24 17:07: POC Glucose 158 H 04/07/24 19:50: POC Glucose 143 H 04/08/24 05:55: POC Glucose 154 H 04/08/24 08:36: WBC 4.6 L, RBC 3.65 L, Hgb 10.2 L, Hct 31.6 L, MCV 86.6, MCH 27.9, MCHC 32.2, RDW 17.6 H, Plt Count 138 L, MPV 8.4, Neut % (Auto) 60.3, Lymph % (Auto) 18.7, [place] % (Auto) 7.8, Eos % (Auto) 12.6 H, Baso % (Auto) 0.6, Neut # (Auto) 2.8, Lymph # (Auto) 0.9, [place] # (Auto) 0.4, Eos # (Auto) 0.6 H, Baso # (Auto) 0.0, Sodium 140, Potassium 3.5, Chloride 112 H, Carbon Dioxide 22, Anion Gap 9.5, BUN 12 D, Creatinine 1.00, Estimated Creat Clear 104, Estimated GFR 72, Est GFR ( Amer) 87, Glucose 186 H, Calcium 8.3 L, Total Bilirubin 0.9, AST 30, ALT 25, Alkaline Phosphatase 214 H, Total Protein 6.0 L, Albumin 3.1 L, Globulin 2.9, Albumin/Globulin Ratio 1.1 Temp Pulse Resp BP Pulse Ox O2 Del Method O2 Flow Rate 98.3 F 120 H 19 142/59 H 98 Room Air 2 04/07/24 07:27 04/07/24 08:00 04/07/24 07:27 04/07/24 07:27 04/07/24 07:27 04/07/24 08:00 04/07/24 07:27 Laboratory Results - last 24 hr 04/06/24 20:20: WBC 6.4, RBC 4.54 L, Hgb 12.6 L, Hct 40.0 L, MCV 88.0, MCH 27.8, MCHC 31.6 L, RDW 17.3, Plt Count 178, MPV 7.1 L, Neut % (Auto) 68.4, Lymph % (Auto) 17.5, [place] % (Auto) 5.9, Eos % (Auto) 7.4, Baso % (Auto) 0.9, Neut # (Auto) 4.4, Lymph # (Auto) 1.1, [place] # (Auto) 0.4, Eos # (Auto) 0.5 H, Baso # (Auto) 0.1, PT 11.9, INR 1.07, APTT 29.1, Sodium 139, Potassium 4.0, Chloride 107, Carbon Dioxide 24, Anion Gap 12.0, BUN 8 L, Creatinine 0.90, Estimated Creat Clear 104, Estimated GFR 81, Est GFR ( Amer) 98, Glucose 161 H, Calcium 8.9, Phosphorus 3.0, Magnesium 1.7, Total Bilirubin 1.4 H, AST 35, ALT 36, Alkaline Phosphatase 263 H, Troponin I 0.02, C-Reactive Protein 17.6 H, NT-Pro-B Natriuret Pep 2730 H, Total Protein 7.2, Albumin 3.8, Globulin 3.4 H, Albumin/Globulin Ratio 1.1, Lipase 34, Procalcitonin 0.050, TSH 1.16, Thyroxine (T4) 7.9 04/06/24 20:34: VBG pH 7.36, VBG pCO2 40.9, VBG pO2 30.1, VBG HCO3 22.7 L, VBG Total CO2 23.9, VBG O2 Saturation 55.6, VBG Base Excess -2.7 L, VBG Lactic Acid 3.0 H 04/06/24 20:45: Lactate 1.7, HIV 1&2 Antibody Rapid Preliminary reactive 04/06/24 21:45: Digoxin < 0.40 04/06/24 21:58: Urine Color Dark yellow, Urine Appearance Clear, Urine pH 6.0, Ur Specific [place] >= 1.030, Urine Protein 1+ A, Urine Glucose (UA) Negative, Urine Ketones Negative, Urine Blood Negative, Urine Nitrate Negative, Urine Bilirubin Negative, Urine Urobilinogen >=8.0, Ur Leukocyte Esterase Negative, Urine WBC 3-5, Ur Squamous Epith Cells 3-5, Urine Bacteria 1+, Urine Mucus 1+ 04/06/24 23:42: Troponin I 0.02 04/06/24 : SARS-CoV-2 (PCR) Not detected, Influenza A Untype (PCR) Not detected, Influenza Type B (PCR) Not detected 04/07/24 01:10: Lactate 1.4 04/07/24 03:05: Troponin I 0.02 04/07/24 06:03: POC Glucose 123 H 04/07/24 06:15: WBC 4.5 L D, RBC 3.80 L, Hgb 10.6 L D, Hct 32.5 L, MCV 85.5, MCH 27.9, MCHC 32.7, RDW 17.4, Plt Count 134 L, MPV 7.0 L, Neut % (Auto) 61.5, Lymph % (Auto) 23.6, [place] % (Auto) 5.8, Eos % (Auto) 8.7, Baso % (Auto) 0.6, Neut # (Auto) 2.8, Lymph # (Auto) 1.1, [place] # (Auto) 0.3, Eos # (Auto) 0.4, Baso # (Auto) 0.0, Sodium 139, Potassium 3.6, Chloride 111 H, Carbon Dioxide 23, Anion Gap 8.6, BUN 9, Creatinine 0.90, Estimated Creat Clear 105, Estimated GFR 81, Est GFR ( Amer) 98, Glucose 136 H, Hemoglobin A1c 7.5 H, Calcium 8.2 L, Magnesium 1.7, Total Bilirubin 1.2, AST 30, ALT 27, Alkaline Phosphatase 229 H, Total Protein 6.1 L, Albumin 3.1 L D, Globulin 3.0, Albumin/Globulin Ratio 1.0 L, TSH 1.13 I & O for Labs for Last 24 Hours: Intake & Output 04/05/24 04/06/24 04/07/24 04/08/24 23:59 23:59 23:59 23:59 Intake Total 1500 / 1800 660 / 660 Output Total 100 / 100 Balance 1400 / 1700 660 / 660 Weight 280 lb 282 lb 11.2 oz 280 lb 2 oz Intake & Output 04/04/24 04/05/24 04/06/24 04/07/24 23:59 23:59 23:59 23:59 Intake Total 540 / 540 Output Total 100 / 100 Balance 440 / 440 Weight 280 lb 282 lb 11.2 oz Microbiology Reports for the Last 24 Hours: Microbiology 04/06/24 20:55 Blood Blood Culture - Preliminary NO GROWTH AFTER 24 HOURS 04/06/24 20:45 Blood Blood Culture - Preliminary NO GROWTH AFTER 24 HOURS Constitutional: Present moderate distress Head: Present normocephalic and atraumatic ENT: Present normal exam, normal oropharynx and mucous membranes moist Neck: Present normal inspection and full ROM Respiratory: Present crackles and able to speak in complete sentences; Absent prolonged expiratory phase, stridor, wheezes or diminished air movement Cardiac: Present S1/S2, Tachycardia and radial pulses present GI: Present soft and distention; Absent tenderness or guarding Skin: Present intact; Absent cyanosis or jaundice Neuro: Present alert, awake and oriented x 3 Extremities: Present normal inspection; Absent clubbing or cyanosis Psychiatric: Present normal affect and cooperative Assessment and Plan *Assessment and plan (1) Pleural effusion: Status: Acute Category: Medical Code(s): J90 - Pleural effusion, not elsewhere classified (2) Mediastinal adenopathy: Status: Acute Category: Medical Code(s): R59.0 - Localized enlarged lymph nodes Plan Mr. Vasques is a 83-year-old prior smoker greater than [id number] smoking the last more greater than 15 years ago presented to the ER worsening respiratory distress and abdominal discomfort was called for further evaluation and management. CTA upon admission no evidence of pulmonary emboli bilateral small pleural effusions right greater than left. Adjacent interstitial/atelectatic changes noted. The mild subpleural interstitial changes also noted on his CT abdomen from July 2022 remained stable. Mediastinal lymphadenopathy noted. Station 7, 4L and station 4R. Station 4R partially calcified. No abdominal/axillary lymphadenopathy reported, less concerning for HIV-associated lymphoma in the setting of HIV screen positive. Leukopenia noted. Patient at baseline using albuterol inhaler on as-needed basis using the 1-3 times per day. Wheezing and nocturnal oxygen supplementation at 3 L. Not using any oxygen supplementation during the daytime. On initial examination patient does not appear to be in any respiratory distress. No significant wheezing noted on auscultation. Interval update: No acute respiratory events. Patient on 3 L nasal: Saturating 99%. Weaned to room air. Will follow. Plan: No need for thoracentesis at this point of time. DuoNebs 4 times daily as needed Will follow about the resolution of noted lymphadenopathy with CT chest as an outpatient basis No need for antibiotics or steroids from pulmonary standpoint. # Thank you for involving pulmonary in this patient care. Will sign off at this point of time we will follow patient in pulmonary clinic in 2 to 4 weeks post discharge.
[2024-04-08] MEDS: FUROSEMIDE 40MG/4ML VIAL 40 MG IV (09:54)
[2024-04-08 10:06] LABS: POC Glucose,Bedside 191 (70-110)
--- NOTE | 2024-04-08 11:42 | EXP.DC.SUM ---
General Admission date:: 04/06/24 HPI HPI HPI: This patient is a 83-year-old male presenting to the Emergency Department for evaluation of epigastric pain, nausea, vomiting, watery diarrhea , shortness of breath, cough, and headache. Differential diagnoses considered include but are not limited to viral syndrome, pneumonia. Patient also noted as being preliminary reactive on his HIV-1/2 testing. The main reason for admission is the nausea and vomiting and diarrhea and not being able to keep his medication down with his heart rate increasing and with his history of A-fib., Digoxin levels were actually low., Noting some increased bilirubin in the urine.. I spoken with the ER physician gone over the treatment that been given to him and do agree that we need to stabilize the patient's nausea and vomiting and be able to get him back to being able to take his regular home medicines without losing them.. Also noting the nausea with the vomiting and this watery diarrhea. That there may be a secondary infection. On evaluation of his CT scan of his lungs see quite a bit of pleural effusion on top of this.. Patient is noted moderately extensive adenopathy of the mediastinal region. Patient also noted with a history of sleep apnea supposed to be on CPAP has been worked up for COPD but he has not smoked for many years, also history of CABG, CHF A-fib hypertension and diabetes mellitus with some cardiomegaly. Last note for ejection fraction showed approximately 45%. Noting it from 02/04/2024 he was also had increased Lasix due to her history of CHF but having also episodes of orthostatic hypotension in the past. So I do feel that the patient's best interest to be able to admit him at this time continue to monitor for his fluid balance try to lower this nausea vomiting to allow him to start to take his regular home medications get his digoxin levels back to therapeutic levels being able to lower his tachycardia.. Also labs will be sent out for PCR testing due to the HIV. preliminary findings patient denies any tattoos, or blood transfusions in the past.. He does use subcu insulin though and there are small bruises on his stomach where he uses to inject himself for his diabetes. He gave no indication of illicit drug use or IV use. Hospital Course Hospital Course Hospital Course: Kel Vasques is a 83 year old male who presented with respiratory distress, nausea/vomiting/diarrhea, abdominal discomfort. #Duodenitis ? Nausea/vomiting/diarrhea for the past week. Likely in setting of viral illness exacerbated by possible HIV undergoing further workup. ? Clinically improved with IV Protonix 40 mg twice daily. ? Discussed with GI, recommended diarrhea panel to evaluate for cryptococcus versus other pathogens. ? Diarrhea panel pending at this time. - Discharged with Protonix 40mg. #Positive HIV screen ? Pending quantitative PCR at this time. Patient denies risk factors for HIV. - Mediastinal adenopathy noted on CTA of chest, 04/06/2024. - Pulmonary consulted, no plans for intervention at this time. Will follow on outpatient basis. #Afib RVR - Had not been tolerating home meds. - Cardiology consulted, Restarted home digoxin, metoprolol and Eliquis. - HR improved after increasing metoprolol succinate to 25mg BID. 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 Lasix as needed. #CAD s/p CABG - Resume home aspirin, statin. #Type 2 diabetes - Hemoglobin A1c 7.5 on admission. - Received LDSSI, ACHS glucose checks. - Resume home regimen. Exam Data for Last 24 hours Vital signs and Labs for Last 24 Hours: Temp Pulse Resp BP Pulse Ox O2 Del Method O2 Flow Rate 98.1 F 118 H 20 119/70 99 Nasal Cannula 2 04/08/24 09:00 04/08/24 09:00 04/08/24 09:00 04/08/24 09:00 04/08/24 09:00 04/08/24 09:00 04/08/24 09:00 Laboratory Results - last 24 hr 04/06/24 20:20: Hepatitis C Antibody Non reactive, HIV 1&2 Ag/Ab, 4th Gen Non reactive 04/07/24 17:07: POC Glucose 158 H 04/07/24 19:50: POC Glucose 143 H 04/08/24 05:55: POC Glucose 154 H 04/08/24 08:36: WBC 4.6 L, RBC 3.65 L, Hgb 10.2 L, Hct 31.6 L, MCV 86.6, MCH 27.9, MCHC 32.2, RDW 17.6 H, Plt Count 138 L, MPV 8.4, Neut % (Auto) 60.3, Lymph % (Auto) 18.7, [place] % (Auto) 7.8, Eos % (Auto) 12.6 H, Baso % (Auto) 0.6, Neut # (Auto) 2.8, Lymph # (Auto) 0.9, [place] # (Auto) 0.4, Eos # (Auto) 0.6 H, Baso # (Auto) 0.0, Sodium 140, Potassium 3.5, Chloride 112 H, Carbon Dioxide 22, Anion Gap 9.5, BUN 12 D, Creatinine 1.00, Estimated Creat Clear 104, Estimated GFR 72, Est GFR ( Amer) 87, Glucose 186 H, Calcium 8.3 L, Total Bilirubin 0.9, AST 30, ALT 25, Alkaline Phosphatase 214 H, Total Protein 6.0 L, Albumin 3.1 L, Globulin 2.9, Albumin/Globulin Ratio 1.1 04/08/24 09:58: POC Glucose 191 H I & O for Last 24 hours: Intake & Output 04/05/24 04/06/24 04/07/24 04/08/24 23:59 23:59 23:59 23:59 Intake Total 1500 / 1800 660 / 660 Output Total 100 / 100 0 / 0 Balance 1400 / 1700 660 / 660 Weight 127.006 kg 128.231 kg 127.063 kg Microbiology Reports for the Last 24 Hours: Microbiology 04/06/24 20:55 Blood Blood Culture - Preliminary NO GROWTH AFTER 24 HOURS 04/06/24 20:45 Blood Blood Culture - Preliminary NO GROWTH AFTER 24 HOURS Constitutional Constitutional: no acute distress and obese *Routine HEENT Exam Head: Present normocephalic Eye: Present EOMI and PERRL ENT: Present mucous membranes moist *Routine Neck Exam Neck: Present supple; Absent lymphadenopathy *Routine Respiratory Exam Respiratory: Present CTA bilaterally *Routine Cardiovascular Exam Cardiovascular: Present RRR *Routine Abdominal Exam Abdominal: Present soft and normoactive bowel sounds; Absent tenderness *Routine Extremities Exam Extremities: Absent cyanosis, clubbing or edema *Routine Skin Exam Skin: Present warm; Absent rash *Routine Neurological Exam Neurological: Present alert and oriented X3 Results Data Completed and Pending Labs on day of discharge: Labs from last 24 hours 04/08/24 04/08/24 04/08/24 09:58 08:36 05:55 WBC 4.6 L RBC 3.65 L Hgb 10.2 L Hct 31.6 L MCV 86.6 MCH 27.9 MCHC 32.2 RDW 17.6 H Plt Count 138 L MPV 8.4 Neut % (Auto) 60.3 Lymph % (Auto) 18.7 [place] % (Auto) 7.8 Eos % (Auto) 12.6 H Baso % (Auto) 0.6 Neut # (Auto) 2.8 Lymph # (Auto) 0.9 [place] # (Auto) 0.4 Eos # (Auto) 0.6 H Baso # (Auto) 0.0 Sodium 140 Potassium 3.5 Chloride 112 H Carbon Dioxide 22 Anion Gap 9.5 BUN 12 D Creatinine 1.00 Estimated Creat Clear 104 Estimated GFR 72 Est GFR ( Amer) 87 Glucose 186 H POC Glucose 191 H 154 H Calcium 8.3 L Total Bilirubin 0.9 AST 30 ALT 25 Alkaline Phosphatase 214 H Total Protein 6.0 L Albumin 3.1 L Globulin 2.9 Albumin/Globulin Ratio 1.1 Hepatitis C Antibody HIV 1&2 Ag/Ab, 4th Gen 04/07/24 04/07/24 04/06/24 19:50 17:07 20:20 WBC RBC Hgb Hct MCV MCH MCHC RDW Plt Count MPV Neut % (Auto) Lymph % (Auto) [place] % (Auto) Eos % (Auto) Baso % (Auto) Neut # (Auto) Lymph # (Auto) [place] # (Auto) Eos # (Auto) Baso # (Auto) Sodium Potassium Chloride Carbon Dioxide Anion Gap BUN Creatinine Estimated Creat Clear Estimated GFR Est GFR ( Amer) Glucose POC Glucose 143 H 158 H Calcium Total Bilirubin AST ALT Alkaline Phosphatase Total Protein Albumin Globulin Albumin/Globulin Ratio Hepatitis C Antibody Non reactive HIV 1&2 Ag/Ab, 4th Gen Non reactive Preliminary micro results at discharge 04/06/24 20:55 Blood Culture - Preliminary Blood NO GROWTH AFTER 24 HOURS 04/06/24 20:45 Blood Culture - Preliminary Blood NO GROWTH AFTER 24 HOURS DS: Diagnosis Discharge Diagnosis (1) Pleural effusion: Status: Acute Code(s): J90 - Pleural effusion, not elsewhere classified (2) Mediastinal adenopathy: Status: Acute Code(s): R59.0 - Localized enlarged lymph nodes Meds Home Medications and Allergies Home Medications ?Medication ?Instructions ?Recorded ?Confirmed ?Type finasteride 5 mg tablet 5 mg PO DAILY 02/05/24 04/07/24 History potassium chloride 20 mEq 20 meq PO DAILY 02/05/24 04/07/24 History tablet,extended release(part/cryst) midodrine 5 mg tablet 2.5 mg (1/2 x 5 mg) PO TID #90 tabs 02/24/24 04/07/24 Rx digoxin 125 mcg (0.125 mg) tablet 125 mcg PO DAILY #90 tabs 03/13/24 04/07/24 Rx fluticasone 250 mcg-salmeterol 50 1 inh inhalation BID #60 ea 03/13/24 04/07/24 Rx mcg/dose blistr powdr for inhalation trazodone 50 mg tablet 50 mg PO HS 04/01/24 04/07/24 History albuterol sulfate 90 mcg/actuation 2 inh inhalation QIDP PRN 04/07/24 04/07/24 History aerosol inhaler Shortness Of Breath Or Wheezing apixaban 5 mg tablet (Eliquis) 5 mg PO BID 04/07/24 04/07/24 History aspirin 81 mg tablet,delayed 81 mg PO AM 04/07/24 04/07/24 History release atorvastatin 40 mg tablet 40 mg PO HS 04/07/24 04/07/24 History blood sugar diagnostic (Accu-Chek 04/07/24 04/07/24 History Guide test strips) clopidogrel 75 mg tablet 75 mg PO AM 04/07/24 04/07/24 History furosemide 20 mg tablet 20 mg PO DAILYP PRN Edema 04/07/24 04/07/24 History gabapentin 300 mg capsule 300 mg PO TIDP PRN Pain (Scale 04/07/24 04/07/24 History Score 1-6) insulin NPH-regular 70-30 U-100 40 unit SQ BID 04/07/24 04/07/24 History insulin 100 unit/mL subcutaneous pen (Novolin 70-30 FlexPen U-100 Insulin) metoprolol succinate 25 mg 25 mg PO BID #90 tabs 04/08/24 Rx tablet,extended release 24 hr (Toprol XL) pantoprazole 40 mg tablet,delayed 40 mg PO DAILY #30 tabs 04/08/24 Rx release (Protonix) New Prescriptions to Start Prescriptions: metoprolol succinate [Toprol XL] Regino Arzola pantoprazole [Protonix] Regino Arzola Allergies Allergy/AdvReac Type Severity Reaction Status Date / Time amoxicillin (From Augmentin) Allergy Severe edema Verified 04/01/24 10:05 ciprofloxacin (From Cipro) Allergy Severe Redness of Verified 04/01/24 10:05 Skin clavulanic acid (From Allergy Severe edema Verified 04/01/24 10:05 Augmentin) prednisone AdvReac Intermediate Agitated Verified 04/01/24 10:05 Discharge Plan Disposition Patient Disposition: Home, Self-Care Condition: Good Follow up Plan Follow up with: Xander Gutierrez MD [Staff Physician] - 04/20/24 11:30 am Angela Barker MD [Physician] - 04/23/24 1:00 pm Hernandez Fritz MD [Primary Care Provider] - 04/16/24 9:00 am Prescriptions/Medication Reconciliation: New pantoprazole [Protonix] 40 mg tablet,delayed release (DR/EC) 40 mg PO DAILY Qty: 30 0RF Rx Instructions: Please take on an empty stomach. Continued midodrine 5 mg tablet 2.5 mg PO TID Qty: 90 5RF fluticasone propion-salmeterol 250-50 mcg/dose blister with device 1 inh INHALATION BID Qty: 60 2RF digoxin 125 mcg (0.125 mg) tablet 125 mcg PO DAILY Qty: 90 1RF Patient Comments: TAKE ONE TABLET BY MOUTH EVERY MORNING trazodone 50 mg Tablet 50 mg PO HS potassium chloride 20 mEq tablet,ER particles/crystals 20 meq PO DAILY Patient Comments: TAKE ONE TABLET BY MOUTH EVERY MORNING finasteride 5 mg tablet 5 mg PO DAILY atorvastatin 40 mg tablet 40 mg PO HS Patient Comments: TAKE ONE TABLET BY MOUTH AT BEDTIME (DME) Accu-Chek Guide test strips Strip MISCELLANEOUS Patient Comments: USE TO TEST BLOOD SUGAR TWICE DAILY OR DIRECTED aspirin 81 mg tablet,delayed release (DR/EC) 81 mg PO AM Patient Comments: TAKE ONE TABLET BY MOUTH EVERY MORNING albuterol sulfate 90 mcg/actuation HFA aerosol inhaler 2 inh INHALATION QIDP PRN (Reason: Shortness Of Breath Or Wheezing) Patient Comments: INHALE 2 puffs FOUR TIMES DAILY NEEDED clopidogrel 75 mg tablet 75 mg PO AM Patient Comments: TAKE ONE TABLET BY MOUTH EVERY MORNING gabapentin 300 mg capsule 300 mg PO TIDP PRN (Reason: Pain (Scale Score 1-6)) Patient Comments: TAKE ONE CAPSULE BY MOUTH THREE TIMES DAILY NEEDED FOR NERVE PAIN Eliquis 5 mg tablet 5 mg PO BID Patient Comments: TAKE ONE TABLET BY MOUTH TWICE DAILY furosemide 20 mg tablet 20 mg PO DAILYP PRN (Reason: Edema) Patient Comments: TAKE ONE TABLET BY MOUTH DAILY Novolin 70-30 FlexPen U-100 100 unit/mL (70-30) insulin pen 40 unit SQ BID Patient Comments: INJECT 40 units UNDER THE SKIN TWICE DAILY, take this instead of lantus Changed metoprolol succinate [Toprol XL] 25 mg tablet extended release 24 hr 25 mg PO BID Qty: 90 3RF Problem Reconciliation Problems Reviewed?: Yes Patient Discharge Instructions Patient Instructions: Diarrhea, DI for Dehydration -- Adult, DI for Tachycardia, DI for Nausea -- Adult, DI for Vomiting -- Adult Print Language: Greek Providers Primary Care Provider: Hernandez Fritz Admit Provider: Bernardino Joseph Attending Provider: Bernardino Joseph
[2024-04-09 06:15] LABS: HIV 1 RNA, Real time PCR <20 copies/mL (.)
--- NOTE | 2024-04-09 10:20 | SW/DCPLANNER ---
Spoke with patients daughter. Patient's daughter stated that things are going good and that she wasnt aware of his upcoming appointments. Patient's daughter stated that they were able to get his new medicine filled and had no concerns or questions at this time. Cristobal MARSHALL Barrel Filler Head
[2024-04-09 11:18] LABS: PDF: SCANNED IMAGE
== END 2024-04-08 13:59 | disposition home or self-care (01) ==
LOC: ER 23:07 → 2ND 23:38
PROVIDERS: Nurse Practitioner Family; Student in an Organized Health Care Education/Training Program; Admitting Provider Internal Medicine Adolescent Medicine; Emergency Provider Emergency Medicine; PCP Family Medicine; Visit Provider Internal Medicine Adolescent Medicine
DX: K29.80 Duodenitis without bleeding (principal); I48.91 Unspecified atrial fibrillation; J90 Pleural effusion, not elsewhere classified; R59.0 Localized enlarged lymph nodes; J84.9 Interstitial pulmonary disease, unspecified; I70.1 Atherosclerosis of renal artery; E11.9 Type 2 diabetes mellitus without complications; E66.09 Other obesity due to excess calories; H91.91 Unspecified hearing loss, right ear; I11.0 Hypertensive heart disease with heart failure; G47.33 Obstructive sleep apnea (adult) (pediatric); J44.9 Chronic obstructive pulmonary disease, unspecified; I25.10 Atherosclerotic heart disease of native coronary artery without angina pectoris; I50.20 Unspecified systolic (congestive) heart failure; Z21 Asymptomatic human immunodeficiency virus [HIV] infection status; Z79.4 Long term (current) use of insulin; Z95.1 Presence of aortocoronary bypass graft; Z79.01 Long term (current) use of anticoagulants; Z68.36 Body mass index [BMI] 36.0-36.9, adult; Z79.899 Other long term (current) drug therapy
CPT/HCPCS: 36415; 71275; 74174; 80053; 80162; 81001; 82803; 82962; 83036; 83605; 83690; 83735; 83880; 84100; 84145; 84436; 84443; 84484; 85025; 85610; 85730; 86140; 86703; 86803; 87040; 87389; 87536; 87636; 93005; 94640; 99291; G0378; G0432; J0131; J1650; J1885; J1940; J2405; J7030; J7620; Q9967

== ENCOUNTER 2024-05-25 16:42 | Emergency (ER) | payer MEDICARE, SELFPAY ==
[2024-05-25] VITALS (12 sets, daily range): BP systolic 105–156; BP diastolic 57–81; PULSE 69–92; RESP 13–23; TEMP 36.7–37; O2SAT 90–99; BMI 34.7
--- NOTE | 2024-05-25 17:01 | HMH.EDGENADL ---
Discharge Plan Disposition Patient Disposition: Home, Self-Care Condition: Good Prescriptions Prescriptions: New doxycycline hyclate 100 mg capsule 100 mg PO BID 10 Days Qty: 20 0RF prednisone 50 mg tablet 50 mg PO DAILY 5 Days Qty: 5 0RF No Action lactulose 20 gram/30 mL solution 20 g PO BID Qty: 1800 2RF cefdinir 300 mg capsule 300 mg PO BID 10 Days Qty: 20 0RF azithromycin 500 mg tablet 500 mg PO DAILY 3 Days Qty: 3 0RF hydrocodone-acetaminophen 7.5-325 mg tablet 1 tab PO Q8H PRN (Reason: pain) Qty: 90 0RF midodrine 5 mg tablet 2.5 mg PO TID Qty: 90 5RF fluticasone propion-salmeterol 250-50 mcg/dose blister with device 1 inh INHALATION BID Qty: 60 2RF digoxin 125 mcg (0.125 mg) tablet 125 mcg PO DAILY Qty: 90 1RF Patient Comments: TAKE ONE TABLET BY MOUTH EVERY MORNING finasteride 5 mg tablet 5 mg PO DAILY Qty: 90 1RF trazodone 50 mg Tablet 50 mg PO HS potassium chloride 20 mEq tablet,ER particles/crystals 20 meq PO DAILY Patient Comments: TAKE ONE TABLET BY MOUTH EVERY MORNING atorvastatin 40 mg tablet 40 mg PO HS Patient Comments: TAKE ONE TABLET BY MOUTH AT BEDTIME (DME) Accu-Chek Guide test strips Strip MISCELLANEOUS Patient Comments: USE TO TEST BLOOD SUGAR TWICE DAILY OR DIRECTED aspirin 81 mg tablet,delayed release (DR/EC) 81 mg PO AM Patient Comments: TAKE ONE TABLET BY MOUTH EVERY MORNING albuterol sulfate 90 mcg/actuation HFA aerosol inhaler 2 inh INHALATION QIDP PRN (Reason: Shortness Of Breath Or Wheezing) Patient Comments: INHALE 2 puffs FOUR TIMES DAILY NEEDED clopidogrel 75 mg tablet 75 mg PO AM Patient Comments: TAKE ONE TABLET BY MOUTH EVERY MORNING gabapentin 300 mg capsule 300 mg PO TIDP PRN (Reason: Pain (Scale Score 1-6)) Patient Comments: TAKE ONE CAPSULE BY MOUTH THREE TIMES DAILY NEEDED FOR NERVE PAIN Eliquis 5 mg tablet 5 mg PO BID Patient Comments: TAKE ONE TABLET BY MOUTH TWICE DAILY furosemide 20 mg tablet 20 mg PO DAILYP PRN (Reason: Edema) Patient Comments: TAKE ONE TABLET BY MOUTH DAILY Novolin 70-30 FlexPen U-100 100 unit/mL (70-30) insulin pen 40 unit SQ BID Patient Comments: INJECT 40 units UNDER THE SKIN TWICE DAILY, take this instead of lantus pantoprazole [Protonix] 40 mg tablet,delayed release (DR/EC) 40 mg PO DAILY Qty: 30 0RF Rx Instructions: Please take on an empty stomach. metoprolol succinate [Toprol XL] 25 mg tablet extended release 24 hr 25 mg PO BID Qty: 90 3RF Referrals Follow up/Referrals: Hernandez Fritz MD [Primary Care Provider] - See instructions Activity Restrictions/Add. Instructions Additional Instructions/Restrictions: Please follow-up in cardiology clinic tomorrow morning. Please call make a follow-up appointment with pulmonology as well. As we discussed you need to start taking your Lasix daily until you are seen by both cardiology and pulmonology. If you do not improve or have any worsening signs or symptoms follow-up with your PCP or return to the ER as needed. Clinical Impressions Clinical Impression: Cough with hemoptysis Pulmonary edema Qualifiers: Chronicity: acute Qualified Code(s): J81.0 - Acute pulmonary edema Print Language Print Language: Finnish Discharge ED Provider: Connor Rouse General Adult HPI <PEDRO Vance - Last Filed: 05/25/24 22:22> General Chief complaint: Shortness of Breath/Dyspnea Stated complaint: Sent by Dr. Fritz coughing up blood fever Time Seen by Provider: 05/25/24 17:01 History of Present Illness HPI narrative: Patient presents for evaluation of cough and hemoptysis. Patient gives a history of 2 weeks of persistent initially nonproductive cough however over the last 24 hours he is noticed he was coughing of blood. Patient reports that he has chest pain only with coughing. He denies fever chills hematochezia melena hematemesis hematuria. He does have a known history of COPD, pulmonary fibrosis, coronary artery disease with CHF, and chronic A-fib. He is on aspirin and Plavix as well as Eliquis. Additionally patient is supposed to be on Lasix but patient states that he only takes it when he has edema and Michael reports that he is only taking it a couple of times a month as needed. He denies any weight gain however he does not weigh himself. He is not follow heart failure diet. He is a former smoker but has not smoked in greater than 40 years. Related Data Home Medications ?Medication ?Instructions ?Recorded ?Confirmed potassium chloride 20 mEq 20 meq PO DAILY 02/05/24 05/22/24 tablet,extended release(part/cryst) trazodone 50 mg tablet 50 mg PO HS 04/01/24 05/22/24 albuterol sulfate 90 mcg/actuation 2 inh inhalation QIDP PRN 04/07/24 05/22/24 aerosol inhaler Shortness Of Breath Or Wheezing apixaban 5 mg tablet (Eliquis) 5 mg PO BID 04/07/24 05/22/24 aspirin 81 mg tablet,delayed 81 mg PO AM 04/07/24 05/22/24 release atorvastatin 40 mg tablet 40 mg PO HS 04/07/24 05/22/24 blood sugar diagnostic (Accu-Chek 04/07/24 05/22/24 Guide test strips) clopidogrel 75 mg tablet 75 mg PO AM 04/07/24 05/22/24 furosemide 20 mg tablet 20 mg PO DAILYP PRN Edema 04/07/24 05/22/24 gabapentin 300 mg capsule 300 mg PO TIDP PRN Pain (Scale 04/07/24 05/22/24 Score 1-6) insulin NPH-regular 70-30 U-100 40 unit SQ BID 04/07/24 05/22/24 insulin 100 unit/mL subcutaneous pen (Novolin 70-30 FlexPen U-100 Insulin) Previous Rx's ?Medication ?Instructions ?Recorded midodrine 5 mg tablet 2.5 mg (1/2 x 5 mg) PO TID #90 tabs 02/24/24 digoxin 125 mcg (0.125 mg) tablet 125 mcg PO DAILY #90 tabs 03/13/24 fluticasone 250 mcg-salmeterol 50 1 inh inhalation BID #60 ea 03/13/24 mcg/dose blistr powdr for inhalation metoprolol succinate 25 mg 25 mg PO BID #90 tabs 04/08/24 tablet,extended release 24 hr (Toprol XL) pantoprazole 40 mg tablet,delayed 40 mg PO DAILY #30 tabs 04/08/24 release (Protonix) lactulose 20 gram/30 mL oral 20 g (30 mL) PO BID #1,800 mL 04/24/24 solution finasteride 5 mg tablet 5 mg PO DAILY #90 tabs 05/13/24 cefdinir 300 mg capsule 300 mg PO BID 10 days #20 caps 05/18/24 azithromycin 500 mg tablet 500 mg PO DAILY 3 days #3 tabs 05/22/24 hydrocodone 7.5 mg-acetaminophen 1 tab PO Q8H PRN pain #90 tabs 05/22/24 325 mg tablet doxycycline hyclate 100 mg capsule 100 mg PO BID 10 days #20 caps 05/25/24 prednisone 50 mg tablet 50 mg PO DAILY 5 days #5 tabs 05/25/24 Allergies Allergy/AdvReac Type Severity Reaction Status Date / Time amoxicillin (From Augmentin) Allergy Severe edema Verified 04/24/24 14:59 ciprofloxacin (From Cipro) Allergy Severe Redness of Verified 04/24/24 14:59 Skin clavulanic acid (From Allergy Severe edema Verified 04/24/24 14:59 Augmentin) prednisone AdvReac Intermediate Agitated Verified 04/24/24 14:59 PFS <PEDRO Vance - Last Filed: 05/25/24 22:22> [facility] Disclaimer: The information contained in this section may have been updated after the patient was seen, as this information can be updated by other users. 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 Positive laboratory testing for human immunodeficiency virus Nausea & vomiting Abdominal pain, epigastric Chronic back pain greater than 3 months duration HFrEF (heart failure with reduced ejection fraction) Polypharmacy Rash Retained myringotomy tube Hearing difficulty of right ear Otorrhea of right ear Otalgia, right ear BMI 39.0-39.9,adult [place] and COPD overlap syndrome OAB (overactive bladder) CHF (congestive heart failure) Diabetes mellitus Afib HLD (hyperlipidemia) HHD (hypertensive heart disease) CAD (coronary artery disease) MIRELLA and angioplasty (2021) per [facility] in [place] Recent Cath in 08/2020 showed Occluded SVG X 2, patent KINCAID to LAD, patient SVG to diagonal, severe disease OM in 1 stent, mid circ. Medical management in 2018. MIRELLA in 2012. Hx of CABG. Surgical History History of left inguinal hernia repair History of umbilical hernia repair History of left heart catheterization (LHC) Hx of CABG Family History Mother Coronary artery disease Father Tuberculosis Social History Smoking Status: Former smoker years smoked: 30 smoking status stop date: 1992 alcohol intake: former substance use type: denies use current occupational status: retired and disabled Travel in the last 8 weeks: None Have you lived/traveled outside [place] in past 30 days?: No Contact w/someone who lives/traveled outside US past 30 days?: No Exposure to someone with infectious disease in past 14 days?: No Do you have a fever (greater than 100.4 F or 38 C)?: No Have you tested positive for COVID-19: No Exposed to someone with COVID-19 in past 14 days?: No Do you have a sore throat?: No Do you have a cough?: No Do you have any weakness?: No Do you have any diarrhea?: No Are you experiencing any unusual bleeding?: No Do you have any muscle aches/pain?: No Do you have any abdominal pain?: No Are you experiencing loss of taste or smell?: No Other 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 Have you received the Flu Vaccine for this season: No Have you received the Pneumonia Vaccine: Yes <PEDRO Vance - Last Filed: 05/25/24 22:22> ROS Obtained: Yes Systems reviewed as appropriate & no additional complaints except as documented Physical Exam <PEDRO Vance - Last Filed: 05/25/24 22:22> General General appearance: alert and in no apparent distress Respiratory Respiratory exam: Absent normal lung sounds bilaterally (Patient has left-sided and expiratory rales but no wheezes or increased work of breathing.), respiratory distress or wheezes Cardiovascular Cardiovascular exam: Present irregular rhythm Neurological Exam Neurological exam: Present alert and oriented X3 Medical Decision Making <PEDRO Vance - Last Filed: 05/25/24 22:22> Medical Records Medical records reviewed: Yes I reviewed the patient's medical records. Screening: Per USPSTF and CDC recommendations, given the prevalence of disease in our region, it is our hospital?s policy to screen for HIV and viral Hepatitis for all patients aged 18 and over and those with ongoing risk factors. Atul Inquiry Pt receiving controlled substance: No Vital Signs: 05/25/24 16:43 05/25/24 17:15 05/25/24 17:30 Temperature 98.6 F Temperature Source Oral Pulse Rate 76 89 Pulse Rate [Left] 78 Respiratory Rate 23 16 18 Blood Pressure Blood Pressure [Right Arm] 156/77 H Blood Pressure Mean [Right Arm] 103 Blood Pressure Source [Right Arm] Automatic Cuff 02 Sat by Pulse Oximetry 99 98 97 Oxygen Delivery Method Room Air 05/25/24 17:31 05/25/24 17:45 05/25/24 18:00 Temperature Temperature Source Pulse Rate 92 H 81 81 Pulse Rate [Left] Respiratory Rate 19 20 15 Blood Pressure 105/57 L 125/70 Blood Pressure [Right Arm] Blood Pressure Mean [Right Arm] Blood Pressure Source [Right Arm] 02 Sat by Pulse Oximetry 96 99 97 Oxygen Delivery Method 05/25/24 18:16 05/25/24 18:30 05/25/24 18:31 Temperature Temperature Source Pulse Rate 69 Pulse Rate [Left] Respiratory Rate 16 13 Blood Pressure 150/76 H Blood Pressure [Right Arm] Blood Pressure Mean [Right Arm] Blood Pressure Source [Right Arm] 02 Sat by Pulse Oximetry 90 L Oxygen Delivery Method 05/25/24 18:45 05/25/24 19:31 05/25/24 20:04 Temperature 98.1 F Temperature Source Pulse Rate 85 Pulse Rate [Left] Respiratory Rate 23 20 18 Blood Pressure 139/81 143/71 H Blood Pressure [Right Arm] Blood Pressure Mean [Right Arm] Blood Pressure Source [Right Arm] 02 Sat by Pulse Oximetry Oxygen Delivery Method Room Air Lab Data Lab results reviewed: Yes I reviewed the patient's lab results. Lab Results 05/25/24 17:00: WBC 5.7, RBC 4.29 L, Hgb 11.3 L, Hct 36.4 L, MCV 84.8, MCH 26.3 L, MCHC 31.0 L, RDW 15.3, Plt Count 205, MPV 9.4, Neut % (Auto) 64.6, Lymph % (Auto) 18.7, [place] % (Auto) 8.3, Eos % (Auto) 7.2, Baso % (Auto) 0.7, Neut # (Auto) 3.7, Lymph # (Auto) 1.1, [place] # (Auto) 0.5, Eos # (Auto) 0.4, Baso # (Auto) 0.0, PT 13.1 H, INR 1.21 H, Sodium 139, Potassium 3.5, Chloride 105, Carbon Dioxide 27, Anion Gap 10.5, BUN 11, Creatinine 0.80, Estimated Creat Clear 100, Estimated GFR 93, Est GFR ( Amer) 112, Glucose 124 H, Calcium 8.8, Magnesium 1.7, Total Bilirubin 1.1, AST 36, ALT 22, Alkaline Phosphatase 205 H, NT-Pro-B Natriuret Pep 2110 H, Total Protein 7.4, Albumin 3.9, Globulin 3.5 H, Albumin/Globulin Ratio 1.1, Procalcitonin 0.047 05/25/24 17:18: Chlamy pneumoniae PCR Not detected, Adenovirus (PCR) Not detected, B. pertussis DNA (PCR) Not detected, Coronavirus OC43 (PCR) Not detected, Coronavirus HKU1 (PCR) Not detected, Coronavirus 229E (PCR) Not detected, SARS-CoV-2 (PCR) Not detected, Coronavirus NL63 (PCR) Not detected, Human Metapneumovir PCR Not detected, Influenza A (H1) PCR Not detected, Influ A (H1N1/09) PCR Not detected, Influenza A (H3) PCR Not detected, Influenza Type A (PCR) Not detected, Influenza Type B (PCR) Not detected, M. pneumoniae (PCR) Not detected, Parainfluenza 1 (PCR) Not detected, Parainfluenza 2 (PCR) Not detected, Parainfluenza 3 (PCR) Not detected, Parainfluenza 4 (PCR) Not detected, RSV (PCR) Not detected, Entero/Rhino (PCR) Not detected 05/25/24 17:00 05/25/24 17:00 Orders (Tests/Meds): ED MEDICATIONS Discontinued Medications Generic Name Dose Route Start Last Admin Trade Name Freq PRN Reason Stop Dose Admin Albuterol/Ipratropium 6 ml 05/25/24 17:10 05/25/24 17:34 Ipratropium/Albuterol 3 Ml Neb IH 05/25/24 17:11 6 ml ONCE ONE Administration Dexamethasone Sodium Phosphate 10 mg 05/25/24 17:10 05/25/24 17:34 Dexamethasone 4mg/Ml 5ml Mdv IV 05/25/24 17:11 10 mg ONCE ONE Administration Doxycycline Hyclate 100 mg 05/25/24 19:07 05/25/24 19:21 Doxycycline Hycl 100 Mg Tablet PO 05/25/24 19:08 100 mg ONCE ONE Administration Furosemide 80 mg 05/25/24 19:07 05/25/24 19:21 Furosemide 40mg/4ml Vial IV 05/25/24 19:08 80 mg ONCE ONE Administration Iopamidol 70 ml 05/25/24 18:10 05/25/24 18:11 Iopamidol-370 (76%);100ml Bottle IV 05/25/24 18:11 70 ml ONCE ONE Administration Sodium Chloride 3 ml 05/25/24 17:10 Sodium Chloride 3% 15ml Neb IH 06/24/24 17:09 ONCE PRN INDUCE SPUTUM COLLECTION Sodium Chloride 10 ml 05/25/24 18:10 05/25/24 18:11 Sodium Chloride 0.9% 10ml Syr (Rad Only) IV 05/25/24 18:11 10 ml ONCE ONE Administration Sodium Chloride 50 ml 05/25/24 18:10 05/25/24 18:11 0.9 % Sodium Chloride 50 Ml Vial IV 05/25/24 18:11 50 ml ONCE ONE Administration ORDERS Category Date Time Status CT angio chest PE protocol Stat Cat Scan 05/25/24 17:10 Completed BNP [NT Pro Brain Natriuretic Pep.] Stat Lab 05/25/24 17:00 Completed CBC w/Auto Diff [Complete Blood Count Auto Diff] Stat Lab 05/25/24 17:00 Completed CMP [Comprehensive Metabolic Panel] Stat Lab 05/25/24 17:00 Completed Full Resp Panel w/COVID ([facility]) Routine Lab 05/25/24 17:18 Completed INR [Prothrombin Time INR] Stat Lab 05/25/24 17:00 Completed Magnesium Stat Lab 05/25/24 17:00 Completed Procalcitonin Stat Lab 05/25/24 17:00 Completed Sputum Culture & Gram Stain Stat Micro 05/25/24 18:05 Results Medical Decision Narrative: In summary patient is a 83-year-old male who presents to the emergency department for evaluation of 2 weeks of cough and hemoptysis. Patient is hemodynamically stable on arrival with a blood pressure 156/77 satting at 99% on room air breathing 23 times a minute with heart rate of 78 and atrial fibrillation on the bedside monitor upon arrival, afebrile at 98.6. Physical exam is remarkable for late end expiratory rales in the left lung clement clear breath sounds on the right with no increased work of breathing or adventitious sounds. Heart sounds are normal. Patient has no dependent edema noted.. Differential diagnosis includes bronchitis versus CHF versus COPD versus pulmonary edema versus PE versus atypical infection etc. Initial workup will be conducted with hematologic labs CT PE protocol full respiratory panel. Initial interventions include DuoNeb Decadron Lasix. Initial workup reviewed by me shows a white count of 5.7 with a stable H&H and no left shift on differential INR is 1.21 and NT proBNP of 2110 a procalcitonin of 0.047 and his respiratory panel was negative for all organisms tested. My informal interpretation of his CTA PE protocol did not show any evidence of thrombus but showed significant pulmonary fibrosis, bilateral small pleural effusions, and groundglass opacities consistent with pulmonary edema. Upon repeat evaluation patient reported subjective improvement in his cough and remains without an oxygen requirement or chest pain or fever. 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 Patient given strict return precautions. Patient advised to restart his Lasix daily instead of as needed until he sees cardiology. <Connor Rouse MD - Last Filed: 05/25/24 23:06> Vital Signs: 05/25/24 16:43 05/25/24 17:15 05/25/24 17:30 Temperature 98.6 F Temperature Source Oral Pulse Rate 76 89 Pulse Rate [Left] 78 Respiratory Rate 23 16 18 Blood Pressure Blood Pressure [Right Arm] 156/77 H Blood Pressure Mean [Right Arm] 103 Blood Pressure Source [Right Arm] Automatic Cuff 02 Sat by Pulse Oximetry 99 98 97 Oxygen Delivery Method Room Air 05/25/24 17:31 05/25/24 17:45 05/25/24 18:00 Temperature Temperature Source Pulse Rate 92 H 81 81 Pulse Rate [Left] Respiratory Rate 19 20 15 Blood Pressure 105/57 L 125/70 Blood Pressure [Right Arm] Blood Pressure Mean [Right Arm] Blood Pressure Source [Right Arm] 02 Sat by Pulse Oximetry 96 99 97 Oxygen Delivery Method 05/25/24 18:16 05/25/24 18:30 05/25/24 18:31 Temperature Temperature Source Pulse Rate 69 Pulse Rate [Left] Respiratory Rate 16 13 Blood Pressure 150/76 H Blood Pressure [Right Arm] Blood Pressure Mean [Right Arm] Blood Pressure Source [Right Arm] 02 Sat by Pulse Oximetry 90 L Oxygen Delivery Method 05/25/24 18:45 05/25/24 19:31 05/25/24 20:04 Temperature 98.1 F Temperature Source Pulse Rate 85 Pulse Rate [Left] Respiratory Rate 23 20 18 Blood Pressure 139/81 143/71 H Blood Pressure [Right Arm] Blood Pressure Mean [Right Arm] Blood Pressure Source [Right Arm] 02 Sat by Pulse Oximetry Oxygen Delivery Method Room Air Lab Data Lab Results 05/25/24 17:00: WBC 5.7, RBC 4.29 L, Hgb 11.3 L, Hct 36.4 L, MCV 84.8, MCH 26.3 L, MCHC 31.0 L, RDW 15.3, Plt Count 205, MPV 9.4, Neut % (Auto) 64.6, Lymph % (Auto) 18.7, [place] % (Auto) 8.3, Eos % (Auto) 7.2, Baso % (Auto) 0.7, Neut # (Auto) 3.7, Lymph # (Auto) 1.1, [place] # (Auto) 0.5, Eos # (Auto) 0.4, Baso # (Auto) 0.0, PT 13.1 H, INR 1.21 H, Sodium 139, Potassium 3.5, Chloride 105, Carbon Dioxide 27, Anion Gap 10.5, BUN 11, Creatinine 0.80, Estimated Creat Clear 100, Estimated GFR 93, Est GFR ( Amer) 112, Glucose 124 H, Calcium 8.8, Magnesium 1.7, Total Bilirubin 1.1, AST 36, ALT 22, Alkaline Phosphatase 205 H, NT-Pro-B Natriuret Pep 2110 H, Total Protein 7.4, Albumin 3.9, Globulin 3.5 H, Albumin/Globulin Ratio 1.1, Procalcitonin 0.047 05/25/24 17:18: Chlamy pneumoniae PCR Not detected, Adenovirus (PCR) Not detected, B. pertussis DNA (PCR) Not detected, Coronavirus OC43 (PCR) Not detected, Coronavirus HKU1 (PCR) Not detected, Coronavirus 229E (PCR) Not detected, SARS-CoV-2 (PCR) Not detected, Coronavirus NL63 (PCR) Not detected, Human Metapneumovir PCR Not detected, Influenza A (H1) PCR Not detected, Influ A (H1N1/09) PCR Not detected, Influenza A (H3) PCR Not detected, Influenza Type A (PCR) Not detected, Influenza Type B (PCR) Not detected, M. pneumoniae (PCR) Not detected, Parainfluenza 1 (PCR) Not detected, Parainfluenza 2 (PCR) Not detected, Parainfluenza 3 (PCR) Not detected, Parainfluenza 4 (PCR) Not detected, RSV (PCR) Not detected, Entero/Rhino (PCR) Not detected Orders (Tests/Meds): ED MEDICATIONS Discontinued Medications Generic Name Dose Route Start Last Admin Trade Name Freq PRN Reason Stop Dose Admin Albuterol/Ipratropium 6 ml 05/25/24 17:10 05/25/24 17:34 Ipratropium/Albuterol 3 Ml [facility] 05/25/24 17:11 6 ml ONCE ONE Administration Dexamethasone Sodium Phosphate 10 mg 05/25/24 17:10 05/25/24 17:34 Dexamethasone 4mg/Ml 5ml Mdv IV 05/25/24 17:11 10 mg ONCE ONE Administration Doxycycline Hyclate 100 mg 05/25/24 19:07 05/25/24 19:21 Doxycycline Hycl 100 Mg Tablet PO 05/25/24 19:08 100 mg ONCE ONE Administration Furosemide 80 mg 05/25/24 19:07 05/25/24 19:21 Furosemide 40mg/4ml Vial IV 05/25/24 19:08 80 mg ONCE ONE Administration Iopamidol 70 ml 05/25/24 18:10 05/25/24 18:11 Iopamidol-370 (76%);100ml Bottle IV 05/25/24 18:11 70 ml ONCE ONE Administration Sodium Chloride 3 ml 05/25/24 17:10 Sodium Chloride 3% 15ml [facility] 06/24/24 17:09 ONCE PRN INDUCE SPUTUM COLLECTION Sodium Chloride 10 ml 05/25/24 18:10 05/25/24 18:11 Sodium Chloride 0.9% 10ml Syr (Rad Only) IV 05/25/24 18:11 10 ml ONCE ONE Administration Sodium Chloride 50 ml 05/25/24 18:10 05/25/24 18:11 0.9 % Sodium Chloride 50 Ml Vial IV 05/25/24 18:11 50 ml ONCE ONE Administration ORDERS Category Date Time Status CT angio chest PE protocol Stat Cat Scan 05/25/24 17:10 Completed BNP [NT Pro Brain Natriuretic Pep.] Stat Lab 05/25/24 17:00 Completed CBC w/Auto Diff [Complete Blood Count Auto Diff] Stat Lab 05/25/24 17:00 Completed CMP [Comprehensive Metabolic Panel] Stat Lab 05/25/24 17:00 Completed Full Resp Panel w/COVID ([facility]) Routine Lab 05/25/24 17:18 Completed INR [Prothrombin Time INR] Stat Lab 05/25/24 17:00 Completed Magnesium Stat Lab 05/25/24 17:00 Completed Procalcitonin Stat Lab 05/25/24 17:00 Completed Sputum Culture & Gram Stain Stat Micro 05/25/24 18:05 Results ECG Data Tracing #1: I reviewed this ECG and interpreted as documented below: (A-fib with right bundle branch block and left anterior fascicular block with wide QRS at 173 ms, QTc 492. Repolarization changes, no obvious acute ischemic change) Medical Decision Narrative: In summary patient is a 83-year-old male who presents to the emergency department for evaluation of 2 weeks of cough and hemoptysis. Patient is hemodynamically stable on arrival with a blood pressure 156/77 satting at 99% on room air breathing 23 times a minute with heart rate of 78 and atrial fibrillation on the bedside monitor upon arrival, afebrile at 98.6. Physical exam is remarkable for late end expiratory rales in the left lung clement clear breath sounds on the right with no increased work of breathing or adventitious sounds. Heart sounds are normal. Patient has no dependent edema noted.. Differential diagnosis includes bronchitis versus CHF versus COPD versus pulmonary edema versus PE versus atypical infection etc. Initial workup will be conducted with hematologic labs CT PE protocol full respiratory panel. Initial interventions include DuoNeb Decadron Lasix. Initial workup reviewed by me shows a white count of 5.7 with a stable H&H and no left shift on differential INR is 1.21 and NT proBNP of 2110 a procalcitonin of 0.047 and his respiratory panel was negative for all organisms tested. My informal interpretation of his CTA PE protocol did not show any evidence of thrombus but showed significant pulmonary fibrosis, bilateral small pleural effusions, and groundglass opacities consistent with pulmonary edema. Upon repeat evaluation patient reported subjective improvement in his cough and remains without an oxygen requirement or chest pain or fever. 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 Patient given strict return precautions. Patient advised to restart his Lasix daily instead of as needed until he sees cardiology. I was consulted by the [facility]ATSON, and we discussed the complexity of the problems being addressed. I approved the treatment and management plan for this patient's care in the Emergency Department, thus performing a substantive portion of the medical decision making. Connor Rouse MD Critical Care <PEDRO Vance - Last Filed: 05/25/24 22:22> Critical Care Time Critical Care Time: Yes Attestation: On 05/25/24, the high probability of a clinically significant, sudden or life threatening deterioration of the following system(s) required my full and direct attention, intervention and personal management. The time I documented below is in addition to time spent performing reported procedures but includes the following listed in this critical care notation. Total Time Total Critical Care Time: 35
--- NOTE | 2024-05-25 17:10 | CT_ITS ---
PROCEDURE INFORMATION: Exam: CTA Chest With Contrast Exam date and time: 05/25/2024 6:10 PM Age: 83 years old Clinical indication: Cough; Additional info: Cough and hemoptysis TECHNIQUE: Imaging protocol: Computed tomographic angiography of the chest with contrast. Exam focused on the arteries. 3D rendering (Not supervised by radiologist): MIP and/or 3D reconstructed images were created by the technologist. Radiation optimization: All CT scans at this facility use at least one of these dose optimization techniques: automated exposure control; mA and/or kV adjustment per patient size (includes targeted exams where dose is matched to clinical indication); or iterative reconstruction. Contrast material: ISOVUE 370; Contrast volume: 70 ml; Contrast route: INTRAVENOUS (IV); COMPARISON: CT ANGIO CHEST PE PROTOCOL 04/06/2024 9:17 PM FINDINGS: Pulmonary arteries: No CT evidence for pulmonary embolism. Aorta: Unremarkable. No aortic aneurysm. No aortic dissection. Lungs: Coarsened interstitial markings within the lung clement consistent with fibrosis. Pleural spaces: Small bilateral pleural effusions identified. Heart: Four chamber cardiac enlargement. Lymph nodes: Multiple reactive subcentimeter mediastinal and hilar lymph nodes. Bones/joints: Unremarkable. No acute fracture. Soft tissues: Unremarkable. IMPRESSION: 1. Coarsened interstitial markings within the lung clement consistent with fibrosis. 2. No CT evidence for pulmonary embolism. 3. Small bilateral pleural effusions identified. 4. Multiple reactive subcentimeter mediastinal and hilar lymph nodes.
[2024-05-25 17:22] LABS: Adenovirus,PCR Not Detected (NotDetected); Bordetella Pertussis Not Detected (NotDetected); Chlamydophila Pneumoniae, PCR Not Detected (NotDetected); Coronavirus 19, PCR Not Detected (NotDetected); Coronavirus 229E Not Detected (NotDetected); Coronavirus NL63 Not Detected (NotDetected); Coronavirus OC43 Not Detected (NotDetected); Coronovirus HKU1,PCR Not Detected (NotDetected); Human Metapneumovirus Not Detected (NotDetected); Influenza A, PCR Not Detected (NotDetected); Influenza AH1, 2009 Not Detected (NotDetected); Influenza AH1, PCR Not Detected (NotDetected); Influenza AH3,PCR Not Detected (NotDetected); Influenza B, PCR Not Detected (NotDetected); Mycoplasma Pneumoniae, PCR Not Detected (NotDetected); Parainfluenza 1, PCR Not Detected (NotDetected); Parainfluenza 2, PCR Not Detected (NotDetected); Parainfluenza 3, PCR Not Detected (NotDetected); Parainfluenza 4, PCR Not Detected (NotDetected); Respiratory Syncytial Virus Not Detected (NotDetected); Rhinovirus/Enterovirus Not Detected (NotDetected)
[2024-05-25 17:25] LABS: Basophils % 0.7 % (0.1-2.0); Eosinophils # 0.4 K/mm3 (0.0-0.4); Eosinophils % 7.2 % (0.1-12.0); Hematocrit 36.4 % (42.0-52.0); Hemoglobin 11.3 g/dL (14.1-18.0); Lymphocytes # 1.1 K/mm3 (0.7-4.5); Lymphocytes % 18.7 % (10-50); Mean Corpuscular Hemoglobin 26.3 pg (27.0-31.2); Mean Corpuscular Volume 84.8 fl (80-94); Mean Platelet Volume 9.4 fl (7.4-10.4); Monocytes # 0.5 K/mm3 (0.1-1.0); Monocytes % 8.3 % (1.7-9.3); Neutrophils # 3.7 K/mm3 (1.8-7.8); Neutrophils % 64.6 % (37.0-80.0); Platelet Count 205 K/mm3 (142-424); Red Blood Count 4.29 M/mm3 (4.60-6.20); Red Cell Distribution Width 15.3 % (11.5-17.5); White Blood Count 5.7 K/mm3 (4.8-10.8)
[2024-05-25] MEDS: DEXAMETHASONE 4MG/ML 5ML MDV 10 MG IV (17:34)
[2024-05-25] MEDS: IPRATROPIUM/ALBUTEROL 3 ML NEB 6 ML IH (17:34)
[2024-05-25 17:39] LABS: Albumin Level 3.9 g/dl (3.5-5.0); Chloride 105 mmol/L (98-107); Potassium 3.5 mmoL/L (3.5-5.1); Sodium 139 mmol/L (136-145)
--- NOTE | 2024-05-25 17:41 | ECG_ITS ---
APPROVED REPORT Exam: Resting ECG HR:84 bpm ECG Measurements Heart Rate 84 AXES QRSd 173 QRS -89 QT 452 T 23 QTc 492 Conclusion Atrial fibrillation Right bundle branch block Left anterior fascicular block Electronically signed by : MARY ANNE COSME, 05/27/2024 22:29:16
[2024-05-25 17:42] LABS: Alanine Aminotransferase 22 U/L (12-78); Albumin/Globulin Ratio 1.1 (1.1-1.8); Alkaline Phosphatase 205 U/L (38-126); Anion Gap 10.5 mEq/L (5-15); Aspartate Amino Transferase 36 U/L (17-59); Bilirubin,Total 1.1 mg/dl (0.2-1.3); Blood Urea Nitrogen 11 mg/dl (9-20); Calcium 8.8 mg/dl (8.4-10.2); Carbon Dioxide 27 mmol/L (22.0-30.0); Creatinine Clearance Estimated 100 mL/min (50-200); Estimated Glomerular Filt Rate 93 ml/min (>60); GFR (African American) 112 ML/MIN (>60); Globulin 3.5 g/dL (1.3-3.2); Glucose 124 mg/dl (74-100); Total Protein,Serum 7.4 g/dl (6.3-8.2)
[2024-05-25] MEDS: SODIUM CHLORIDE 0.9% 10ML SYR (RAD ONLY) 10 ML IV (18:11)
[2024-05-25] MEDS: 0.9 % SODIUM CHLORIDE 50 ML VIAL IV (18:11)
[2024-05-25] MEDS: IOPAMIDOL-370 (76%);100ML BOTTLE 70 ML IV (18:11)
[2024-05-25 18:13] LABS: INR 1.21 (0.9-1.1); Prothrombin Time 13.1 seconds (10.1-12.5)
[2024-05-25 18:35] LABS: Magnesium 1.7 mg/dl (1.6-2.3)
[2024-05-25 18:44] LABS: NT Pro Brain Natriuretic Pep. 2110 pg/mL (0-450)
[2024-05-25 18:52] LABS: Procalcitonin 0.047 ng/mL (0.0-2.0)
[2024-05-25] MEDS: FUROSEMIDE 40MG/4ML VIAL 80 MG IV (19:21)
[2024-05-25] MEDS: DOXYCYCLINE HYCL 100 MG TABLET PO (19:21)
== END 2024-05-25 20:15 | disposition home or self-care (01) ==
PROVIDERS: Physician Assistant; Emergency Provider Emergency Medicine; PCP Family Medicine
DX: J81.1 Chronic pulmonary edema (principal); R04.2 Hemoptysis; R06.02 Shortness of breath; R06.00 Dyspnea, unspecified; R50.9 Fever, unspecified; Z87.891 Personal history of nicotine dependence
CPT/HCPCS: 71275; 80053; 83735; 83880; 84145; 85025; 85610; 87070; 87205; 87633; 93005; 96374; 96375; 99285; J1100; J1940; J7620; Q9967

== ENCOUNTER 2024-09-16 16:40 | Observation (INO) | payer MEDICARE, SELFPAY ==
[2024-09-16] VITALS (9 sets, daily range): BP systolic 124–158; BP diastolic 60–84; PULSE 72–93; RESP 17–21; TEMP 36.6–36.8; O2SAT 95–97; BMI 35.6; BMI 35.1
--- NOTE | 2024-09-16 16:27 | ECG_ITS ---
APPROVED REPORT Exam: Resting ECG HR:72 bpm ECG Measurements Heart Rate 72 AXES QRSd 169 QRS 211 QT 430 T 4 QTc 454 Conclusion ATRIAL FIBRILLATION WITH ABERRANT CONDUCTION OR VENTRICULAR PREMATURE COMPLEXES INDETERMINATE AXIS RIGHT BUNDLE BRANCH BLOCK [120+ ms QRS DURATION, UPRIGHT V1, 40+ ms S IN I/aVL/V4/V5/V6] No STEMI Electronically signed by : MARIUM NAVAS, 09/16/2024 23:25:53
--- NOTE | 2024-09-16 16:31 | CT_ITS ---
PROCEDURE INFORMATION: Exam: CTA Chest With Contrast Exam date and time: 09/16/2024 5:45 PM Age: 84 years old Clinical indication: Shortness of breath and other: Syncope; Additional info: Syncope, SOA TECHNIQUE: Imaging protocol: Computed tomographic angiography of the chest with contrast. Exam focused on the arteries. 3D rendering (Not supervised by radiologist): MIP and/or 3D reconstructed images were created by the technologist. Radiation optimization: All CT scans at this facility use at least one of these dose optimization techniques: automated exposure control; mA and/or kV adjustment per patient size (includes targeted exams where dose is matched to clinical indication); or iterative reconstruction. Contrast material: ISOVUE 370; Contrast volume: 80 ml; Contrast route: INTRAVENOUS (IV); COMPARISON: CT ANGIO CHEST PE PROTOCOL 05/25/2024 6:10 PM FINDINGS: Pulmonary arteries: No CT angiography evidence of pulmonary embolism. Aorta: Unremarkable. No aortic aneurysm. No aortic dissection. Lungs: There is prominence of the pulmonary vasculature with interstitial opacities. Pleural spaces: No pneumothorax. Heart: Cardiac silhouette is enlarged. Coronary arteries: Postsurgical changes compatible with CABG procedure. Severe three-vessel calcific atherosclerotic disease of the coronary arteries. Lymph nodes: Prominent mediastinal and hilar lymph nodes are likely reactive. Bones/joints: Unremarkable. No acute fracture. Soft tissues: Unremarkable. IMPRESSION: 1. Constitution of findings compatible with mild CHF in the appropriate clinical setting. 2. No CT angiography evidence of pulmonary embolism.
--- NOTE | 2024-09-16 16:31 | CT_ITS ---
PROCEDURE INFORMATION: Exam: CTA Abdomen and Pelvis With Contrast Exam date and time: 09/16/2024 5:45 PM Age: 84 years old Clinical indication: Other: Rectal bleed TECHNIQUE: Imaging protocol: Computed tomographic angiography of the abdomen and pelvis with contrast. Exam focused on the arteries. 3D rendering (Not supervised by radiologist): MIP and/or 3D reconstructed images were created by the technologist. Radiation optimization: All CT scans at this facility use at least one of these dose optimization techniques: automated exposure control; mA and/or kV adjustment per patient size (includes targeted exams where dose is matched to clinical indication); or iterative reconstruction. Contrast material: ISOVUE 370; Contrast volume: 80 ml; Contrast route: INTRAVENOUS (IV); COMPARISON: CT ANGIO ABDOMEN PELVIS 04/06/2024 9:17 PM FINDINGS: Aorta: Moderate calcific atherosclerotic disease of the abdominal aorta without aneurysmal dilatation or stenosis. Celiac trunk and mesenteric arteries: No occlusion or significant stenosis. Renal arteries: No occlusion or significant stenosis. Right iliac arteries: No occlusion or significant stenosis. Left iliac arteries: No occlusion or significant stenosis. Liver: No mass. Gallbladder and biliary ducts: Moderate inflammatory changes in pericholecystic fluid surrounding gallbladder. Pancreas: Unremarkable. No mass. No ductal dilation. Spleen: Unremarkable. No splenomegaly. Adrenal glands: Unremarkable. No mass. Kidneys and ureters: Residual IV contrast partially opacifies the urinary collecting system. Stomach and bowel: No CT findings that localize GI bleed with confidence. Appendix: No evidence of appendicitis. Intraperitoneal space: Low volume ascites surrounding the liver and spleen. Lymph nodes: Unremarkable. No enlarged lymph nodes. Urinary bladder: Unremarkable. No mass. Reproductive: Unremarkable as visualized. Bones/joints: Moderate loss of intervertebral disc space with degenerative changes involving L3 through L5. Soft tissues: Unremarkable. IMPRESSION: 1. Moderate inflammatory changes and pericholecystic fluid surrounding gallbladder. Findings could represent cholecystitis. Recommend further evaluation with right upper quadrant ultrasound. 2. No CT findings that localize GI bleed with confidence.
[2024-09-16 16:48] LABS: Basophils % 0.5 % (0.1-2.0); Eosinophils # 0.3 Kmm3 (0.0-0.4); Eosinophils % 7.9 % (0.1-12.0); Hematocrit 36.2 % (42.0-52.0); Hemoglobin 11.1 g/dL (14.1-18.0); Immature Granulocytes # 0.02 10^3uL; Immature Granulocytes % 0.5 %; Lymphocytes # 0.8 K/mm3 (0.7-4.5); Lymphocytes % 18.6 % (10-50); Mean Corpuscular HGB Conc 30.7 g/dL (31.8-35.4); Mean Corpuscular Hemoglobin 26.2 pg (27.0-31.2); Mean Corpuscular Volume 85.4 fl (80-94); Mean Platelet Volume 9.2 fl (7.4-10.4); Monocytes # 0.4 K/mm3 (0.1-1.0); Monocytes % 10.2 % (1.7-9.3); Neutrophils # 2.5 K/mm3 (1.8-7.8); Neutrophils % 62.3 % (37.0-80.0); Nucleated Red Blood Cells # 0 10^3/uL; Nucleated Red Blood Cells % 0 %; Platelet Count 124 K/mm3 (142-424); Red Blood Count 4.24 M/mm3 (4.60-6.20); Red Cell Distribution Width 18.7 % (11.5-17.5); Red Cell Distribution Width-SD 58.4 fL
--- NOTE | 2024-09-16 16:49 | ED_ITS ---
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 by RN): Patient reports being at his PCP for a follow up related to a recent hospital admission. States he was diagnosed with a GI bleed 4 days ago. States that he has not had a bowel movement since then. While checking in at his PCP he had a syncopal episode. History of Present Illness HPI narrative: 85-year-old male presents for a syncopal episode at the doctor's office. Patient states he was at the doctor as a follow-up from an ER visit in [place] 2 days ago and when he was 7 AM felt dizzy and passed out. Patient states 2 days ago he was seen at [place] for GI bleeding. Patient states he has held his blood thinners for 3 days now. Patient states after leaving the ER at [place] he had bright red rectal bleeding when he woke up the next morning. Patient states it has been 4 days since a BM and 2 days since the rectal bleeding. Patient denies vomiting. Patient states last colonoscopy was over 50 years ago. Patient reports a history of A-fib on Eliquis which has been held for 2 days. Patient states when he was seen at [place] his abdomen was tight and swollen but since then has improved. Related Data Home Medications ?Medication ?Instructions ?Recorded ?Confirmed aspirin 81 mg tablet,delayed 81 mg PO AM 04/07/24 09/16/24 release blood sugar diagnostic (Accu-Chek 04/07/24 09/16/24 Guide test strips) insulin NPH-regular 70-30 U-100 40 unit SQ BID 04/07/24 09/16/24 insulin 100 unit/mL subcutaneous pen (Novolin 70-30 FlexPen U-100 Insulin) Previous Rx's ?Medication ?Instructions ?Recorded midodrine 5 mg tablet 2.5 mg (1/2 x 5 mg) PO TID #90 tabs 02/24/24 fluticasone 250 mcg-salmeterol 50 1 inh inhalation BID #60 ea 03/13/24 mcg/dose blistr powdr for inhalation pantoprazole 40 mg tablet,delayed 40 mg PO DAILY #30 tabs 04/08/24 release (Protonix) finasteride 5 mg tablet 5 mg PO DAILY #90 tabs 05/13/24 gabapentin 300 mg capsule 300 mg PO TIDP PRN Pain (Scale 06/22/24 Score 1-6) #90 caps lactulose 20 gram/30 mL oral 20 g (30 mL) PO BID #1,800 mL 07/29/24 solution ondansetron HCl 4 mg tablet 4 mg PO TID #90 tabs 07/29/24 hydrocodone 7.5 mg-acetaminophen 1 tab PO Q8H PRN pain #90 tabs 08/19/24 325 mg tablet albuterol sulfate 90 mcg/actuation 2 inh inhalation QIDP PRN 08/26/24 aerosol inhaler Shortness Of Breath Or Wheezing #8.5 grams apixaban 5 mg tablet (Eliquis) 5 mg PO BID #60 tabs 08/26/24 atorvastatin 40 mg tablet 40 mg PO HS #90 tabs 08/26/24 clopidogrel 75 mg tablet 75 mg PO AM #90 tabs 08/26/24 digoxin 125 mcg (0.125 mg) tablet 125 mcg PO DAILY #90 tabs 08/26/24 metoprolol succinate 25 mg 25 mg PO BID #90 tabs 08/26/24 tablet,extended release 24 hr (Toprol XL) pantoprazole 40 mg tablet,delayed 40 mg PO DAILY #90 tabs 08/26/24 release (Protonix) potassium chloride 20 mEq 20 meq PO DAILY #90 tabs 08/26/24 tablet,extended release(part/cryst) trazodone 50 mg tablet 50 mg PO HS #90 tabs 08/26/24 erythromycin 5 mg/gram (0.5 %) eye 0.5 inch ophthalmic (eye) BID #3.5 09/07/24 ointment grams furosemide 20 mg tablet 20 mg PO DAILY PRN Edema #90 tabs 09/11/24 Allergies Allergy/AdvReac Type Severity Reaction Status Date / Time amoxicillin (From Augmentin) Allergy Severe edema Verified 09/16/24 14:58 ciprofloxacin (From Cipro) Allergy Severe Redness of Verified 09/16/24 14:58 Skin clavulanic acid (From Allergy Severe edema Verified 09/16/24 14:58 Augmentin) prednisone AdvReac Intermediate Agitated Verified 09/16/24 14:58 PFSH <Lizbeth King ([facility]), WASHING MACHINE OPERATOR - Last Filed: 09/16/24 18:52> PFS Disclaimer: The information contained in this section may have been updated after the patient was seen, as this information can be updated by other users. 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) HLD (hyperlipidemia) Positive laboratory testing for human immunodeficiency virus Nausea & vomiting Abdominal pain, epigastric Chronic back pain greater than 3 months duration HFrEF (heart failure with reduced ejection fraction) Polypharmacy Rash Retained myringotomy tube Hearing difficulty of right ear Otorrhea of right ear Otalgia, right ear BMI 39.0-39.9,adult [place] and COPD overlap syndrome OAB (overactive bladder) CHF (congestive heart failure) Diabetes mellitus Afib HHD (hypertensive heart disease) CAD (coronary artery disease) Surgical History , 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 OPERATOR) History of left inguinal hernia repair History of umbilical hernia repair History of left heart catheterization (LHC) Hx of CABG Family History , WASHING MACHINE OPERATOR) Father Mother Tuberculosis Father Coronary artery disease Mother Social History (Updated 09/16/24 @ 21:30 by Esperanza Contreras RN) Smoking Status: Former smoker years smoked: 30 smoking status stop date: 1992 alcohol intake: former substance use type: denies use current occupational status: retired and disabled Travel in the last 8 weeks?: None Have you lived/traveled outside US in past 30 days?: No Contact w/someone who lives/traveled outside US past 30 days?: No Exposure to someone with infectious disease in past 14 days?: No Do you have a fever (greater than 100.4 F or 38 C)?: No Have you tested positive for COVID-19?: No Exposed to someone with COVID-19 in past 14 days?: No Do you have a sore throat?: No Do you have a cough?: No Do you have any weakness?: No Are you experiencing any nausea/vomitting?: No Do you have any diarrhea?: No Are you experiencing any unusual bleeding?: No Do you have any muscle aches/pain?: No Do you have any abdominal pain?: No Are you experiencing loss of taste or smell?: No Other 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 Have you received the Flu Vaccine for this season: No Have you received the Pneumonia Vaccine: Yes <Regancathiesatish Balderasjonna ([facility]), WASHING MACHINE OPERATOR - Last Filed: 09/16/24 18:52> ROS Obtained: Yes Systems reviewed as appropriate & no additional complaints except as documented Physical Exam <Reganzack jonna ([facility]), WASHING MACHINE OPERATOR - Last Filed: 09/16/24 18:52> General General appearance: alert and in no apparent distress Head Head exam: atraumatic Eye Eye exam: Present normal appearance Respiratory Respiratory exam: Present normal lung sounds bilaterally Cardiovascular Cardiovascular exam: Present irregular rhythm Abdominal Exam Abdominal exam: Present soft and normal bowel sounds; Absent distention, tenderness or guarding Neurological Exam Neurological exam: Present alert, oriented X3 and CN II-XII intact Skin Skin exam: Present warm Medical Decision Making <Reganzack jonna ([facility]), WASHING MACHINE OPERATOR - Last Filed: 09/16/24 18:52> Medical Records Medical records reviewed: Yes I reviewed the patient's medical records. Screening: Per USPSTF and CDC recommendations, given the prevalence of disease in our region, it is our hospital?s policy to screen for HIV and viral Hepatitis for all patients aged 18 and over and those with ongoing risk factors. Atul Inquiry Pt receiving controlled substance: No Vital Signs: 09/16/24 16:31 09/16/24 16:40 09/16/24 17:31 Temperature 98 F Temperature Source Oral Pulse Rate 74 72 Pulse Rate [Radial] 92 H Respiratory Rate 21 18 17 Blood Pressure 127/66 124/66 Blood Pressure [Right Arm] 143/60 H Blood Pressure Mean [Right Arm] 87 Blood Pressure Source [Right Arm] Automatic Cuff Blood Pressure Position [Right Arm] Sitting 02 Sat by Pulse Oximetry 96 97 95 Oxygen Delivery Method Room Air Room Air Room Air 09/16/24 18:00 09/16/24 18:31 09/16/24 20:43 Temperature 98.1 F Temperature Source Pulse Rate 79 79 85 Pulse Rate [Radial] Respiratory Rate 17 20 18 Blood Pressure 149/80 H 158/84 H 148/80 H Blood Pressure [Right Arm] Blood Pressure Mean [Right Arm] Blood Pressure Source [Right Arm] Blood Pressure Position [Right Arm] 02 Sat by Pulse Oximetry 96 95 Oxygen Delivery Method Room Air Room Air Room Air Lab Data Lab results reviewed: Yes I reviewed the patient's lab results. Lab Results 09/16/24 16:25: WBC 4.0 L, RBC 4.24 L, Hgb 11.1 L, Hct 36.2 L, MCV 85.4, MCH 26.2 L, MCHC 30.7 L, RDW 18.7 H, Plt Count 124 L, MPV 9.2, Neut % (Auto) 62.3, Lymph % (Auto) 18.6, [place] % (Auto) 10.2 H, Eos % (Auto) 7.9, Baso % (Auto) 0.5, Neut # (Auto) 2.5, Lymph # (Auto) 0.8, [place] # (Auto) 0.4, Eos # (Auto) 0.3, Baso # (Auto) 0.0, PT 12.7 H, INR 1.15 H, APTT 28.6, Sodium 141, Potassium 3.9, C hloride 110 H, Carbon Dioxide 29, Anion Gap 5.9, BUN 16, Creatinine 1.20, Estimated Creat Clear 85, Estimated GFR 58 L, Est GFR ( Amer) 70, Glucose 69 L, Calcium 8.5, Phosphorus 3.6, Magnesium 1.7, Total Bilirubin 1.2, AST 37, ALT 24, Alkaline Phosphatase 229 H, Troponin I 0.02, NT-Pro-B Natriuret Pep 1960 H, Total Protein 6.8, Albumin 3.6, Globulin 3.2, Albumin/Globulin Ratio 1.1 09/16/24 16:45: Digoxin 0.60 09/16/24 17:17: Urine Color Gilbert, Urine Appearance Slightly cloudy, Urine pH 6.0, Ur Specific [place] 1.025, Urine Protein 2+ A, Urine Glucose (UA) Negative, Urine Ketones Negative, Urine Blood Negative, Urine Nitrate Negative, Urine Bilirubin 1+ A, Urine Urobilinogen 4.0, Ur Leukocyte Esterase Negative, Urine RBC None, Urine WBC 3-5, Ur Squamous Epith Cells Occasional, Urine Bacteria Trace, Hyaline Casts Occ 09/16/24 19:30: Troponin I 0.02 09/16/24 16:25 09/16/24 16:25 Orders (Tests/Meds): ED MEDICATIONS Generic Name Dose Route Start Last Admin Trade Name Freq PRN Reason Stop Dose Admin Acetaminophen 650 mg 09/16/24 19:23 Acetaminophen 325mg Tab PO 10/16/24 19:22 Q4HP PRN Fever or Mild Pain (1-3) Hydrocodone Bitart/Acetaminophen 1 tab 09/16/24 19:23 Hydrocodone/Apap 5/325 Mg Tablet PO 10/16/24 19:22 Q4HP PRN Mild to Moderate Pain (1-6) Clopidogrel Bisulfate 75 mg 09/17/24 09:00 Clopidogrel 75mg Tab PO 10/17/24 08:59 DAILY JAMARI Enoxaparin Sodium 125 mg 09/16/24 20:15 Enoxaparin 100mg/Ml Syringe 1 mg/kg (125 mg) 10/16/24 20:14 SUBCUT Q12H JAMARI Furosemide 40 mg 09/16/24 19:30 09/16/24 19:57 Furosemide 20 Mg/2 Ml Vial IV 10/16/24 19:29 40 mg BIDL JAMARI Administration Ceftriaxone Sodium 1 gm/ 50 mls @ 100 mls/hr 09/16/24 20:15 Sodium Chloride IV 09/26/24 20:14 Q24H JAMARI Metoprolol Succinate 25 mg 09/17/24 09:00 Metoprolol Succinate Xl 25mg Tablet PO 10/17/24 08:59 DAILY JAMARI Metronidazole 500 mg 09/16/24 20:07 Metronidazole 500 Mg Tablet PO 09/16/24 20:08 Q8 ONE Ondansetron HCl 4 mg 09/16/24 20:16 Ondansetron 4mg/2ml Vial IV 10/16/24 20:15 Q8 PRN Nausea And Vomiting Pantoprazole Sodium 40 mg 09/16/24 21:00 09/16/24 20:00 Pantoprazole 40mg Tablet PO 10/16/24 20:59 40 mg HS JAMARI Administration Discontinued Medications Generic Name Dose Route Start Last Admin Trade Name Basilioq PRN Reason Stop Dose Admin Iopamidol 85 ml 09/16/24 17:45 09/16/24 17:45 Iopamidol-370 (76%);100ml Bottle IV 09/16/24 17:46 85 ml ONCE ONE Administration Iopamidol 80 ml 09/16/24 17:52 09/16/24 17:53 Iopamidol-370 (76%);100ml Bottle IV 09/16/24 17:53 80 ml ONCE ONE Administration Sodium Chloride 10 ml 09/16/24 17:45 09/16/24 17:45 Sodium Chloride 0.9% 10ml Syr (Rad Only) IV 09/16/24 17:46 10 ml ONCE ONE Administration Sodium Chloride 50 ml 09/16/24 17:45 09/16/24 17:45 0.9 % Sodium Chloride 50 Ml Vial IV 09/16/24 17:46 50 ml ONCE ONE Administration Sodium Chloride 50 ml 09/16/24 17:52 09/16/24 17:52 0.9 % Sodium Chloride 50 Ml Vial IV 09/16/24 17:53 50 ml ONCE ONE Administration ORDERS Category Date Time Status CT angio abdomen pelvis Stat Cat Scan 09/16/24 16:31 Completed CTA Chest [CT angio chest PE protocol] Stat Cat Scan 09/16/24 16:31 Completed Consult to Cardiology [CONS] Routine Cons 09/16/24 20:13 Active Consult to Gastroenterology [CONS] Routine Cons 09/16/24 20:11 Active Consult to General Surgery [CONS] Routine Cons 09/16/24 20:12 Ordered US RUQ [US abdomen limited] Stat Exams 09/16/24 19:27 Ordered BNP [NT Pro Brain Natriuretic Pep.] Stat Lab 09/16/24 16:25 Completed CBC w/Auto Diff [Complete Blood Count Auto Diff] Stat Lab 09/16/24 16:25 Completed CMP [Comprehensive Metabolic Panel] Stat Lab 09/16/24 16:25 Completed Complete Blood Count Auto Diff AMLAB Lab 09/17/24 06:00 Ordered Comprehensive Metabolic Panel AMLAB Lab 09/17/24 06:00 Ordered DIG [Digoxin] Stat Lab 09/16/24 16:45 Completed Lipid Panel AMLAB Lab 09/17/24 06:00 Ordered MAG [Magnesium] Stat Lab 09/16/24 16:25 Completed Magnesium AMLAB Lab 09/17/24 06:00 Ordered PHOS [Phosphorous] Stat Lab 09/16/24 16:25 Completed PT INR [Prothrombin Time INR] Stat Lab 09/16/24 16:25 Completed PTT [Activated Partial Thrombo Time] Stat Lab 09/16/24 16:25 Completed Phosphorous AMLAB Lab 09/17/24 06:00 Ordered Prothrombin Time INR AMLAB Lab 09/17/24 06:00 Ordered Trop I [Troponin I] Stat Lab 09/16/24 16:25 Completed Troponin I Q3H Lab 09/16/24 19:30 Completed Troponin I Q3H Lab 09/16/24 22:45 Ordered UA [Urinalysis and Microscopic] Stat Lab 09/16/24 17:17 Completed Medical Decision Narrative: In summary patient is a 84-year-old male who presents to the emergency department for evaluation of syncopal episode at the doctor's office. Patient states he was at the doctor as a follow-up from an ER visit in [place] 2 days ago and when he was 7 AM felt dizzy and passed out. Patient states 2 days ago he was seen at [place] for GI bleeding. Patient states he has held his blood thinners for 3 days now. Patient states after leaving the ER at [place] he had bright red rectal bleeding when he woke up the next morning. Patient states it has been 4 days since a BM and 2 days since the rectal bleeding. Patient denies vomiting. Patient states last colonoscopy was over 50 years ago. Patient reports a history of A-fib on Eliquis which has been held for 2 days. Patient states when he was seen at [place] his abdomen was tight and swollen but since then has improved. Patient is hemodynamically stable upon arrival, afebrile. Unremarkable physical exam. Differential diagnosis includes lower GI bleed. Initial workup will be conducted with labs, CT,. Initial inventions include CT. Initial workup reviewed by me labs stable from [place] records. Upon repeat evaluation patient resting comfortably in bed with no complaints. Given this [patient was appropriate for discharge at this time and will be discharged with a prescription for? This case was discussed with hospital medicine regarding management? They will meet the patient to their service for continued evaluation at this time? Etc.] <Franny Xie, DO - Last Filed: 09/16/24 21:39> Vital Signs: 09/16/24 16:31 09/16/24 16:40 09/16/24 17:31 Temperature 98 F Temperature Source Oral Pulse Rate 74 72 Pulse Rate [Radial] 92 H Respiratory Rate 21 18 17 Blood Pressure 127/66 124/66 Blood Pressure [Right Arm] 143/60 H Blood Pressure Mean [Right Arm] 87 Blood Pressure Source [Right Arm] Automatic Cuff Blood Pressure Position [Right Arm] Sitting 02 Sat by Pulse Oximetry 96 97 95 Oxygen Delivery Method Room Air Room Air Room Air 09/16/24 18:00 09/16/24 18:31 09/16/24 20:43 Temperature 98.1 F Temperature Source Pulse Rate 79 79 85 Pulse Rate [Radial] Respiratory Rate 17 20 18 Blood Pressure 149/80 H 158/84 H 148/80 H Blood Pressure [Right Arm] Blood Pressure Mean [Right Arm] Blood Pressure Source [Right Arm] Blood Pressure Position [Right Arm] 02 Sat by Pulse Oximetry 96 95 Oxygen Delivery Method Room Air Room Air Room Air Lab Data Lab Results 09/16/24 16:25: WBC 4.0 L, RBC 4.24 L, Hgb 11.1 L, Hct 36.2 L, MCV 85.4, MCH 26.2 L, MCHC 30.7 L, RDW 18.7 H, Plt Count 124 L, MPV 9.2, Neut % (Auto) 62.3, Lymph % (Auto) 18.6, [place] % (Auto) 10.2 H, Eos % (Auto) 7.9, Baso % (Auto) 0.5, Neut # (Auto) 2.5, Lymph # (Auto) 0.8, [place] # (Auto) 0.4, Eos # (Auto) 0.3, Baso # (Auto) 0.0, PT 12.7 H, INR 1.15 H, APTT 28.6, Sodium 141, Potassium 3.9, C hloride 110 H, Carbon Dioxide 29, Anion Gap 5.9, BUN 16, Creatinine 1.20, Estimated Creat Clear 85, Estimated GFR 58 L, Est GFR ( Amer) 70, Glucose 69 L, Calcium 8.5, Phosphorus 3.6, Magnesium 1.7, Total Bilirubin 1.2, AST 37, ALT 24, Alkaline Phosphatase 229 H, Troponin I 0.02, NT-Pro-B Natriuret Pep 1960 H, Total Protein 6.8, Albumin 3.6, Globulin 3.2, Albumin/Globulin Ratio 1.1 09/16/24 16:45: Digoxin 0.60 09/16/24 17:17: Urine Color [place], Urine Appearance Slightly cloudy, Urine pH 6.0, Ur Specific [place] 1.025, Urine Protein 2+ A, Urine Glucose (UA) Negative, Urine Ketones Negative, Urine Blood Negative, Urine Nitrate Negative, Urine Bilirubin 1+ A, Urine Urobilinogen 4.0, Ur Leukocyte Esterase Negative, Urine RBC None, Urine WBC 3-5, Ur Squamous Epith Cells Occasional, Urine Bacteria Trace, Hyaline Casts Occ 09/16/24 19:30: Troponin I 0.02 Orders (Tests/Meds): ED MEDICATIONS Generic Name Dose Route Start Last Admin Trade Name Freq PRN Reason Stop Dose Admin Acetaminophen 650 mg 09/16/24 19:23 Acetaminophen 325mg Tab PO 10/16/24 19:22 Q4HP PRN Fever or Mild Pain (1-3) Hydrocodone Bitart/Acetaminophen 1 tab 09/16/24 19:23 Hydrocodone/Apap 5/325 Mg Tablet PO 10/16/24 19:22 Q4HP PRN Mild to Moderate Pain (1-6) Clopidogrel Bisulfate 75 mg 09/17/24 09:00 Clopidogrel 75mg Tab PO 10/17/24 08:59 DAILY JAMARI Enoxaparin Sodium 125 mg 09/16/24 20:15 Enoxaparin 100mg/Ml Syringe 1 mg/kg (125 mg) 10/16/24 20:14 SUBCUT Q12H JAMARI Furosemide 40 mg 09/16/24 19:30 09/16/24 19:57 Furosemide 20 Mg/2 Ml Vial IV 10/16/24 19:29 40 mg BIDL JAMARI Administration Ceftriaxone Sodium 1 gm/ 50 mls @ 100 mls/hr 09/16/24 20:15 Sodium Chloride IV 09/26/24 20:14 Q24H JAMARI Metoprolol Succinate 25 mg 09/17/24 09:00 Metoprolol Succinate Xl 25mg Tablet PO 10/17/24 08:59 DAILY JAMARI Metronidazole 500 mg 09/16/24 20:07 Metronidazole 500 Mg Tablet PO 09/16/24 20:08 Q8 ONE Ondansetron HCl 4 mg 09/16/24 20:16 Ondansetron 4mg/2ml Vial IV 10/16/24 20:15 Q8 PRN Nausea And Vomiting Pantoprazole Sodium 40 mg 09/16/24 21:00 09/16/24 20:00 Pantoprazole 40mg Tablet PO 10/16/24 20:59 40 mg HS JAMARI Administration Discontinued Medications Generic Name Dose Route Start Last Admin Trade Name Jenny PRN Reason Stop Dose Admin Iopamidol 85 ml 09/16/24 17:45 09/16/24 17:45 Iopamidol-370 (76%);100ml Bottle IV 09/16/24 17:46 85 ml ONCE ONE Administration Iopamidol 80 ml 09/16/24 17:52 09/16/24 17:53 Iopamidol-370 (76%);100ml Bottle IV 09/16/24 17:53 80 ml ONCE ONE Administration Sodium Chloride 10 ml 09/16/24 17:45 09/16/24 17:45 Sodium Chloride 0.9% 10ml Syr (Rad Only) IV 09/16/24 17:46 10 ml ONCE ONE Administration Sodium Chloride 50 ml 09/16/24 17:45 09/16/24 17:45 0.9 % Sodium Chloride 50 Ml Vial IV 09/16/24 17:46 50 ml ONCE ONE Administration Sodium Chloride 50 ml 09/16/24 17:52 09/16/24 17:52 0.9 % Sodium Chloride 50 Ml Vial IV 09/16/24 17:53 50 ml ONCE ONE Administration ORDERS Category Date Time Status CT angio abdomen pelvis Stat Cat Scan 09/16/24 16:31 Completed CTA Chest [CT angio chest PE protocol] Stat Cat Scan 09/16/24 16:31 Completed Consult to Cardiology [CONS] Routine Cons 09/16/24 20:13 Active Consult to Gastroenterology [CONS] Routine Cons 09/16/24 20:11 Active Consult to General Surgery [CONS] Routine Cons 09/16/24 20:12 Ordered US RUQ [US abdomen limited] Stat Exams 09/16/24 19:27 Ordered BNP [NT Pro Brain Natriuretic Pep.] Stat Lab 09/16/24 16:25 Completed CBC w/Auto Diff [Complete Blood Count Auto Diff] Stat Lab 09/16/24 16:25 Completed CMP [Comprehensive Metabolic Panel] Stat Lab 09/16/24 16:25 Completed Complete Blood Count Auto Diff AMLAB Lab 09/17/24 06:00 Ordered Comprehensive Metabolic Panel AMLAB Lab 09/17/24 06:00 Ordered DIG [Digoxin] Stat Lab 09/16/24 16:45 Completed Lipid Panel AMLAB Lab 09/17/24 06:00 Ordered MAG [Magnesium] Stat Lab 09/16/24 16:25 Completed Magnesium AMLAB Lab 09/17/24 06:00 Ordered PHOS [Phosphorous] Stat Lab 09/16/24 16:25 Completed PT INR [Prothrombin Time INR] Stat Lab 09/16/24 16:25 Completed PTT [Activated Partial Thrombo Time] Stat Lab 09/16/24 16:25 Completed Phosphorous AMLAB Lab 09/17/24 06:00 Ordered Prothrombin Time INR AMLAB Lab 09/17/24 06:00 Ordered Trop I [Troponin I] Stat Lab 09/16/24 16:25 Completed Troponin I Q3H Lab 09/16/24 19:30 Completed Troponin I Q3H Lab 09/16/24 22:45 Ordered UA [Urinalysis and Microscopic] Stat Lab 09/16/24 17:17 Completed ECG Data Tracing #1: I reviewed this ECG and interpreted as documented below: Atrial fibrillation with a ventricular rate of 87 bpm. Right bundle- branch block. Left anterior fascicular block. No STEMI ECG initial impression date: 09/16/24 ECG initial impression time: 16:30 Medical Decision Narrative: In summary patient is a 84-year-old male who presents to the emergency department for evaluation of syncopal episode at the doctor's office. Patient states he was at the doctor as a follow-up from an ER visit in [place] 2 days ago and when he was 7 AM felt dizzy and passed out. Patient states 2 days ago he was seen at [place] for GI bleeding. Patient states he has held his blood thinners for 3 days now. Patient states after leaving the ER at [place] he had bright red rectal bleeding when he woke up the next morning. Patient states it has been 4 days since a BM and 2 days since the rectal bleeding. Patient denies vomiting. Patient states last colonoscopy was over 50 years ago. Patient reports a history of A-fib on Eliquis which has been held for 2 days. Patient states when he was seen at [place] his abdomen was tight and swollen but since then has improved. Patient is hemodynamically stable upon arrival, afebrile. Unremarkable physical exam. Differential diagnosis includes lower GI bleed. Initial workup will be conducted with labs, CT,. Initial inventions include CT. Initial workup reviewed by me labs stable from [place] records. Upon repeat evaluation patient resting comfortably in bed with no complaints. Xie, DO: I was consulted by the [facility], and we discussed the complexity of the problems being addressed. I approved the treatment and management plan for this patient's care in the emergency department, thus performing a substantive portion of the medical decision making. There is no evidence of acute GI bleeding on CT scan however patient does have pericholecystic fluid on my independent interpretation. He does complain of some right upper quadrant abdominal pain, though unclear if this is acute or chronic as he states it is that the side of a bulge in his abdomen has been there for a long time. No nausea, vomiting, fevers, or infectious symptoms. His labs are reassuring with no significant leukocytosis or transaminitis. He does have bilateral small pleural effusions as well as elevated BNP, consistent with decompensated heart failure. Given high risk syncope in an elderly male with high heart score, decompensated heart failure, and other issues going on currently, I feel that he would benefit from admission for continued monitoring. I had an interactive discussion with the hospitalist who admitted the patient in stable condition Franny Xie DO Critical Care <Lizbeth King ([facility]), WASHING MACHINE OPERATOR - Last Filed: 09/16/24 18:52> Critical Care Time Critical Care Time: No
[2024-09-16 17:02] LABS: Magnesium 1.7 mg/dl (1.6-2.3); Phosphorous 3.6 mg/dl (2.5-4.5)
[2024-09-16 17:03] LABS: Activated Partial Thrombo Time 28.6 seconds (22.8-30.6); INR 1.15 (0.9-1.1); Prothrombin Time 12.7 seconds (10.1-12.5)
[2024-09-16 17:04] LABS: Alanine Aminotransferase 24 U/L (12-78); Albumin Level 3.6 g/dl (3.5-5.0); Albumin/Globulin Ratio 1.1 (1.1-1.8); Alkaline Phosphatase 229 U/L (38-126); Anion Gap 5.9 mEq/L (5-15); Aspartate Amino Transferase 37 U/L (17-59); Bilirubin,Total 1.2 mg/dl (0.2-1.3); Blood Urea Nitrogen 16 mg/dl (9-20); Calcium 8.5 mg/dl (8.4-10.2); Carbon Dioxide 29 mmol/L (22.0-30.0); Chloride 110 mmol/L (98-107); Creatinine Clearance Estimated 85 mL/min (50-200); Estimated Glomerular Filt Rate 58 ml/min (>60); GFR (African American) 70 ML/MIN (>60); Globulin 3.2 g/dL (1.3-3.2); Glucose 69 mg/dl (74-100); Potassium 3.9 mmoL/L (3.5-5.1); Sodium 141 mmol/L (136-145); Total Protein,Serum 6.8 g/dl (6.3-8.2)
[2024-09-16 17:13] LABS: NT Pro Brain Natriuretic Pep. 1960 pg/mL (0-450)
[2024-09-16 17:21] LABS: Microscopic, Urine URINE MICROSCOPIC (MICROSCOPIC)
[2024-09-16 17:41] LABS: Blood, Urine Negative (Negative); Color,Urine ORANGE (Yellow); Glucose,Urine (UA) Negative (Negative); Ketones,Urine Negative (Negative); Leukocyte Esterase,Urine Negative (Negative); Nitrate,Urine Negative (Negative); Protein,Urine 2+ (Negative); Specific Gravity, Urine 1.025 (1.005-1.030)
[2024-09-16] MEDS: SODIUM CHLORIDE 0.9% 10ML SYR (RAD ONLY) 10 ML IV (17:45)
[2024-09-16] MEDS: 0.9 % SODIUM CHLORIDE 50 ML VIAL IV ×2 (17:45→17:52)
[2024-09-16] MEDS: IOPAMIDOL-370 (76%);100ML BOTTLE 85 ML IV (17:45)
[2024-09-16] MEDS: IOPAMIDOL-370 (76%);100ML BOTTLE 80 ML IV (17:53)
[2024-09-16 17:55] LABS: Appearance,Urine Slightly Cloudy (Clear); Bilirubin,Urine 1+ (Negative)
[2024-09-16 18:02] LABS: Squamous Epithelial Cell,Urine Occasional #/hpf (0-5)
[2024-09-16 18:03] LABS: Bacteria,Urine Trace /lpf; Hyaline Casts,Urine OCC #/lpf (0)
[2024-09-16 18:37] LABS: Troponin I 0.02 ng/ml (0.00-0.034)
--- NOTE | 2024-09-16 19:28 | EXP.HP ---
History of Present Illness *Admission Date: 09/16/24 *Reason for visit:: Syncope *History of present illness: 85-year-old male presents for a syncopal episode at the doctor's office. States he was in the waiting room and did not know how he got there. He has no prodrome. Did not fall and subsequent trauma but apparently was placed in a chair by someone next to him. He has had a similar episode 1 week ago. Additionally he is also complaining of decreased exercise stress walk without becoming dyspneic, additionally is having abdominal swelling lower extremity swelling. Denies any palpitations Additionally he was also complaining of hematochezia. He has not had a colonoscopy in 15 years. He spoke to his doctor about this GI bleeding told him to stop taking his Eliquis and his bleeding is resolved. Discussed he will need to resume anticoagulation now for stroke risk and PHL3AT6-ALPs risk. Patient agreeable. Also having right upper quadrant pain has been present for greater than 1 week. No fever, chills or infectious symptoms. He reportedly had a left heart catheterization a few months ago at [facility]. Will need records. History is independently obtained. Discussed case with other physicians including ER records 5-year-old male. Independently interpreted CTA, EKG, chest x-ray and laboratory findings. [facility] Disclaimer: The information contained in this section may have been updated after the patient was seen, as this information can be updated by other users. 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 (Reviewed 09/16/24 @ 18:12 by Lizbeth King ([facility] NETWORKING ADMINISTRATOR) HLD (hyperlipidemia) Positive laboratory testing for human immunodeficiency virus Nausea & vomiting Abdominal pain, epigastric Chronic back pain greater than 3 months duration HFrEF (heart failure with reduced ejection fraction) Polypharmacy Rash Retained myringotomy tube Hearing difficulty of right ear Otorrhea of right ear Otalgia, right ear BMI 39.0-39.9,adult [place] and COPD overlap syndrome OAB (overactive bladder) CHF (congestive heart failure) Diabetes mellitus Afib HHD (hypertensive heart disease) CAD (coronary artery disease) Surgical History (Reviewed 09/16/24 @ 18:12 by Lizbeth King ([facility]), NETWORKING ADMINISTRATOR) History of left inguinal hernia repair History of umbilical hernia repair History of left heart catheterization (LHC) Hx of CABG Family History (Reviewed 09/16/24 @ 18:12 by Lizbeth King ([facility]), NETWORKING ADMINISTRATOR) Father Mother Tuberculosis Father Coronary artery disease Mother Social History (Reviewed 09/16/24 @ 18:12 by Lizbeth King ([facility]), NETWORKING ADMINISTRATOR) Smoking Status: Former smoker years smoked: 30 smoking status stop date: 1992 alcohol intake: former substance use type: denies use current occupational status: retired and disabled Travel in the last 8 weeks?: None Have you lived/traveled outside US in past 30 days?: No Contact w/someone who lives/traveled outside US past 30 days?: No Exposure to someone with infectious disease in past 14 days?: No Do you have a fever (greater than 100.4 F or 38 C)?: No Have you tested positive for COVID-19?: No Exposed to someone with COVID-19 in past 14 days?: No Do you have a sore throat?: No Do you have a cough?: No Do you have any weakness?: No Do you have any diarrhea?: No Are you experiencing any unusual bleeding?: No Do you have any muscle aches/pain?: No Do you have any abdominal pain?: No Are you experiencing loss of taste or smell?: No Other 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 Have you received the Flu Vaccine for this season: No Have you received the Pneumonia Vaccine: Yes Review of Systems Review of Systems Review of systems:: pertinent systems reviewed and negative unless documented below Constitutional Constitutional: Denies body ache(s), Denies chills and Reports lethargy Eyes Eyes: Denies blurry vision and Denies change in vision ENT Ears, Nose, Mouth, and Throat: Denies disequilibrium and Denies dizziness *Cardiovascular Cardiovascular: Denies chest pain, Reports dyspnea, Reports dyspnea on exertion, Reports edema, Reports irregular heart rhythm and Reports syncope *Respiratory Respiratory: Reports dyspnea and Reports dyspnea on exertion *Gastrointestinal Gastrointestinal: Reports change in bowel habits, Reports change in stool character, Denies cramping and Reports hematochezia *Genitourinary Genitourinary: Reports system reviewed and no additional complaints, except as documented *Musculoskeletal Musculoskeletal: Denies arthralgias and Reports joint swelling *Neurologic Neurologic: Denies disequilibrium, Denies dizziness and Reports syncope Meds Home Medications and Allergies Home Medications ?Medication ?Instructions ?Recorded ?Confirmed ?Type midodrine 5 mg tablet 2.5 mg (1/2 x 5 mg) PO TID #90 tabs 02/24/24 09/16/24 Rx fluticasone 250 mcg-salmeterol 50 1 inh inhalation BID #60 ea 03/13/24 09/16/24 Rx mcg/dose blistr powdr for inhalation aspirin 81 mg tablet,delayed 81 mg PO AM 04/07/24 09/16/24 History release blood sugar diagnostic (Accu-Chek 04/07/24 09/16/24 History Guide test strips) insulin NPH-regular 70-30 U-100 40 unit SQ BID 04/07/24 09/16/24 History insulin 100 unit/mL subcutaneous pen (Novolin 70-30 FlexPen U-100 Insulin) pantoprazole 40 mg tablet,delayed 40 mg PO DAILY #30 tabs 04/08/24 09/16/24 Rx release (Protonix) finasteride 5 mg tablet 5 mg PO DAILY #90 tabs 05/13/24 09/16/24 Rx gabapentin 300 mg capsule 300 mg PO TIDP PRN Pain (Scale 06/22/24 09/16/24 Rx Score 1-6) #90 caps lactulose 20 gram/30 mL oral 20 g (30 mL) PO BID #1,800 mL 07/29/24 09/16/24 Rx solution ondansetron HCl 4 mg tablet 4 mg PO TID #90 tabs 07/29/24 09/16/24 Rx hydrocodone 7.5 mg-acetaminophen 1 tab PO Q8H PRN pain #90 tabs 08/19/24 09/16/24 Rx 325 mg tablet albuterol sulfate 90 mcg/actuation 2 inh inhalation QIDP PRN 08/26/24 09/16/24 Rx aerosol inhaler Shortness Of Breath Or Wheezing #8.5 grams apixaban 5 mg tablet (Eliquis) 5 mg PO BID #60 tabs 08/26/24 09/16/24 Rx atorvastatin 40 mg tablet 40 mg PO HS #90 tabs 08/26/24 09/16/24 Rx clopidogrel 75 mg tablet 75 mg PO AM #90 tabs 08/26/24 09/16/24 Rx digoxin 125 mcg (0.125 mg) tablet 125 mcg PO DAILY #90 tabs 08/26/24 09/16/24 Rx metoprolol succinate 25 mg 25 mg PO BID #90 tabs 08/26/24 09/16/24 Rx tablet,extended release 24 hr (Toprol XL) pantoprazole 40 mg tablet,delayed 40 mg PO DAILY #90 tabs 08/26/24 09/16/24 Rx release (Protonix) potassium chloride 20 mEq 20 meq PO DAILY #90 tabs 08/26/24 09/16/24 Rx tablet,extended release(part/cryst) trazodone 50 mg tablet 50 mg PO HS #90 tabs 08/26/24 09/16/24 Rx erythromycin 5 mg/gram (0.5 %) eye 0.5 inch ophthalmic (eye) BID #3.5 09/07/24 09/16/24 Rx ointment grams furosemide 20 mg tablet 20 mg PO DAILY PRN Edema #90 tabs 09/11/24 09/16/24 Rx New Prescriptions to Start Prescriptions: Allergies Allergy/AdvReac Type Severity Reaction Status Date / Time amoxicillin (From Augmentin) Allergy Severe edema Verified 09/16/24 14:58 ciprofloxacin (From Cipro) Allergy Severe Redness of Verified 09/16/24 14:58 Skin clavulanic acid (From Allergy Severe edema Verified 09/16/24 14:58 Augmentin) prednisone AdvReac Intermediate Agitated Verified 09/16/24 14:58 Exam Data for Last 24 hours Vital signs and Labs for Last 24 Hours: Temp Pulse Resp BP Pulse Ox O2 Del Method 98 F 79 20 158/84 H 95 Room Air 09/16/24 16:40 09/16/24 18:31 09/16/24 18:31 09/16/24 18:31 09/16/24 18:31 09/16/24 18:31 Laboratory Results - last 24 hr 09/16/24 16:25: WBC 4.0 L, RBC 4.24 L, Hgb 11.1 L, Hct 36.2 L, MCV 85.4, MCH 26.2 L, MCHC 30.7 L, RDW 18.7 H, Plt Count 124 L, MPV 9.2, Neut % (Auto) 62.3, Lymph % (Auto) 18.6, [place] % (Auto) 10.2 H, Eos % (Auto) 7.9, Baso % (Auto) 0.5, Neut # (Auto) 2.5, Lymph # (Auto) 0.8, [place] # (Auto) 0.4, Eos # (Auto) 0.3, Baso # (Auto) 0.0, PT 12.7 H, INR 1.15 H, APTT 28.6, Sodium 141, Potassium 3.9, Chloride 110 H, Carbon Dioxide 29, Anion Gap 5.9, BUN 16, Creatinine 1.20, Estimated Creat Clear 85, Estimated GFR 58 L, Est GFR ( Amer) 70, Glucose 69 L, Calcium 8.5, Phosphorus 3.6, Magnesium 1.7, Total Bilirubin 1.2, AST 37, ALT 24, Alkaline Phosphatase 229 H, Troponin I 0.02, NT-Pro-B Natriuret Pep 1960 H, Total Protein 6.8, Albumin 3.6, Globulin 3.2, Albumin/Globulin Ratio 1.1 09/16/24 17:17: Urine Color [place], Urine Appearance Slightly cloudy, Urine pH 6.0, Ur Specific [place] 1.025, Urine Protein 2+ A, Urine Glucose (UA) Negative, Urine Ketones Negative, Urine Blood Negative, Urine Nitrate Negative, Urine Bilirubin 1+ A, Urine Urobilinogen 4.0, Ur Leukocyte Esterase Negative, Urine RBC None, Urine WBC 3-5, Ur Squamous Epith Cells Occasional, Urine Bacteria Trace, Hyaline Casts Occ I & O for Last 24 hours: Intake & Output 09/13/24 09/14/24 09/15/24 09/16/24 23:59 23:59 23:59 23:59 Weight 126.099 kg Constitutional Constitutional: no acute distress *Routine HEENT Exam Head: Present normocephalic Eye: Present EOMI and PERRL ENT: Present mucous membranes moist *Routine Neck Exam Neck: Present supple and carotid bruit; Absent lymphadenopathy *Routine Respiratory Exam Respiratory: Present CTA bilaterally *Routine Cardiovascular Exam Cardiovascular: Present Normal S1, Normal S2 and irregular rhythm; Absent murmur *Routine Abdominal Exam Abdominal: Present soft, normoactive bowel sounds, tenderness and distended *Routine Rectal Exam Rectal:: deferred *Routine Genitalia Exam Genitalia:: deferred *Routine Extremities Exam Extremities: Present edema; Absent cyanosis or clubbing *Routine Skin Exam Skin: Present warm; Absent rash *Routine Neurological Exam Neurological: Present alert and oriented X3 Assessment and Plan *Assessment and plan (1) Syncope: Status: Acute Category: Medical Code(s): R55 - Syncope and collapse (2) Acute decompensated heart failure: Status: Acute Category: Medical Code(s): I50.9 - Heart failure, unspecified (3) Cholecystitis: Status: Acute Category: Medical Code(s): K81.9 - Cholecystitis, unspecified (4) CAD (coronary artery disease): Problem Comment: MIRELLA and angioplasty (2021) per [facility] in [place] Recent Cath in 08/2020 showed Occluded SVG X 2, patent KINCAID to LAD, patient SVG to diagonal, severe disease OM in 1 stent, mid circ. Medical management in 2018. MIRELLA in 2012. Hx of CABG. Status: Chronic Qualifiers: Coronary Disease-Associated Artery/Lesion type: [place] artery [place] vs. transplanted heart: [place] heart Associated angina: without angina Qualified Code(s): I25.10 - Atherosclerotic heart disease of [place] coronary artery without angina pectoris Category: Medical Code(s): I25.10 - Atherosclerotic heart disease of [place] coronary artery without angina pectoris (5) Afib: Status: Chronic Qualifiers: Atrial fibrillation type: chronic Qualified Code(s): I48.2 - Chronic atrial fibrillation Category: Medical Code(s): I48.91 - Unspecified atrial fibrillation (6) Obesity: Status: Chronic Qualifiers: Obesity type: due to excess calories Obesity classification: adult class 2 (BMI 35 - 39.9) Serious obesity comorbidity presence: without serious comorbidity Body mass index: BMI 39.0-39.9 Qualified Code(s): E66.09 - Other obesity due to excess calories; Z68.39 - Body mass index (BMI) 39.0-39.9, adult Category: Medical Code(s): E66.9 - Obesity, unspecified (7) Edema of both lower extremities: Status: Acute Category: Medical Code(s): R60.0 - Localized edema (8) Diabetes mellitus: Status: Chronic Qualifiers: Diabetes mellitus type: type 2 Diabetes mellitus prison insulin use: with termite treater use Diabetes mellitus complication status: without complication Qualified Code(s): E11.9 - Type 2 diabetes mellitus without complications; 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 Category: Medical Code(s): E11.9 - Type 2 diabetes mellitus without complications (9) HLD (hyperlipidemia): Status: Acute Qualifiers: Hyperlipidemia type: mixed hyperlipidemia Qualified Code(s): E78.2 - Mixed hyperlipidemia Category: Medical Code(s): E78.5 - Hyperlipidemia, unspecified (10) Pulmonary edema: Status: Acute Qualifiers: Chronicity: acute Qualified Code(s): J81.0 - Acute pulmonary edema Category: Medical Code(s): J81.1 - Chronic pulmonary edema (11) Hematochezia: Status: Acute Category: Medical Code(s): K92.1 - Melena Plan drop Syncope no prodrome - At this time concern for cardiogenic etiology, likely HF exacerbation vs arrhythmia (suspect tachy, possibly teresa). Cannot exclude vasovagal from cholecystitis but unlikely - Continuous telemetry monitoring - Holter monitor on discharge - Echo ordered - carotid bruits auscultated, will order carotid duplex acute decompensated heart failure exacerbation Heart failure reduced ejection fraction Nyha 3 ACC C - Lasix 40 IV twice daily , goal output 2-3 l net negative per day - resume GDMT - discontinue midodrine as increased SVR from this medication in LV dysfunction worsens outcomes and HF progression - cardiology consult - will need to get [facility] Cholecystitis, symptomatic - CT with moderate inflamed and pericholecystic fluid surrounding gallbladder - right upper quadrant ultrasound ordered - General Surgery consultation for eval of cholecystectomy - Ceftriaxone 1 g IV daily and metronidazole 500 mg every 8 hours hematochezia, last known bleed 1 week ago - eliquis was help outpatient due to GIB - needs DOAC given elevated chadsvasc - will do lovenox 1mg / kg bid now - consult GI for C-scope eval chronic atrial fibrillation, rate controlled - Continue digoxin for now, will check dig level. consider discontinuation and uptittation of toprol following diuresis - Continue Toprol, per above - will start lovenox 1mg/kg bnid - will need to resume DOAC prior to discharge Coronary artery disease status post CABG - Continue medical therapy for secondary prevention and risk factor modification - Previously on triple therapy, discontinue aspirin continue clopidogrel and Eliquis on discharge
[2024-09-16] MEDS: FUROSEMIDE 20 MG/2 ML VIAL 40 MG IV (19:57)
[2024-09-16] MEDS: PANTOPRAZOLE 40MG TABLET 40 MG PO (20:00)
[2024-09-16 20:02] LABS: Troponin I 0.02 ng/ml (0.00-0.034)
--- NOTE | 2024-09-16 20:03 | HMH.ITSTN ---
perform exam in the AM per
--- NOTE | 2024-09-16 20:30 | PC.NURSE ---
attempted to call report, RN stated he would call me back
--- NOTE | 2024-09-16 20:53 | PC.NURSE ---
Patient arrived to floor via wheelchair from ED at 20:52.
--- NOTE | 2024-09-16 21:37 | PC.NURSE ---
patient unaware of home medications, med rec not completed
[2024-09-16] MEDS: CEFTRIAXONE SODIUM 1 GM in 0.9 % SODIUM CHLORIDE 50 ML IV (22:00)
[2024-09-16] MEDS: metroNIDAZOLE 500 MG TABLET PO (22:07)
[2024-09-16] MEDS: HYDROCODONE/APAP 5/325 MG TABLET 1 TAB PO (23:17)
[2024-09-16 23:40] LABS: Troponin I 0.02 ng/ml (0.00-0.034)
[2024-09-17] VITALS (20 sets, daily range): BP systolic 119–165; BP diastolic 64–102; PULSE 68–125; RESP 16–18; TEMP 36.4–37; O2SAT 93–100; BMI 34.5
--- NOTE | 2024-09-17 | US_ITS ---
FINAL REPORT CLINICAL HISTORY: PAIN-- abn ct COMPARISON: None FINDINGS: Sonographic images of the right upper quadrant were obtained. The pancreas is obscured.The liver has an unremarkable appearance. Gallbladder wall thickening is present, the gallbladder wall measuring between 6 and 8 mm in thickness. A small amount of pericholecystic fluid is noted. There is sludge in the gallbladder without definite stones identified. There is no evidence of biliary ductal dilatation.The common duct measures 4mm. Limited images of the right kidney are unremarkable. IMPRESSION: Gallbladder wall thickening, with a small amount of pericholecystic fluid. Sludge is present in the gallbladder without definite stones identified, although stones were seen on the CT from 09/17/2024. The findings are worrisome for acute cholecystitis. No parenchymal abnormality is seen in the liver on today's examination, although abnormal density was noted on the prior CT from earlier today. Reviewed, Interpreted and Dictated by Damir Palmer MD Transcribed by Racquel Penaloza Authenticated and [facility]
--- NOTE | 2024-09-17 04:03 | PC.NURSE ---
New Admit. v/s, ox4. Pt denied dizziness. Pt c/o pain, treated per JUL. plan of care on going.
--- NOTE | 2024-09-17 06:00 | CA_ITS ---
FINAL REPORT TECHNIQUE: Chong scale, color and spectral doppler images of the bilateral carotid arteries were obtained. CLINICAL HISTORY: syncope, a-fib, cad, confusion COMPARISON: None FINDINGS: Peak systolic velocity in the right internal carotid artery is 82 cm/sec. The internal carotid to common carotid artery ratio is 1.97. There is no significant carotid artery stenosis and mild plaque formation. The right vertebral artery is normal in direction. Peak systolic velocity in the left internal carotid artery is 90 cm/sec. The internal carotid to common carotid artery ratio is 1.7. There is no significant carotid artery stenosis and mild plaque formation. The left vertebral artery is normal in direction. IMPRESSION: No ultrasound evidence of hemodynamically significant carotid artery stenosis. Normal peak systolic velocities and normal internal to common carotid artery ratios bilaterally. Reviewed, Interpreted and Dictated by Damir Palmer MD Transcribed by Racquel Penaloza Authenticated and [facility]
[2024-09-17 06:04] LABS: POC Glucose,Bedside 83 (70-110)
[2024-09-17 06:16] LABS: Albumin Level 3.4 g/dl (3.5-5.0); Chloride 106 mmol/L (98-107); Sodium 138 mmol/L (136-145)
[2024-09-17 06:17] LABS: Potassium 3.4 mmoL/L (3.5-5.1)
[2024-09-17 06:19] LABS: Alanine Aminotransferase 21 U/L (12-78); Albumin/Globulin Ratio 1.1 (1.1-1.8); Alkaline Phosphatase 245 U/L (38-126); Aspartate Amino Transferase 32 U/L (17-59); Bilirubin,Total 1.1 mg/dl (0.2-1.3); Blood Urea Nitrogen 15 mg/dl (9-20); Cholesterol 149 mg/dl (140-200); Creatinine Clearance Estimated 90 mL/min (50-200); Estimated Glomerular Filt Rate 64 ml/min (>60); GFR (African American) 78 ML/MIN (>60); Phosphorous 3.7 mg/dl (2.5-4.5); Total Protein,Serum 6.4 g/dl (6.3-8.2); Triglycerides 69 mg/dl (30-150); VLDL Cholesterol 14 mg/dL (0-40)
[2024-09-17 06:20] LABS: Calcium 8.4 mg/dl (8.4-10.2); Chol/HDL Ratio 4.4 (1-3.5); Glucose 87 mg/dl (74-100); HDL Cholesterol 34 mg/dl (40-60); Magnesium 1.8 mg/dl (1.6-2.3)
[2024-09-17 06:25] LABS: Basophils % 0.5 % (0.1-2.0); Eosinophils # 0.3 Kmm3 (0.0-0.4); Eosinophils % 6.5 % (0.1-12.0); Hematocrit 34.2 % (42.0-52.0); Hemoglobin 10.7 g/dL (14.1-18.0); Immature Granulocytes # 0.01 10^3uL; Immature Granulocytes % 0.2 %; Lymphocytes # 0.9 K/mm3 (0.7-4.5); Lymphocytes % 22.1 % (10-50); Mean Corpuscular HGB Conc 31.3 g/dL (31.8-35.4); Mean Corpuscular Hemoglobin 26.4 pg (27.0-31.2); Mean Corpuscular Volume 84.2 fl (80-94); Mean Platelet Volume 9.5 fl (7.4-10.4); Monocytes # 0.4 K/mm3 (0.1-1.0); Monocytes % 9.9 % (1.7-9.3); Neutrophils # 2.5 K/mm3 (1.8-7.8); Neutrophils % 60.8 % (37.0-80.0); Nucleated Red Blood Cells # 0 10^3/uL; Nucleated Red Blood Cells % 0 %; Platelet Count 124 K/mm3 (142-424); Red Blood Count 4.06 M/mm3 (4.60-6.20); Red Cell Distribution Width 18.5 % (11.5-17.5); Red Cell Distribution Width-SD 56.7 fL
[2024-09-17 06:31] LABS: Direct LDL Cholesterol 78.84 mg/dL (100-129)
[2024-09-17 06:33] LABS: INR 1.19 (0.9-1.1); Prothrombin Time 13.1 seconds (10.1-12.5)
--- NOTE | 2024-09-17 07:18 | EXP.GE.CONS ---
History of Present Illness *Admission Date: 09/16/24 *History of present illness: Mr. Vasques is an 84-year-old gentleman who is admitted after having a syncopal spell in Dr. Fritz's office. The patient has had no dyspnea but has had recent bright red rectal bleeding that was marked for 3 days. This last occurred 6 days ago and his Eliquis was stopped. He states that he has not had a colonoscopy in 20 or 30 years. Also, the patient states that he has lost 50 pounds in the last year. He has had a lot of gassiness. With the bleeding he had a lot of bloating and some of this has resolved. He also reports right upper quadrant abdominal pain and his CAT scan did show gallbladder inflammation with moderate inflammatory changes and pericholecystic fluid. The findings were consistent with cholecystitis. He has not seen surgery yet. There was no biliary or pancreatic ductal dilation. His CT scan of the chest showed some mild CHF. Labs showed white blood cell count 4.0, hemoglobin 10.7 and hematocrit 34.2. There is not a marked change in his hemoglobin hematocrit since April 2024. The patient has had chronically elevated alkaline phosphatase and on admission was 245. This has been been gradually increasing over the last 5 to 7 years. His transaminases and bilirubin are normal. The patient does report diarrhea with his rectal bleeding. He does report prior occasional spotting of blood on the tissue when he strains but he has never had this marked bleeding. He does report the right upper quadrant abdominal pain for the last 2 to 3 days. [facility] Disclaimer: The information contained in this section may have been updated after the patient was seen, as this information can be updated by other users. 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 HLD (hyperlipidemia) Positive laboratory testing for human immunodeficiency virus Nausea & vomiting Abdominal pain, epigastric Chronic back pain greater than 3 months duration HFrEF (heart failure with reduced ejection fraction) Polypharmacy Rash Retained myringotomy tube Hearing difficulty of right ear Otorrhea of right ear Otalgia, right ear BMI 39.0-39.9,adult [place] and COPD overlap syndrome OAB (overactive bladder) CHF (congestive heart failure) Diabetes mellitus Afib HHD (hypertensive heart disease) CAD (coronary artery disease) Surgical History History of left inguinal hernia repair History of umbilical hernia repair History of left heart catheterization (LHC) Hx of CABG Family History Mother Coronary artery disease Father Tuberculosis Social History Smoking Status: Former smoker years smoked: 30 smoking status stop date: 1992 alcohol intake: former substance use type: denies use current occupational status: retired and disabled Travel in the last 8 weeks?: None Have you lived/traveled outside [place] in past 30 days?: No Contact w/someone who lives/traveled outside [place] past 30 days?: No Exposure to someone with infectious disease in past 14 days?: No Do you have a fever (greater than 100.4 F or 38 C)?: No Have you tested positive for COVID-19?: No Exposed to someone with COVID-19 in past 14 days?: No Do you have a sore throat?: No Do you have a cough?: No Do you have any weakness?: No Are you experiencing any nausea/vomitting?: No Do you have any diarrhea?: No Are you experiencing any unusual bleeding?: No Do you have any muscle aches/pain?: No Do you have any abdominal pain?: No Are you experiencing loss of taste or smell?: No Review of Systems ENT Ears, Nose, Mouth, and Throat: Denies disequilibrium and Denies dizziness *Cardiovascular Cardiovascular: Reports syncope *Neurologic Neurologic: Denies disequilibrium, Denies dizziness and Reports syncope Meds Home Medications and Allergies Home Medications ?Medication ?Instructions ?Recorded ?Confirmed ?Type blood sugar diagnostic (Accu-Chek 04/07/24 09/17/24 History Guide test strips) pantoprazole 40 mg tablet,delayed 40 mg PO DAILY #30 tabs 04/08/24 09/17/24 Rx release (Protonix) lactulose 20 gram/30 mL oral 20 g (30 mL) PO BID #1,800 mL 07/29/24 09/17/24 Rx solution ondansetron HCl 4 mg tablet 4 mg PO TID #90 tabs 07/29/24 09/17/24 Rx albuterol sulfate 90 mcg/actuation 2 inh inhalation QIDP PRN 08/26/24 09/17/24 Rx aerosol inhaler Shortness Of Breath Or Wheezing #8.5 grams apixaban 5 mg tablet (Eliquis) 5 mg PO BID #60 tabs 08/26/24 09/17/24 Rx atorvastatin 40 mg tablet 40 mg PO HS #90 tabs 08/26/24 09/17/24 Rx digoxin 125 mcg (0.125 mg) tablet 125 mcg PO DAILY #90 tabs 08/26/24 09/17/24 Rx metoprolol succinate 25 mg 25 mg PO BID #90 tabs 08/26/24 09/17/24 Rx tablet,extended release 24 hr (Toprol XL) potassium chloride 20 mEq 20 meq PO DAILY #90 tabs 08/26/24 09/17/24 Rx tablet,extended release(part/cryst) trazodone 50 mg tablet 50 mg PO HS #90 tabs 08/26/24 09/17/24 Rx clopidogrel 75 mg tablet 75 mg PO DAILY 09/17/24 09/17/24 History furosemide 20 mg tablet 20 mg PO DAILY PRN Edema 09/17/24 09/17/24 History gabapentin 300 mg capsule 300 mg PO TIDP PRN neuropathic pain 09/17/24 09/17/24 History hydrocodone 7.5 mg-acetaminophen 1 tab PO TIDP PRN pain 09/17/24 09/17/24 History 325 mg tablet insulin NPH-regular 70-30 U-100 40 unit SQ BID 09/17/24 09/17/24 History insulin 100 unit/mL subcutaneous pen (Humulin 70/30 U-100 KwikPen) New Prescriptions to Start Prescriptions: Allergies Allergy/AdvReac Type Severity Reaction Status Date / Time amoxicillin (From Augmentin) Allergy Severe edema Verified 09/16/24 14:58 ciprofloxacin (From Cipro) Allergy Severe Redness of Verified 09/16/24 14:58 Skin clavulanic acid (From Allergy Severe edema Verified 09/16/24 14:58 Augmentin) prednisone AdvReac Intermediate Agitated Verified 09/16/24 14:58 Exam (Inpt) Vital signs and Labs for Last 24 Hours: Temp Pulse Resp BP Pulse Ox O2 Del Method 97.9 F 80 17 133/75 96 Room Air 09/17/24 04:00 09/17/24 04:00 09/17/24 04:00 09/17/24 04:00 09/17/24 04:00 09/17/24 06:11 Laboratory Results - last 24 hr 09/16/24 16:25: WBC 4.0 L, RBC 4.24 L, Hgb 11.1 L, Hct 36.2 L, MCV 85.4, MCH 26.2 L, MCHC 30.7 L, RDW 18.7 H, Plt Count 124 L, MPV 9.2, Neut % (Auto) 62.3, Lymph % (Auto) 18.6, Crowley % (Auto) 10.2 H, Eos % (Auto) 7.9, Baso % (Auto) 0.5, Neut # (Auto) 2.5, Lymph # (Auto) 0.8, Crowley # (Auto) 0.4, Eos # (Auto) 0.3, Baso # (Auto) 0.0, PT 12.7 H, INR 1.15 H, APTT 28.6, Sodium 141, Potassium 3.9, Chloride 110 H, Carbon Dioxide 29, Anion Gap 5.9, BUN 16, Creatinine 1.20, Estimated Creat Clear 85, Estimated GFR 58 L, Est GFR ( Amer) 70, Glucose 69 L, Calcium 8.5, Phosphorus 3.6, Magnesium 1.7, Total Bilirubin 1.2, AST 37, ALT 24, Alkaline Phosphatase 229 H, Troponin I 0.02, NT-Pro-B Natriuret Pep 1960 H, Total Protein 6.8, Albumin 3.6, Globulin 3.2, Albumin/Globulin Ratio 1.1 09/16/24 16:45: Digoxin 0.60 09/16/24 17:17: Urine Color Guinda, Urine Appearance Slightly cloudy, Urine pH 6.0, Ur Specific Wilson 1.025, Urine Protein 2+ A, Urine Glucose (UA) Negative, Urine Ketones Negative, Urine Blood Negative, Urine Nitrate Negative, Urine Bilirubin 1+ A, Urine Urobilinogen 4.0, Ur Leukocyte Esterase Negative, Urine RBC None, Urine WBC 3-5, Ur Squamous Epith Cells Occasional, Urine Bacteria Trace, Hyaline Casts Occ 09/16/24 19:30: Troponin I 0.02 09/16/24 23:05: Troponin I 0.02 09/17/24 05:28: WBC 4.0 L, RBC 4.06 L, Hgb 10.7 L, Hct 34.2 L, MCV 84.2, MCH 26.4 L, MCHC 31.3 L, RDW 18.5 H, Plt Count 124 L, MPV 9.5, Neut % (Auto) 60.8, Lymph % (Auto) 22.1, Crowley % (Auto) 9.9 H, Eos % (Auto) 6.5, Baso % (Auto) 0.5, Neut # (Auto) 2.5, Lymph # (Auto) 0.9, Crowley # (Auto) 0.4, Eos # (Auto) 0.3, Baso # (Auto) 0.0, PT 13.1 H, INR 1.19 H, Sodium 138, Potassium 3.4 L, Chloride 106, Carbon Dioxide 27, BUN 15, Creatinine 1.10, Estimated Creat Clear 90, Estimated GFR 64, Est GFR ( Amer) 78, Glucose 87 D, Calcium 8.4, Phosphorus 3.7, Magnesium 1.8, Total Bilirubin 1.1, AST 32, ALT 21, Alkaline Phosphatase 245 H, Total Protein 6.4, Albumin 3.4 L, Globulin 3.0, Albumin/Globulin Ratio 1.1, Triglycerides 69, Cholesterol 149, LDL Cholesterol Direct 78.84 L, VLDL Cholesterol 14, HDL Cholesterol 34 L, Cholesterol/HDL Ratio 4.4 H 09/17/24 05:56: POC Glucose 83 I & O for Labs for Last 24 Hours: Intake & Output 09/14/24 09/15/24 09/16/24 09/17/24 23:59 23:59 23:59 23:59 Intake Total 120 / 120 Output Total 1320 / 1320 1700 / 1700 Balance -1320 / -1200 -1580 / -1580 Weight 273 lb 8 oz 269 lb 8 oz Comments:: Tenderness in the right upper quadrant with possible Mallory's Results Labs 09/17/24 05:28 09/17/24 05:28 Labs: Laboratory Results - last 24 hr 09/16/24 16:25: WBC 4.0 L, RBC 4.24 L, Hgb 11.1 L, Hct 36.2 L, MCV 85.4, MCH 26.2 L, MCHC 30.7 L, RDW 18.7 H, Plt Count 124 L, MPV 9.2, Neut % (Auto) 62.3, Lymph % (Auto) 18.6, Crowley % (Auto) 10.2 H, Eos % (Auto) 7.9, Baso % (Auto) 0.5, Neut # (Auto) 2.5, Lymph # (Auto) 0.8, Crowley # (Auto) 0.4, Eos # (Auto) 0.3, Baso # (Auto) 0.0, PT 12.7 H, INR 1.15 H, APTT 28.6, Sodium 141, Potassium 3.9, Chloride 110 H, Carbon Dioxide 29, Anion Gap 5.9, BUN 16, Creatinine 1.20, Estimated Creat Clear 85, Estimated GFR 58 L, Est GFR ( Amer) 70, Glucose 69 L, Calcium 8.5, Phosphorus 3.6, Magnesium 1.7, Total Bilirubin 1.2, AST 37, ALT 24, Alkaline Phosphatase 229 H, Troponin I 0.02, NT-Pro-B Natriuret Pep 1960 H, Total Protein 6.8, Albumin 3.6, Globulin 3.2, Albumin/Globulin Ratio 1.1 09/16/24 16:45: Digoxin 0.60 09/16/24 17:17: Urine Color Guinda, Urine Appearance Slightly cloudy, Urine pH 6.0, Ur Specific Wilson 1.025, Urine Protein 2+ A, Urine Glucose (UA) Negative, Urine Ketones Negative, Urine Blood Negative, Urine Nitrate Negative, Urine Bilirubin 1+ A, Urine Urobilinogen 4.0, Ur Leukocyte Esterase Negative, Urine RBC None, Urine WBC 3-5, Ur Squamous Epith Cells Occasional, Urine Bacteria Trace, Hyaline Casts Occ 09/16/24 19:30: Troponin I 0.02 09/16/24 23:05: Troponin I 0.02 09/17/24 05:28: WBC 4.0 L, RBC 4.06 L, Hgb 10.7 L, Hct 34.2 L, MCV 84.2, MCH 26.4 L, MCHC 31.3 L, RDW 18.5 H, Plt Count 124 L, MPV 9.5, Neut % (Auto) 60.8, Lymph % (Auto) 22.1, Crowley % (Auto) 9.9 H, Eos % (Auto) 6.5, Baso % (Auto) 0.5, Neut # (Auto) 2.5, Lymph # (Auto) 0.9, Crowley # (Auto) 0.4, Eos # (Auto) 0.3, Baso # (Auto) 0.0, PT 13.1 H, INR 1.19 H, Sodium 138, Potassium 3.4 L, Chloride 106, Carbon Dioxide 27, BUN 15, Creatinine 1.10, Estimated Creat Clear 90, Estimated GFR 64, Est GFR ( Amer) 78, Glucose 87 D, Calcium 8.4, Phosphorus 3.7, Magnesium 1.8, Total Bilirubin 1.1, AST 32, ALT 21, Alkaline Phosphatase 245 H, Total Protein 6.4, Albumin 3.4 L, Globulin 3.0, Albumin/Globulin Ratio 1.1, Triglycerides 69, Cholesterol 149, LDL Cholesterol Direct 78.84 L, VLDL Cholesterol 14, HDL Cholesterol 34 L, Cholesterol/HDL Ratio 4.4 H 09/17/24 05:56: POC Glucose 83 Assessment and Plan *Assessment and plan (1) Bright red blood per rectum: Status: Acute Category: Medical Code(s): K62.5 - Hemorrhage of anus and rectum (2) Hematochezia: Status: Acute Category: Medical Code(s): K92.1 - Melena (3) Right upper quadrant abdominal pain: Status: Acute Category: Medical Code(s): R10.11 - Right upper quadrant pain (4) Cholecystitis: Status: Acute Category: Medical Code(s): K81.9 - Cholecystitis, unspecified (5) Abnormal weight loss: Status: Acute Category: Medical Code(s): R63.4 - Abnormal weight loss Plan 1. Marked hematochezia. The patient has had only mild decline in hemoglobin. However, the patient has had significant weight loss and has not had a colonoscopy in 20 to 30 years. I would recommend that we do colonoscopy during this admission and would like to determine whether we can do rapid prep today. I would want him cleared by cardiology. 2. Right upper quadrant abdominal pain with CT scan evidence of cholecystitis. He will have ultrasound today. His alkaline phosphatase elevation is chronic and we will send additional testing to rule out intrahepatic cholestasis especially since his biliary tree does not appear dilated. General surgery has been consulted.
--- NOTE | 2024-09-17 07:56 | PC.NURSE ---
PT MED REC COMPLETED WITH EXTERNAL MED HISTORY
--- NOTE | 2024-09-17 07:58 | PC.NURSE ---
Per Dr. Oakley, pt must be cleared by cardiology before the possibility of a colonoscopy. holding bowel prep until pt cleared by cards.
[2024-09-17] MEDS: ACETAMINOPHEN 325MG TAB 650 MG PO (08:13)
--- NOTE | 2024-09-17 08:20 | P.CONS_ITS ---
History of Present Illness *Admission Date: 09/16/24 *Reason for visit:: Cholecystitis, cholecystectomy evaluation *History of present illness: Patient is an 84-year-old male from [facility] with a history of atrial fibrillation, coronary artery disease, heart failure, hyperlipidemia, interstitial lung disease, obstructive sleep apnea, coronary artery disease, diabetes. He is on Elliquis. Patient had been seen in [facility] recently with symptoms of rectal bleeding. Exact details unknown. He was seen in his primary care provider's office in follow-up on 09/16/24 after he was seen in outside facility. He had a syncopal episode in the office and was sent to the emergency department. In the emergency department he underwent thorough workup. He underwent CT angiogram which revealed no evidence of any obvious active acute GI bleeding. His CT angiogram did reveal pericholecystic fluid . In the emergency department patient complained of some right upper quadrant pain but it was unclear if this was acute or chronic. White blood cell count and transaminases are normal. Bilirubin normal. Alkaline phosphatase elevated. He was admitted for inpatient management to the hospitalist service. Hemoglobin is 11. This has been near his baseline hemoglobin for about the past 6 months however prior to that his hemoglobin appeared to be 12-13. Alkaline phosphatase 245 (normal range 38-126). Transaminases normal. Bilirubin normal. BUN/creatinine normal. I reviewed his CT imaging. It appears as though he has evidence of cirrhosis of the liver with some surrounding ascites. He has undergone gallbladder ultrasound. By report this reveals gallbladder wall thickening and pericholecystic fluid with sludge with no stones. This is read as findings are worrisome for acute cholecystitis. However this appears to show coarse appearance to the liver with a somewhat thickened gallbladder wall with no stones and some surrounding ascites. [facility] Disclaimer: The information contained in this section may have been updated after the patient was seen, as this information can be updated by other users. 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 , [employer]) HLD (hyperlipidemia) Positive laboratory testing for human immunodeficiency virus Nausea & vomiting Abdominal pain, epigastric Chronic back pain greater than 3 months duration HFrEF (heart failure with reduced ejection fraction) Polypharmacy Rash Retained myringotomy tube Hearing difficulty of right ear Otorrhea of right ear Otalgia, right ear BMI 39.0-39.9,adult [place] and COPD overlap syndrome OAB (overactive bladder) CHF (congestive heart failure) Diabetes mellitus Afib HHD (hypertensive heart disease) CAD (coronary artery disease) Surgical History , [employer]) History of left inguinal hernia repair History of umbilical hernia repair History of left heart catheterization (LHC) Hx of CABG Family History , SK[employer] MAN) Father Mother Tuberculosis Father Coronary artery disease Mother Social History (Updated 09/16/24 @ 21:30 by Esperanza Contreras RN) Smoking Status: Former smoker years smoked: 30 smoking status stop date: 1992 alcohol intake: former substance use type: denies use current occupational status: retired and disabled Travel in the last 8 weeks?: None Have you lived/traveled outside [place] in past 30 days?: No Contact w/someone who lives/traveled outside US past 30 days?: No Exposure to someone with infectious disease in past 14 days?: No Do you have a fever (greater than 100.4 F or 38 C)?: No Have you tested positive for COVID-19?: No Exposed to someone with COVID-19 in past 14 days?: No Do you have a sore throat?: No Do you have a cough?: No Do you have any weakness?: No Are you experiencing any nausea/vomitting?: No Do you have any diarrhea?: No Are you experiencing any unusual bleeding?: No Do you have any muscle aches/pain?: No Do you have any abdominal pain?: No Are you experiencing loss of taste or smell?: No Review of Systems ENT Ears, Nose, Mouth, and Throat: Denies disequilibrium and Denies dizziness *Cardiovascular Cardiovascular: Reports syncope *Neurologic Neurologic: Denies disequilibrium, Denies dizziness and Reports syncope Meds Home Medications and Allergies Home Medications ?Medication ?Instructions ?Recorded ?Confirmed ?Type blood sugar diagnostic (Accu-Chek 04/07/24 09/17/24 History Guide test strips) pantoprazole 40 mg tablet,delayed 40 mg PO DAILY #30 tabs 04/08/24 09/17/24 Rx release (Protonix) lactulose 20 gram/30 mL oral 20 g (30 mL) PO BID #1,800 mL 07/29/24 09/17/24 Rx solution ondansetron HCl 4 mg tablet 4 mg PO TID #90 tabs 07/29/24 09/17/24 Rx albuterol sulfate 90 mcg/actuation 2 inh inhalation QIDP PRN 08/26/24 09/17/24 Rx aerosol inhaler Shortness Of Breath Or Wheezing #8.5 grams apixaban 5 mg tablet (Eliquis) 5 mg PO BID #60 tabs 08/26/24 09/17/24 Rx atorvastatin 40 mg tablet 40 mg PO HS #90 tabs 08/26/24 09/17/24 Rx digoxin 125 mcg (0.125 mg) tablet 125 mcg PO DAILY #90 tabs 08/26/24 09/17/24 Rx metoprolol succinate 25 mg 25 mg PO BID #90 tabs 08/26/24 09/17/24 Rx tablet,extended release 24 hr (Toprol XL) potassium chloride 20 mEq 20 meq PO DAILY #90 tabs 08/26/24 09/17/24 Rx tablet,extended release(part/cryst) trazodone 50 mg tablet 50 mg PO HS #90 tabs 08/26/24 09/17/24 Rx clopidogrel 75 mg tablet 75 mg PO DAILY 09/17/24 09/17/24 History furosemide 20 mg tablet 20 mg PO DAILY PRN Edema 09/17/24 09/17/24 History gabapentin 300 mg capsule 300 mg PO TIDP PRN neuropathic pain 09/17/24 09/17/24 History hydrocodone 7.5 mg-acetaminophen 1 tab PO TIDP PRN pain 09/17/24 09/17/24 History 325 mg tablet insulin NPH-regular 70-30 U-100 40 unit SQ BID 09/17/24 09/17/24 History insulin 100 unit/mL subcutaneous pen (Humulin 70/30 U-100 KwikPen) New Prescriptions to Start Prescriptions: Allergies Allergy/AdvReac Type Severity Reaction Status Date / Time amoxicillin (From Augmentin) Allergy Severe edema Verified 09/16/24 14:58 ciprofloxacin (From Cipro) Allergy Severe Redness of Verified 09/16/24 14:58 Skin clavulanic acid (From Allergy Severe edema Verified 09/16/24 14:58 Augmentin) prednisone AdvReac Intermediate Agitated Verified 09/16/24 14:58 Exam (Inpt) Vital signs and Labs for Last 24 Hours: Temp Pulse Resp BP Pulse Ox O2 Del Method 97.5 F L 103 H 18 140/84 96 Room Air 09/17/24 07:54 09/17/24 07:54 09/17/24 07:54 09/17/24 07:54 09/17/24 07:54 09/17/24 07:54 Laboratory Results - last 24 hr 09/16/24 16:25: WBC 4.0 L, RBC 4.24 L, Hgb 11.1 L, Hct 36.2 L, MCV 85.4, MCH 26.2 L, MCHC 30.7 L, RDW 18.7 H, Plt Count 124 L, MPV 9.2, Neut % (Auto) 62.3, Lymph % (Auto) 18.6, Lander % (Auto) 10.2 H, Eos % (Auto) 7.9, Baso % (Auto) 0.5, Neut # (Auto) 2.5, Lymph # (Auto) 0.8, Lander # (Auto) 0.4, Eos # (Auto) 0.3, Baso # (Auto) 0.0, PT 12.7 H, INR 1.15 H, APTT 28.6, Sodium 141, Potassium 3.9, C hloride 110 H, Carbon Dioxide 29, Anion Gap 5.9, BUN 16, Creatinine 1.20, Estimated Creat Clear 85, Estimated GFR 58 L, Est GFR ( Amer) 70, Glucose 69 L, Calcium 8.5, Phosphorus 3.6, Magnesium 1.7, Total Bilirubin 1.2, AST 37, ALT 24, Alkaline Phosphatase 229 H, Troponin I 0.02, NT-Pro-B Natriuret Pep 1960 H, Total Protein 6.8, Albumin 3.6, Globulin 3.2, Albumin/Globulin Ratio 1.1 09/16/24 16:45: Digoxin 0.60 09/16/24 17:17: Urine Color [place], Urine Appearance Slightly cloudy, Urine pH 6.0, Ur Specific [place] 1.025, Urine Protein 2+ A, Urine Glucose (UA) Negative, Urine Ketones Negative, Urine Blood Negative, Urine Nitrate Negative, Urine Bilirubin 1+ A, Urine Urobilinogen 4.0, Ur Leukocyte Esterase Negative, Urine RBC None, Urine WBC 3-5, Ur Squamous Epith Cells Occasional, Urine Bacteria Trace, Hyaline Casts Occ 09/16/24 19:30: Troponin I 0.02 09/16/24 23:05: Troponin I 0.02 09/17/24 05:28: WBC 4.0 L, RBC 4.06 L, Hgb 10.7 L, Hct 34.2 L, MCV 84.2, MCH 26.4 L, MCHC 31.3 L, RDW 18.5 H, Plt Count 124 L, MPV 9.5, Neut % (Auto) 60.8, Lymph % (Auto) 22.1, Lander % (Auto) 9.9 H, Eos % (Auto) 6.5, Baso % (Auto) 0.5, Neut # (Auto) 2.5, Lymph # (Auto) 0.9, Lander # (Auto) 0.4, Eos # (Auto) 0.3, Baso # (Auto) 0.0, PT 13.1 H, INR 1.19 H, Sodium 138, Potassium 3.4 L, Chloride 106, Carbon Dioxide 27, BUN 15, Creatinine 1.10, Estimated Creat Clear 90, Estimated GFR 64, Est GFR ( Amer) 78, Glucose 87 D, Calcium 8.4, Phosphorus 3.7, Magnesium 1.8, Total Bilirubin 1.1, AST 32, ALT 21, Alkaline Phosphatase 245 H, Total Protein 6.4, Albumin 3.4 L, Globulin 3.0, Albumin/Globulin Ratio 1.1, Triglycerides 69, Cholesterol 149, LDL Cholesterol Direct 78.84 L, VLDL Cholesterol 14, HDL Cholesterol 34 L, Cholesterol/HDL Ratio 4.4 H 09/17/24 05:56: POC Glucose 83 I & O for Labs for Last 24 Hours: Intake & Output 09/14/24 09/15/24 09/16/24 09/17/24 11:59 11:59 11:59 11:59 Intake Total 120 / 120 Output Total 3020 / 3020 Balance -2900 / -2900 Weight 269 lb 8 oz Constitutional: no acute distress and chronically ill appearing Head: Present normocephalic Respiratory: Present decreased breath sounds Cardiac: Present S1/S2; Absent Regular Rhythm GI: Present soft and tenderness Comments:: Tender right upper quadrant Rectal (male): Present deferred (male): Present normal inspection Extremities: Present edema Comment:: Significant pitting edema Results Labs 09/17/24 05:28 09/17/24 05:28 Labs: Laboratory Results - last 24 hr 09/16/24 16:25: WBC 4.0 L, RBC 4.24 L, Hgb 11.1 L, Hct 36.2 L, MCV 85.4, MCH 26.2 L, MCHC 30.7 L, RDW 18.7 H, Plt Count 124 L, MPV 9.2, Neut % (Auto) 62.3, Lymph % (Auto) 18.6, Lander % (Auto) 10.2 H, Eos % (Auto) 7.9, Baso % (Auto) 0.5, Neut # (Auto) 2.5, Lymph # (Auto) 0.8, Lander # (Auto) 0.4, Eos # (Auto) 0.3, Baso # (Auto) 0.0, PT 12.7 H, INR 1.15 H, APTT 28.6, Sodium 141, Potassium 3.9, C hloride 110 H, Carbon Dioxide 29, Anion Gap 5.9, BUN 16, Creatinine 1.20, Estimated Creat Clear 85, Estimated GFR 58 L, Est GFR ( Amer) 70, Glucose 69 L, Calcium 8.5, Phosphorus 3.6, Magnesium 1.7, Total Bilirubin 1.2, AST 37, ALT 24, Alkaline Phosphatase 229 H, Troponin I 0.02, NT-Pro-B Natriuret Pep 1960 H, Total Protein 6.8, Albumin 3.6, Globulin 3.2, Albumin/Globulin Ratio 1.1 09/16/24 16:45: Digoxin 0.60 09/16/24 17:17: Urine Color [place], Urine Appearance Slightly cloudy, Urine pH 6.0, Ur Specific [place] 1.025, Urine Protein 2+ A, Urine Glucose (UA) Negative, Urine Ketones Negative, Urine Blood Negative, Urine Nitrate Negative, Urine Bilirubin 1+ A, Urine Urobilinogen 4.0, Ur Leukocyte Esterase Negative, Urine RBC None, Urine WBC 3-5, Ur Squamous Epith Cells Occasional, Urine Bacteria Trace, Hyaline Casts Occ 09/16/24 19:30: Troponin I 0.02 09/16/24 23:05: Troponin I 0.02 09/17/24 05:28: WBC 4.0 L, RBC 4.06 L, Hgb 10.7 L, Hct 34.2 L, MCV 84.2, MCH 26.4 L, MCHC 31.3 L, RDW 18.5 H, Plt Count 124 L, MPV 9.5, Neut % (Auto) 60.8, Lymph % (Auto) 22.1, [place]ander % (Auto) 9.9 H, Eos % (Auto) 6.5, Baso % (Auto) 0.5, Neut # (Auto) 2.5, Lymph # (Auto) 0.9, Lander # (Auto) 0.4, Eos # (Auto) 0.3, Baso # (Auto) 0.0, PT 13.1 H, INR 1.19 H, Sodium 138, Potassium 3.4 L, Chloride 106, Carbon Dioxide 27, BUN 15, Creatinine 1.10, Estimated Creat Clear 90, Estimated GFR 64, Est GFR ( Amer) 78, Glucose 87 D, Calcium 8.4, Phosphorus 3.7, Magnesium 1.8, Total Bilirubin 1.1, AST 32, ALT 21, Alkaline Phosphatase 245 H, Total Protein 6.4, Albumin 3.4 L, Globulin 3.0, Albumin/Globulin Ratio 1.1, Triglycerides 69, Cholesterol 149, LDL Cholesterol Direct 78.84 L, VLDL Cholesterol 14, HDL Cholesterol 34 L, Cholesterol/HDL Ratio 4.4 H 09/17/24 05:56: POC Glucose 83 Assessment and Plan *Assessment and plan (1) Right upper quadrant abdominal pain: Status: Acute Category: Medical Code(s): R10.11 - Right upper quadrant pain Plan He has imaging and laboratory studies suggestive of cirrhosis with some ascites. This may be a contributing factor for his right upper quadrant pain/tenderness and findings on CT scan of pericholecystic fluid and thickening of gallbladder wall. No definite evidence of acute cholecystitis at this time. He may have some degree of chronic cholecystitis. I would advise against cholecystectomy at this facility based on probable liver disease and other comorbidities.
[2024-09-17 08:25] LABS: Anion Gap 8.4 mEq/L (5-15); Carbon Dioxide 27 mmol/L (22.0-30.0)
--- NOTE | 2024-09-17 08:53 | HMH.PHAINT1 ---
Pharmacy Intervention Comments: home medication list verified using list from outpatient pharmacy and pt interview
[2024-09-17] MEDS: METOPROLOL SUCCINATE XL 25MG TABLET 25 MG PO (09:07)
[2024-09-17] MEDS: FUROSEMIDE 40MG/4ML VIAL 40 MG IV ×2 (09:07→16:43)
[2024-09-17] MEDS: metroNIDAZOLE 500 MG TABLET PO ×2 (09:07→16:43)
[2024-09-17] MEDS: PEG-ELECTROLYTE SOLN 4000ML BOTTLE 4000 ML PO (10:05)
--- NOTE | 2024-09-17 10:44 | CA_ITS ---
APPROVED REPORT EXAM: Comprehensive 2D, Doppler, and color-flow Echocardiogram Piece Marker Small Arms: Gillian Paniagua RVT Ht: 6 ft 2 in Wt: 269lbs BSA: 2.47 BP: 140/84 mmHg Indications: HFrEF,PRE-OP,HTN,EDEMA,ONEIDA,CABG,CAD,A-FIB,DM,EX SMOKER,SYNCOPE 2D Dimensions LA Volume 81.90 mL LA Volume Index 33.16 mL/m2 (M/F) 16-34 M-Mode Dimensions RVDd 2.75 cm (0.9-2.6) LA Diam 4.81 cm (1.9-4.0) LVDd 5.00 cm (3.5-5.7) LVDs 3.86 cm (3.5-5.7) IVSd 1.65 cm (0.6-1.1) PWd 0.38 cm (0.6-1.1) EF (Teich) 45.60% FS 22.80% EDV (Teich) 118.20 mL ESV (Teich) 64.30 mL Aortic Valve ROYAL Index 1.10 cm2/m2 AoV Peak Jacob. 84.0 (50-130 cm/s) AO Peak GR. 2.80 mmHg AO Mean GR. 1.60 (<5 mmHg) AO VTI 12.0 (18-25 cm) ROYAL (VTI) 2.76 (2.5-4.5 cm2) Pulmonary Valve PV Peak Velocity 51.0 (50-150 cm/s) Tricuspid Valve TR P. Velocity 332.00 cm/s RAP Estimate 10.00 mmHg RVSP 54.10 mmHg Left Ventricle The left ventricle is normal size. Left ventricular systolic function is mildly decreased. There is increased LV wall thickness. There is mild global hypokinesis present. Diastolic function is indeterminate. LVEF is 45%. Right Ventricle Right ventricle is moderately dilated. Right ventricle is mildly to moderately hypokinetic. Atria The left atrium severely dilated. Right atrium is severely dilated. Aortic Valve The aortic valve is mildly thickened. There is no aortic valvular stenosis. Mild aortic regurgitation. Mitral Valve Mild mitral annular calcification is present. The mitral valve leaflets are mildly thickened. No evidence of mitral valve stenosis. At least mild mitral regurgitation is present. The MR may be underestimated as the mitral valve regurgitant jet is eccentric and posteriorly directed. Tricuspid Valve Tricuspid valve is grossly normal in structure and function. Moderate tricuspid regurgitation. RVSP is 40-45 mmHg. Pulmonic Valve The pulmonary valve is normal in structure. Trace pulmonic regurgitation. Great Vessels The aortic root is normal in size. IVC is normal in size and collapses >50% with inspiration. Pericardium There is no pericardial effusion. Other Information Study Quality: Fair Conclusion mild reduction in LV systolic function (LVEF 45%). Moderate RV dilation with mild to moderate reduction in RV function. Severe biatrial dilation. Mild AI. At least mild MR is present. The MR jet is eccentric and may be underestimated. Moderate TR. Elevated RVSP 40-45 mmHg. Electronically signed by : Latia Santiago MD 09/17/2024 13:54:47
--- NOTE | 2024-09-17 11:19 | P.CONCA_ITS ---
History of Present Illness History of Present Illness Consult date: 09/17/24 Requesting physician: Clotilde Gutierrez Chief complaint: syncope History of present illness: 83-year-old white male established patient of Dr. Cordova in [place] with history of CABG, MIRELLA 10/2023, EF 45%, paroxysmal A-fib, COPD, diabetes, obesity. Patient has had 2 prior admissions here for syncope secondary to orthostasis in the setting of diarrhea. Patient reports she was at an outpatient visit yesterday, walked up 1 flight of stairs and when he got to the check in counter had episode of syncope which he states only lasted a few seconds. States he hit his elbow but they had a wheelchair already ready for him so he did not injure himself in any other way. Only symptom prior to episode was SOA from having walked up the stairs. He does complain here of RUQ pain and has several recent episodes of large quanity bright red blood per rectum. Notes indicate he was on triple therapy with DAPT and OAC until recently when OAC was discontinued. w/u reveals mild anemia with Hgb 10. Abominal CT and RUQ US indicate GB inflammation with sludge and stones concerning for acute cholecystitis. Nml WBC, afebrile. His RUQ is tender to even light palpation. Denies CP, palpitations. EKG shows A- fib with RBBB. Normal serial Trop. CT Chest shows mild CHF. No ProBNP done. Trop normal. [facility] Disclaimer: The information contained in this section may have been updated after the patient was seen, as this information can be updated by other users. 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 HLD (hyperlipidemia) Positive laboratory testing for human immunodeficiency virus Nausea & vomiting Abdominal pain, epigastric Chronic back pain greater than 3 months duration HFrEF (heart failure with reduced ejection fraction) Polypharmacy Rash Retained myringotomy tube Hearing difficulty of right ear Otorrhea of right ear Otalgia, right ear BMI 39.0-39.9,adult [place] and COPD overlap syndrome OAB (overactive bladder) CHF (congestive heart failure) Diabetes mellitus Afib HHD (hypertensive heart disease) CAD (coronary artery disease) Surgical History History of left inguinal hernia repair History of umbilical hernia repair History of left heart catheterization (LHC) Hx of CABG Family History Mother Coronary artery disease Father Tuberculosis Social History Smoking Status: Former smoker years smoked: 30 smoking status stop date: 1992 alcohol intake: former substance use type: denies use current occupational status: retired and disabled Travel in the last 8 weeks?: None Have you lived/traveled outside US in past 30 days?: No Contact w/someone who lives/traveled outside US past 30 days?: No Exposure to someone with infectious disease in past 14 days?: No Do you have a fever (greater than 100.4 F or 38 C)?: No Have you tested positive for COVID-19?: No Exposed to someone with COVID-19 in past 14 days?: No Do you have a sore throat?: No Do you have a cough?: No Do you have any weakness?: No Are you experiencing any nausea/vomitting?: No Do you have any diarrhea?: No Are you experiencing any unusual bleeding?: No Do you have any muscle aches/pain?: No Do you have any abdominal pain?: No Are you experiencing loss of taste or smell?: No Review of Systems Constitutional Constitutional: Denies fatigue and Denies weakness Eyes Eyes: Denies loss of vision ENT Ears, Nose, Mouth, and Throat: Denies disequilibrium and Denies dizziness *Cardiovascular Cardiovascular: Denies dyspnea and Reports syncope *Respiratory Respiratory: Denies cough and Denies dyspnea *Gastrointestinal Gastrointestinal: Denies change in stool character, Denies nausea and Denies vomiting Comments: severe RUQ pain to light palpation *Genitourinary Genitourinary: Denies difficulty urinating *Musculoskeletal Musculoskeletal: Denies muscle weakness Integumentary/Breasts Skin/Breast: Denies changing lesions *Neurologic Neurologic: Denies disequilibrium, Denies dizziness, Denies loss of vision, Reports syncope and Denies weakness Endocrine Endocrine: Denies fatigue Exam Data for Last 24 hours Vital signs and Labs for Last 24 Hours: Temp Pulse Resp BP Pulse Ox O2 Del Method 97.5 F L 92 H 18 155/91 H 96 Room Air 09/17/24 07:54 09/17/24 08:49 09/17/24 07:54 09/17/24 08:49 09/17/24 07:54 09/17/24 09:00 Laboratory Results - last 24 hr 09/16/24 16:25: WBC 4.0 L, RBC 4.24 L, Hgb 11.1 L, Hct 36.2 L, MCV 85.4, MCH 26.2 L, MCHC 30.7 L, RDW 18.7 H, Plt Count 124 L, MPV 9.2, Neut % (Auto) 62.3, Lymph % (Auto) 18.6, [place] % (Auto) 10.2 H, Eos % (Auto) 7.9, Baso % (Auto) 0.5, Neut # (Auto) 2.5, Lymph # (Auto) 0.8, [place] # (Auto) 0.4, Eos # (Auto) 0.3, Baso # (Auto) 0.0, PT 12.7 H, INR 1.15 H, APTT 28.6, Sodium 141, Potassium 3.9, Chlo ride 110 H, Carbon Dioxide 29, Anion Gap 5.9, BUN 16, Creatinine 1.20, Estimated Creat Clear 85, Estimated GFR 58 L, Est GFR ( Amer) 70, Glucose 69 L, Calcium 8.5, Phosphorus 3.6, Magnesium 1.7, Total Bilirubin 1.2, AST 37, ALT 24, Alkaline Phosphatase 229 H, Troponin I 0.02, NT-Pro-B Natriuret Pep 1960 H, Total Protein 6.8, Albumin 3.6, Globulin 3.2, Albumin/Globulin Ratio 1.1 09/16/24 16:45: Digoxin 0.60 09/16/24 17:17: Urine Color [place], Urine Appearance Slightly cloudy, Urine pH 6.0, Ur Specific [place] 1.025, Urine Protein 2+ A, Urine Glucose (UA) Negative, Urine Ketones Negative, Urine Blood Negative, Urine Nitrate Negative, Urine Bilirubin 1+ A, Urine Urobilinogen 4.0, Ur Leukocyte Esterase Negative, Urine RBC None, Urine WBC 3-5, Ur Squamous Epith Cells Occasional, Urine Bacteria Trace, Hyaline Casts Occ 09/16/24 19:30: Troponin I 0.02 09/16/24 23:05: Troponin I 0.02 09/17/24 05:28: WBC 4.0 L, RBC 4.06 L, Hgb 10.7 L, Hct 34.2 L, MCV 84.2, MCH 26.4 L, MCHC 31.3 L, RDW 18.5 H, Plt Count 124 L, MPV 9.5, Neut % (Auto) 60.8, Lymph % (Auto) 22.1, [place] % (Auto) 9.9 H, Eos % (Auto) 6.5, Baso % (Auto) 0.5, Neut # (Auto) 2.5, Lymph # (Auto) 0.9, [place] # (Auto) 0.4, Eos # (Auto) 0.3, Baso # (Auto) 0.0, PT 13.1 H, INR 1.19 H, Sodium 138, Potassium 3.4 L, Chloride 106, Carbon Dioxide 27, Anion Gap 8.4, BUN 15, Creatinine 1.10, Estimated Creat Clear 90, Estimated GFR 64, Est GFR ( Amer) 78, Glucose 87 D, Calcium 8.4, Phosphorus 3.7, Magnesium 1.8, Total Bilirubin 1.1, AST 32, ALT 21, Alkaline Phosphatase 245 H, Total Protein 6.4, Albumin 3.4 L, Globulin 3.0, Albumin/Globulin Ratio 1.1, Triglycerides 69, Cholesterol 149, LDL Cholesterol Direct 78.84 L, VLDL Cholesterol 14, HDL Cholesterol 34 L, Cholesterol/HDL Ratio 4.4 H 09/17/24 05:56: POC Glucose 83 I & O for Last 24 hours: Intake & Output 09/14/24 09/15/24 09/16/24 09/17/24 23:59 23:59 23:59 23:59 Intake Total 120 / 120 Output Total 1320 / 1320 2400 / 2400 Balance -1320 / -1200 -2280 / -2280 Weight 273 lb 8 oz 269 lb 8 oz Constitutional Constitutional: no acute distress and cooperative *Routine HEENT Exam Eye: Present PERRL *Routine Respiratory Exam Respiratory: Present CTA bilaterally; Absent accessory muscle use, wheezes or crackles *Routine Cardiovascular Exam Cardiovascular: Present RRR, Normal S1 and Normal S2; Absent murmur, gallop or rubs *Routine Abdominal Exam Abdominal: Present soft; Absent tenderness Comments: severe RUQ tendernes to light palpation *Routine Extremities Exam Extremities: Present pulses intact; Absent cyanosis or edema *Routine Skin Exam Skin: Present intact; Absent erythema or wounds *Routine Neurological Exam Neurological: Present alert and oriented X3 Routine Psychiatric Exam Psychiatric: Present cooperative Meds Home Medications and Allergies Home Medications ?Medication ?Instructions ?Recorded ?Confirmed ?Type blood sugar diagnostic (Accu-Chek 04/07/24 09/17/24 History Guide test strips) pantoprazole 40 mg tablet,delayed 40 mg PO DAILY #30 tabs 04/08/24 09/17/24 Rx release (Protonix) lactulose 20 gram/30 mL oral 20 g (30 mL) PO BID #1,800 mL 07/29/24 09/17/24 Rx solution ondansetron HCl 4 mg tablet 4 mg PO TID #90 tabs 07/29/24 09/17/24 Rx albuterol sulfate 90 mcg/actuation 2 inh inhalation QIDP PRN 08/26/24 09/17/24 Rx aerosol inhaler Shortness Of Breath Or Wheezing #8.5 grams apixaban 5 mg tablet (Eliquis) 5 mg PO BID #60 tabs 08/26/24 09/17/24 Rx atorvastatin 40 mg tablet 40 mg PO HS #90 tabs 08/26/24 09/17/24 Rx digoxin 125 mcg (0.125 mg) tablet 125 mcg PO DAILY #90 tabs 08/26/24 09/17/24 Rx metoprolol succinate 25 mg 25 mg PO BID #90 tabs 08/26/24 09/17/24 Rx tablet,extended release 24 hr (Toprol XL) potassium chloride 20 mEq 20 meq PO DAILY #90 tabs 08/26/24 09/17/24 Rx tablet,extended release(part/cryst) trazodone 50 mg tablet 50 mg PO HS #90 tabs 08/26/24 09/17/24 Rx clopidogrel 75 mg tablet 75 mg PO DAILY 09/17/24 09/17/24 History furosemide 20 mg tablet 20 mg PO DAILY PRN Edema 09/17/24 09/17/24 History gabapentin 300 mg capsule 300 mg PO TIDP PRN neuropathic pain 09/17/24 09/17/24 History hydrocodone 7.5 mg-acetaminophen 1 tab PO TIDP PRN pain 09/17/24 09/17/24 History 325 mg tablet insulin NPH-regular 70-30 U-100 40 unit SQ BID 09/17/24 09/17/24 History insulin 100 unit/mL subcutaneous pen (Humulin 70/30 U-100 KwikPen) New Prescriptions to Start Prescriptions: Allergies Allergy/AdvReac Type Severity Reaction Status Date / Time amoxicillin (From Augmentin) Allergy Severe edema Verified 09/16/24 14:58 ciprofloxacin (From Cipro) Allergy Severe Redness of Verified 09/16/24 14:58 Skin clavulanic acid (From Allergy Severe edema Verified 09/16/24 14:58 Augmentin) prednisone AdvReac Intermediate Agitated Verified 09/16/24 14:58 Assessment and Plan *Assessment and plan (1) Right upper quadrant abdominal pain: Status: Acute Category: Medical Code(s): R10.11 - Right upper quadrant pain (2) Bright red blood per rectum: Status: Acute Category: Medical Code(s): K62.5 - Hemorrhage of anus and rectum (3) Paroxysmal A-fib: Status: Acute Category: Medical Code(s): I48.0 - Paroxysmal atrial fibrillation (4) CAD (coronary artery disease): Problem Comment: MIRELLA and angioplasty (2021) per [facility] in [place] Recent Cath in 08/2020 showed Occluded SVG X 2, patent KINCAID to LAD, patient SVG to diagonal, severe disease OM in 1 stent, mid circ. Medical management in 2017. MIRELLA in 2012. Hx of CABG. Status: Chronic Qualifiers: Coronary Disease-Associated Artery/Lesion type: [place] artery [place] vs. transplanted heart: [place] heart Associated angina: without angina Qualified Code(s): I25.10 - Atherosclerotic heart disease of [place] coronary artery without angina pectoris Category: Medical Code(s): I25.10 - Atherosclerotic heart disease of [place] coronary artery without angina pectoris (5) Heart failure with mildly reduced ejection fraction (HFmrEF): Status: Acute Category: Medical Code(s): I50.22 - Chronic systolic (congestive) heart failure Plan Syncope - likely hypoxic episode as symptoms occurred only for a few seconds while SOA after walking up stairs in setting of obesity, COPD, HF, and A-fib - consider vasovagal as this occured in setting of acute cholecytitis and GI bleed - H/H and vitals stable - Orthostatic Vitals - nml - Telemetry - rate controlled A-fib - EKG - rate controlled A-fib - ECHO - unchanged from prior - Troponin - normal Plan: address GI issues, 2 week monitor at discharge to eval for arrhythmia, pt needs better med therapy for COPD and HF CAD - hx CABG, MIRELLA 10/2023 in [place] - pt denies angina, normal serial trop, A-fib on EKG, no WMA on ECHO - Cont DAPT pending Colonoscopy results - Cont BB, Statin HFmrEF, Chronic - likely ischemic cardiomyopathy - NYHA = 2-3, poor baseline functional capacity - mild CHF noted on chest CT - mild peripheral edema noted here - not on GDMT, will consider adding here after we have addressed GI bleeding and acute cholecystitis - continue Lasix Persistant A-fib, rate controlled - severe biatrial dilation on ECHO so likely long standing persistant - cont Toprol, Dig on hold - OAC on hold due to GI bleed and possible surgery Acute GI Bleed - pt reports several episodes of large quantity BRBPR at home - H/H stable here Acute Cholecystitis - per CT/US - nml WBC, afebrile Further plans pending GI/Surg workup today.
[2024-09-17 11:27] LABS: POC Glucose,Bedside 104 (70-110)
--- NOTE | 2024-09-17 12:17 | P.PN_ITS ---
Subjective *Date: 09/17/24 *Time: 22:10 Interval history: Patient stable on room air today. Diuresing well. Echo obtained this morning. Undergoing bowel prep for C-scope. Surgery and GI assisting with care. Denies nausea, vomiting, chest pain or diarrhea. Medical Exam Vital signs and Labs for Last 24 Hours: Vital Signs Temp Pulse Pulse Pulse Pulse Pulse Resp 09/17/24 12:10 97.8 F 83 18 09/17/24 11:47 97.8 F 83 18 09/17/24 11:00 09/17/24 09:00 09/17/24 08:49 92 H 100 H 125 H 09/17/24 08:00 09/17/24 08:00 90 09/17/24 07:54 97.5 F L 103 H 18 09/17/24 06:11 09/17/24 05:00 09/17/24 04:00 80 09/17/24 04:00 97.9 F 80 17 09/17/24 03:00 09/17/24 01:00 09/17/24 00:00 100 H 09/16/24 23:56 98.3 F 88 17 09/16/24 23:00 09/16/24 21:40 80 09/16/24 21:00 09/16/24 21:00 98.1 F 93 H 18 09/16/24 20:43 98.1 F 85 18 09/16/24 20:21 09/16/24 18:31 79 20 09/16/24 18:00 79 17 09/16/24 17:31 72 17 09/16/24 16:40 98 F 92 H 18 09/16/24 16:31 74 21 BP BP BP BP BP Pulse Ox O2 Del Method 09/17/24 12:10 130/70 93 L Room Air 09/17/24 11:47 130/70 93 L Room Air 09/17/24 11:00 Room Air 09/17/24 09:00 Room Air 09/17/24 08:49 155/91 H 146/95 H 146/70 H 09/17/24 08:00 Room Air 09/17/24 08:00 09/17/24 07:54 140/84 96 Room Air 09/17/24 06:11 Room Air 09/17/24 05:00 Room Air 09/17/24 04:00 09/17/24 04:00 133/75 96 Room Air 09/17/24 03:00 Room Air 09/17/24 01:00 Room Air 09/17/24 00:00 09/16/24 23:56 137/71 96 Room Air 09/16/24 23:00 Room Air 09/16/24 21:40 09/16/24 21:00 Room Air 09/16/24 21:00 148/80 H 96 Room Air 09/16/24 20:43 148/80 H Room Air 09/16/24 20:21 Room Air 09/16/24 18:31 158/84 H 95 Room Air 09/16/24 18:00 149/80 H 96 Room Air 09/16/24 17:31 124/66 95 Room Air 09/16/24 16:40 143/60 H 97 Room Air 09/16/24 16:31 127/66 96 Room Air Intake and Output 09/16/24 09/17/24 09/17/24 23:59 07:59 15:59 Intake Total 120 / 120 Output Total 1320 / 1320 1700 / 3600 1900 / 3600 Balance -1320 / -1200 -1580 / -3480 -1900 / -3480 Intake: Intake, Oral Amount 120 / 120 Output: Output, Urine Amount 1320 / 1320 1700 / 3600 1900 / 3600 Other: Number of Unmeasured Voids 0 0 0 Weight 124.058 kg 122.243 kg Patient Weight 09/17/24 23:59 Weight 122.243 kg Laboratory Results - last 24 hr 09/16/24 16:25: WBC 4.0 L, RBC 4.24 L, Hgb 11.1 L, Hct 36.2 L, MCV 85.4, MCH 26.2 L, MCHC 30.7 L, RDW 18.7 H, Plt Count 124 L, MPV 9.2, Neut % (Auto) 62.3, Lymph % (Auto) 18.6, [place] % (Auto) 10.2 H, Eos % (Auto) 7.9, Baso % (Auto) 0.5, Neut # (Auto) 2.5, Lymph # (Auto) 0.8, [place] # (Auto) 0.4, Eos # (Auto) 0.3, Baso # (Auto) 0.0, PT 12.7 H, INR 1.15 H, APTT 28.6, Sodium 141, Potassium 3.9, Chloride 110 H, Carbon Dioxide 29, Anion Gap 5.9, BUN 16, Creatinine 1.20, Estimated Creat Clear 85, Estimated GFR 58 L, Est GFR ( Amer) 70, Glucose 69 L, Calcium 8.5, Phosphorus 3.6, Magnesium 1.7, Total Bilirubin 1.2, AST 37, ALT 24, Alkaline Phosphatase 229 H, Troponin I 0.02, NT-Pro-B Natriuret Pep 1960 H, Total Protein 6.8, Albumin 3.6, Globulin 3.2, Albumin/Globulin Ratio 1.1 09/16/24 16:45: Digoxin 0.60 09/16/24 17:17: Urine Color [place], Urine Appearance Slightly cloudy, Urine pH 6.0, Ur Specific [place] 1.025, Urine Protein 2+ A, Urine Glucose (UA) Negative, Urine Ketones Negative, Urine Blood Negative, Urine Nitrate Negative, Urine Bilirubin 1+ A, Urine Urobilinogen 4.0, Ur Leukocyte Esterase Negative, Urine RBC None, Urine WBC 3-5, Ur Squamous Epith Cells Occasional, Urine Bacteria Trace, Hyaline Casts Occ 09/16/24 19:30: Troponin I 0.02 09/16/24 23:05: Troponin I 0.02 09/17/24 05:28: WBC 4.0 L, RBC 4.06 L, Hgb 10.7 L, Hct 34.2 L, MCV 84.2, MCH 26.4 L, MCHC 31.3 L, RDW 18.5 H, Plt Count 124 L, MPV 9.5, Neut % (Auto) 60.8, Lymph % (Auto) 22.1, [place] % (Auto) 9.9 H, Eos % (Auto) 6.5, Baso % (Auto) 0.5, Neut # (Auto) 2.5, Lymph # (Auto) 0.9, [place] # (Auto) 0.4, Eos # (Auto) 0.3, Baso # (Auto) 0.0, PT 13.1 H, INR 1.19 H, Sodium 138, Potassium 3.4 L, Chloride 106, Carbon Dioxide 27, Anion Gap 8.4, BUN 15, Creatinine 1.10, Estimated Creat Clear 90, Estimated GFR 64, Est GFR ( Amer) 78, Glucose 87 D, Calcium 8.4, Phosphorus 3.7, Magnesium 1.8, Total Bilirubin 1.1, AST 32, ALT 21, Alkaline Phosphatase 245 H, Total Protein 6.4, Albumin 3.4 L, Globulin 3.0, Albumin/Globulin Ratio 1.1, Triglycerides 69, Cholesterol 149, LDL Cholesterol Direct 78.84 L, VLDL Cholesterol 14, HDL Cholesterol 34 L, Cholesterol/HDL Ratio 4.4 H 09/17/24 05:56: POC Glucose 83 09/17/24 10:58: POC Glucose 104 I & O for Labs for Last 24 Hours: Intake & Output 09/14/24 09/15/24 09/16/24 09/17/24 23:59 23:59 23:59 23:59 Intake Total 120 / 120 Output Total 1320 / 1320 3600 / 3600 Balance -1320 / -1200 -3480 / -3480 Weight 124.058 kg 122.243 kg Constitutional: Present no acute distress, obese and chronically ill appearing Head: Present atraumatic and normocephalic ENT: Present normal exam Neck: Present normal inspection Respiratory: Present normal respiratory effort; Absent rhonchi, wheezes or crackles Cardiac: Present Reg Rate and Rhythm GI: Present soft, tenderness (Right-sided, mild) and normal bowel sounds; Absent distention Extremities: Present normal inspection, full ROM and edema (1+ lower extremities) Skin: Present intact; Absent erythema Neuro: Present Grossly Intact, alert, awake, oriented x 3 and moves all extremities Comment:: Very hard of hearing Assessment and Plan *Assessment and plan (1) Syncope: Status: Acute Category: Medical Code(s): R55 - Syncope and collapse (2) Acute decompensated heart failure: Status: Acute Category: Medical Code(s): I50.9 - Heart failure, unspecified (3) Cholecystitis: Status: Acute Category: Medical Code(s): K81.9 - Cholecystitis, unspecified (4) CAD (coronary artery disease): Problem Comment: MIRELLA and angioplasty (2021) per [facility] in [place] Recent Cath in 08/2020 showed Occluded SVG X 2, patent KINCAID to LAD, patient SVG to diagonal, severe disease OM in 1 stent, mid circ. Medical management in 2018. MIRELLA in 2013. Hx of CABG. Status: Chronic Qualifiers: Coronary Disease-Associated Artery/Lesion type: [place] artery [place] vs. transplanted heart: [place] heart Associated angina: without angina Qualified Code(s): I25.10 - Atherosclerotic heart disease of [place] coronary artery without angina pectoris Category: Medical Code(s): I25.10 - Atherosclerotic heart disease of [place] coronary artery without angina pectoris (5) Afib: Status: Chronic Qualifiers: Atrial fibrillation type: chronic Qualified Code(s): I48.2 - Chronic atrial fibrillation Category: Medical Code(s): I48.91 - Unspecified atrial fibrillation (6) Obesity: Status: Chronic Qualifiers: Obesity type: due to excess calories Obesity classification: adult class 2 (BMI 35 - 39.9) Serious obesity comorbidity presence: without serious comorbidity Body mass index: BMI 39.0-39.9 Qualified Code(s): E66.09 - Other obesity due to excess calories; Z68.39 - Body mass index (BMI) 39.0-39.9, adult Category: Medical Code(s): E66.9 - Obesity, unspecified (7) Edema of both lower extremities: Status: Acute Category: Medical Code(s): R60.0 - Localized edema (8) Diabetes mellitus: Status: Chronic Qualifiers: Diabetes mellitus type: type 2 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 Diabetes mellitus complication status: without complication Qualified Code(s): E11.9 - Type 2 diabetes mellitus without complications; Z79.4 - shelter (current) use of insulin Category: Medical Code(s): E11.9 - Type 2 diabetes mellitus without complications (9) HLD (hyperlipidemia): Status: Acute Qualifiers: Hyperlipidemia type: mixed hyperlipidemia Qualified Code(s): E78.2 - Mixed hyperlipidemia Category: Medical Code(s): E78.5 - Hyperlipidemia, unspecified (10) Pulmonary edema: Status: Acute Qualifiers: Chronicity: acute Qualified Code(s): J81.0 - Acute pulmonary edema Category: Medical Code(s): J81.1 - Chronic pulmonary edema (11) Hematochezia: Status: Acute Category: Medical Code(s): K92.1 - Melena Plan 84-year-old male who presents with multiple concerns including syncope, GI bleed, abdominal pain, and volume overload. Responding to diuresis. GI, surgery, cardiology assisting with care today. Continues to require inpatient management. Problems addressed as follows: drop Syncope no prodrome - At this time concern for cardiogenic etiology, likely HF exacerbation vs arrhythmia (suspect tachy, possibly teresa). Cannot exclude vasovagal from cholecystitis but unlikely - Continuous telemetry monitoring - Holter monitor on discharge - carotid bruits auscultated, will order carotid duplex - Kidney function normal with BUN 15, creatinine 1.1. Hemoglobin 10.7, not severe anemia after GI bleed. acute decompensated heart failure exacerbation Heart failure reduced ejection fraction Ny[place] 3 Coronary artery disease status post CABG -Discussed case with cardiology, recommend continuing current regimen. Heart rate currently controlled. Concern for vasovagal event with his bleed. - Responded to Lasix, -6 L. Transition to 40 mg p.o. daily - Echo obtained, unchanged. Troponins were normal. - Continue metoprolol. Holding digoxin at this time. Digoxin level within normal range - Holding DOAC due to GI bleed concern, consider resuming DOAC prior to discharge. hematochezia Cholecystitis - linais was help outpatient due to GIB - will do lovenox 1mg / kg bid now - Discussed case with GI, taken for colonoscopy. Had oozing from his hemorrhoids but no overt bleeding noted. Multiple polyps removed. - Ultrasound showing concern for cholecystitis. Surgery evaluating. Does not have an elevation of liver enzymes. Recommend monitoring at this time. No urgent need for cholecystectomy. - White count normal at 4. Reevaluate with serial exams and monitoring of CBC, CMP, magnesium in the morning Full code Cardiac diet
--- NOTE | 2024-09-17 14:14 | EXP.ANES.CKL ---
[facility] Disclaimer: The information contained in this section may have been updated after the patient was seen, as this information can be updated by other users. 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 HLD (hyperlipidemia) Positive laboratory testing for human immunodeficiency virus Nausea & vomiting Abdominal pain, epigastric Chronic back pain greater than 3 months duration HFrEF (heart failure with reduced ejection fraction) Polypharmacy Rash Retained myringotomy tube Hearing difficulty of right ear Otorrhea of right ear Otalgia, right ear BMI 39.0-39.9,adult [place] and COPD overlap syndrome OAB (overactive bladder) CHF (congestive heart failure) Diabetes mellitus Afib HHD (hypertensive heart disease) CAD (coronary artery disease) Surgical History History of left inguinal hernia repair History of umbilical hernia repair History of left heart catheterization (LHC) Hx of CABG Family History Mother Coronary artery disease Father Tuberculosis Social History Smoking Status: Former smoker years smoked: 30 smoking status stop date: 1992 alcohol intake: former substance use type: denies use current occupational status: retired and disabled Travel in the last 8 weeks?: None Have you lived/traveled outside [place] in past 30 days?: No Contact w/someone who lives/traveled outside US past 30 days?: No Exposure to someone with infectious disease in past 14 days?: No Do you have a fever (greater than 100.4 F or 38 C)?: No Have you tested positive for COVID-19?: No Exposed to someone with COVID-19 in past 14 days?: No Do you have a sore throat?: No Do you have a cough?: No Do you have any weakness?: No Are you experiencing any nausea/vomitting?: No Do you have any diarrhea?: No Are you experiencing any unusual bleeding?: No Do you have any muscle aches/pain?: No Do you have any abdominal pain?: No Are you experiencing loss of taste or smell?: No [facility] Anesthesia Checklist Patient Identification Patient Identification: Arm Band Structural Data Admitted From: Home Planned Operative Procedure/s: Colonoscopy Consent for Planned Operative Procedure(s) Verified: Yes Verified Documents: Surgical Consent and History and Physical NPO Status Verified Time NPO: 00:00 Additional verifications Anesthesia Reactions: No Hx Blood Transfusions: No Blood Transfusion Reaction: No Airway Assessment Mallampati Score:: Class III C-Spine Mobility Assessed: Yes TMJ Mobility Assessed: Yes Dentition: Edentulous Neurological Assessment Level of Consciousness: Awake, Alert and Appropriate Anesthesia Plan Anesthesia Risk discussed: Yes Anesthesia Plan: Verified ASA Class: III Anesthesia Type: MAC
--- NOTE | 2024-09-17 14:16 | PC.NURSE ---
notified by christy that pt needed clearance from cards. contacted Farrukh Malin and he verbalized clearance for the pt's procedure from a cardiology standpoint. preop aware.
[2024-09-17] MEDS: SODIUM PHOS/BIPHOSPHATE FLEET 133ML ENEMA 266 ML RC (14:28)
--- NOTE | 2024-09-17 14:55 | HMH.PROCNOTE ---
[facility] Procedure Note Date: 09/17/24 Time: 15:11 Procedure Note:: Colonoscopy Procedure Report: Colonoscopy with cold snare polypectomy Endoscopist: Grover Oakley II, MD Referring physician: Bk Fritz MD Date of Procedure: September 17, 2024 Equipment: Olympus 190 variable stiffness pediatric colonoscope Sedation: MAC sedation Indication: Mr. Vasques is an 84-year-old gentleman who is here for diagnostic colonoscopy. He is admitted after having a syncopal spell in Dr. Fritz's office. The patient has had no dyspnea but has had recent bright red rectal bleeding that was marked for 3 days. This last occurred 6 days ago and his Eliquis was stopped. He states that he has not had a colonoscopy in 20 or 30 years. Also, the patient states that he has lost 50 pounds in the last year. He has had a lot of gassiness. With the bleeding he had a lot of bloating and some of this has resolved. He also reports right upper quadrant abdominal pain and his CAT scan did show gallbladder inflammation with moderate inflammatory changes and pericholecystic fluid. The findings were consistent with cholecystitis. He has not seen surgery yet. There was no biliary or pancreatic ductal dilation. His CT scan of the chest showed some mild CHF. Labs showed white blood cell count 4.0, hemoglobin 10.7 and hematocrit 34.2. There is not a marked change in his hemoglobin hematocrit since April 2024. The patient has had chronically elevated alkaline phosphatase and on admission was 245. This has been been gradually increasing over the last 5 to 7 years. His transaminases and bilirubin are normal. The patient does report diarrhea with his rectal bleeding. He does report prior occasional spotting of blood on the tissue when he strains but he has never had this marked bleeding. He does report the right upper quadrant abdominal pain for the last 2 to 3 days Procedure: Prior to the procedure, a history and physical exam was performed, and patient's medications and allergies were reviewed. The risks, benefits and alternatives of the sedation and procedure were discussed with the patient. All questions were answered and informed consent was obtained. The patient was brought to the procedure room. Patient identification and proposed procedure were verified by the physician and the nurse. The patient was placed in a left lateral decubitus position and the scope was passed under direct vision. Throughout the procedure, the patient's blood pressure, pulse, and oxygen saturations were monitored continuously. The colonoscopy was accomplished without difficulty. The patient tolerated the procedure well. Findings: On digital rectal examination there was normal rectal tone. There were no external hemorrhoids. The colonoscope was introduced through the anal canal to the rectum and advanced to the distal ascending colon. There was a marked amount of liquid and solid residue within the cecum making it impossible to fully visualize the cecal vault. There were 5 colon polyps (ascending x 3 (5, 5 and 6 mm), transverse x 1 (8 to 9 mm) and descending x 1 (6 mm)). These were all removed via cold snare polypectomy. The preparation was fair to poor but most of the colonic mucosa was visualized outside of the cecal vault. There were no diverticuli identified or t any other mucosal abnormalities identified. There was no evidence of colitis or proctitis. There was moderate colonic redundancy/increased colonic diameter. Upon retroflexion within the rectum there were grade 2 internal hemorrhoids. Impression: 1. Colonic polyps x 5 2. Grade 2 internal hemorrhoids 3. Fair to poor preparation with cecum/cecal vault not visualized due to abundant liquid solid stool in the cecum Plan: I do suspect that the bleeding was from the hemorrhoids and anticoagulation. I am going to have him use hemorrhoid suppository for 3 to 5 days and then as needed. His hemoglobin has not significantly dropped. I will follow-up the polyp histology but he should not require further surveillance colonoscopy. I do not see a lot of heterogeneity in the liver and no nodularity so it is difficult to say whether he has advanced fibrosis or cirrhosis. He does have pancytopenia. He does have clinical, CT and sonographic evidence of cholecystitis.
--- NOTE | 2024-09-17 17:43 | PC.NURSE ---
Pt is A&OX4. Vital signs stable tolerating room air. A-fib rate controlled on tele. Pt had a colonoscopy today. ECHO and RUQ ultrasound ordered and completed today. Orthostatic vitals done. Diuretics given per JUL. Pt lying supine in bed comfortably with no further complaints voiced at this time. Call light within reach.
[2024-09-17] MEDS: CEFTRIAXONE SODIUM 1 GM in 0.9 % SODIUM CHLORIDE 50 ML IV (20:15)
[2024-09-17] MEDS: PANTOPRAZOLE 40MG TABLET 40 MG PO (21:13)
[2024-09-17] MEDS: TRAZODONE 50MG TABLET 50 MG PO (21:13)
[2024-09-17] MEDS: ATORVASTATIN 40MG TABLET 40 MG PO (21:13)
[2024-09-17] MEDS: LACTULOSE 20GM/30ML UDC 20 GM PO (21:14)
[2024-09-18] VITALS: BP 134/75; PULSE 80; PULSE 81; RESP 18; TEMP 36.4; O2SAT 95
[2024-09-18 04:00] VITALS: BP 143/80; PULSE 100; PULSE 71; RESP 14; TEMP 36.4; O2SAT 94; BMI 33.1
[2024-09-18] MEDS: ONDANSETRON 4MG/2ML VIAL 4 MG IV (04:37)
--- NOTE | 2024-09-18 05:50 | PC.NURSE ---
v/s, ox4. Provider notified for bloody stool. Pt c/o pain and nausea, treated per JUL. Pt denied dizziness/lightheadedness. Blood glucose monitored. Plan of care ongoing.
[2024-09-18 06:22] LABS: POC Glucose,Bedside 115 (70-110)
[2024-09-18 06:47] LABS: Basophils % 0.5 % (0.1-2.0); Eosinophils # 0.3 Kmm3 (0.0-0.4); Eosinophils % 7.4 % (0.1-12.0); Hematocrit 33.7 % (42.0-52.0); Hemoglobin 10.7 g/dL (14.1-18.0); Immature Granulocytes # 0.02 10^3uL; Immature Granulocytes % 0.5 %; Lymphocytes # 0.7 K/mm3 (0.7-4.5); Lymphocytes % 17.1 % (10-50); Mean Corpuscular HGB Conc 31.8 g/dL (31.8-35.4); Mean Corpuscular Hemoglobin 26.6 pg (27.0-31.2); Mean Corpuscular Volume 83.6 fl (80-94); Monocytes # 0.5 K/mm3 (0.1-1.0); Monocytes % 11.9 % (1.7-9.3); Neutrophils # 2.5 K/mm3 (1.8-7.8); Neutrophils % 62.6 % (37.0-80.0); Nucleated Red Blood Cells # 0 10^3/uL; Nucleated Red Blood Cells % 0 %; Platelet Count 126 K/mm3 (142-424); Red Blood Count 4.03 M/mm3 (4.60-6.20); Red Cell Distribution Width 18.3 % (11.5-17.5); Red Cell Distribution Width-SD 56.7 fL
[2024-09-18 06:59] LABS: Alanine Aminotransferase 20 U/L (12-78); Albumin Level 3.5 g/dl (3.5-5.0); Albumin/Globulin Ratio 1.2 (1.1-1.8); Alkaline Phosphatase 218 U/L (38-126); Anion Gap 8.2 mEq/L (5-15); Aspartate Amino Transferase 30 U/L (17-59); Bilirubin,Total 1.3 mg/dl (0.2-1.3); Blood Urea Nitrogen 13 mg/dl (9-20); Calcium 8.6 mg/dl (8.4-10.2); Carbon Dioxide 31 mmol/L (22.0-30.0); Chloride 103 mmol/L (98-107); Creatinine Clearance Estimated 94 mL/min (50-200); Estimated Glomerular Filt Rate 72 ml/min (>60); GFR (African American) 87 ML/MIN (>60); Globulin 2.9 g/dL (1.3-3.2); Glucose 111 mg/dl (74-100); Magnesium 1.8 mg/dl (1.6-2.3); Potassium 3.2 mmoL/L (3.5-5.1); Sodium 139 mmol/L (136-145); Total Protein,Serum 6.4 g/dl (6.3-8.2)
[2024-09-18 08:00] VITALS: BP 144/77; PULSE 110; PULSE 88; RESP 18; TEMP 36.7; O2SAT 97
[2024-09-18] MEDS: FUROSEMIDE 40 MG TABLET PO (08:44)
[2024-09-18] MEDS: metroNIDAZOLE 500 MG TABLET PO ×3 (08:45→16:13)
[2024-09-18] MEDS: LACTULOSE 20GM/30ML UDC 20 GM PO (08:45)
[2024-09-18] MEDS: METOPROLOL SUCCINATE XL 25MG TABLET 25 MG PO (08:45)
[2024-09-18 12:00] VITALS: PULSE 90
[2024-09-18] MEDS: ACETAMINOPHEN 325MG TAB 650 MG PO (13:12)
--- NOTE | 2024-09-18 13:46 | EXP.CARD.PN ---
Subjective Subjective Date: 09/18/24 Time: 09:30 Interval history: Patient feeling well this morning, significantly improved since admission. Colonoscopy revealed hemorrhoids which are being treated. Surgeon found his gallbladder nonsurgical at this time but imaging suggestive of cirrhosis. He remains rate controlled without further arrhythmia noted on telemetry. Exam Data for Last 24 hours Vital signs and Labs for Last 24 Hours: Temp Pulse Resp BP Pulse Ox O2 Del Method 98.1 F 88 18 144/77 H 97 Room Air 09/18/24 08:00 09/18/24 08:00 09/18/24 08:00 09/18/24 08:00 09/18/24 08:00 09/18/24 11:00 Laboratory Results - last 24 hr 09/18/24 05:34: WBC 4.0 L, RBC 4.03 L, Hgb 10.7 L, Hct 33.7 L, MCV 83.6, MCH 26.6 L, MCHC 31.8, RDW 18.3 H, Plt Count 126 L, MPV 10.0, Neut % (Auto) 62.6, Lymph % (Auto) 17.1, [place] % (Auto) 11.9 H, Eos % (Auto) 7.4, Baso % (Auto) 0.5, Neut # (Auto) 2.5, Lymph # (Auto) 0.7, [place] # (Auto) 0.5, Eos # (Auto) 0.3, Baso # (Auto) 0.0, Sodium 139, Potassium 3.2 L, Chloride 103, Carbon Dioxide 31 H, Anion Gap 8.2, BUN 13, Creatinine 1.00, Estimated Creat Clear 94, Estimated GFR 72, Est GFR ( Amer) 87, Glucose 111 H, Calcium 8.6, Magnesium 1.8, Total Bilirubin 1.3, AST 30, ALT 20, Alkaline Phosphatase 218 H, Total Protein 6.4, Albumin 3.5, Globulin 2.9, Albumin/Globulin Ratio 1.2 09/18/24 06:10: POC Glucose 115 H I & O for Last 24 hours: Intake & Output 09/15/24 09/16/24 09/17/24 09/18/24 23:59 23:59 23:59 23:59 Intake Total 480 / 720 840 / 840 Output Total 1320 / 1320 5815 / 6365 750 / 750 Balance -1320 / -1200 -5335 / -5691 90 / 90 Weight 273 lb 8 oz 269 lb 8 oz 258 lb 4.8 oz Constitutional Constitutional: no acute distress and cooperative *Routine HEENT Exam Eye: Present PERRL *Routine Respiratory Exam Respiratory: Present CTA bilaterally; Absent accessory muscle use, wheezes or crackles *Routine Cardiovascular Exam Cardiovascular: Present RRR, Normal S1 and Normal S2; Absent murmur, gallop or rubs *Routine Abdominal Exam Abdominal: Present soft and obese; Absent tenderness Comments: Right upper quadrant pain *Routine Extremities Exam Extremities: Present pulses intact; Absent cyanosis or edema *Routine Skin Exam Skin: Present intact; Absent erythema or wounds *Routine Neurological Exam Neurological: Present alert and oriented X3 Routine Psychiatric Exam Psychiatric: Present cooperative Progress Note: A&P Assessment and plan (1) Syncope: Status: Acute (2) Acute decompensated heart failure: Status: Acute (3) Cholecystitis: Status: Acute (4) CAD (coronary artery disease): Problem details: MIRELLA and angioplasty (2021) per [facility] in [place] Recent Cath in 08/2020 showed Occluded SVG X 2, patent KINCAID to LAD, patient SVG to diagonal, severe disease OM in 1 stent, mid circ. Medical management in 2018. MIRELLA in 2012. Hx of CABG. Status: Chronic (5) Afib: Status: Chronic (6) Obesity: Status: Chronic (7) Edema of both lower extremities: Status: Acute (8) Diabetes mellitus: Status: Chronic (9) HLD (hyperlipidemia): Status: Acute (10) Pulmonary edema: Status: Acute (11) Hematochezia: Status: Acute Assessment and Plan Assessment and Plan for All Diagnoses:: Syncope - likely hypoxic episode as symptoms occurred only for a few seconds while SOA after walking up stairs in setting of obesity, COPD, HF, and A-fib - consider vasovagal as this occured in setting of acute cholecytitis and GI bleed - H/H and vitals stable - Orthostatic Vitals - nml - Telemetry - rate controlled A-fib - EKG - rate controlled A-fib - ECHO - unchanged from prior - Troponin - normal Plan: address GI issues, 2 week monitor at discharge to eval for arrhythmia, pt needs better med therapy for COPD and HF CAD - hx CABG, MIRELLA 10/2023 in [place] - pt denies angina, normal serial trop, A-fib on EKG, no WMA on ECHO - Cont DAPT pending Colonoscopy results - Cont BB, Statin HFmrEF, Acute on Chronic - likely ischemic cardiomyopathy - NYHA = 2-3, poor baseline functional capacity - mild CHF noted on chest CT - mild peripheral edema noted here - continue Lasix - Add Entresto and Farxiga. Add Aldactone later if tolerated Persistant A-fib, rate controlled - severe biatrial dilation on ECHO so likely long standing persistant - cont Toprol and Digoxin - OAC on hold due to GI bleed, recommend resuming NADIA. Acute GI Bleed - pt reports several episodes of large quantity BRBPR at home - H/H stable here - Colonoscopy revealed hemorrhoids as the source. Recommend resuming OAC NADIA. Acute Cholecystitis - per CT/US - nml WBC, afebrile, non surgical per Surgery Obesity, BMI 33 - recommend aggressive weight loss via diet/exercise - consider OP GLP-1 Acute on Chronic COPD - worsening G[place]AY just ambulating through the house - mostly relies on Albuterol. Uses CPAP at night. - discussed with Hospitalist who will review COPD meds CV stable for DC with addition of Entresto and Farxiga. Hold Eliquis until cleared by GI. Pt needs better COPD control. BP log and office f/u with us in 2 weeks.
[2024-09-18] MEDS: DAPAGLIFLOZIN PROPANEDIOL 10 MG TABLET PO (14:02)
[2024-09-18] MEDS: SACUBITRIL/VALSARTAN 24-26MG TABLET 1 EACH PO (14:02)
[2024-09-18 15:47] VITALS: BP 133/44; PULSE 82; RESP 16; TEMP 36.6
--- NOTE | 2024-09-18 15:52 | EXP.DC.SUM ---
General Admission date:: 09/16/24 Discharge date: 09/18/24 HPI HPI HPI: Patient is an 84-year-old male from [facility] with a history of atrial fibrillation, coronary artery disease, heart failure, hyperlipidemia, interstitial lung disease, obstructive sleep apnea, coronary artery disease, diabetes. He is on Elliquis. Patient had been seen in [facility] recently with symptoms of rectal bleeding. Exact details unknown. He was seen in his primary care provider's office in follow-up on 09/16/24 after he was seen in outside facility. He had a syncopal episode in the office and was sent to the emergency department. In the emergency department he underwent thorough workup. He underwent CT angiogram which revealed no evidence of any obvious active acute GI bleeding. His CT angiogram did reveal pericholecystic fluid . In the emergency department patient complained of some right upper quadrant pain but it was unclear if this was acute or chronic. White blood cell count and transaminases are normal. Bilirubin normal. Alkaline phosphatase elevated. He was admitted for inpatient management to the hospitalist service. Hemoglobin is 11. This has been near his baseline hemoglobin for about the past 6 months however prior to that his hemoglobin appeared to be 12-13. Alkaline phosphatase 245 (normal range 38-126). Transaminases normal. Bilirubin normal. BUN/creatinine normal. I reviewed his CT imaging. It appears as though he has evidence of cirrhosis of the liver with some surrounding ascites. He has undergone gallbladder ultrasound. By report this reveals gallbladder wall thickening and pericholecystic fluid with sludge with no stones. This is read as findings are worrisome for acute cholecystitis. However this appears to show coarse appearance to the liver with a somewhat thickened gallbladder wall with no stones and some surrounding ascites. Hospital Course Hospital Course Hospital Course: 84-year-old male who presents with multiple concerns including syncope, GI bleed, abdominal pain, and volume overload. GI, surgery, cardiology consulted to assist with care. Patient responded well to diuresis. Overall showed improvement with medical management. Taken for colonoscopy, identified oozing hemorrhoids. Otherwise no other overt bleeding noted. Improved clinically with medical management and diuresis. Stable to discharge home with family with plan for further outpatient management. Problems addressed as follows: Drop Syncope no prodrome - At this time concern for cardiogenic etiology, likely HF exacerbation vs arrhythmia (suspect tachy, possibly teresa). Cannot exclude vasovagal from cholecystitis but unlikely. Monitored on telemetry. No further events during admission. Cardiology recommends Holter monitor at discharge. 2-week monitor placed prior to discharge. Carotid duplex obtained due to bruits. No ultrasound evidence of hemodynamically significant carotid artery stenosis. acute decompensated heart failure exacerbation Heart failure reduced ejection fraction Nyha 3 Coronary artery disease status post CABG -Discussed case with cardiology, recommended continuing current heart failure regimen. Responded well to diuresis, -7 L during admission. Echo obtained that was unchanged. Continue Lasix 20 mg oral daily. Continue home Lipitor 40 mg nightly, continue metoprolol succinate 25 mg daily, 1 tab twice daily, Plavix 75 mg, Eliquis 5 mg twice daily on hold pending follow-up. Digoxin level obtained, within normal range. Digoxin held at discharge Diabetes: Stable. Glucose is well-controlled, morning glucose 111. Continue home regimen at discharge including Humulin 70/30 40 units daily. hematochezia Cholecystitis - eliquis was held outpatient due to GIB. Case discussed with GI, taken for colonoscopy. Had oozing from his hemorrhoids but no overt bleeding noted. Multiple polyps removed. Ultrasound showing concern for cholecystitis. Surgery evaluating. Does not have an elevation of liver enzymes. Recommend monitoring at this time. No urgent need for cholecystectomy. White count remained stable at 4. Total time spent on discharge 32 minutes in counseling, documentation, chart review, and direct care with patient. Exam Data for Last 24 hours Vital signs and Labs for Last 24 Hours: Temp Pulse Resp BP Pulse Ox O2 Del Method 98 F 82 16 133/44 L 97 Room Air 09/18/24 15:47 09/18/24 15:47 09/18/24 15:47 09/18/24 15:47 09/18/24 08:00 09/18/24 13:00 Laboratory Results - last 24 hr 09/18/24 05:34: WBC 4.0 L, RBC 4.03 L, Hgb 10.7 L, Hct 33.7 L, MCV 83.6, MCH 26.6 L, MCHC 31.8, RDW 18.3 H, Plt Count 126 L, MPV 10.0, Neut % (Auto) 62.6, Lymph % (Auto) 17.1, Sterling % (Auto) 11.9 H, Eos % (Auto) 7.4, Baso % (Auto) 0.5, Neut # (Auto) 2.5, Lymph # (Auto) 0.7, Sterling # (Auto) 0.5, Eos # (Auto) 0.3, Baso # (Auto) 0.0, Sodium 139, Potassium 3.2 L, Chloride 103, Carbon Dioxide 31 H, Anion Gap 8.2, BUN 13, Creatinine 1.00, Estimated Creat Clear 94, Estimated GFR 72, Est GFR ( Amer) 87, Glucose 111 H, Calcium 8.6, Magnesium 1.8, Total Bilirubin 1.3, AST 30, ALT 20, Alkaline Phosphatase 218 H, Total Protein 6.4, Albumin 3.5, Globulin 2.9, Albumin/Globulin Ratio 1.2 09/18/24 06:10: POC Glucose 115 H I & O for Last 24 hours: Intake & Output 09/15/24 09/16/24 09/17/24 09/18/24 23:59 23:59 23:59 23:59 Intake Total 480 / 720 1320 / 1320 Output Total 1320 / 1320 5815 / 6365 750 / 750 Balance -1320 / -1200 -5335 / -5645 570 / 570 Weight 124.058 kg 122.243 kg 117.163 kg Constitutional Constitutional: no acute distress, obese, chronically ill appearing and cooperative *Routine HEENT Exam Head: Present normocephalic Eye: Present EOMI and PERRL ENT: Present mucous membranes moist *Routine Neck Exam Neck: Present supple; Absent lymphadenopathy *Routine Respiratory Exam Respiratory: Present CTA bilaterally; Absent rhonchi, wheezes or crackles *Routine Cardiovascular Exam Cardiovascular: Present RRR *Routine Abdominal Exam Abdominal: Present soft, normoactive bowel sounds and tenderness (mild in RUQ); Absent distended or rebound *Routine Rectal Exam Patient deferred: visual exam *Routine Exam Patient deferred: penile exam *Routine Extremities Exam Extremities: Absent cyanosis, clubbing or edema *Routine Skin Exam Skin: Present warm; Absent rash *Routine Neurological Exam Neurological: Present alert, oriented X3 and moving all extremities; Absent altered mental status Results Data Completed and Pending Labs on day of discharge: Labs from last 24 hours 09/18/24 09/18/24 06:10 05:34 WBC 4.0 L RBC 4.03 L Hgb 10.7 L Hct 33.7 L MCV 83.6 MCH 26.6 L MCHC 31.8 RDW 18.3 H Plt Count 126 L MPV 10.0 Neut % (Auto) 62.6 Lymph % (Auto) 17.1 Sterling % (Auto) 11.9 H Eos % (Auto) 7.4 Baso % (Auto) 0.5 Neut # (Auto) 2.5 Lymph # (Auto) 0.7 Sterling # (Auto) 0.5 Eos # (Auto) 0.3 Baso # (Auto) 0.0 Sodium 139 Potassium 3.2 L Chloride 103 Carbon Dioxide 31 H Anion Gap 8.2 BUN 13 Creatinine 1.00 Estimated Creat Clear 94 Estimated GFR 72 Est GFR ( Amer) 87 Glucose 111 H POC Glucose 115 H Calcium 8.6 Magnesium 1.8 Total Bilirubin 1.3 AST 30 ALT 20 Alkaline Phosphatase 218 H Total Protein 6.4 Albumin 3.5 Globulin 2.9 Albumin/Globulin Ratio 1.2 DS: Diagnosis Discharge Diagnosis (1) Syncope: Status: Acute Code(s): R55 - Syncope and collapse (2) Acute decompensated heart failure: Status: Acute Code(s): I50.9 - Heart failure, unspecified (3) Cholecystitis: Status: Acute Code(s): K81.9 - Cholecystitis, unspecified (4) CAD (coronary artery disease): Status: Chronic Code(s): I25.10 - Atherosclerotic heart disease of [place] coronary artery without angina pectoris Qualifiers: Associated angina: without angina Coronary Disease-Associated Artery/Lesion type: [place] artery [place] vs. transplanted heart: [place] heart Qualified Code(s): I25.10 - Atherosclerotic heart disease of [place] coronary artery without angina pectoris Problem details: MIRELLA and angioplasty (2021) per [facility] in [place] Recent Cath in 08/2020 showed Occluded SVG X 2, patent KINCAID to LAD, patient SVG to diagonal, severe disease OM in 1 stent, mid circ. Medical management in 2018. MIRELLA in 2012. Hx of CABG. (5) Afib: Status: Chronic Code(s): I48.91 - Unspecified atrial fibrillation Qualifiers: Atrial fibrillation type: chronic Qualified Code(s): I48.2 - Chronic atrial fibrillation (6) Obesity: Status: Chronic Code(s): E66.9 - Obesity, unspecified Qualifiers: Body mass index: BMI 39.0-39.9 Obesity classification: adult class 2 (BMI 35 - 39.9) Obesity type: due to excess calories Serious obesity comorbidity presence: without serious comorbidity Qualified Code(s): E66.09 - Other obesity due to excess calories; Z68.39 - Body mass index (BMI) 39.0-39.9, adult (7) Edema of both lower extremities: Status: Acute Code(s): R60.0 - Localized edema (8) Diabetes mellitus: Status: Chronic Code(s): E11.9 - Type 2 diabetes mellitus without complications Qualifiers: Diabetes mellitus complication status: without complication Diabetes mellitus termination clerk insulin use: with termination clerk use Diabetes mellitus type: type 2 Qualified Code(s): E11.9 - Type 2 diabetes mellitus without complications; Z79.4 - terminal superintendent (current) use of insulin (9) HLD (hyperlipidemia): Status: Acute Code(s): E78.5 - Hyperlipidemia, unspecified Qualifiers: Hyperlipidemia type: mixed hyperlipidemia Qualified Code(s): E78.2 - Mixed hyperlipidemia (10) Pulmonary edema: Status: Acute Code(s): J81.1 - Chronic pulmonary edema Qualifiers: Chronicity: acute Qualified Code(s): J81.0 - Acute pulmonary edema (11) Hematochezia: Status: Acute Code(s): K92.1 - Melena Meds Home Medications and Allergies Home Medications ?Medication ?Instructions ?Recorded ?Confirmed ?Type pantoprazole 40 mg tablet,delayed 40 mg PO DAILY #30 tabs 04/08/24 09/23/24 Rx release (Protonix) lactulose 20 gram/30 mL oral 20 g (30 mL) PO BID #1,800 mL 07/29/24 09/23/24 Rx solution ondansetron HCl 4 mg tablet 4 mg PO TID #90 tabs 07/29/24 09/23/24 Rx albuterol sulfate 90 mcg/actuation 2 inh inhalation QIDP PRN 08/26/24 09/23/24 Rx aerosol inhaler Shortness Of Breath Or Wheezing #8.5 grams apixaban 5 mg tablet (Eliquis) 5 mg PO BID #60 tabs 08/26/24 09/23/24 Rx atorvastatin 40 mg tablet 40 mg PO HS #90 tabs 08/26/24 09/23/24 Rx metoprolol succinate 25 mg 25 mg PO BID #90 tabs 08/26/24 09/23/24 Rx tablet,extended release 24 hr (Toprol XL) potassium chloride 20 mEq 20 meq PO DAILY #90 tabs 08/26/24 09/23/24 Rx tablet,extended release(part/cryst) trazodone 50 mg tablet 50 mg PO HS #90 tabs 08/26/24 09/23/24 Rx clopidogrel 75 mg tablet 75 mg PO DAILY 09/17/24 09/23/24 History furosemide 20 mg tablet 20 mg PO DAILY PRN Edema 09/17/24 09/23/24 History gabapentin 300 mg capsule 300 mg PO TIDP PRN neuropathic pain 09/17/24 09/23/24 History insulin NPH-regular 70-30 U-100 40 unit SQ BID 09/17/24 09/23/24 History insulin 100 unit/mL subcutaneous pen (Humulin 70/30 U-100 KwikPen) furosemide 40 mg tablet 40 mg PO DAILY 30 days #30 tabs 09/18/24 09/23/24 Rx sacubitril 24 mg-valsartan 26 mg 1 tab PO BID 30 days #60 tabs 09/18/24 09/23/24 Rx tablet (Entresto) blood sugar diagnostic (Accu-Chek #100 ea 09/21/24 09/23/24 Rx Guide test strips) dapagliflozin propanediol 10 mg 10 mg PO DAILY 30 days #30 tabs 09/21/24 09/23/24 Rx tablet (Farxiga) hydrocodone 7.5 mg-acetaminophen 1 tab PO TIDP PRN pain #90 tabs 09/23/24 09/23/24 Rx 325 mg tablet New Prescriptions to Start Prescriptions: Bernardino Hackett sacubitril-valsartan [Entresto] Bernardino Joseph Allergies Allergy/AdvReac Type Severity Reaction Status Date / Time amoxicillin (From Augmentin) Allergy Severe edema Verified 09/23/24 15:13 ciprofloxacin (From Cipro) Allergy Severe Redness of Verified 09/23/24 15:13 Skin clavulanic acid (From Allergy Severe edema Verified 09/23/24 15:13 Augmentin) prednisone AdvReac Intermediate Agitated Verified 09/23/24 15:13 Discharge Plan Disposition Patient Disposition: Home, Self-Care Condition: Fair Follow up Plan Follow up with: Misbah Terrell MD [Staff Physician] - 10/01/24 10:30 am Grover Oakley II, MD [Staff Physician] - Enter time for follow up (please call for appointment ) Marv Santiago MD [Staff Physician] - 09/22/24 1:00 pm Prescriptions/Medication Reconciliation: New furosemide 40 mg Tablet 40 mg PO DAILY 30 Days Qty: 30 0RF Entresto 24-26 mg Tablet 1 tab PO BID 30 Days Qty: 60 0RF Continued atorvastatin 40 mg tablet 40 mg PO HS Qty: 90 3RF metoprolol succinate [Toprol XL] 25 mg tablet extended release 24 hr 25 mg PO BID Qty: 90 3RF potassium chloride 20 mEq tablet,ER particles/crystals 20 meq PO DAILY Qty: 90 0RF trazodone 50 mg tablet 50 mg PO HS Qty: 90 0RF albuterol sulfate 90 mcg/actuation HFA aerosol inhaler 2 inh INHALATION QIDP PRN (Reason: Shortness Of Breath Or Wheezing) Qty: 8.5 10RF lactulose 20 gram/30 mL solution 20 g PO BID Qty: 1800 2RF ondansetron HCl 4 mg tablet 4 mg PO TID Qty: 90 0RF pantoprazole [Protonix] 40 mg tablet,delayed release (DR/EC) 40 mg PO DAILY Qty: 30 0RF Rx Instructions: Please take on an empty stomach. Humulin 70/30 U-100 KwikPen 100 unit/mL (70-30) insulin pen 40 unit SQ BID Patient Comments: Inject 40 units UNDER THE SKIN TWICE DAILY furosemide 20 mg tablet 20 mg PO DAILY PRN (Reason: Edema) Rx Instructions: 1-2 tabs as needed for edema daily clopidogrel 75 mg tablet 75 mg PO DAILY gabapentin 300 mg capsule 300 mg PO TIDP PRN (Reason: neuropathic pain) Held Eliquis 5 mg tablet 5 mg PO BID Qty: 60 10RF Hold Instructions: hold for 2 days, ok to resume Saturday Discontinued digoxin 125 mcg (0.125 mg) tablet 125 mcg PO DAILY Qty: 90 1RF Patient Comments: TAKE ONE TABLET BY MOUTH EVERY MORNING No Action hydrocodone-acetaminophen 7.5-325 mg tablet 1 tab PO TIDP PRN (Reason: pain) Qty: 90 0RF (DME) Accu-Chek Guide test strips Strip MISCELLANEOUS Qty: 100 4RF Patient Comments: USE TO TEST BLOOD SUGAR TWICE DAILY OR DIRECTED Rx Instructions: Use to check blood sugar twice daily and prn dapagliflozin propanediol [Farxiga] 10 mg tablet 10 mg PO DAILY 30 Days Qty: 30 0RF Problem Reconciliation Problems Reviewed?: Yes Patient Discharge Instructions ACTIVITY: Continue current activity DIET: continue same diet Patient Instructions: DI for Syncope in Adults (Fainting), Stop Light Heart Failure Print Language: Lao Providers Primary Care Provider: Provider,Referral Admit Provider: Clotilde Gutierrez Attending Provider: Clotilde Gutierrez
--- NOTE | 2024-09-21 11:36 | SW/DCPLANNER ---
Spoke with patient stated that he is doing well. Patient stated that he is aware of his upcoming appointments. Patient stated that he has tried to call Dr Oakley and left a message and no return phone call yet. Patient stated that he will continue to call. Patient stated that he has no concerns or questions at this time. Cristobal Mercado
== END 2024-09-18 17:08 | disposition home or self-care (01) ==
LOC: ER 17:13 → 2ND 20:18
PROVIDERS: Internal Medicine Adolescent Medicine; Internal Medicine Gastroenterology; Nurse Practitioner Family; Admitting Provider Student in an Organized Health Care Education/Training Program; Emergency Provider Emergency Medicine; Visit Provider Student in an Organized Health Care Education/Training Program
PROC: 0DJD8ZZ Inspection of Lower Intestinal Tract, Via Natural or Artificial Opening Endoscopic (ICD-10-PCS; CPT 45378; principal; 2024-09-17 14:30)
DX: I50.23 Acute on chronic systolic (congestive) heart failure (principal); D12.3 Benign neoplasm of transverse colon; D12.4 Benign neoplasm of descending colon; D12.2 Benign neoplasm of ascending colon; R55 Syncope and collapse; K81.9 Cholecystitis, unspecified; I25.10 Atherosclerotic heart disease of native coronary artery without angina pectoris; E66.09 Other obesity due to excess calories; Z68.39 Body mass index [BMI] 39.0-39.9, adult; R60.0 Localized edema; E11.9 Type 2 diabetes mellitus without complications; E78.2 Mixed hyperlipidemia; J44.1 Chronic obstructive pulmonary disease with (acute) exacerbation; K92.1 Melena; R10.11 Right upper quadrant pain; K62.5 Hemorrhage of anus and rectum; R63.4 Abnormal weight loss; I48.0 Paroxysmal atrial fibrillation; Z95.1 Presence of aortocoronary bypass graft; Z79.4 Long term (current) use of insulin; Z88.1 Allergy status to other antibiotic agents; Z88.8 Allergy status to other drugs, medicaments and biological substances; Z88.0 Allergy status to penicillin; Z79.51 Long term (current) use of inhaled steroids; Z79.899 Other long term (current) drug therapy; Z79.01 Long term (current) use of anticoagulants; Z87.891 Personal history of nicotine dependence
CPT/HCPCS: 45385; 36415; 71275; 74174; 76705; 80053; 80061; 80162; 81001; 82962; 83735; 83880; 84100; 84484; 85025; 85610; 85730; 93005; 93306; 93880; 99285; G0378; J0696; J1938; J2405; Q9967

== ENCOUNTER 2024-11-07 17:03 | Observation (INO) | payer MEDICARE, SELFPAY ==
[2024-11-07] VITALS (8 sets, daily range): BP systolic 90–141; BP diastolic 45–88; PULSE 69–122; RESP 15–23; TEMP 36.4–36.8; O2SAT 95–99; BMI 33.3; BMI 36.1
--- OUTSIDE RECORDS SUMMARY | 2024-11-07 17:13 | XMS_ITS | Clinical Summary ---
Author Organization [facility] Address [address] [place] [address] Care Team Providers Care Hedis Specialist Name Role Phone Hernandez Fritz MD Primary Care Provider [phone] Allergies Active Allergy Reactions Criticality Noted Date Comments Amoxicillin Unknown - Patient states they do not know rxn details Low 05/05/2024 Penicillins Unknown - Patient states they do not know rxn details Low 05/05/2024 Called [facility] and they were able to verify that Mr. Vasques has received multiple prescriptions for cephalosporins and has had no reported issues with those prescriptions. Medications insulin aspart (NovoLOG, Fiasp) 100 UNIT/ML patient supplied pump Inject 40 Units under the skin 2 (two) times a day. Active HYDROcodone-adrienne taminophen ([place]) 7.5-325 MG tablet Take 1 tablet (7.5 mg of hydrocodone) by mouth 3 (three) times a day. Active gabapentin (Neurontin) 300 MG capsule Take 1 capsule (300 mg) by mouth 3 (three) times a day. Active dilTIAZem CD (Cardizem CD) 120 MG 24 hr capsule Take 1 capsule (120 mg) by mouth 1 (one) time each day. Active clopidogrel (Plavix) 75 MG tablet Take 1 tablet (75 mg) by mouth 1 (one) time each day. Active apixaban (Eliquis) 5 MG tablet Take 1 tablet (5 mg) by mouth 2 (two) times a day. Active albuterol 108 (90 Base) MCG/ACT inhaler Inhale 2 puffs every 6 (six) hours if needed for wheezing. Active potassium chloride CR (Klor-Con M20) 20 MEQ ER tablet Take 1 tablet (20 mEq) by mouth 1 (one) time each day. Do not crush or chew. Active digoxin (Lanoxin) 125 MCG tablet Take 1 tablet (125 mcg) by mouth 1 (one) time each day. Active prochlorperazin e (Compazine) 10 MG tablet Take 1 tablet (10 mg) by mouth every 12 (twelve) hours if needed for nausea or vomiting. Active tamsulosin (Flomax) 0.4 MG 24 hr capsule Take 1 capsule (0.4 mg) by mouth 1 (one) time each day with dinner. 30 capsule 05/06/2024 Active aspirin 81 MG chewable tablet Chew 1 tablet (81 mg) 1 (one) time each day. 05/07/2024 Active finasteride (Proscar) 5 MG tablet Take 1 tablet (5 mg) by mouth 1 (one) time each day. Do not crush, chew, or split. 05/07/2024 Active metoprolol succinate XL (Toprol-XL) 25 MG 24 hr tablet Take 1 tablet (25 mg) by mouth 1 (one) time each day. Do not crush or chew. 05/07/2024 Active traZODone (Desyrel) 50 MG tablet Take 1 tablet (50 mg) by mouth at night if needed for sleep. 05/06/2024 Active Active Problems Problem Noted Date Diagnosed Date Atrial fibrillation with rapid ventricular respo nse 05/05/2024 CAD (coronary artery disease) 05/05/2024 DM (diabetes mellitus) 05/05/2024 Chronic heart failure with preserved ejection fr action 05/05/2024 Hypertension 05/05/2024 ONEIDA (obstructive sleep apnea) 05/05/2024 COPD (chronic obstructive pulmonary disease) Hyperlipidemia 05/05/2024 Immunizations Immunization Administration Dates Next Due Influenza, High-dose, Split Virus, Trivalent, Injectable, preservative free 03/30/2024,02/15/2021 Influenza, high-dose, quadrivalent 03/01/2023 Influenza, injectable, quadrivalent 02/04/2017 Influenza, seasonal, injectable 01/17/2010 Moderna COVID-19 Vaccine ([place]) 12+ years ,06/28/2020 Pneumococcal Polysaccharide PPV23 01/12/2022 Tdap 08/23/2023 Social History Tobacco Use Types Packs/Day Years Used Date Smoking Tobacco: Never Tobacco Cessation:Counseling Given: Not Answered Humiliation, Afraid, Rape, and Kick questionnair e Answer Date Recorded Within the last year, have y ou been afraid of your partner or ex-partner? No 05/11/2024 Within the last year, have y ou been humiliated or emotionally abused in other ways by your partner or ex-partner? No Within the last year, have y ou been kicked, hit, slapped, or otherwise physically hurt by your partner or ex-partner? No 05/11/2024 Within the last year, have y ou been raped or forced to have any kind of sexual activity by your partner or ex-partner? No 05/11/2024 Hunger Vital Sign Answer Date Recorded Within the past 12 months, y ou worried that your food would run out before you got the money to buy more. Never true 05/11/19 25 Within the past 12 months, t he food you bought just didn't last and you didn't have money to get more. Never true 05/11/2024 PRAPARE - Transportation Answer Date Re corded In the past 12 months, has l ack of transportation kept you from medical appointments or from getting medications? No 10/2024 In the past 12 months, has l ack of transportation kept you from meetings, work, or from getting things needed for daily living? No 05/11/2024 Housing Stability Vital Sign Answer Thee e Recorded In the last 12 months, was t here a time when you were not able to pay the mortgage or rent on time? No 05/11/2024 Number of Times Moved in the Last Year Not on fi le 05/11/2024 At any time in the past 12 m [facility], were you homeless or living in a [place] facility (including now)? No 05/11/2024 Utilities Answer Date Recorded In the past 12 months has th e electric, gas, oil, or water company threatened to shut off services in your home? Yes 05/11/2024 Sex and Gender Information Value Date Recorded Sex Assigned at Not on file Legal Sex Male 5:57 AM EST Gender Identity Not on file Sexual Orientation Not on file Last Filed Vital Signs Vital Sign Reading Time Taken Comments Blood Pressure 157/90 05/06/2024 8:00 AM EST Pulse 114 05/06/2024 11:00 AM EST Temperature 36.8 C (98.2 F) 05/06/2024 12:08 PM EST Respiratory Rate 22 05/06/2024 11:00 AM EST Oxygen Saturation 100% 05/06/2024 11:00 AM EST Inhaled Oxygen Concentration - - Weight 128 kg (282 lb 3 oz) 05/05/2024 1:[address] Height 187.9 cm (6' 1.98 ) 05/05/2024 1:00 PM ES T Body Mass Index 36.25 05/05/2024 1:00 PM EST Plan of Treatment Health Maintenance Due Date Last Done Comments [facility]-Depression Screening 1940 [facility]-Medicare Annual Wellness (AWV) 1940 [facility]-Infant/Child/Adol SDOH Screenings 1940 Diabetes: Dental Exam 1952 [facility]-Zoster Vaccines (1 of 2) 1992 [facility]-RSV Vaccine: 60+ Years or (1 - 1-dose 75+ series) 2017 [facility]-Pneumococcal Vaccine: 50+ Years (2 of 2 - PCV) 01/12/2023 01/12/2022 [id number] Vaccine (3 - season) 2024 07/28/2020, 06/28/2020 [facility]-Diabetes: Hemoglobin A1C 08/04/2024 05/05/2024 [facility]- SDOH Screenings 11/08/2024 [facility]-Adult SDOH Screenings 11/08/2024 05/11/2024 [facility]-Influenza Vaccine (#1) 01/04/202503/30, 03/01/2023, 02/15/2021, Additional history exists [facility]-DTaP,Tdap,and Td Vaccines (2 - Td or Tdap) 08/22/2033 08/23/2023 [facility]-Obesity Intervention Completed 05/05/2024 HPV Vaccines Aged Out No longer eligi ble based on patient's age to complete this topic [facility]-HIB Vaccines Aged Out No longer e ligible based on patient's age to complete this topic [facility]-Hepatitis A Vaccines Aged Out No longer eligible based on patient's age to complete this topic UKY-IPV Vaccines Aged Out No longer e ligible based on patient's age to complete this topic [facility]-Rotavirus Vaccines Aged Out No lo nger eligible based on patient's age to complete this topic Procedures Procedure Name Priority Date/Time Associated Diagnosis Comments HEMOGLOBIN A1C Routine 05/05/2024 11:38 AM EST from Last 3 Months or Most Recently Relevant to Health Maintenance Results * (ABNORMAL) Hemoglobin A1c (05/05/2024 11:38 AM EST) Hemoglobin A1c 7.5(H) <5.7 % 05/05/2024 2:31 PM EST [facility] Blood Venous blood specimen / Unknown Venipuncture / Unknown 05/05/2024 11:38 AM EST 05/05/2024 12:09 PM EST Narrative [facility] - 05/05/2024 2:31 PM EST HA1C Interpretive Data: Diagnosis of Diabetes: Diabetic > or = 6.5% Pre-diabetic 5.7 to 6.4% Non-diabetic < or = 5.6% Glycemic Targets for Type I and Type II Diabetics: Non- Adults <7.0% Adults <6.0% Children and Adolescents <7.5% Source: [place] [employer]. Standards of medical care in diabetes,2017. Diabetes Care.2017:40 (suppl 1):S1-S135. HbA1c assay performed by an ion-exchange chromatography method that is certified traceable to the DCCT. us Tania Garcia APRN LAB BLOOD ORDERABLES Final R esult [facility] [address] [place] [address] from Last 3 Months or Most Recently Relevant to Health Maintenance [place] [address] [address] [place] [address] MEDICARE Advance Directives * Full Code (Latest Code Status on File) Date Activated Date Inactivated Comments 05/05/2024 11:27 AM 05/06/2024 3:04 PM Question Answer Comments Patient has decision-making capacity? Yes Care Teams Hedis Specialist Relationship Specialty Start Date End Date Hernandez Fritz MD [address] [place] [id number] PCP - General 05/05/24
--- OUTSIDE RECORDS SUMMARY | 2024-11-07 17:13 | XMS_ITS | Clinical Summary ---
Author Organization [facility] Address [address] [place] [address] Phone Care Team Providers Care Corrugator Supervisor Name Role Phone Mulugeta GLASER MD, Real [facility] rovider Allergies Active Allergy Reactions Criticality Noted Date Comments Amoxicillin-Pot Clavulanate Rash Low 06/05/19 15 Medications atorvastatin (LIPITOR) 40 mg Oral Tablet Take 40 mg by mouth daily. 5 Active fUROsemide (LASIX) 40 mg Oral Tablet Take 40 mg by mouth daily. 5 Active HYDROcodone-adrienne taminophen (NORCO) 7.5-325 mg Oral Tablet Take 1 Tablet by mouth 3 times daily as needed for Chronic Pain (G89.29) (pain). 5 Active rivaroxaban (XARELTO) 20 mg Oral Tablet Take 1 Tab by mouth With evening meal. 30 Tab 1 5 Active fluticasone-molly meterol (ADVAIR DISKUS) 250-50 mcg/dose Inhl Disk with Device Inhale 1 Puff into the lungs 2 times daily. 60 Each 7 Active pantoprazole (PROTONIX) 40 mg Oral Tablet, Delayed Release (E.C.) Take 40 mg by mouth daily. Active carvediloL (COREG) 12.5 mg Oral Tablet Take 12.5 mg by mouth 2 times daily (with meals). Active citalopram (CELEXA) 20 mg Oral Tablet Take 20 mg by mouth daily. Active clopidogreL (PLAVIX) 75 mg Oral Tablet Take 75 mg by mouth daily. Active digoxin (LANOXIN) 125 mcg (0.125 mg) Oral Tablet Take 125 mcg by mouth daily. Active empagliflozin (JARDIANCE) 25 mg Oral Tablet Take 1 Tablet by mouth daily. Active finasteride (PROSCAR) 5 mg Oral Tablet Take 5 mg by mouth daily. Active gabapentin (NEURONTIN) 300 mg Oral Capsule Take 300 mg by mouth 3 times daily. Active insulin glargine-lixise natide (SOLIQUA 100/33) 100 unit-33 mcg/mL SubQ Insulin Pen Subcutaneous (Inject under the skin) 50 Units every morning. Active tamsulosin (FLOMAX) 0.4 mg Oral Capsule Take 0.4 mg by mouth nightly. Active dilTIAZem 240 mg Oral Capsule, Sust. Release 24 hr Take 1 Capsule by mouth daily. Active Active Problems Patient Care Coordination No te Formatting of this note migh t be different from the original. Care gap audit completed by Cindy Knott RN on 03/01/2020. Attribution Problem Noted Date Diagnosed Date Cervical spondylosis 01/13/2021 Lumbar spondylosis 01/13/2021 Gastrointestinal hemorrhage 01/11/2021 Atrial flutter 01/11/2021 Essential hypertension 01/11/2021 COPD exacerbation 06/07/2014 Abdominal pain 06/05/2014 Atrial fibrillation with rapid ventricular respo nse 06/05/2014 Colitis 06/05/2014 ASHD (arteriosclerotic heart disease) 06/05/2014 Scrotal edema 06/05/2014 S/P inguinal hernia repair 06/05/2014 Shortness of breath 06/05/2014 COPD (chronic obstructive pulmonary disease) Surgical History Surgery Date Site/Laterality Comments HERNIA REPAIR 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 Date Comments CHF (congestive heart failure) (HCC) COPD (chronic obstructive pulmonary disease) (HC C) CAD (coronary artery disease) Diabetes mellitus (HCC) Hypertension Social History Tobacco Use Types Packs/Day Years Used Date Smoking Tobacco: Former Cigarettes Q uit: 06/05/1989 Smokeless Tobacco: Never Alcohol Use Standard Drinks/Week Comments No 0 (1 standard drink = 0.6 oz pur e alcohol) Sex and Gender Information Value Date Recorded Sex Assigned at Not on file Legal Sex Male 5:07 AM EDT Gender Identity Not on file Sexual Orientation Not on file Obstetrics History Last Filed Vital Signs Vital Sign Reading Time Taken Comments Blood Pressure 121/59 01/13/2021 7:46 AM EDT Pulse 86 01/13/2021 7:46 AM EDT Temperature 36.6 C (97.9 F) 01/13/2021 7:46 AM EDT Respiratory Rate 18 01/13/2021 9:18 AM EDT Oxygen Saturation 94% 01/13/2021 7:46 AM EDT Inhaled Oxygen Concentration - - Weight 136.1 kg (300 lb) 01/10/2021 9:42 PM EDT Height 182.9 cm (6') 01/10/2021 9:42 PM EDT Body Mass Index 40.69 01/10/2021 9:42 PM EDT Plan of Treatment Health Maintenance Due Date Last Done Comments Wellness Exam Medicare 1943 DTaP/TDaP/Td (1 - Tdap) 1961 Pneumococcal Vaccine 50+ (1 of 2 - PCV) 1961 Zoster (1 of 2) 1992 RSV or 60+ (1 - 1-dose 75+ series) 2017 COVID-19 Vaccine (3 - 2023-2 5 season) 2024 07/28/2020, 06/28/2020 Influenza Vaccine (#1) 2025 7, 01/17/2010 Hepatitis B Vaccine Aged Out No longe r eligible based on patient's age to complete this topic Meningococcal B Vaccine Aged Out No l onger eligible based on patient's age to complete this topic Insurance [employer] MEDICARE PPO MR Member Subscriber Plan / Payer (Ef fective 2014-Present) Name:Kel Vasques Relation to Subscriber:Self Name:Kel Vasques Payer ID:[id number] (NAIC) Type:Not on file Address: [place] [id number] [id number] MEDICARE PPO [place] Advance Directives For more information, please contact: [phone] * Full Code (Latest Code Status on File) Date Activated Date Inactivated Comments 01/11/2021 3:20 AM 01/13/2021 8:51 PM * Full Code Date Activated Date Inactivated Comments 06/06/2014 10:40 AM 06/08/2014 5:11 PM Care Teams Corrugator Supervisor Relationship Specialty Start Date End Date Real Dalal III, MD [address] [place] [address] PCP - General Family Medicine 06/18/12
--- NOTE | 2024-11-07 17:15 | ECG_ITS ---
APPROVED REPORT Exam: Resting ECG HR:112 bpm ECG Measurements Heart Rate 112 AXES QRSd 165 QRS 221 QT 365 T 8 QTc 431 Conclusion ATRIAL FIBRILLATION WITH RAPID VENTRICULAR RESPONSE INDETERMINATE AXIS RIGHT BUNDLE BRANCH BLOCK [120+ ms QRS DURATION, UPRIGHT V1, 40+ ms S IN I/aVL/V4/V5/V6] ABNORMAL ECG UNCONFIRMED REPORT Electronically signed by : Bernardino Rogers, 11/07/2024 23:34:38
--- NOTE | 2024-11-07 17:34 | CT_ITS ---
PROCEDURE INFORMATION: Exam: CT Abdomen And Pelvis With Contrast Exam date and time: 11/07/2024 6:37 PM Age: 84 years old Clinical indication: Abdominal pain; Additional info: Ruq abd pain TECHNIQUE: Imaging protocol: Computed tomography of the abdomen and pelvis with contrast. Radiation optimization: All CT scans at this facility use at least one of these dose optimization techniques: automated exposure control; mA and/or kV adjustment per patient size (includes targeted exams where dose is matched to clinical indication); or iterative reconstruction. Contrast material: ISOVUE; Contrast volume: 75 ml; Contrast route: IV; COMPARISON: CT ANGIO ABDOMEN PELVIS 09/16/2024 5:45 PM FINDINGS: Lungs: Diffuse subpleural interstitial prominence in the lungs. No significant consolidation. Liver: Normal. No mass. Gallbladder and biliary ducts: Gallbladder is contracted but otherwise appears unremarkable. No calcified stones. No ductal dilation. Pancreas: Normal. No ductal dilation. Spleen: Normal. No splenomegaly. Adrenal glands: Normal. No mass. Kidneys and ureters: Normal. No hydronephrosis. Stomach and bowel: Unremarkable. No obstruction. No mucosal thickening. Appendix: No evidence of appendicitis. Intraperitoneal space: Unremarkable. No free air. No significant fluid collection. Vasculature: Dense atherosclerotic calcification throughout the aorta and its branches. No evidence of aortic aneurysm or dissection. There appears to be at least moderate bilateral renal artery stenosis and approximately 50% stenosis of the superior mesenteric artery. Lymph nodes: Unremarkable. No enlarged lymph nodes. Urinary bladder: Unremarkable as visualized. Reproductive: Prostate gland is enlarged, measuring 6.9 cm in greatest diameter. Bones/joints: Moderate degenerative disc changes throughout the lower spine. No vertebral body compression. Mild grade 1 anterolisthesis 2 9 noted in the lower thoracic spine. Soft tissues: Unremarkable. IMPRESSION: 1. 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 Prostatomegaly 3. Chronic osseous and pulmonary changes as noted
--- NOTE | 2024-11-07 17:39 | HMH.EDGENADL ---
Discharge Plan Disposition Patient Disposition: Admitted Prescriptions Prescriptions: No Action Eliquis 5 mg tablet 5 mg PO BID Qty: 60 10RF metoprolol succinate [Toprol XL] 25 mg tablet extended release 24 hr 25 mg PO BID Qty: 90 3RF trazodone 50 mg tablet 50 mg PO HS Qty: 90 0RF albuterol sulfate 90 mcg/actuation HFA aerosol inhaler 2 inh INHALATION QIDP PRN (Reason: Shortness Of Breath Or Wheezing) Qty: 8.5 10RF finasteride 5 mg tablet PO DAILY hydrocodone-acetaminophen 7.5-325 mg tablet 1 tab PO TIDP PRN (Reason: pain) Qty: 90 0RF (DME) Accu-Chek Guide test strips Strip MISCELLANEOUS Qty: 100 4RF Patient Comments: USE TO TEST BLOOD SUGAR TWICE DAILY OR DIRECTED Rx Instructions: Use to check blood sugar twice daily and prn albuterol sulfate 2.5 mg /3 mL (0.083 %) solution for nebulization 2.5 mg inhalation Q6H Qty: 180 10RF potassium chloride 20 mEq tablet,ER particles/crystals 20 meq PO DAILY Qty: 90 0RF dapagliflozin propanediol [Farxiga] 10 mg tablet 10 mg PO DAILY 30 Days Qty: 30 0RF furosemide 40 mg tablet 40 mg PO DAILY 30 Days Qty: 30 0RF pantoprazole [Protonix] 40 mg tablet,delayed release (DR/EC) 40 mg PO DAILY Qty: 30 0RF Rx Instructions: Please take on an empty stomach. Humulin 70/30 U-100 KwikPen 100 unit/mL (70-30) insulin pen 40 unit SQ BID Patient Comments: Inject 40 units UNDER THE SKIN TWICE DAILY furosemide 20 mg tablet 20 mg PO DAILY PRN (Reason: Edema) Rx Instructions: 1-2 tabs as needed for edema daily clopidogrel 75 mg tablet 75 mg PO DAILY gabapentin 300 mg capsule 300 mg PO TIDP PRN (Reason: neuropathic pain) Referrals Follow up/Referrals: Hernandez Fritz MD [Primary Care Provider, Family Practice] - See instructions Clinical Impressions Clinical Impression: Atrial fibrillation with rapid ventricular response, Abdominal pain, RUQ, Syncope, Heart failure, Hypotension Print Language Print Language: Icelandic Discharge ED Provider: Leesa Rogers General Adult HPI General Chief complaint: Dizziness Stated complaint: Dizziness,Lightheaded,Vomiting Time Seen by Provider: 11/07/24 17:11 Mode of Arrival: Ambulatory Source of Information: Patient Description of Symptoms (Recalled from ER Triage Doc. by RN): patient states he was fishing today around 230 when he became dizzy and reports his vision went blurry. he also states his blood pressure read low History of Present Illness HPI narrative: Patient is an 84-year-old male presented there with multiple syncopal episodes. History is obtained both from the patient as well as the patient's grandson. Patient was outside fishing stated that the temperature on his phone stated that it was 105 degrees but was symptomatic for several hours beyond that. According to his grandson he passed out multiple times including at home and in the waiting room today. At home he was hypotensive with a systolic blood pressure in the 70s. He has a known documented heart failure with reduced ejection fraction most recently with an echo showing an EF of 45%. Has a known history of atrial fibrillation. He is anticoagulated chronically. No injuries today. Of note patient also has had worsening right upper quadrant abdominal pain for several months now was evaluated in September of this month and diagnosed with acute cholecystitis evaluated by her surgeon patient states that they wanted to take his gallbladder out but he did not want to grandson states this is because primarily he was stubborn. He is scheduled to have this done outpatient sometime soon but he continues to have significant right upper quadrant abdominal pain. Patient denies any chest pain shortness of breath mopped assist lower extremity edema etc. Of note he was recently in the hospital at [place] and according to his grandson had 10 gallons of fluid taken off his body. Patient states his edema is significantly better than normal. Related Data Home Medications ?Medication ?Instructions ?Recorded ?Confirmed clopidogrel 75 mg tablet 75 mg PO DAILY 09/17/24 11/04/24 furosemide 20 mg tablet 20 mg PO DAILY PRN Edema 09/17/24 11/04/24 gabapentin 300 mg capsule 300 mg PO TIDP PRN neuropathic pain 09/17/24 11/04/24 insulin NPH-regular 70-30 U-100 40 unit SQ BID 09/17/24 11/04/24 insulin 100 unit/mL subcutaneous pen (Humulin 70/30 U-100 KwikPen) finasteride 5 mg tablet mg PO DAILY 10/07/24 11/04/24 Previous Rx's ?Medication ?Instructions ?Recorded pantoprazole 40 mg tablet,delayed 40 mg PO DAILY #30 tabs 04/08/24 release (Protonix) albuterol sulfate 90 mcg/actuation 2 inh inhalation QIDP PRN 08/26/24 aerosol inhaler Shortness Of Breath Or Wheezing #8.5 grams apixaban 5 mg tablet (Eliquis) 5 mg PO BID #60 tabs 08/26/24 Held on 09/18/24. Instructions: hold for 2 days, ok to resume Saturday metoprolol succinate 25 mg 25 mg PO BID #90 tabs 08/26/24 tablet,extended release 24 hr (Toprol XL) trazodone 50 mg tablet 50 mg PO HS #90 tabs 08/26/24 blood sugar diagnostic (Accu-Chek #100 ea 09/21/24 Guide test strips) albuterol sulfate 2.5 mg/3 mL 2.5 mg (3 mL) inhalation Q6H #180 10/26/24 (0.083 %) solution for nebulization mL dapagliflozin propanediol 10 mg 10 mg PO DAILY 30 days #30 tabs 11/04/24 tablet (Farxiga) furosemide 40 mg tablet 40 mg PO DAILY 30 days #30 tabs 11/04/24 hydrocodone 7.5 mg-acetaminophen 1 tab PO TIDP PRN pain #90 tabs 11/04/24 325 mg tablet potassium chloride 20 mEq 20 meq PO DAILY #90 tabs 11/04/24 tablet,extended release(part/cryst) Allergies Allergy/AdvReac Type Severity Reaction Status Date / Time amoxicillin (From Augmentin) Allergy Severe edema Verified 11/04/24 11:47 ciprofloxacin (From Cipro) Allergy Severe Redness of Verified 11/04/24 11:47 Skin clavulanic acid (From Allergy Severe edema Verified 11/04/24 11:47 Augmentin) prednisone AdvReac Intermediate Agitated Verified 11/04/24 11:47 [facility] PFS Disclaimer: The information contained in this section may have been updated after the patient was seen, as this information can be updated by other users. 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 HLD (hyperlipidemia) Positive laboratory testing for human immunodeficiency virus Nausea & vomiting Abdominal pain, epigastric Chronic back pain greater than 3 months duration HFrEF (heart failure with reduced ejection fraction) Polypharmacy Rash Retained myringotomy tube Hearing difficulty of right ear Otorrhea of right ear Otalgia, right ear BMI 39.0-39.9,adult [place] and COPD overlap syndrome OAB (overactive bladder) CHF (congestive heart failure) Diabetes mellitus Afib HHD (hypertensive heart disease) CAD (coronary artery disease) MIRELLA and angioplasty (2021) per [facility] in [place] Recent Cath in 08/2020 showed Occluded SVG X 2, patent KINCAID to LAD, patient SVG to diagonal, severe disease OM in 1 stent, mid circ. Medical management in 2018. MIRELLA in 2013. Hx of CABG. Surgical History History of left inguinal hernia repair History of umbilical hernia repair History of left heart catheterization (LHC) Hx of CABG Family History Mother Coronary artery disease Father Tuberculosis Social History Smoking Status: Never smoker years smoked: 30 smoking status stop date: 1992 alcohol intake: former substance use type: denies use current occupational status: retired and disabled Travel in the last 8 weeks?: None Have you lived/traveled outside US in past 30 days?: No Contact w/someone who lives/traveled outside US past 30 days?: No Exposure to someone with infectious disease in past 14 days?: No Do you have a fever (greater than 100.4 F or 38 C)?: No Have you tested positive for COVID-19?: No Exposed to someone with COVID-19 in past 14 days?: No Do you have a sore throat?: No Do you have a cough?: No Do you have any weakness?: No Do you have any diarrhea?: No Are you experiencing any unusual bleeding?: No Do you have any muscle aches/pain?: No Do you have any abdominal pain?: No Are you experiencing loss of taste or smell?: No Other 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 Have you received the Flu Vaccine for this season: No Have you received the Pneumonia Vaccine: Yes ROS Obtained: Yes All systems reviewed & no additional complaints except as documented Physical Exam General General appearance: alert and in no apparent distress Respiratory Respiratory exam: Present normal lung sounds bilaterally Cardiovascular Cardiovascular exam: Present tachycardia and irregular rhythm Abdominal Exam Abdominal exam: Present soft, distention and tenderness (Right upper quadrant epigastric abdominal tenderness) Neurological Exam Neurological exam: Present alert and oriented X3 Medical Decision Making Medical Records Screening: Per USPSTF and CDC recommendations, given the prevalence of disease in our region, it is our hospital?s policy to screen for HIV and viral Hepatitis for all patients aged 18 and over and those with ongoing risk factors. Atul Inquiry Pt receiving controlled substance: No Vital Signs: 11/07/24 17:17 11/07/24 17:31 11/07/24 18:00 Temperature 97.5 F L Temperature Source Oral Pulse Rate 121 H 76 Pulse Rate [Right Radial] 122 H Respiratory Rate 19 23 15 Blood Pressure 100/60 L 90/45 L Blood Pressure [Right Arm] 100/60 L Blood Pressure Mean Blood Pressure Mean [Right Arm] 73 Blood Pressure Source [Right Arm] Automatic Cuff Blood Pressure Position [Right Arm] Supine 02 Sat by Pulse Oximetry 95 97 95 Oxygen Delivery Method Room Air Room Air Room Air 11/07/24 19:00 11/07/24 19:30 Temperature Temperature Source Pulse Rate 85 77 Pulse Rate [Right Radial] Respiratory Rate Blood Pressure 93/51 L 94/54 L Blood Pressure [Right Arm] Blood Pressure Mean 66 62 Blood Pressure Mean [Right Arm] Blood Pressure Source [Right Arm] Blood Pressure Position [Right Arm] 02 Sat by Pulse Oximetry 98 97 Oxygen Delivery Method Lab Data Lab results reviewed: Yes I reviewed the patient's lab results. Lab Results 11/07/24 17:13: WBC 7.2, RBC 4.42 L, Hgb 11.6 L, Hct 37.6 L, MCV 85.1, MCH 26.2 L, MCHC 30.9 L, RDW 17.6 H, Plt Count 194, MPV 9.4, Neut % (Auto) 58.3, Lymph % (Auto) 16.7, [place] % (Auto) 11.2 H, Eos % (Auto) 12.0, Baso % (Auto) 1.1, Neut # (Auto) 4.2, Lymph # (Auto) 1.2, [place] # (Auto) 0.8, Eos # (Auto) 0.9 H, Baso # (Auto) 0.1, Sodium 139, Potassium 4.4, Chloride 103, Carbon Dioxide 25, Anion Gap 15.4 H, BUN 27 H, Creatinine 1.40 H, Estimated Creat Clear 64, Estimated GFR 49 L, Est GFR ( Amer) 59, Glucose 73 L, Calcium 9.1, Magnesium 2.1, Total Bilirubin 0.9, AST 44, ALT 22, Alkaline Phosphatase 194 H, Troponin I 0.02, Total Protein 7.7, Albumin 4.0, Globulin 3.7 H, Albumin/Globulin Ratio 1.1, Lipase 42, TSH 3.26 11/07/24 17:13 11/07/24 17:13 Orders (Tests/Meds): ED MEDICATIONS Generic Name Dose Route Start Last Admin Trade Name Freq PRN Reason Stop Dose Admin Sodium Chloride 10 ml 11/07/24 18:37 11/07/24 18:39 Sodium Chloride 0.9% 10ml Syr (Rad Only) IV 12/07/24 18:36 10 ml NEEDED PRN Administration Maintain IV Site Discontinued Medications Generic Name Dose Route Start Last Admin Trade Name Freq PRN Reason Stop Dose Admin Sodium Chloride 500 mls @ 999 mls/hr 11/07/24 17:34 11/07/24 17:48 Sod Chlor 0.9% 1000ml Bag IV 11/07/24 18:04 999 mls/hr .Q31M ONE Administration Magnesium Sulfate 2 gm in 50 mls @ 50 mls/hr 11/07/24 17:34 11/07/24 17:48 Magnesium Sulfate 2gm/50ml Premix IV 11/07/24 18:33 50 mls/hr ONCE ONE Administration Iopamidol 75 ml 11/07/24 18:37 11/07/24 18:38 Iopamidol-370 (76%);100ml Bottle IV 11/07/24 18:38 75 ml ONCE ONE Administration Metoprolol Tartrate 5 mg 11/07/24 17:34 11/07/24 17:48 Metoprolol Tartrate 5mg/5ml Vial IV 11/07/24 17:35 5 mg ONCE ONE Administration ORDERS Category Date Time Status CT abdomen pelvis w con Stat Cat Scan 11/07/24 17:34 Completed POCUS Point of Care (ER Only) Stat Exams 11/07/24 17:21 Completed CBC w/Auto Diff [Complete Blood Count Auto Diff] Stat Lab 11/07/24 17:13 Completed CMP [Comprehensive Metabolic Panel] Stat Lab 11/07/24 17:13 Completed Lipase Stat Lab 11/07/24 17:13 Completed Magnesium Stat Lab 11/07/24 17:13 Completed TSH [Thyroid Stimulating Hormone] Stat Lab 11/07/24 17:13 Completed Trop I [Troponin I] Stat Lab 11/07/24 17:13 Completed Troponin I Q3H Lab 11/07/24 20:00 Received Troponin I Q3H Lab 11/07/24 23:45 Ordered ECG Data Tracing #1: I reviewed this ECG and interpreted as documented below: Ventricular 112 A-fib RVR right bundle branch block no significant new ischemic changes no other significant conduction abnormality noted this is similar to old EKGs Medical Decision Narrative: Patient with above history and physical presented today with hypotensive multiple syncopal episodes in the setting of heart failure. This is highly concerning for possible arrhythmia. He is presenting with A-fib RVR will give him a dose of IV metoprolol his bedside EF appeared relatively normal and he should build to tolerate this well. No significant depression and EF at the moment. Patient has clear respiratory effort and normal oxygen saturations at the moment. He likely was mildly overdiuresed will give a bolus of fluids IV metoprolol as well as magnesium to treat his A-fib RVR. More concern only however is patient significant abdominal tenderness and recent diagnosis of cholecystitis. It is possible patient has worsening sepsis or some complication associated with that. Will get a CT scan of the patient's abdomen pelvis for further evaluation and management. Reassessment 8:[address] scan was performed which I personally interpreted which shows no intra-abdominal pathology radiology read is consistent with this as well. Patient does have mild elevation in his creatinine out of proportion to his baseline which is around 1.1 today is 1.4 I suspect that patient had some prerenal azotemia secondary to overdiuresis recently. He was given a small amount of IV fluids here. Specifically no evidence of acute cholecystitis radiographically on CT scan however I was unable to get good images on right upper quadrant ultrasound given significant bowel gas. Nonetheless he has been chronically evaluated and worked up for this with his surgeon and is scheduled to discuss his case early next week for possible elective cholecystectomy. Regarding patient's atrial fibrillation with RVR he did respond well to IV metoprolol blood pressure slightly improved as well heart rates been anywhere from 90s to 110 on my reassessment. Clinically is perfusing well. More importantly the patient had 2 syncopal episodes and of concern the patient could have degenerated into a ventricular dysrhythmia given his underlying cardiac pathology and we will keep him in the hospital for observation particular given the fact that he had multiple syncopal episodes and was hypotensive upon presentation. He would likely would benefit from cardiology evaluation particularly if they are going to undergo surgery early next week. I spoke with Dr. Miller with hospital medicine who agreed to admit the patient for further evaluation and management. Procedures Miscellaneous Procedure Procedure Performed: Limited cardiac ultrasound Indication: Syncope Identified structures: The heart was visualized in the parasternal long axis, parastenal short axis, apical four chamber and subxyphiod views. The IVC was visualized in the short axis and long axis at its entry into the right atrium. Findings: Mildly depressed LVEF no right heart strain no pericardial effusion IVC is dilated without any significant respirophasic variation Impression: Unremarkable emergency ultrasound of the heart Images were saved to permanent archive The study was technically adequate CPT: 84199-03 This study was performed by me, and I personally interpreted all images/videos. Based on my clinical judgement, these images were adequate and did not necessitate further imaging. Limited RUQ ultrasound Indication: Abdominal pain Structures unable to be identified secondary to significant bowel gas Impression unable to interpret given significant bowel gas CPT 44240-71 This study was performed by me, and I personally interpreted all images/videos. Based on my clinical judgement, these images were adequate and did necessitate further imaging. Critical Care Critical Care Time Critical Care Time: Yes Attestation: On 11/07/24, the high probability of a clinically significant, sudden or life threatening deterioration of the following system(s) required my full and direct attention, intervention and personal management. The time I documented below is in addition to time spent performing reported procedures but includes the following listed in this critical care notation. Total Time Total Critical Care Time: 35
[2024-11-07] MEDS: MAGNESIUM SULFATE IN WATER 2 GM/50 ML PIGGYBACK IV (17:48)
[2024-11-07] MEDS: METOPROLOL TARTRATE 5MG/5ML VIAL 5 MG IV (17:48)
[2024-11-07] MEDS: 0.9 % SODIUM CHLORIDE 1000ML 500 ML 999 ML IV (17:48)
[2024-11-07 18:18] LABS: Alanine Aminotransferase 22 U/L (12-78); Albumin Level 4.0 g/dl (3.5-5.0); Albumin/Globulin Ratio 1.1 (1.1-1.8); Alkaline Phosphatase 194 U/L (38-126); Anion Gap 15.4 mEq/L (5-15); Aspartate Amino Transferase 44 U/L (17-59); Bilirubin,Total 0.9 mg/dl (0.2-1.3); Blood Urea Nitrogen 27 mg/dl (9-20); Calcium 9.1 mg/dl (8.4-10.2); Carbon Dioxide 25 mmol/L (22.0-30.0); Chloride 103 mmol/L (98-107); Creatinine Clearance Estimated 64 mL/min (50-200); Creatinine,Serum 1.40 mg/dl (0.66-1.25); Estimated Glomerular Filt Rate 49 ml/min (>60); GFR (African American) 59 ML/MIN (>60); Globulin 3.7 g/dL (1.3-3.2); Glucose 73 mg/dl (74-100); Lipase 42 U/L (23-300); Magnesium 2.1 mg/dl (1.6-2.3); Potassium 4.4 mmoL/L (3.5-5.1); Sodium 139 mmol/L (136-145); Total Protein,Serum 7.7 g/dl (6.3-8.2)
[2024-11-07 18:30] LABS: Troponin I 0.02 ng/ml (0.00-0.034)
[2024-11-07] MEDS: IOPAMIDOL-370 (76%);100ML BOTTLE 75 ML IV (18:38)
[2024-11-07] MEDS: SODIUM CHLORIDE 0.9% 10ML SYR (RAD ONLY) 10 ML IV (18:39)
[2024-11-07 18:48] LABS: Thyroid Stimulating Hormone 3.26 uIU/mL (0.465-4.68)
[2024-11-07 18:49] LABS: Hematocrit 37.6 % (42.0-52.0); Hemoglobin 11.6 g/dL (14.1-18.0); Immature Granulocytes % 0.7 %; Mean Corpuscular HGB Conc 30.9 g/dL (31.8-35.4); Mean Corpuscular Hemoglobin 26.2 pg (27.0-31.2); Mean Corpuscular Volume 85.1 fl (80-94); Nucleated Red Blood Cells % 0 %; Platelet Count 194 K/mm3 (142-424); Red Blood Count 4.42 M/mm3 (4.60-6.20); Red Cell Distribution Width-SD 54.8 fL; White Blood Count 7.2 K/mm3 (4.8-10.8)
[2024-11-07 20:54] LABS: Troponin I 0.02 ng/ml (0.00-0.034)
--- NOTE | 2024-11-07 21:27 | EXP.HP ---
History of Present Illness *Admission Date: 11/07/24 *Reason for visit:: Syncope *History of present illness: Patient is a 84-year-old male with past medical history of diabetes mellitus atrial fibrillation hypertension hyperlipidemia heart failure with reduced ejection fraction CAD who presents to the hospital due to episodes of syncope. According to the patient he was fishing outside during the hot day, he was found to have blood pressure of around 70,, he had multiple episodes of syncope according to the family. Patient otherwise denied chest pain shortness of breath nausea vomiting diarrhea constipation dysuria fevers and chills. Patient on arrival was also found to have A-fib with RVR PFSH PFS Disclaimer: The information contained in this section may have been updated after the patient was seen, as this information can be updated by other users. 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 (Updated 11/07/24 @ 22:18 by Ashley Collado RN) Normal colonoscopy Positive laboratory testing for human immunodeficiency virus Nausea & vomiting Abdominal pain, epigastric HFrEF (heart failure with reduced ejection fraction) Retained myringotomy tube Hearing difficulty of right ear Otorrhea of right ear Otalgia, right ear Polypharmacy Chronic back pain greater than 3 months duration Rash BMI 39.0-39.9,adult [place] and COPD overlap syndrome OAB (overactive bladder) CHF (congestive heart failure) Diabetes mellitus Afib HLD (hyperlipidemia) HHD (hypertensive heart disease) CAD (coronary artery disease) Surgical History History of left inguinal hernia repair History of umbilical hernia repair History of left heart catheterization (LHC) Hx of CABG Family History Mother Coronary artery disease Father Tuberculosis Social History Smoking Status: Never smoker years smoked: 30 smoking status stop date: 1992 alcohol intake: former substance use type: denies use current occupational status: retired and disabled Travel in the last 8 weeks?: None Have you lived/traveled outside US in past 30 days?: No Contact w/someone who lives/traveled outside US past 30 days?: No Exposure to someone with infectious disease in past 14 days?: No Do you have a fever (greater than 100.4 F or 38 C)?: No Have you tested positive for COVID-19?: No Exposed to someone with COVID-19 in past 14 days?: No Do you have a sore throat?: No Do you have a cough?: No Do you have any weakness?: No Do you have any diarrhea?: No Are you experiencing any unusual bleeding?: No Do you have any muscle aches/pain?: No Do you have any abdominal pain?: No Are you experiencing loss of taste or smell?: No Other 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 Have you received the Flu Vaccine for this season: No Have you received the Pneumonia Vaccine: Yes Review of Systems Review of Systems Review of systems:: pertinent systems reviewed and negative unless documented below Meds Home Medications and Allergies Home Medications ?Medication ?Instructions ?Recorded ?Confirmed ?Type pantoprazole 40 mg tablet,delayed 40 mg PO DAILY #30 tabs 04/08/24 11/07/24 Rx release (Protonix) albuterol sulfate 90 mcg/actuation 2 inh inhalation QIDP PRN 08/26/24 11/07/24 Rx aerosol inhaler Shortness Of Breath Or Wheezing #8.5 grams apixaban 5 mg tablet (Eliquis) 5 mg PO BID #60 tabs 08/26/24 11/07/24 Rx Held on 09/18/24. Instructions: hold for 2 days, ok to resume Saturday metoprolol succinate 25 mg 25 mg PO BID #90 tabs 08/26/24 11/07/24 Rx tablet,extended release 24 hr (Toprol XL) trazodone 50 mg tablet 50 mg PO HS #90 tabs 08/26/24 11/07/24 Rx clopidogrel 75 mg tablet 75 mg PO DAILY 09/17/24 11/07/24 History furosemide 20 mg tablet 20 mg PO DAILY PRN Edema 09/17/24 11/07/24 History gabapentin 300 mg capsule 300 mg PO TIDP PRN neuropathic pain 09/17/24 11/07/24 History insulin NPH-regular 70-30 U-100 40 unit SQ BID 09/17/24 11/07/24 History insulin 100 unit/mL subcutaneous pen (Humulin 70/30 U-100 KwikPen) blood sugar diagnostic (Accu-Chek #100 ea 09/21/24 11/07/24 Rx Guide test strips) finasteride 5 mg tablet 5 mg PO DAILY 10/07/24 11/07/24 History albuterol sulfate 2.5 mg/3 mL 2.5 mg (3 mL) inhalation Q6H #180 10/26/24 11/07/24 Rx (0.083 %) solution for nebulization mL dapagliflozin propanediol 10 mg 10 mg PO DAILY 30 days #30 tabs 11/04/24 11/07/24 Rx tablet (Farxiga) furosemide 40 mg tablet 40 mg PO DAILY 30 days #30 tabs 11/04/24 11/07/24 Rx hydrocodone 7.5 mg-acetaminophen 1 tab PO TIDP PRN pain #90 tabs 11/04/24 11/07/24 Rx 325 mg tablet potassium chloride 20 mEq 20 meq PO DAILY #90 tabs 11/04/24 11/07/24 Rx tablet,extended release(part/cryst) atorvastatin 40 mg tablet 40 mg PO DAILY 11/07/24 11/07/24 History sacubitril 24 mg-valsartan 26 mg 1 tab PO BID 11/07/24 11/07/24 History tablet (Entresto) tamsulosin 0.4 mg capsule 0.4 mg PO DAILY 11/07/24 11/07/24 History New Prescriptions to Start Prescriptions: Allergies Allergy/AdvReac Type Severity Reaction Status Date / Time amoxicillin (From Augmentin) Allergy Severe edema Verified 11/04/24 11:47 ciprofloxacin (From Cipro) Allergy Severe Redness of Verified 11/04/24 11:47 Skin clavulanic acid (From Allergy Severe edema Verified 11/04/24 11:47 Augmentin) prednisone AdvReac Intermediate Agitated Verified 11/04/24 11:47 Exam Data for Last 24 hours Vital signs and Labs for Last 24 Hours: Temp Pulse Resp BP Pulse Ox O2 Del Method 98 F 69 19 132/83 97 Room Air 11/07/24 21:02 11/07/24 21:02 11/07/24 21:02 11/07/24 21:02 11/07/24 19:30 11/07/24 21:02 Laboratory Results - last 24 hr 11/07/24 17:13: WBC 7.2, RBC 4.42 L, Hgb 11.6 L, Hct 37.6 L, MCV 85.1, MCH 26.2 L, MCHC 30.9 L, RDW 17.6 H, Plt Count 194, MPV 9.4, Neut % (Auto) 58.3, Lymph % (Auto) 16.7, [place] % (Auto) 11.2 H, Eos % (Auto) 12.0, Baso % (Auto) 1.1, Neut # (Auto) 4.2, Lymph # (Auto) 1.2, [place] # (Auto) 0.8, Eos # (Auto) 0.9 H, Baso # (Auto) 0.1, Sodium 139, Potassium 4.4, Chloride 103, Carbon Dioxide 25, Anion Gap 15.4 H, BUN 27 H, Creatinine 1.40 H, Estimated Creat Clear 64, Estimated GFR 49 L, Est GFR ( Amer) 59, Glucose 73 L, Calcium 9.1, Magnesium 2.1, Total Bilirubin 0.9, AST 44, ALT 22, Alkaline Phosphatase 194 H, Troponin I 0.02, Total Protein 7.7, Albumin 4.0, Globulin 3.7 H, Albumin/Globulin Ratio 1.1, Lipase 42, TSH 3.26 11/07/24 20:00: Troponin I 0.02 I & O for Last 24 hours: Intake & Output 11/04/24 11/05/24 11/06/24 11/07/24 23:59 23:59 23:59 23:59 Weight 111.584 kg Constitutional Constitutional: no acute distress *Routine HEENT Exam Head: Present normocephalic Eye: Present EOMI and PERRL ENT: Present mucous membranes moist *Routine Neck Exam Neck: Present supple; Absent lymphadenopathy *Routine Respiratory Exam Respiratory: Present CTA bilaterally *Routine Cardiovascular Exam Cardiovascular: Present irregularly irregular *Routine Abdominal Exam Abdominal: Present soft and normoactive bowel sounds; Absent tenderness *Routine Rectal Exam Rectal:: deferred *Routine Genitalia Exam Genitalia:: deferred *Routine Extremities Exam Extremities: Absent cyanosis, clubbing or edema *Routine Skin Exam Skin: Present warm; Absent rash *Routine Neurological Exam Neurological: Present alert and oriented X3 Assessment and Plan *Assessment and plan (1) Hypotension: Status: Acute Category: Medical Code(s): I95.9 - Hypotension, unspecified (2) Syncope: Status: Acute Category: Medical Code(s): R55 - Syncope and collapse (3) Atrial fibrillation with rapid ventricular response: Status: Acute Category: Medical Code(s): I48.91 - Unspecified atrial fibrillation (4) HLD (hyperlipidemia): Status: Acute Qualifiers: Hyperlipidemia type: mixed hyperlipidemia Qualified Code(s): E78.2 - Mixed hyperlipidemia Category: Medical Code(s): E78.5 - Hyperlipidemia, unspecified (5) CHF (congestive heart failure): Status: Acute Qualifiers: Heart failure type: diastolic Heart failure chronicity: chronic Qualified Code(s): I50.32 - Chronic diastolic (congestive) heart failure Category: Medical Code(s): I50.9 - Heart failure, unspecified (6) CAD (coronary artery disease): Problem Comment: MIRELLA and angioplasty (2021) per [facility] in [place] Recent Cath in 08/2020 showed Occluded SVG X 2, patent KINCAID to LAD, patient SVG to diagonal, severe disease OM in 1 stent, mid circ. Medical management in 2017. MIRELLA in 2012. Hx of CABG. Status: Chronic Qualifiers: Coronary Disease-Associated Artery/Lesion type: [place] artery [place] vs. 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 According to the patient he was fishing outside during the hot day, he was found to have blood pressure of around 70,, he had multiple episodes of syncope according to the family. Patient otherwise denied chest pain shortness of breath nausea vomiting diarrhea constipation dysuria fevers and chills. Patient on arrival was also found to have A-fib with RVR Syncope likely due to hypovolemia, cannot rule out arrhythmia Monitor on cardiac telemetry Consult cardiology Check orthostatic vitals A-fib with RVR Status post IV metoprolol with good response in the emergency department Monitor on cardiac telemetry Resume home metoprolol , Cautious use of antihypertensives given hypotension and syncope episodes Chronic medical conditions Diabetes mellitus-insulin sliding scale Hypertension Cautious use of antihypertensives given hypotension episodes, check orthostatic vitals Hyperlipidemia - Resume home medications Atrial fibrillation-resume home Eliquis, metoprolol DVT prophylaxis-on Eliquis
--- NOTE | 2024-11-07 21:52 | PC.NURSE ---
Patient arrived to floor via wheelchair from ED at 21:44.
[2024-11-07] MEDS: TRAZODONE 50MG TABLET 50 MG PO (23:38)
[2024-11-07] MEDS: GABAPENTIN 300MG CAPSULE 300 MG PO (23:38)
[2024-11-07] MEDS: SACUBITRIL/VALSARTAN 24-26MG TABLET 1 EACH PO (23:38)
[2024-11-07] MEDS: APIXABAN 5MG TABLET 5 MG PO (23:38)
[2024-11-07] MEDS: 0.9 % SODIUM CHLORIDE 1000ML 1,000 ML 50 ML IV (23:39)
[2024-11-07] MEDS: METOPROLOL SUCCINATE XL 25MG TABLET 25 MG PO (23:40)
[2024-11-08] VITALS (11 sets, daily range): BP systolic 107–126; BP diastolic 61–75; PULSE 78–130; RESP 16–18; TEMP 36.4–37; O2SAT 96–100; BMI 36.1
[2024-11-08] MEDS: ALBUTEROL 0.083% 2.5 MG/3 ML NEB IH ×4 (00:01→23:10)
[2024-11-08 00:57] LABS: Troponin I 0.02 ng/ml (0.00-0.034)
[2024-11-08 05:23] LABS: POC Glucose,Bedside 133 (70-110)
[2024-11-08 06:29] LABS: Hematocrit 34.8 % (42.0-52.0); Hemoglobin 10.8 g/dL (14.1-18.0); Immature Granulocytes % 0.4 %; Mean Corpuscular HGB Conc 31.0 g/dL (31.8-35.4); Mean Corpuscular Hemoglobin 26.9 pg (27.0-31.2); Mean Corpuscular Volume 86.6 fl (80-94); Nucleated Red Blood Cells % 0 %; Platelet Count 141 K/mm3 (142-424); Red Blood Count 4.02 M/mm3 (4.60-6.20); Red Cell Distribution Width-SD 55.6 fL; White Blood Count 5.4 K/mm3 (4.8-10.8)
[2024-11-08] MEDS: ONDANSETRON 4MG/2ML VIAL 4 MG IV (06:34)
--- NOTE | 2024-11-08 06:40 | PC.NURSE ---
Alert and oriented. Room air throughout day, 3L NC at night. CPAP is broken at home. BLE edema noted. Afib on tele. Received bath this shift. IV fluids. Complained of nausea one time, treated per jul. Bed alarm on. Call light in reach.
[2024-11-08 06:44] LABS: Anion Gap 15.4 mEq/L (5-15); Blood Urea Nitrogen 23 mg/dl (9-20); Calcium 8.8 mg/dl (8.4-10.2); Carbon Dioxide 28 mmol/L (22.0-30.0); Chloride 103 mmol/L (98-107); Creatinine Clearance Estimated 75 mL/min (50-200); Creatinine,Serum 1.30 mg/dl (0.66-1.25); Estimated Glomerular Filt Rate 53 ml/min (>60); GFR (African American) 64 ML/MIN (>60); Glucose 121 mg/dl (74-100); Potassium 4.4 mmoL/L (3.5-5.1); Sodium 142 mmol/L (136-145)
[2024-11-08] MEDS: APIXABAN 5MG TABLET 5 MG PO ×2 (10:00→20:49)
[2024-11-08] MEDS: METOPROLOL SUCCINATE XL 50MG TABLET 50 MG PO ×2 (10:00→20:49)
[2024-11-08] MEDS: TAMSULOSIN 0.4MG CAPSULE 0.4 MG PO (10:01)
[2024-11-08] MEDS: POTASSIUM CHLORIDE 20MEQ TAB 20 MEQ PO (10:01)
[2024-11-08] MEDS: CLOPIDOGREL 75MG TAB 75 MG PO (10:01)
[2024-11-08] MEDS: SACUBITRIL/VALSARTAN 24-26MG TABLET 1 EACH PO (10:01)
[2024-11-08] MEDS: DAPAGLIFLOZIN PROPANEDIOL 10 MG TABLET PO (10:01)
[2024-11-08] MEDS: humaLOG MIX 75/25 3ML FLEXPEN 40 UNIT SUBCUT (10:01)
[2024-11-08] MEDS: FINASTERIDE 5MG TABLET 5 MG PO (10:01)
--- NOTE | 2024-11-08 10:12 | HMH.PHAINT1 ---
Pharmacy Intervention Comments: MEDICATION RECONCILIATION COMPLETED ON PATIENT USING EXTERNAL FILL HISTORY FROM PHARMACY AND LIST FROM PCP OFFICE. -FLORIAN POWER, RINAD
[2024-11-08] MEDS: ACETAMINOPHEN 325MG TAB 650 MG PO (10:14)
[2024-11-08 10:18] LABS: POC Glucose,Bedside 196 (70-110)
--- NOTE | 2024-11-08 10:21 | EXP.ACUTE.PN ---
Subjective *Date: 11/08/24 *Time: 18:14 Interval history: Heart rate still elevated on morning evaluation. Kidney function showing no significant change. Alert and oriented x 3. Tolerating p.o. intake. Stable on room air. Denies chest pain or shortness of breath. Does complain of still feeling a little dizzy however and had some diarrhea this morning. Companied by some nausea. Medical Exam Vital signs and Labs for Last 24 Hours: Vital Signs Temp Pulse Pulse Resp BP BP Pulse Ox 11/08/24 08:00 117 H 16 122/72 97 11/08/24 06:45 11/08/24 06:40 90 11/08/24 06:40 99 H 11/08/24 05:00 11/08/24 04:00 120 H 11/08/24 04:00 97.7 F 96 H 17 125/71 100 11/08/24 02:55 11/08/24 01:00 11/08/24 00:14 11/08/24 00:13 103 H 11/08/24 00:00 100 H 11/07/24 23:53 98.1 F 95 H 18 139/86 99 11/07/24 23:00 11/07/24 22:00 98.2 F 122 H 17 141/88 H 99 11/07/24 21:02 98 F 69 19 132/83 11/07/24 20:48 11/07/24 19:30 77 94/54 L 97 11/07/24 19:00 85 93/51 L 98 11/07/24 18:00 76 15 90/45 L 95 11/07/24 17:31 121 H 23 100/60 L 97 11/07/24 17:17 97.5 F L 122 H 19 100/60 L 95 O2 Del Method O2 Flow Rate 11/08/24 08:00 Room Air 11/08/24 06:45 Room Air 11/08/24 06:40 11/08/24 06:40 11/08/24 05:00 Nasal Cannula 3 11/08/24 04:00 11/08/24 04:00 Nasal Cannula 3 11/08/24 02:55 Nasal Cannula 3 11/08/24 01:00 Nasal Cannula 3 11/08/24 00:14 Nasal Cannula 3 11/08/24 00:13 11/08/24 00:00 11/07/24 23:53 Nasal Cannula 3 11/07/24 23:00 Room Air 11/07/24 22:00 Room Air 11/07/24 21:02 Room Air 11/07/24 20:48 Room Air 11/07/24 19:30 11/07/24 19:00 11/07/24 18:00 Room Air 11/07/24 17:31 Room Air 11/07/24 17:17 Room Air Intake and Output 11/07/24 11/08/24 11/08/24 23:59 07:59 15:59 Intake Total 1275 / 1705 430 / 1705 Output Total 325 / 325 700 / 700 Balance -325 / -325 575 / 1005 430 / 1005 Intake: Intake, Oral Amount 430 / 430 Intake, Total IV Amount 1275 / 1275 0.9 % Sodium Chloride 1000ML 1, 275 / 275 000 ml @ 50 mls/hr IV .Q20H JAMARI Rx#:[id number] 0.9 % Sodium Chloride 1000ML 1000 / 1000 500 ml @ 999 mls/hr IV .Q31M ONE Rx#:[id number] Output: Output, Urine Amount 325 / 325 700 / 700 Other: Number of Unmeasured Voids 0 Number of Bowel Movements 1 Weight 120.882 kg 120.882 kg Patient Weight 11/08/24 23:59 Weight 120.882 kg Laboratory Results - last 24 hr 11/07/24 17:13: WBC 7.2, RBC 4.42 L, Hgb 11.6 L, Hct 37.6 L, MCV 85.1, MCH 26.2 L, MCHC 30.9 L, RDW 17.6 H, Plt Count 194, MPV 9.4, Neut % (Auto) 58.3, Lymph % (Auto) 16.7, [place] % (Auto) 11.2 H, Eos % (Auto) 12.0, Baso % (Auto) 1.1, Neut # (Auto) 4.2, Lymph # (Auto) 1.2, [place] # (Auto) 0.8, Eos # (Auto) 0.9 H, Baso # (Auto) 0.1, Sodium 139, Potassium 4.4, Chloride 103, Carbon Dioxide 25, Anion Gap 15.4 H, BUN 27 H, Creatinine 1.40 H, Estimated Creat Clear 64, Estimated GFR 49 L, Est GFR ( Amer) 59, Glucose 73 L, Calcium 9.1, Magnesium 2.1, Total Bilirubin 0.9, AST 44, ALT 22, Alkaline Phosphatase 194 H, Troponin I 0.02, Total Protein 7.7, Albumin 4.0, Globulin 3.7 H, Albumin/Globulin Ratio 1.1, Lipase 42, TSH 3.26 11/07/24 20:00: Troponin I 0.02 11/07/24 23:51: Troponin I 0.02 11/08/24 05:17: POC Glucose 133 H 11/08/24 06:07: WBC 5.4, RBC 4.02 L, Hgb 10.8 L, Hct 34.8 L, MCV 86.6, MCH 26.9 L, MCHC 31.0 L, RDW 17.5, Plt Count 141 L D, MPV 9.0, Neut % (Auto) 56.3, Lymph % (Auto) 19.8, [place] % (Auto) 11.3 H, Eos % (Auto) 11.3, Baso % (Auto) 0.9, Neut # (Auto) 3.0, Lymph # (Auto) 1.1, [place] # (Auto) 0.6, Eos # (Auto) 0.6 H, Baso # (Auto) 0.1, Sodium 142, Potassium 4.4, Chloride 103, Carbon Dioxide 28, Anion Gap 15.4 H, BUN 23 H, Creatinine 1.30 H, Estimated Creat Clear 75, Estimated GFR 53 L, Est GFR ( Amer) 64, Glucose 121 H D, Calcium 8.8 11/08/24 09:55: POC Glucose 196 H I & O for Labs for Last 24 Hours: Intake & Output 11/05/24 11/06/24 11/07/24 11/08/24 23:59 23:59 23:59 23:59 Intake Total 1705 / 1705 Output Total 325 / 325 700 / 700 Balance -325 / -325 1005 / 1005 Weight 120.882 kg 120.882 kg Constitutional: Present no acute distress, obese and chronically ill appearing Head: Present atraumatic and normocephalic ENT: Present normal exam Neck: Present normal inspection Respiratory: Present normal respiratory effort; Absent rhonchi, wheezes or crackles Cardiac: Present Tachycardia Comment:: Irregularly irregular GI: Present soft and normal bowel sounds; Absent distention or tenderness Extremities: Present normal inspection, full ROM and edema (Trace lower extremity) Skin: Present intact; Absent erythema Neuro: Present Grossly Intact, alert, awake, oriented x 3 and moves all extremities Comment:: Very hard of hearing Assessment and Plan *Assessment and plan (1) Hypotension: Status: Acute Category: Medical Code(s): I95.9 - Hypotension, unspecified (2) Syncope: Status: Acute Category: Medical Code(s): R55 - Syncope and collapse (3) Atrial fibrillation with rapid ventricular response: Status: Acute Category: Medical Code(s): I48.91 - Unspecified atrial fibrillation (4) HLD (hyperlipidemia): Status: Acute Qualifiers: Hyperlipidemia type: mixed hyperlipidemia Qualified Code(s): E78.2 - Mixed hyperlipidemia Category: Medical Code(s): E78.5 - Hyperlipidemia, unspecified (5) CHF (congestive heart failure): Status: Acute Qualifiers: Heart failure chronicity: chronic Heart failure type: diastolic Qualified Code(s): I50.32 - Chronic diastolic (congestive) heart failure Category: Medical Code(s): I50.9 - Heart failure, unspecified (6) CAD (coronary artery disease): Problem Comment: MIRELLA and angioplasty (2021) per [facility] in [place] Recent Cath in 08/2020 showed Occluded SVG X 2, patent KINCAID to LAD, patient SVG to diagonal, severe disease OM in 1 stent, mid circ. Medical management in 2018. MIRELLA in 2012. Hx of CABG. Status: Chronic Qualifiers: Associated angina: without angina Coronary Disease-Associated Artery/Lesion type: [place] artery [place] vs. 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 use Diabetes mellitus type: type 2 Qualified Code(s): E11.9 - Type 2 diabetes mellitus without complications; Z79.4 - nursing home (current) use of insulin Category: Medical Code(s): E11.9 - Type 2 diabetes mellitus without complications (8) Obesity: Status: Chronic Qualifiers: Body mass index: BMI 39.0-39.9 Obesity classification: adult class 2 (BMI 35 - 39.9) Obesity type: due to excess calories Serious obesity comorbidity presence: without serious comorbidity Qualified Code(s): E66.09 - Other obesity due to excess calories; Z68.39 - Body mass index (BMI) 39.0-39.9, adult Category: Medical Code(s): E66.9 - Obesity, unspecified Plan Patient is a 84-year-old male with past medical history of diabetes mellitus, atrial fibrillation, hypertension, hyperlipidemia, heart failure with reduced ejection fraction, CAD who presents to the hospital due to episodes of syncope. According to the patient he was fishing outside during the hot day, he was found to have blood pressure of around 70,, he had multiple episodes of syncope according to the family. Patient otherwise denied chest pain shortness of breath nausea vomiting diarrhea constipation dysuria fevers and chills. Patient on arrival was also found to have A-fib with RVR. Rate still above goal this morning. Also had an episode of diarrhea. Will monitor overnight and make adjustments to meds. Cardiology to evaluate tomorrow. Anticipate discharge tomorrow. Problems addressed as follows: Syncope likely due to hypovolemia versus A-fib versus hypotension from heart failure medications A-fib with RVR Combined heart failure, NYHA class III CAD status post CABG - Continue cardiac telemetry continuously - Cardiology consulted to evaluate in the morning; had similar episode in September - Echo in September with EF of 45% and elevated RVSP at 40 to 45 mmHg. Heart failure in system with combined etiology. Currently on GDMT at home. - Due to hypotension will hold Entresto - Continue Eliquis 5 mg twice daily - Continue Lipitor 40 mg nightly - Continue Plavix 75 mg daily - Continue dapagliflozin 10 mg daily - Increase metoprolol succinate 50 mg twice daily Concern for JACK: BUN 23, creatinine 1.3. Caution with IV fluids. Tolerating p.o. fluids. Potassium 4.4. Repeat CBC, CMP, magnesium ordered for the morning. Diabetes: Resume home regimen of combo insulin twice daily. Dose decreased to decrease risk for hypoglycemia. Continue 35 units 75/25 twice daily, fingersticks ACHS. A1c 6.4 one month ago BPH: Continue tamsulosin 0.4 mg daily Obesity complicates all aspects of his care Full code Cardiac diet Flacaquis
[2024-11-08 10:52] LABS: Adenovirus,PCR Not Detected (NotDetected); Chlamydophila Pneumoniae, PCR Not Detected (NotDetected); Coronavirus 19, PCR Not Detected (NotDetected); Coronovirus HKU1,PCR Not Detected (NotDetected); Influenza A, PCR Not Detected (NotDetected); Influenza AH1, 2009 Not Detected (NotDetected); Influenza AH1, PCR Not Detected (NotDetected); Influenza AH3,PCR Not Detected (NotDetected); Influenza B, PCR Not Detected (NotDetected); Mycoplasma Pneumoniae, PCR Not Detected (NotDetected); Parainfluenza 1, PCR Not Detected (NotDetected); Parainfluenza 2, PCR Not Detected (NotDetected); Parainfluenza 3, PCR Not Detected (NotDetected); Parainfluenza 4, PCR Not Detected (NotDetected)
[2024-11-08 14:50] LABS: POC Glucose,Bedside 125 (70-110)
[2024-11-08 16:45] LABS: POC Glucose,Bedside 101 (70-110)
--- NOTE | 2024-11-08 18:08 | PC.NURSE ---
Pt is A&Ox4. Vital signs stable tolerating room air. Pt reports diarrhea today. Respiratory panel collected. A-fib on tele. Pt up with x1 assistance. Pt resting comfortably in bed with no further needs voiced at this time. Call light within reach.
[2024-11-08] MEDS: humaLOG MIX 75/25 3ML FLEXPEN 35 UNIT SUBCUT (20:47)
[2024-11-08] MEDS: PANTOPRAZOLE 40MG TABLET 40 MG PO (20:49)
[2024-11-08] MEDS: TRAZODONE 50MG TABLET 50 MG PO (20:49)
[2024-11-08] MEDS: ATORVASTATIN 40MG TABLET 40 MG PO (20:49)
[2024-11-08] MEDS: GABAPENTIN 300MG CAPSULE 300 MG PO (20:49)
[2024-11-08 20:59] LABS: POC Glucose,Bedside 165 (70-110)
[2024-11-09] VITALS (10 sets, daily range): BP systolic 104–118; BP diastolic 51–73; PULSE 75–131; RESP 14–18; TEMP 36.6–37; O2SAT 94–99
--- NOTE | 2024-11-09 04:14 | PC.NURSE ---
Alert and oriented. No complaints this shift. Room air when awake, 3L NC at night while sleeping. Diarrhea this shift 1 time. ACHS FS. Crackles noted to bilateral bases. Edema noted to BLE. Call light in reach. Bed alarm on.
[2024-11-09 05:56] LABS: POC Glucose,Bedside 91 (70-110)
[2024-11-09 06:16] LABS: Hematocrit 32.8 % (42.0-52.0); Hemoglobin 10.1 g/dL (14.1-18.0); Immature Granulocytes % 0.8 %; Mean Corpuscular HGB Conc 30.8 g/dL (31.8-35.4); Mean Corpuscular Hemoglobin 26.1 pg (27.0-31.2); Mean Corpuscular Volume 84.8 fl (80-94); Nucleated Red Blood Cells % 0 %; Platelet Count 123 K/mm3 (142-424); Red Blood Count 3.87 M/mm3 (4.60-6.20); Red Cell Distribution Width-SD 54.9 fL; White Blood Count 5.3 K/mm3 (4.8-10.8)
[2024-11-09] MEDS: ALBUTEROL 0.083% 2.5 MG/3 ML NEB IH ×2 (06:26→11:39)
[2024-11-09 06:32] LABS: Alanine Aminotransferase 20 U/L (12-78); Albumin Level 3.4 g/dl (3.5-5.0); Albumin/Globulin Ratio 1.1 (1.1-1.8); Alkaline Phosphatase 169 U/L (38-126); Anion Gap 13.2 mEq/L (5-15); Aspartate Amino Transferase 40 U/L (17-59); Bilirubin,Total 0.8 mg/dl (0.2-1.3); Blood Urea Nitrogen 20 mg/dl (9-20); Calcium 8.6 mg/dl (8.4-10.2); Carbon Dioxide 25 mmol/L (22.0-30.0); Chloride 105 mmol/L (98-107); Creatinine Clearance Estimated 97 mL/min (50-200); Creatinine,Serum 1.00 mg/dl (0.66-1.25); Estimated Glomerular Filt Rate 72 ml/min (>60); GFR (African American) 87 ML/MIN (>60); Globulin 3.1 g/dL (1.3-3.2); Glucose 90 mg/dl (74-100); Magnesium 2.1 mg/dl (1.6-2.3); Potassium 4.2 mmoL/L (3.5-5.1); Sodium 139 mmol/L (136-145); Total Protein,Serum 6.5 g/dl (6.3-8.2)
--- NOTE | 2024-11-09 07:12 | CA_ITS ---
APPROVED REPORT EXAM: Comprehensive 2D, Doppler, and color-flow Echocardiogram President + Publisher: Kate Arvizu CRT Ht: 6 ft 0 in Wt: 266lbs BSA: 2.41 BP: 100/60 mmHg Indications: Diabetes, Hyperlipidemia, Hypertension/HDD, CABG, AFIB, HF, STENTS EF 45% 09/17/24 2D Dimensions LA Volume 99.40 mL LA Volume Index 40.40 mL/m2 (M/F) 16-34 M-Mode Dimensions RVDd 4.29 cm (0.9-2.6) LA Diam 5.25 cm (1.9-4.0) LVDd 5.89 cm (3.5-5.7) LVDs 4.61 cm (3.5-5.7) IVSd 2.04 cm (0.6-1.1) PWd 1.32 cm (0.6-1.1) EF (Teich) 43.30% FS 21.70% EDV (Teich) 172.50 mL TAPSE 0.99 (<1.7) ESV (Teich) 97.80 mL LV Diastology MED A' 4.70 cm/s LAT A' 4.40 cm/s Aortic Valve AO Peak GR. 4.40 mmHg Pulmonary Valve PV Peak Velocity 200.0 (50-150 cm/s) Tricuspid Valve TR P. Velocity 311.00 cm/s RAP Estimate 10.00 mmHg RVSP 48.70 mmHg Left Ventricle The left ventricle is normal size. The left ventricular systolic function is low normal. There is increased LV wall thickness. The septum is asynchronous. Diastolic function is indeterminate. LVEF is 50-55%. Right Ventricle The right ventricle is not well-visualized, but appears grossly at least mildly dilated with at least mild reduction in RV function. Atria Left atrium is severely dilated. Right atrium is severely dilated. There is no Doppler evidence of interatrial shunt. Aortic Valve Aortic valve is mildly thickened. There is no aortic valvular stenosis. Trace aortic regurgitation. Mitral Valve The mitral valve leaflets are mildly thickened. No evidence of mitral valve stenosis. Trace mitral regurgitation. Tricuspid Valve Tricuspid valve is grossly normal in structure and function. Moderate tricuspid regurgitation. RVSP is 50-55 mmHg. Pulmonic Valve The pulmonary valve is normal in structure. Mild pulmonic regurgitation. Great Vessels The aortic root is normal in size. The IVC is dilated. Pericardium There is no pericardial effusion. Other Information Study Quality: Fair Conclusion Low normal LV systolic function (LVEF 50-55%). RV not well-visualized, but appears at least mildly dilated with at least mild reduction in RV function. Severe biatrial dilation. Moderate TR. Mild PI. Elevated RVSP 50-55 mmHg. Electronically signed by : Latia Santiago MD 11/09/2024 11:41:37
--- NOTE | 2024-11-09 07:40 | EXP.DC.SUM ---
General Admission date:: 11/07/24 Discharge date: 11/09/24 HPI HPI HPI: Patient is a 84-year-old male with past medical history of diabetes mellitus atrial fibrillation hypertension hyperlipidemia heart failure with reduced ejection fraction CAD who presents to the hospital due to episodes of syncope. According to the patient he was fishing outside during the hot day, he was found to have blood pressure of around 70,, he had multiple episodes of syncope according to the family. Patient otherwise denied chest pain shortness of breath nausea vomiting diarrhea constipation dysuria fevers and chills. Patient on arrival was also found to have A-fib with RVR Hospital Course Hospital Course Hospital Course: Patient is a 84-year-old male with past medical history of diabetes mellitus, atrial fibrillation, hypertension, hyperlipidemia, heart failure with reduced ejection fraction, CAD who presents to the hospital due to episodes of syncope. According to the patient he was fishing outside during the hot day, he was found to have blood pressure of around 70,, he had multiple episodes of syncope according to the family. Patient otherwise denied chest pain shortness of breath nausea vomiting diarrhea constipation dysuria fevers and chills. Patient on arrival was also found to have A-fib with RVR. Rate still above goal this morning. Also had an episode of diarrhea. Diarrhea resolved. Heart rate showing improvement. Stable discharge home after eval by cardiology. Close follow-up as an outpatient. Has appointment in the next day or 2 with surgery to evaluate for elective cholecystectomy. Stable to discharge home. 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 Had similar episode in September. Adjustments made to his rate controlling meds with improvement in his A-fib. Will continue metoprolol succinate 50 mg twice daily. Echo in September with EF of 45% and elevated RVSP at 40 to 45 mmHg. Heart failure in system with combined etiology. Currently on GDMT at home. Due to hypotension will hold Entresto. Continue Eliquis 5 mg twice daily, Lipitor 40 mg nightly, Plavix 75 mg daily, dapagliflozin 10 mg daily. No further episodes during admission. Close follow-up with cardiology. Concern for JACK: BUN 23, creatinine 1.3. Improved at discharge. BUN 20, creatinine 1.0. Diabetes: Resume home regimen of combo insulin twice daily. Dose decreased to decrease risk for hypoglycemia. Continue 30 units 75/25 twice daily. A1c 6.4 one month ago BPH: Continue tamsulosin 0.4 mg daily Obesity complicates all aspects of his care Total time spent on discharge 32 minutes in counseling, documentation, chart review, and direct care with patient. Exam Data for Last 24 hours Vital signs and Labs for Last 24 Hours: Temp Pulse Resp BP Pulse Ox O2 Del Method O2 Flow Rate 98.6 F 87 16 110/51 L 99 Room Air 3 11/09/24 04:00 11/09/24 06:27 11/09/24 04:00 11/09/24 04:00 11/09/24 04:00 11/09/24 07:00 11/09/24 05:00 Laboratory Results - last 24 hr 11/08/24 09:55: POC Glucose 196 H 11/08/24 10:45: Chlamy pneumoniae PCR Not detected, Adenovirus (PCR) Not detected, B. pertussis DNA (PCR) Not detected, Coronavirus OC43 (PCR) Not detected, Coronavirus HKU1 (PCR) Not detected, Coronavirus 229E (PCR) Not detected, SARS-CoV-2 (PCR) Not detected, Coronavirus NL63 (PCR) Not detected, Human Metapneumovir PCR Not detected, Influenza A (H1) PCR Not detected, Influ A (H1N1/09) PCR Not detected, Influenza A (H3) PCR Not detected, Influenza Type A (PCR) Not detected, Influenza Type B (PCR) Not detected, M. pneumoniae (PCR) Not detected, Parainfluenza 1 (PCR) Not detected, Parainfluenza 2 (PCR) Not detected, Parainfluenza 3 (PCR) Not detected, Parainfluenza 4 (PCR) Not detected, RSV (PCR) Not detected, Entero/Rhino (PCR) Not detected 11/08/24 12:10: POC Glucose 125 H 11/08/24 16:33: POC Glucose 101 11/08/24 20:48: POC Glucose 165 H 11/09/24 05:50: WBC 5.3, RBC 3.87 L, Hgb 10.1 L, Hct 32.8 L, MCV 84.8, MCH 26.1 L, MCHC 30.8 L, RDW 17.5, Plt Count 123 L, MPV 9.0, Neut % (Auto) 58.5, Lymph % (Auto) 19.0, Ware % (Auto) 10.3 H, Eos % (Auto) 11.0, Baso % (Auto) 0.4, Neut # (Auto) 3.1, Lymph # (Auto) 1.0, Ware # (Auto) 0.5, Eos # (Auto) 0.6 H, Baso # (Auto) 0.0, Sodium 139, Potassium 4.2, Chloride 105, Carbon Dioxide 25, Anion Gap 13.2, BUN 20, Creatinine 1.00 D, Estimated Creat Clear 97, Estimated GFR 72, Est GFR ( Amer) 87 D, Glucose 90 D, POC Glucose 91, Calcium 8.6, Magnesium 2.1, Total Bilirubin 0.8, AST 40, ALT 20, Alkaline Phosphatase 169 H, Total Protein 6.5, Albumin 3.4 L, Globulin 3.1, Albumin/Globulin Ratio 1.1 I & O for Last 24 hours: Intake & Output 11/06/24 11/07/24 11/08/24 11/09/24 23:59 23:59 23:59 23:59 Intake Total 2545 / 2725 180 / 180 Output Total 325 / 325 975 / 1095 620 / 620 Balance -325 / -325 1570 / 1630 -440 / -440 Weight 120.882 kg 120.882 kg Constitutional Constitutional: no acute distress, obese, chronically ill appearing and cooperative *Routine HEENT Exam Head: Present normocephalic Eye: Present EOMI and PERRL ENT: Present mucous membranes moist *Routine Neck Exam Neck: Present supple; Absent lymphadenopathy *Routine Respiratory Exam Respiratory: Present CTA bilaterally; Absent rhonchi, wheezes or crackles *Routine Cardiovascular Exam Cardiovascular: Present irregularly irregular *Routine Abdominal Exam Abdominal: Present soft, normoactive bowel sounds and tenderness (mild in RUQ); Absent distended or rebound *Routine Rectal Exam Patient deferred: visual exam *Routine Exam Patient deferred: penile exam *Routine Extremities Exam Extremities: Absent cyanosis, clubbing or edema *Routine Skin Exam Skin: Present warm; Absent rash *Routine Neurological Exam Neurological: Present alert, oriented X3 and moving all extremities; Absent altered mental status Results Data Completed and Pending Labs on day of discharge: Labs from last 24 hours 11/09/24 11/08/24 11/08/24 05:50 20:48 16:33 WBC 5.3 RBC 3.87 L Hgb 10.1 L Hct 32.8 L MCV 84.8 MCH 26.1 L MCHC 30.8 L RDW 17.5 Plt Count 123 L MPV 9.0 Neut % (Auto) 58.5 Lymph % (Auto) 19.0 Ware % (Auto) 10.3 H Eos % (Auto) 11.0 Baso % (Auto) 0.4 Neut # (Auto) 3.1 Lymph # (Auto) 1.0 Ware # (Auto) 0.5 Eos # (Auto) 0.6 H Baso # (Auto) 0.0 Sodium 139 Potassium 4.2 Chloride 105 Carbon Dioxide 25 Anion Gap 13.2 BUN 20 Creatinine 1.00 D Estimated Creat Clear 97 Estimated GFR 72 Est GFR ( Amer) 87 D Glucose 90 D POC Glucose 91 165 H 101 Calcium 8.6 Magnesium 2.1 Total Bilirubin 0.8 AST 40 ALT 20 Alkaline Phosphatase 169 H Total Protein 6.5 Albumin 3.4 L Globulin 3.1 Albumin/Globulin Ratio 1.1 Chlamy pneumoniae PCR Adenovirus (PCR) B. pertussis DNA (PCR) Coronavirus OC43 (PCR) Coronavirus HKU1 (PCR) Coronavirus 229E (PCR) SARS-CoV-2 (PCR) Coronavirus NL63 (PCR) Human Metapneumovir PCR Influenza A (H1) PCR Influ A (H1N1/09) PCR Influenza A (H3) PCR Influenza Type A (PCR) Influenza Type B (PCR) M. pneumoniae (PCR) Parainfluenza 1 (PCR) Parainfluenza 2 (PCR) Parainfluenza 3 (PCR) Parainfluenza 4 (PCR) RSV (PCR) Entero/Rhino (PCR) 11/08/24 11/08/24 11/08/24 12:10 10:45 09:55 WBC RBC Hgb Hct MCV MCH MCHC RDW Plt Count MPV Neut % (Auto) Lymph % (Auto) Ware % (Auto) Eos % (Auto) Baso % (Auto) Neut # (Auto) Lymph # (Auto) Ware # (Auto) Eos # (Auto) Baso # (Auto) Sodium Potassium Chloride Carbon Dioxide Anion Gap BUN Creatinine Estimated Creat Clear Estimated GFR Est GFR ( Amer) Glucose POC Glucose 125 H 196 H Calcium Magnesium Total Bilirubin AST ALT Alkaline Phosphatase Total Protein Albumin Globulin Albumin/Globulin Ratio Chlamy pneumoniae PCR Not detected Adenovirus (PCR) Not detected B. pertussis DNA (PCR) Not detected Coronavirus OC43 (PCR) Not detected Coronavirus HKU1 (PCR) Not detected Coronavirus 229E (PCR) Not detected SARS-CoV-2 (PCR) Not detected Coronavirus NL63 (PCR) Not detected Human Metapneumovir PCR Not detected Influenza A (H1) PCR Not detected Influ A (H1N1/09) PCR Not detected Influenza A (H3) PCR Not detected Influenza Type A (PCR) Not detected Influenza Type B (PCR) Not detected M. pneumoniae (PCR) Not detected Parainfluenza 1 (PCR) Not detected Parainfluenza 2 (PCR) Not detected Parainfluenza 3 (PCR) Not detected Parainfluenza 4 (PCR) Not detected RSV (PCR) Not detected Entero/Rhino (PCR) Not detected DS: Diagnosis Discharge Diagnosis (1) Hypotension: Status: Acute Code(s): I95.9 - Hypotension, unspecified (2) Syncope: Status: Acute Code(s): R55 - Syncope and collapse (3) Atrial fibrillation with rapid ventricular response: Status: Acute Code(s): I48.91 - Unspecified atrial fibrillation (4) HLD (hyperlipidemia): Status: Acute Code(s): E78.5 - Hyperlipidemia, unspecified Qualifiers: Hyperlipidemia type: mixed hyperlipidemia Qualified Code(s): E78.2 - Mixed hyperlipidemia (5) CHF (congestive heart failure): Status: Acute Code(s): I50.9 - Heart failure, unspecified Qualifiers: Heart failure chronicity: chronic Heart failure type: diastolic Qualified Code(s): I50.32 - Chronic diastolic (congestive) heart failure (6) CAD (coronary artery disease): Status: Chronic Code(s): I25.10 - Atherosclerotic heart disease of [place] coronary artery without angina pectoris Qualifiers: Associated angina: without angina Coronary Disease-Associated Artery/Lesion type: [place] artery [place] vs. transplanted heart: [place] heart Qualified Code(s): I25.10 - Atherosclerotic heart disease of [place] coronary artery without angina pectoris Problem details: MIRELLA and angioplasty (2021) per [facility] in [place] Recent Cath in 08/2020 showed Occluded SVG X 2, patent KINCAID to LAD, patient SVG to diagonal, severe disease OM in 1 stent, mid circ. Medical management in 2018. MIRELLA in 2013. Hx of CABG. 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 (8) Obesity: Status: Chronic Code(s): E66.9 - Obesity, unspecified Qualifiers: Body mass index: BMI 39.0-39.9 Obesity classification: adult class 2 (BMI 35 - 39.9) Obesity type: due to excess calories Serious obesity comorbidity presence: without serious comorbidity Qualified Code(s): E66.09 - Other obesity due to excess calories; Z68.39 - Body mass index (BMI) 39.0-39.9, adult Meds Home Medications and Allergies Home Medications ?Medication ?Instructions ?Recorded ?Confirmed ?Type pantoprazole 40 mg tablet,delayed 40 mg PO DAILY #30 tabs 04/08/24 11/07/24 Rx release (Protonix) albuterol sulfate 90 mcg/actuation 2 inh inhalation QIDP PRN 08/26/24 11/07/24 Rx aerosol inhaler Shortness Of Breath Or Wheezing #8.5 grams trazodone 50 mg tablet 50 mg PO HS #90 tabs 08/26/24 11/07/24 Rx clopidogrel 75 mg tablet 75 mg PO DAILY 09/17/24 11/07/24 History furosemide 20 mg tablet 20 - 40 mg PO DAILYP PRN Edema 09/17/24 11/08/24 History gabapentin 300 mg capsule 300 mg PO TIDP PRN neuropathic pain 09/17/24 11/07/24 History blood sugar diagnostic (Accu-Chek #100 ea 09/21/24 11/07/24 Rx Guide test strips) finasteride 5 mg tablet 5 mg PO DAILY 10/07/24 11/07/24 History albuterol sulfate 2.5 mg/3 mL 2.5 mg (3 mL) inhalation Q6H #180 10/26/24 11/07/24 Rx (0.083 %) solution for nebulization mL dapagliflozin propanediol 10 mg 10 mg PO DAILY 30 days #30 tabs 11/04/24 11/07/24 Rx tablet (Farxiga) furosemide 40 mg tablet 40 mg PO DAILY 30 days #30 tabs 11/04/24 11/07/24 Rx hydrocodone 7.5 mg-acetaminophen 1 tab PO TIDP PRN pain #90 tabs 11/04/24 11/07/24 Rx 325 mg tablet potassium chloride 20 mEq 20 meq PO DAILY #90 tabs 11/04/24 11/07/24 Rx tablet,extended release(part/cryst) atorvastatin 40 mg tablet 40 mg PO HS 11/07/24 11/08/24 History sacubitril 24 mg-valsartan 26 mg 1 tab PO BID 11/07/24 11/07/24 History tablet (Entresto) Held on 11/09/24. Instructions: Pending follow-up with cardiology due to soft blood pressure tamsulosin 0.4 mg capsule 0.4 mg PO DAILY 11/07/24 11/07/24 History apixaban 5 mg tablet (Eliquis) 5 mg PO BID 11/08/24 11/08/24 History insulin NPH-regular 70-30 U-100 30 unit (0.3 mL) SQ BID 3 days #0 11/09/24 11/07/24 Rx insulin 100 unit/mL subcutaneous mL pen (Humulin 70/30 U-100 KwikPen) metoprolol succinate 50 mg 50 mg PO BID 30 days #60 tabs 11/09/24 Rx tablet,extended release 24 hr (Toprol XL) New Prescriptions to Start Prescriptions: metoprolol succinate [Toprol XL] Bernardino Joseph Allergies Allergy/AdvReac Type Severity Reaction Status Date / Time amoxicillin (From Augmentin) Allergy Severe edema Verified 11/04/24 11:47 ciprofloxacin (From Cipro) Allergy Severe Redness of Verified 11/04/24 11:47 Skin clavulanic acid (From Allergy Severe edema Verified 11/04/24 11:47 Augmentin) prednisone AdvReac Intermediate Agitated Verified 11/04/24 11:47 Discharge Plan Disposition Patient Disposition: Home, Self-Care Condition: Fair Follow up Plan Follow up with: Hernandez Fritz MD [Primary Care Provider, Family Practice] - 11/13/24 11:00 am Marv Santiago MD [Staff Physician, Cardiology] - 11/23/24 1:30 pm Prescriptions/Medication Reconciliation: New metoprolol succinate [Toprol XL] 50 mg Tablet Extended Release 24 Hr 50 mg PO BID 30 Days Qty: 60 0RF Continued trazodone 50 mg tablet 50 mg PO HS Qty: 90 0RF albuterol sulfate 90 mcg/actuation HFA aerosol inhaler 2 inh INHALATION QIDP PRN (Reason: Shortness Of Breath Or Wheezing) Qty: 8.5 10RF finasteride 5 mg tablet 5 mg PO DAILY hydrocodone-acetaminophen 7.5-325 mg tablet 1 tab PO TIDP PRN (Reason: pain) Qty: 90 0RF (DME) Accu-Chek Guide test strips Strip MISCELLANEOUS Qty: 100 4RF Patient Comments: USE TO TEST BLOOD SUGAR TWICE DAILY OR DIRECTED Rx Instructions: Use to check blood sugar twice daily and prn albuterol sulfate 2.5 mg /3 mL (0.083 %) solution for nebulization 2.5 mg inhalation Q6H Qty: 180 10RF potassium chloride 20 mEq tablet,ER particles/crystals 20 meq PO DAILY Qty: 90 0RF dapagliflozin propanediol [Farxiga] 10 mg tablet 10 mg PO DAILY 30 Days Qty: 30 0RF furosemide 40 mg tablet 40 mg PO DAILY 30 Days Qty: 30 0RF pantoprazole [Protonix] 40 mg tablet,delayed release (DR/EC) 40 mg PO DAILY Qty: 30 0RF furosemide 20 mg tablet 20 - 40 mg PO DAILYP PRN (Reason: Edema) clopidogrel 75 mg tablet 75 mg PO DAILY gabapentin 300 mg capsule 300 mg PO TIDP PRN (Reason: neuropathic pain) atorvastatin 40 mg tablet 40 mg PO HS Patient Comments: TAKE ONE TABLET BY MOUTH AT BEDTIME NIGHTLY tamsulosin 0.4 mg capsule 0.4 mg PO DAILY Patient Comments: TAKE ONE CAPSULE BY MOUTH EVERY MORNING Eliquis 5 mg tablet 5 mg PO BID Patient Comments: TAKE ONE TABLET BY MOUTH EVERY MORNING and TAKE ONE TABLET BY MOUTH AT BEDTIME Changed Humulin 70/30 U-100 KwikPen 100 unit/mL (70-30) insulin pen 30 unit SQ BID 3 Days Qty: 0 0RF Patient Comments: Inject 40 units UNDER THE SKIN TWICE DAILY Held Entresto 24-26 mg tablet 1 tab PO BID Hold Instructions: Pending follow-up with cardiology due to soft blood pressure Patient Comments: TAKE ONE TABLET BY MOUTH EVERY MORNING and TAKE ONE TABLET AT BEDTIME (need refills) Discontinued metoprolol succinate [Toprol XL] 25 mg tablet extended release 24 hr 25 mg PO BID Qty: 90 3RF Problem Reconciliation Problems Reviewed?: Yes Patient Discharge Instructions ACTIVITY: Continue current activity DIET: continue same diet Patient Instructions: DI for Syncope in Adults (Fainting), DI for Heart Failure, DI for Atrial Fibrillation, DI for Hypotension, Stop Light COPD, Stop Light Heart Failure Print Language: Citizen [place] Providers Primary Care Provider: Hernandez Fritz Admit Provider: Bernardino Joseph Attending Provider: Bernardino Joseph
[2024-11-09] MEDS: METOPROLOL SUCCINATE XL 50MG TABLET 50 MG PO (07:42)
[2024-11-09] MEDS: ACETAMINOPHEN 325MG TAB 650 MG PO (08:37)
[2024-11-09] MEDS: APIXABAN 5MG TABLET 5 MG PO (08:38)
[2024-11-09] MEDS: POTASSIUM CHLORIDE 20MEQ TAB 20 MEQ PO (08:38)
[2024-11-09] MEDS: TAMSULOSIN 0.4MG CAPSULE 0.4 MG PO (08:38)
[2024-11-09] MEDS: CLOPIDOGREL 75MG TAB 75 MG PO (08:39)
[2024-11-09] MEDS: FINASTERIDE 5MG TABLET 5 MG PO (08:39)
[2024-11-09] MEDS: DAPAGLIFLOZIN PROPANEDIOL 10 MG TABLET PO (08:39)
[2024-11-09] MEDS: humaLOG MIX 75/25 3ML FLEXPEN 35 UNIT SUBCUT (08:48)
[2024-11-09] MEDS: GABAPENTIN 300MG CAPSULE 300 MG PO (08:58)
--- NOTE | 2024-11-09 10:48 | EXP.CARD.CON ---
History of Present Illness History of Present Illness Consult date: 11/09/24 Requesting physician: Bernardino Joseph Chief complaint: syncope History of present illness: 84-year-old white male typically followed by Dr. Diamond in [facility] with history of multivessel CAD, HFrEF EF 45%, COPD, gallbladder issues, permanent morbid obesity with BMI 36. Patient was here in September with recurrent orthostasis and syncope. Meds adjusted he was hydrated and sent for outpatient follow-up. Has done well since that time but states he was out recently with the heat index greater than 110 and fishing with his grandson and then remained outside afterward and reports he was very hot and sweaty. When he came inside he had episode of syncope. On arrival to the emergency room labs indicated mild dehydration with elevations of creatinine and BUN above baseline along with blood pressure of 90s systolic. Patient was hydrated and heart failure GDMT was held. He reports feeling considerably better and would like to go home. Orthostatic vitals this morning are normal and BUN/Cr back to baseline. [facility] Disclaimer: The information contained in this section may have been updated after the patient was seen, as this information can be updated by other users. 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 Normal colonoscopy Positive laboratory testing for human immunodeficiency virus Nausea & vomiting Abdominal pain, epigastric HFrEF (heart failure with reduced ejection fraction) Retained myringotomy tube Hearing difficulty of right ear Otorrhea of right ear Otalgia, right ear Polypharmacy Chronic back pain greater than 3 months duration Rash BMI 39.0-39.9,adult [place] and COPD overlap syndrome OAB (overactive bladder) CHF (congestive heart failure) Diabetes mellitus Afib HLD (hyperlipidemia) HHD (hypertensive heart disease) CAD (coronary artery disease) Surgical History History of left inguinal hernia repair History of umbilical hernia repair History of left heart catheterization (LHC) Hx of CABG Family History Mother Coronary artery disease Father Tuberculosis Social History Smoking Status: Never smoker years smoked: 30 smoking status stop date: 1992 alcohol intake: former substance use type: denies use current occupational status: retired and disabled Travel in the last 8 weeks?: None Review of Systems Constitutional Constitutional: Denies fatigue and Reports weakness Eyes Eyes: Denies loss of vision ENT Ears, Nose, Mouth, and Throat: Denies hearing loss and Denies vertigo *Cardiovascular Cardiovascular: Denies chest pain, Denies dyspnea and Denies syncope *Respiratory Respiratory: Denies cough and Denies dyspnea *Gastrointestinal Gastrointestinal: Denies change in stool character, Denies nausea and Denies vomiting *Genitourinary Genitourinary: Denies difficulty urinating *Musculoskeletal Musculoskeletal: Denies muscle weakness Integumentary/Breasts Skin/Breast: Denies changing lesions *Neurologic Neurologic: Denies loss of vision, Denies syncope, Denies vertigo and Reports weakness Endocrine Endocrine: Denies fatigue Exam Data for Last 24 hours Vital signs and Labs for Last 24 Hours: Temp Pulse Resp BP Pulse Ox O2 Del Method O2 Flow Rate 98.1 F 131 H 17 112/59 L 94 L Room Air 3 11/09/24 08:00 11/09/24 08:43 11/09/24 08:00 11/09/24 08:43 11/09/24 08:00 11/09/24 09:00 11/09/24 05:00 Laboratory Results - last 24 hr 11/08/24 10:45: Chlamy pneumoniae PCR Not detected, Adenovirus (PCR) Not detected, B. pertussis DNA (PCR) Not detected, Coronavirus OC43 (PCR) Not detected, Coronavirus HKU1 (PCR) Not detected, Coronavirus 229E (PCR) Not detected, SARS-CoV-2 (PCR) Not detected, Coronavirus NL63 (PCR) Not detected, Human Metapneumovir PCR Not detected, Influenza A (H1) PCR Not detected, Influ A (H1N1/09) PCR Not detected, Influenza A (H3) PCR Not detected, Influenza Type A (PCR) Not detected, Influenza Type B (PCR) Not detected, M. pneumoniae (PCR) Not detected, Parainfluenza 1 (PCR) Not detected, Parainfluenza 2 (PCR) Not detected, Parainfluenza 3 (PCR) Not detected, Parainfluenza 4 (PCR) Not detected, RSV (PCR) Not detected, Entero/Rhino (PCR) Not detected 11/08/24 12:10: POC Glucose 125 H 11/08/24 16:33: POC Glucose 101 11/08/24 20:48: POC Glucose 165 H 11/09/24 05:50: WBC 5.3, RBC 3.87 L, Hgb 10.1 L, Hct 32.8 L, MCV 84.8, MCH 26.1 L, MCHC 30.8 L, RDW 17.5, Plt Count 123 L, MPV 9.0, Neut % (Auto) 58.5, Lymph % (Auto) 19.0, [place] % (Auto) 10.3 H, Eos % (Auto) 11.0, Baso % (Auto) 0.4, Neut # (Auto) 3.1, Lymph # (Auto) 1.0, [place] # (Auto) 0.5, Eos # (Auto) 0.6 H, Baso # (Auto) 0.0, Sodium 139, Potassium 4.2, Chloride 105, Carbon Dioxide 25, Anion Gap 13.2, BUN 20, Creatinine 1.00 D, Estimated Creat Clear 97, Estimated GFR 72, Est GFR ( Amer) 87 D, Glucose 90 D, POC Glucose 91, Calcium 8.6, Magnesium 2.1, Total Bilirubin 0.8, AST 40, ALT 20, Alkaline Phosphatase 169 H, Total Protein 6.5, Albumin 3.4 L, Globulin 3.1, Albumin/Globulin Ratio 1.1 I & O for Last 24 hours: Intake & Output 11/06/24 11/07/24 11/08/24 11/09/24 23:59 23:59 23:59 23:59 Intake Total 2545 / 2725 900 / 900 Output Total 325 / 325 975 / 1095 620 / 620 Balance -325 / -325 1570 / 1630 280 / 280 Weight 266 lb 8 oz 266 lb 8 oz Constitutional Constitutional: no acute distress and cooperative *Routine HEENT Exam Eye: Present PERRL *Routine Respiratory Exam Respiratory: Present CTA bilaterally; Absent accessory muscle use, wheezes or crackles *Routine Cardiovascular Exam Cardiovascular: Present RRR, Normal S1 and Normal S2; Absent murmur, gallop or rubs *Routine Abdominal Exam Abdominal: Present soft; Absent tenderness *Routine Extremities Exam Extremities: Present pulses intact; Absent cyanosis or edema *Routine Skin Exam Skin: Present intact; Absent erythema or wounds *Routine Neurological Exam Neurological: Present alert and oriented X3 Routine Psychiatric Exam Psychiatric: Present cooperative Meds Home Medications and Allergies Home Medications ?Medication ?Instructions ?Recorded ?Confirmed ?Type pantoprazole 40 mg tablet,delayed 40 mg PO DAILY #30 tabs 04/08/24 11/07/24 Rx release (Protonix) albuterol sulfate 90 mcg/actuation 2 inh inhalation QIDP PRN 08/26/24 11/07/24 Rx aerosol inhaler Shortness Of Breath Or Wheezing #8.5 grams trazodone 50 mg tablet 50 mg PO HS #90 tabs 08/26/24 11/07/24 Rx clopidogrel 75 mg tablet 75 mg PO DAILY 09/17/24 11/07/24 History furosemide 20 mg tablet 20 - 40 mg PO DAILYP PRN Edema 09/17/24 11/08/24 History gabapentin 300 mg capsule 300 mg PO TIDP PRN neuropathic pain 09/17/24 11/07/24 History blood sugar diagnostic (Accu-Chek #100 ea 09/21/24 11/07/24 Rx Guide test strips) finasteride 5 mg tablet 5 mg PO DAILY 10/07/24 11/07/24 History albuterol sulfate 2.5 mg/3 mL 2.5 mg (3 mL) inhalation Q6H #180 10/26/24 11/07/24 Rx (0.083 %) solution for nebulization mL dapagliflozin propanediol 10 mg 10 mg PO DAILY 30 days #30 tabs 11/04/24 11/07/24 Rx tablet (Farxiga) furosemide 40 mg tablet 40 mg PO DAILY 30 days #30 tabs 11/04/24 11/07/24 Rx hydrocodone 7.5 mg-acetaminophen 1 tab PO TIDP PRN pain #90 tabs 11/04/24 11/07/24 Rx 325 mg tablet potassium chloride 20 mEq 20 meq PO DAILY #90 tabs 11/04/24 11/07/24 Rx tablet,extended release(part/cryst) atorvastatin 40 mg tablet 40 mg PO HS 11/07/24 11/08/24 History sacubitril 24 mg-valsartan 26 mg 1 tab PO BID 11/07/24 11/07/24 History tablet (Entresto) Held on 11/09/24. Instructions: Pending follow-up with cardiology due to soft blood pressure tamsulosin 0.4 mg capsule 0.4 mg PO DAILY 11/07/24 11/07/24 History apixaban 5 mg tablet (Eliquis) 5 mg PO BID 11/08/24 11/08/24 History insulin NPH-regular 70-30 U-100 30 unit (0.3 mL) SQ BID 3 days #0 11/09/24 11/07/24 Rx insulin 100 unit/mL subcutaneous mL pen (Humulin 70/30 U-100 KwikPen) metoprolol succinate 50 mg 50 mg PO BID 30 days #60 tabs 11/09/24 Rx tablet,extended release 24 hr (Toprol XL) New Prescriptions to Start Prescriptions: metoprolol succinate [Toprol XL] Bernardino Joseph Allergies Allergy/AdvReac Type Severity Reaction Status Date / Time amoxicillin (From Augmentin) Allergy Severe edema Verified 11/04/24 11:47 ciprofloxacin (From Cipro) Allergy Severe Redness of Verified 11/04/24 11:47 Skin clavulanic acid (From Allergy Severe edema Verified 11/04/24 11:47 Augmentin) prednisone AdvReac Intermediate Agitated Verified 11/04/24 11:47 Assessment and Plan *Assessment and plan (1) Dehydration: Status: Acute Category: Medical Code(s): E86.0 - Dehydration (2) Hypotension: Status: Acute Category: Medical Code(s): I95.9 - Hypotension, unspecified (3) Atrial fibrillation with rapid ventricular response: Status: Acute Category: Medical Code(s): I48.91 - Unspecified atrial fibrillation Plan Syncope secondary to acute dehydration and hypovolemia - resolved with fluid resuscitation and med changes - discussed extensively with patient about managing hydration/symptoms in the heat - I recommend DC of Entreso 24-26mg at discharge for now. Consider resuming later as outpatient HFrEF - known with EF 45% - cont Farxiga and PRN Lasix - salt/sugar reduction, daily weights, educated on hydration management in summer heat PAF - known perm A-fib - rate controlled - cont BB and Eliquis MV-CAD s/p CABG - CCS = 0, Trop normal, EKG A-fib - Cont Plavix, Eliquis, BB, Statin - follows closely with Dr. Diamond outpatient who recently cleared patient for GB surgery 11/09: CV stable for DC home. Recommend DC of Entresto at baseline. Can f/u with his usual [facility] for ongoing management/med adjustements, no further inpatient CV workup warranted at this time.
[2024-11-09 11:20] LABS: POC Glucose,Bedside 117 (70-110)
[2024-11-09] MEDS: METOPROLOL TARTRATE 5MG/5ML VIAL 5 MG IV (13:17)
[2024-11-09 13:43] LABS: POC Glucose,Bedside 113 (70-110)
--- NOTE | 2024-11-10 10:42 | SW/DCPLANNER ---
Spoke with patient's daughter on the phone. Patient's daughter stated that her father is doing good. Patient's daughter stated that she is aware of her fathers upcoming appointments. Patient's daughter stated that she was able to get her fathers medicine picked up from [facility]. Patient's daughter stated that she has no concerns or questions at this time. Cristobal Mercado
== END 2024-11-09 14:38 | disposition home or self-care (01) ==
LOC: ER 20:33 → 2ND 21:04
PROVIDERS: Internal Medicine; Admitting Provider Internal Medicine Adolescent Medicine; Emergency Provider Student in an Organized Health Care Education/Training Program; PCP Family Medicine; Visit Provider Internal Medicine Adolescent Medicine
DX: R55 Syncope and collapse (principal); I95.9 Hypotension, unspecified; E78.2 Mixed hyperlipidemia; E11.9 Type 2 diabetes mellitus without complications; I48.0 Paroxysmal atrial fibrillation; I11.0 Hypertensive heart disease with heart failure; J44.9 Chronic obstructive pulmonary disease, unspecified; I50.32 Chronic diastolic (congestive) heart failure; E86.1 Hypovolemia; N40.0 Benign prostatic hyperplasia without lower urinary tract symptoms; I25.10 Atherosclerotic heart disease of native coronary artery without angina pectoris; E66.09 Other obesity due to excess calories; R10.11 Right upper quadrant pain; I45.10 Unspecified right bundle-branch block; Z68.39 Body mass index [BMI] 39.0-39.9, adult; E86.0 Dehydration; Z95.1 Presence of aortocoronary bypass graft; Z95.5 Presence of coronary angioplasty implant and graft; Z79.4 Long term (current) use of insulin; Z79.01 Long term (current) use of anticoagulants; Z79.899 Other long term (current) drug therapy; Z79.84 Long term (current) use of oral hypoglycemic drugs; Z79.02 Long term (current) use of antithrombotics/antiplatelets; Z88.0 Allergy status to penicillin; Z88.1 Allergy status to other antibiotic agents; Z88.8 Allergy status to other drugs, medicaments and biological substances
CPT/HCPCS: 0223U; 36415; 74177; 80048; 80053; 82962; 83690; 83735; 84443; 84484; 85025; 87633; 93005; 93306; 94640; 94760; 96361; 96365; 96375; 96376; 99291; G0378; J2405; J3475; J7030; Q9967

== ENCOUNTER 2025-04-07 13:57 | Emergency (ER) | payer MEDICARE, SELFPAY ==
[2025-04-07 14:24] LABS: VBG HCO3 13.7 mmol/L (23-30); VBG PCO2 57.4 mmol/L (35-51); VBG PO2 38.7 mmol/L (28-40)
[2025-04-07 14:25] LABS: Lactate Venous 10.5 mmol/L (0.4-2.0); VBG PH 7.00 mmol/L (7.31-7.41)
--- NOTE | 2025-04-07 14:25 | PC.NURSE ---
spoke with Mabel Liz at [facility] to notify them of . 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 [facility] Case# [id number]
--- OUTSIDE RECORDS SUMMARY | 2025-04-07 14:27 | XMS_ITS | Data Portability ---
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 01/19/2025 08:00:49 01/20/20 25 01/19/2025 COMP METAB OLIC PANEL chloride 108 mmol/ L 98-107 high Not Available [address] , [place], [address], 01/19/2025 08:00:49 01/20/2001/19/2025 COMP METAB OLIC PANEL carbon dioxide 23 mmol/ L 24-33 low Not Available [address] , [place], [address], 01/19/2025 08:00:49 01/20/20 25 01/19/2025 COMP METAB OLIC PANEL anion gap 14.9 mmol/ L 10-20 normal Not Available [address] , [place], [address], 01/19/2025 08:00:49 01/20/2001/19/2025 COMP METAB OLIC PANEL glucose 160 mg/dL 70-99 high Not Available [address] , [place], [address], 01/19/2025 08:00:49 01/20/2001/19/2025 COMP METAB OLIC PANEL blood urea nitrogen 26 mg/dL 7-18 high Not Available [address] , [place], [address], 01/19/2025 08:00:49 01/20/2001/19/2025 COMP METAB OLIC PANEL creatinine 1.17 mg/dL 0.70-1 .30 normal Not Available [address] , [place], [address], 01/19/2025 08:00:49 01/20/2001/19/2025 COMP METAB OLIC PANEL GFR (estimated) 62 mL/mi n >60 normal [IM IDALMIS NT]: The 2020 CKD-E PI equat ion is now the recom nelson d stand lynda. This versi on does not inclu de race, as do the 2008 and 2011 CKD-E PI creat inine and creat inine -cyst atin C equat ions. Tito e note that the eGFR now repor betina is gener ated by the new 2020 CKD-E PI equat ion, which decre ases the eGFR for black s by up to 10% and incre ases the eGFR for non-b lacks by up to 10% in patria rison to the old equat ion. To patria re a legac y eGFR to a curre nt value , a 2008 CKD-E PI calcu lator is easil y seayobani hable on the inter net. Calcu lated GFR: This calcu lated GFR is advoc ated by the Natio nal Kidne y Found ation to be used as an indic ator of Chron ic Kidne y Disea se (CKD) . 5 Stage s of Chron ic Kidne y Disea se. Stage 1 90 mL/mi n or more Healt hy kidne ys or Kidne y damag e with mary l or high GFR detai ls Stage 2 60 to 89 mL/mi n Kidne y damag e and mild decre ase in GFR detai ls Stage 3 30 to 59 mL/mi n Moder ate decre ase in GFR detai ls Stage 4 15 to 29 mL/mi n Sever e decre ase in GFR detai ls Stage 5 Less than 15 mL/mi n On dialy sis or Kidne y failu re Patie nt's clini katelyn statu s must be consi dered for the care of your patie nt. Not Available [address] , [place], [address], 01/19/2025 08:00:49 01/20/20 25 01/19/2025 COMP METAB OLIC PANEL BUN/creatini ne ratio 22 12-20 high Not Available [address] [place], [address], 01/19/2025 08:00:49 01/20/20 25 01/19/2025 COMP METAB OLIC PANEL total protein 6.9 g/dL 6.4-8. 2 normal Not Available [address] [place], [address], 01/19/2025 08:00:49 01/20/20 25 01/19/2025 COMP METAB OLIC PANEL albumin 2.7 g/dL 3.4-5. 0 low Not Available [address] , [place], [address], 01/19/2025 08:00:49 01/20/2001/19/2025 COMP METAB OLIC PANEL globulin 4.2 g/dL 1.5-4. 0 high Not Available [address] , [place], [address], 01/19/2025 08:00:49 01/20/2001/19/2025 COMP METAB OLIC PANEL albumin/glob ulin ratio 0.6 0.5-2. 0 normal Not Available [address] , [place], [address], 01/19/2025 08:00:49 01/20/2001/19/2025 COMP METAB OLIC PANEL calcium 8.5 mg/dL 8.5-10 .1 normal Not Available [address] [place], [place], [address], 01/19/2025 08:00:49 01/20/2001/19/2025 COMP METAB OLIC PANEL osmolality serum calculated 290 mOsm/ kg 272-28 8 high Not Available [address] [place], [place], [address], 01/19/2025 08:00:49 01/20/2001/19/2025 COMP METAB OLIC PANEL bilirubin total 1.1 mg/dL 0.2-1. 0 high Use of this assay is not recom nelson d for patie nts under going treat ment with Eltro mbopa g due to the poten tial for false ly eleva betina resul ts. Not Available [address] , [place], [address], 01/19/2025 08:00:49 01/20/20 25 01/19/2025 COMP METAB OLIC PANEL SGOT/AST 26 U/L 15-37 normal Not Available [address] , [place], [address], 01/19/2025 08:00:49 01/20/20 25 01/19/2025 COMP METAB OLIC PANEL SGPT/ALT 16 U/L 16-63 normal Not Available [address] , [place], [address], 01/19/2025 08:00:49 01/20/2001/19/2025 COMP METAB OLIC PANEL alkaline phosphatase total 191 U/L 46-116 high Alkal ine phosp hatas e (AP) level s vary with age & pregn radha. AP's rise rapid ly durin g the first few weeks of life and reach value s five to six times mary l adult level s in about one month . From that point AP decre ases until puber ty, at which time there is anoth er rise in level s. Level s retur n to mary l adult range s at about 16 - 20 years of age. At age 40 - 50 it begin s to rise about 10% above the adult level . Not Available [address] [place], [address], 01/19/2025 08:00:49 01/20/2001/19/2025 COMP METAB OLIC PANEL performing lab see note - [facility] R [address] [facility] [address] Not Available [address] [place], [address], 01/19/2025 08:00:49 01/20/2001/19/2025 GLUCO SE POINT OF CARE note See Note Order ing Provi alo: Cece anderson MD Not Available [address] [place], [address], 01/19/2025 11:31:18 01/20/20 25 01/19/2025 GLUCO SE POINT OF CARE glucose point of care 253 mg/dL 70-99 high Not Available [address] [place], [address], 01/19/2025 11:31:18 01/20/20 25 01/19/2025 GLUCO SE POINT OF CARE performing lab see note [facility] - [address] [address] Not Available [address] [place], [address], 01/19/2025 11:31:18 07/06/19 18 07/05/2017 XR, chest , 2 view No observ ation record ed. [facility] Not Available 10:26:35 07/11/19 18 2017 XR, shoul alo No observ [facility]ion [facility] ed. [facility] Not Available 10:26:35 07/20/19 18 07/19/2017 XR, chest , 2 view No observ [facility]. [facility] 06/2017 15:01:41 09/21/19 18 09/20/2017 XR, chest , 2 view No observ ation record ed. [facility] [address] [place], [address], 09/25/2017 13:22:15 12/22/19 25 12/21/2024 XR, chest [facility] Name: JESSY TRUJILLO [facility] Medica [address] [facility] [address] Phys: DO BRITNEY BENTLEY [place] [address] : 1940 Age: 84 Sex: M Acct: [id number] Loc: G.ED PHONE #: Exam Date: 2024 Status : PRE ER FAX #: [phone] Rad# [id number] Unit# [id number] Admit Date: 2024 EXAMS: CPT CODE: [id number] [place] [address] EXAM: XR CHEST 1 VIEW PORTAB LE INDICA TION: iagnos is? DYSPNE A. Chest pain, hypert ension , histor y of diabet es, histor y of tobacc o use for 35 years. Patien t quit approx imatel y 40 years ago.. TECHNI QUE: Portab le AP or PA view of the chest dated COMPAR PIEDAD: 25. 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 The medias tinum and cardia c silhou ette are not enlarg ed. There is no pneumo thorax or pleura l effusi on. There are bibasi lar pleura l effusi ons and/or atelec tasis versus scarri ng. There are chroni c inters titial change s of the lungs. IMPRES FLACO: 1. Bibasi lar pleura l effusi ons and atelec tasis versus scarri ng. 2. Chroni c inters titial change s of the lungs. Electr onical ly signed by: Adam hill MD 2024 08:50 AM EDT RP Workst ation: [id number] Electr onical ly Signed by ADAM Gutierrez on 2024 at 0849 Report ed and signed by: SHERRIE LAKHANI CC: Joaquim anderson MD; DO BRITNEY BENTLEY; Hernandez Fritz MD Dictat ed Date/T juanito: 2024 (0849) Techno logist : MCKENZIE VINSON RT(R)( M)(CT) (MR); ... Transc ribed Date/T juanito: 2024 (0849) Transc riptio nist: DR.STE HUA Electr onic Signat ure Date/T juanito: 2024 (0849) Printe d Date/T juanito: 2024 (0854) BATCH NO: N/A PAGE 1 Signed Report CC'ed Logic: Orderi ng Provid er: SHEREE TAN Attend ing Provid er: SARY MARTINEZ Referr ing Provid er: PHYSIC RON NO Consul ting Provid er: CHERELLE [email or web address] , [place], [address], 12/22/2024 08:00:33 12/22/19 25 12/21/2024 CT, abdom en + pelvi s, w/ contr ast [facility] Name: JESSY TRUJILLO [address] [place], [place] [address]a [address] [facility] [address] Phys: SHEREE, DO BRITNEYGIACOMO [place], [place] [address] : 1940 Age: 84 Sex: M Acct: [id number] Loc: G.ED PHONE #: Exam Date: 2024 Status : REG ER FAX #: Rad# [id number] Unit# [id number] Admit Date: 2024 EXAMS: CPT CODE: [id number] CT ABD/PE L W/CONT RAST [address] ABDOME N PELVIS WITH IV CONTRA ST perfor med on 025 7:26 AM CDT. INDICA TION: iagnos is? FLANK PAIN TECHNI QUE: CT abdome n and pelvis with IV contra st. Dose modula tion, automa betina exposu re contro l, and/or iterat holli recons tructi on techni que used for dose reduct ion. COMPAR PIEDAD: 025 FINDIN GS: * Pulmon katina fibros is in the lung bases. Cardio megaly . * Normal morpho logy liver. * Normal calibe r gallbl adder and biliar y tree. * Normal size spleen . * No pancre atic inflam mation or ductal dilati on. * No adrena l nodule . * Mild to modera tely atroph ic kidney s. No urolit hiasis or hydron ephros is. Simila r nonspe cific in perine phric and periur eteral fat strand ing. Urinar y bladde r is nondis tended with circum ferent ial mural thicke primo compat ible with cystit is or chroni c outflo w obstru ction in the contex t of prosta tomega ly. * No ascite s, absces s, aortic aneury sm or adenop athy by CT size criter ia. Athero sclero sis. Fat-co ntaini ng left inguin al hernia . * Lumbar degene rative change s. IMPRES FLACO: 1. Bladde r wall thicke primo and perine phric and periur eteral fat strand ing. Correl ate for UTI. 2. Prosta tomega ly. Electr onical ly signed by: Dung griffin DO 2024 09:47 AM EDT RP Workst ation: [id number] Electr onical ly Signed by DUNG GRIFFIN DO on 2024 at 0936 Report ed and signed by: DUNG GRIFFIN DO PAGE 1 Signed Report (SANJU NUED) [facility] Name: JESSY TRUJILLO [facility] Medica [facility] Phys: DO BRITNEY BENTLEY [facility] [place] [address] : 1940 Age: 84 Sex: M Acct: [id number] Loc: G.ED PHONE #: [phone] Exam Date: 2024 Status : REG ER FAX #: Rad# [id number] Unit# [id number] Admit Date: 2024 EXAMS: CPT CODE: [id number] CT ABD/PE L W/CONT RAST 69426 CC: Joaquim anderson MD; DO BRITNEY Fritz MD Dictat ed Date/T juanito: 2024 (0936) Techno logist : ELENA Anderson RT(R)( CT); MARIA EUGENIA MARINO Transc ribed Date/T juanito: 2024 (0936) Transc riptio nist: PRE BR Isael onjoana Signat ure Date/T juanito: 2024 (0936) Printe d Date/T juanito: 2024 (0950) BATCH NO: N/A PAGE 2 Signed Report CC'ed Logic: Orderi ng Provid er: SHEREE BRITNEY Attend ing Provid er: SARY MARTINEZ Referr ing Provid er: JET ACE Consul ting Provid er: CHERELLE [email or web address] [address], [place], [address], 12/22/2024 08:00:34 Result Notes Documentation Provider Name and Address Organization Details Recorded Time Xr, Chest : [facility] Name: JESSY VASQUES [address] [place] [address] Phys: [place] [address] : 1940 Age: 84 Sex: M Acct: [id number] Loc: G.ED PHONE #: Exam Date: 12/21/2024 Status: PRE ER FAX #: Rad# [id number] Unit# [id number] Admit Date: 12/21/2024 EXAMS: CPT CODE: [id number] CHEST PORTABLE 56151 EXAM: XR CHEST 1 VIEW PORTABLE INDICATION: iagnosis? DYSPNEA. Chest pain, hypertension, history of diabetes, history of tobacco use for 35 years. Patient quit approximately 40 years ago.. TECHNIQUE: Portable AP or PA view of the chest dated COMPARISON:10/30/2024. FINDINGS: There are stable postsurgical changes from CABG. The mediastinum and cardiac silhouette are not enlarged. There is no pneumothorax or pleural effusion. There are bibasilar pleural effusions and/or atelectasis versus scarring. There are chronic interstitial changes of the lungs. IMPRESSION: 1. Bibasilar pleural effusions and atelectasis versus scarring. 2. Chronic interstitial changes of the lungs. Electronically signed by: Adam Landry MD 12/21/2024 08:50 AM EDT at 0849 Reported and signed by: ADAM JACKSON CC: Joaquim Frey MD; DO BRITNEY BENTLEY; Hernandez Fritz MD Dictated Date/Time: 12/21/2024 (0849) Technologist: MCKENZIE VINSON RT(R)(M)(CT)(MR); ... Transcribed Date/Time: 12/21/2024 (0849) Skoog Patching Machine Operator: Electronic Signature Date/Time: 12/21/2024 (0849) Printed Date/Time: 12/21/2024 (0854) BATCH NO: N/A PAGE 1 Signed Report CC'ed Logic: Ordering Provider: SHEREE TAN Attending Provider: SYLWIA MARTINEZ Referring Provider: PHYSICIAN NO Consulting Provider: CHERELLE Bentley DO [address] [place] [address], [id number], [facility] - [facility] 12/22/2024 08:00:33 Ct, Abdomen + Pelvis, W/ Contrast : [facility] Ce Name: JESSY VASQUES [address] [place] [address] Phys: [place] [address] : 1940 Age: 84 Sex: M Acct: [id number] Loc: G.ED PHONE #: Exam Date: 12/21/2024 Status: REG ER FAX #: [facility]# [id number] Unit# [id number] Admit Date: 12/21/2024 EXAMS: CPT CODE: [id number] CT ABD/PEL W/CONTRAST [address] ABDOMEN PELVIS WITH IV CONTRAST performed on 12/21/2024 7:26 AM CDT. INDICATION: iagnosis? FLANK PAIN TECHNIQUE: CT abdomen and pelvis with IV contrast. Dose modulation, automated exposure control, and/or iterative reconstruction technique used for dose reduction. COMPARISON: 10/30/2024 FINDINGS: * Pulmonary fibrosis in the lung bases. Cardiomegaly. * Normal morphology liver. * Normal caliber gallbladder and biliary tree. * Normal size spleen. * No pancreatic inflammation or ductal dilation. * No adrenal nodule. * Mild to moderately atrophic kidneys. No urolithiasis or hydronephrosis. Similar nonspecific in perinephric and periureteral fat stranding. Urinary bladder is nondistended with circumferential mural thickening compatible with cystitis or chronic outflow obstruction in the context of prostatomegaly. * No ascites, abscess, aortic aneurysm or adenopathy by CT size criteria. Atherosclerosis. Fat-containing left inguinal hernia. * Lumbar degenerative changes. IMPRESSION: 1. Bladder wall thickening and perinephric and periureteral fat stranding. Correlate for UTI. 2. Prostatomegaly. Electronically signed by: Dung Gant DO 12/21/2024 09:47 AM EDT at 0936 Reported and signed by: DUNG GANT DO PAGE 1 Signed Report (CONTINUED) [facility] Ce Name: JESSY VASQUES [facility] Phys: DO BRITNEY BENTLEY [place] [id number] : 1940 Age: 84 Sex: M Acct: [id number] Loc: G.ED PHONE #: Exam Date: 12/21/2024 Status: REG ER FAX #: Rad# [id number] Unit# [id number] Admit Date: 12/21/2024 EXAMS: CPT CODE: [id number] CT ABD/PEL W/CONTRAST 97655 CC: Joaquim Frey MD; DO BRITNEY Fritz MD Dictated Date/Time: 12/21/2024 (36) Technologist: ELENA CONNELLY RT(R)(CT); YOVANI MARINO Transcribed Date/Time: 12/21/2024 (0936) Skoog Patching Machine Operator: Electronic Signature Date/Time: 12/21/2024 (0936) Printed Date/Time: 12/21/2024 (0950) BATCH NO: N/A PAGE 2 Signed Report CC'ed Logic: Ordering Provider: SHEREE TAN Attending Provider: SYLWIA MARTINEZ Referring Provider: PHYSICIAN NO Consulting Provider: CHERELLE Bentley DO [address], [place], [address], [place] - [facility] 12/22/2024 08:00:34 Problems Name Problem SNOMED Code Status Onset Date Resolution Date Notes Provider Name and Address Organization Details Recorded Time Chronic back pain 832009977 Active 2016 Tammi [place], [place] - [facility] 7 16:34:56 Gastroesoph ageal reflux disease without esophagitis 207792600 Active 2016 Tammi Carrion [place], [place] - [facility] 7 16:35:09 Chronic obstructive pulmonary disease 89189060 Active 2016 Tammi [place], [place] - [facility] 7 16:35:17 Coronary arterioscle rosis 50785483 Active 2016 Tammi [place], [place] - [facility] 7 16:35:39 Diabetes mellitus 45172753 Completed 201602/04/2017 Tammi Carrion [place], [place] - [facility] 7 16:49:52 Chronic atrial fibrillatio n 263022316 Active 2016 Tammi [place], [place] - [facility] 7 16:43:21 Uncontrolle d type 2 diabetes mellitus 376765935 Active 2016 Tammi Burtonhop katie, [place] - [facility] 7 16:50:02 Urinary incontinenc e 283333489 Active 2016 Tammi [place]hop [place], [place] - [facility] 7 16:54:52 Renewal of prescriptio n Completed 201706/18/2017 Gillian Salgado RN [address], [place], [address], [place] - [facility] 8 09:37:01 Erosive osteoarthro sis 049244352 Active 2017 Haylee Lagunas in [place], [place] - [facility] 8 11:45:43 Delay when starting to pass urine 7852932 Active 2017 Tammi [place], [place] - [facility] 8 16:44:55 Neuropathic pain 998528335 Active 2017 Tammi Carrion [place], [place] - [facility] 8 19:59:01 Cataract 920509498 Active 2017 Gillian Salgado RN [address], [place], [address], [place] - [facility] 8 13:41:26 Problem Notes None recorded. Procedures Surgical History Date Name Laterality Status Provider Name and Address Organization Details Recorded Time CABG completed Tammi Carrion [place] - [facility] 02/04/2017 16:35:58 Stent, coated/cov w/del sys completed Tammi Carrion [facility] 02/04/2017 16:36:12 Hernia Repair completed Tammi REYNOSO [facility] 02/04/2017 16:36:36 Eardrum revision completed Tammi Carrion [facility] 02/04/2017 16:37:24 Imaging Results None recorded. Procedure Notes None recorded. Medical Equipment None Reported. Allergies No known drug allergies Medications Name Sig Start Date Stop Date Status Note LastModified by Organization Details LastModified Time cyclobenzap rine 10 mg tablet 02/04 completed Not Available Not Available Not Available amoxicillin 500 mg capsule 02/04 completed Not Available Not Available Not Available furosemide 40 mg tablet TAKE ONE TABLET BY MOUTH EVERY DAY active Not Available Not Available No t Available atorvastati n 40 mg tablet Take 1 tablet every day by oral route for 90 days. active Not Available Not Available No t Available Nasal Goodells (oxymetazol ine) 0.05 % Goodells 2 sprays twice a day by intranasa l route. active Not Available Not Available No t Available carvedilol 25 mg tablet Take 1 tablet twice a day by oral route for 90 days. active Not Available Not Available No t Available prednisone 10 mg tablet 02/04 completed Not Available Not Available Not Available Depo-Medrol 40 mg/mL suspension for injection one time only 06/05 completed Not Available Not Available Not Available diltiazem ER (XR/XT) 240 mg capsule,ext ended release 24 hr, controlled Take 1 capsule every day by oral route for 90 days. 11/26 completed Not Available Not Available Not Available azithromyci n 250 mg tablet 02/04 completed Not Available Not Available Not Available tizanidine 4 mg tablet active Not Available Not Available Not Available citalopram 10 mg tablet 02/04 completed Not Available Not Available Not Available hydrocodone 5 mg-acetamin ophen 325 mg tablet 02/04 completed Not Available Not Available Not Available diltiazem CD 240 mg capsule,ext ended release 24 hr 02/04 completed Not Available Not Available Not Available fluconazole 200 mg tablet 11/26 completed Not Available Not Available Not Available glipizide ER 10 mg tablet, extended release 24 hr 02/04 completed Not Available Not Available Not Available ondansetron HCl 4 mg tablet 02/04 completed Not Available Not Available Not Available clopidogrel 75 mg tablet Take 1 tablet every day by oral route for 90 days. active Not Available Not Available No t Available ciprofloxac in 500 mg tablet 06/07 completed Not Available Not Available Not Available sulfamethox azole 800 mg-trimetho prim 160 mg tablet 02/04 completed Not Available Not Available Not Available tramadol 50 mg tablet active Not Available Not Available No t Available Depo-Medrol 80 mg/mL suspension for injection one time only 08/05 completed Not Available Not Available Not Available verapamil ER 180 mg 24 hr capsule,ext ended release 02/04 completed Not Available Not Available Not Available citalopram 20 mg tablet Take 1 tablet every day by oral route for 90 days. active Not Available Not Available No t Available potassium chloride ER 20 mEq tablet,exte nded release(par t/cryst) Take 1 tablet every day by oral route for 90 days. active Not Available Not Available No t Available torsemide 100 mg tablet Take 1 tablet every day by oral route for 90 days. active Not Available Not Available No t Available tamsulosin 0.4 mg capsule Take 1 capsule every day by oral route. active Not Available Not Available No t Available dicyclomine 20 mg tablet Take 1 tablet 4 times a day by oral route as needed for 30 days. 02/04 completed Not Available Not Available Not Available hydrocodone 7.5 mg-acetamin ophen 325 mg tablet 1/2 -1 po BID-TID prn severe pain active Not Available Not Available No t Available pantoprazol e 40 mg tablet,krista yed release Take 1 tablet every day by oral route for 90 days. active Not Available Not Available No t Available metformin 1,000 mg tablet 02/04 completed Not Available Not Available Not Available promethazin e 25 mg tablet Take 1 tablet every 4-6 hours by oral route. 02/04 completed Not Available Not Available Not Available Advair Diskus 250 mcg-50 mcg/dose powder for inhalation INHALE ONE INHALATIO N, TWICE DAILY active Not Available Not Available No t Available mometasone 50 mcg/actuati on nasal spray 02/04 completed Not Available Not Available Not Available gabapentin 300 mg capsule TAKE TWO CAPSULES BY MOUTH IN THE MORNING and TAKE TWO CAPSULES BY MOUTH EVERY EVENING active Not Available Not Available No t Available digoxin 125 mcg (0.125 mg) tablet Take 1 tablet every day by oral route for 90 days. active Not Available Not Available No t Available lorazepam 1 mg tablet 02/04 completed Not Available Not Available Not Available ibuprofen 600 mg tablet active Not Available Not Available Not Available levofloxaci n 500 mg tablet 08/05 completed Not Available Not Available Not Available ketorolac 60 mg/2 mL intramuscul ar solution 60mg now 11/26 completed Not Available Not Available Not Available ondansetron 4 mg disintegrat ing tablet Take 1 tablet every 4-6 hours by oral route as needed. 11/26 completed Not Available Not Available Not Available cefdinir 300 mg capsule 02/04 completed Not Available Not Available Not Available fluticasone propionate 50 mcg/actuati on nasal spray,suspe nsion [place] 1 spray every day by nasal route as directed for 60 days. 07/05 completed Not Available Not Available Not Available metformin ER 500 mg tablet,exte nded release 24 hr 02/04 completed Not Available Not Available Not Available loratadine 10 mg tablet Take 1 tablet every day by oral route for 90 days. 02/04 completed Not Available Not Available Not Available amoxicillin 875 mg-potassiu m clavulanate 125 mg tablet 02/04 completed Not Available Not Available Not Available Ventolin HFA 90 mcg/actuati on aerosol inhaler Inhale 1 puff every 4-6 hours by inhalatio n route for 90 days. active Not Available Not Available No t Available neomycin-po lymyxin-hyd rocort 3.5 mg-10,000 unit/mL-1 % ear drops,susp 06/05 completed Not Available Not Available Not Available azithromyci n 500 mg tablet 06/07 completed Not Available Not Available Not Available Novolog FlexPen U-100 Insulin aspart 100 unit/mL (3 mL) subcutaneou s 4 units if bs greater than 400 active Not Available Not Available No t Available nitrofurant oin monohydrate /macrocryst als 100 mg capsule 02/04 completed Not Available Not Available Not Available Aspir-81 1 po qd 02/04 completed Not Available Not Available Not Available Ear Wax Drops use as directed 03/06 completed Not Available Not Available Not Available Ranexa 500 mg tablet,exte nded release 02/04 completed Not Available Not Available Not Available Lantus Solostar U-100 Insulin 100 unit/mL (3 mL) subcutaneou s pen Inject 65 units in AM and PM 2017 active Not Available Not Available Not Avai lable Xarelto 20 mg tablet Take 1 tablet every day by oral route for 30 days. active Not Available Not Available No t Available Polycin 500 unit-10,000 unit/gram eye ointment 02/04 completed Not Available Not Available Not Available Vitals Date Recorded Body height Body mass index (BMI) Body weight Heart rate Oxygen saturation Respiratory rate Systolic And Diastolic Provider Name and Address Organization Details Last Updated DateTime 8 187.96 cm 39 kg/m2 809684. 08 g 97 /min 97 % 18 /min 104/58 mm[Hg] Crystal Shonda [place] - [facility] 8 14:03:25 Date Recorded Body height Body mass index (BMI) Body weight Heart rate Respiratory rate Systolic And Diastolic Provider Name and Address Organization Details Last Updated DateTime 8 187.96 cm 39.4 kg/m2 711300. 86 g 76 /min 18 /min 114/80 mm[Hg] Tammi Carrion [place] - [facility] 8 12:50:33 Date Recorded Body height Body mass index (BMI) Body weight Heart rate Oxygen saturation Respiratory rate Systolic And Diastolic Provider Name and Address Organization Details Last Updated DateTime 8 187.96 cm 40.6 kg/m2 128200. 19 g 98 /min 95 % 18 /min 164/82 mm[Hg] Crystal Shonda [place] - [facility] 8 15:09:08 Date Recorded Body height Body mass index (BMI) Body weight Body temperature Heart rate Respiratory rate Oxygen saturation Systolic And Diastolic Provider Name and Address Organization Details Last Updated DateTime 8 187.96 cm 40.3 kg/m2 041480 g 97.5 [degF] 82 /min 18 /min 96 % 160/100 mm[Hg] Gabriella Phillips [facility] 8 14:34:51 Date Recorded Pain severity - 0-10 verbal numeric rating [Score] - Reported Provider Name and Address Organization Details Last Updated DateTime 09/20/2017 7 Not Available [facility] 8 07:51:31 Date Recorded Body height Body mass index (BMI) Body weight Heart rate Respiratory rate Systolic And Diastolic Provider Name and Address Organization Details Last Updated DateTime 8 187.96 cm 38.8 kg/m2 836747. 9 g 88 /min 18 /min 112/72 mm[Hg] Tammi [facility] 8 15:27:19 Social History Question Answer Notes LastModified by Organizat ion Details LastModified Time Tobacco Smoking Status Former Smoker Tammi [facility] 02/04/2017 16:53:02 Do You Have An Advance Directive? No [email or web address] Information not available 02/04/2017 Are You Blind Or Do You Have Difficulty Seeing? No [email or web address] Information not available 02/04/2017 What Is Your Level Of Caffeine Consumption? Moderate [email or web address] Information not available 02/04/2017 How Much Tobacco Do You Chew? 1/day [email or web address] Information not available 09/20/2017 Are You Deaf Or Do You Have Serious Difficulty Hearing? No [email or web address] Information not available 02/04/2017 What Type Of Diet Are You Following? DIABETIC [email or web address] Information not available 02/04/2017 Which Illicit Or Recreational Drugs Have You Used? No [email or web address] Information not available 02/04/2017 How Many Days Of Moderate To Strenuous Exercise, Like A Brisk Walk, Did You Do In The Last 7 Days? 1 [email or web address] Information not available 09/20/2017 On Those Days That You Engage In Moderate To Strenuous Exercise, How Many Minutes, On Average, Do You Exercise? 1 [email or web address] Information not available 09/20/2017 How Hard Is It For You To Pay For The Very Basics Like Food, Housing, Medical Care, And Heating? [id number] Information not available 09/20/2017 Hard Of Hearing Or Deaf In One Or Both Ears? No [email or web address] Information not available 02/04/2017 Legally Blind In One Or Both Eyes? No [email or web address] Information no t available 02/04/2017 What Was The Date Of Your Most Recent Tobacco Screening? 11/26/2017 Information not available 11/26/2018 What Is Your Relationship Status? [email or web address] Information not available 02/04/2017 Seat Belts Used Routinely Yes Information not available 09/20/2017 Smoke Alarm In Home Yes [email or web address] Information not available 02/04/2017 How Much Tobacco Do You Smoke? 3+ PPD [email or web address] Information not available 02/04/2017 Do You Use Sunscreen Routinely? Yes Information not available 09/20/2017 How Many Years Have You Smoked Tobacco? 20 Information not available 02/04/2017 Do You Have Difficulty Walking Or Climbing Stairs? No Information not available 02/04/2017 Sex: Unknown Functional Status Question Answer Note LastModified by [employer] ion Details LastModified Time What is your level of alcohol consumption? None Information not available 09/20/2017 Are you currently employed? No [email or web address] Information not available 02/04/2017 Are you able to walk independently without assistance or assistive devices? YESWOREST [email or web address] Information not available 02/04/2017 Do you have difficulty doing errands alone? No [email or web address] Information not available 02/04/2017 Are you able to care for yourself independently? Yes [email or web address] Information not available 02/04/2017 What is your occupation? retired [email or web address] Information not available 02/04/2017 Do you have difficulty dressing, bathing, grooming, or toileting? No [email or web address] Information not available 02/04/2017 What is your exercise level? Occasional [email or web address] Information not available 02/04/2017 Mental Status Question Answer Note LastModified by Organizat ion Details LastModified Time Do you feel stressed (tense, restless, nervous, or anxious, or unable to sleep at night)? [id number] [email or web address] Information not available 09/20/2017 Do you have difficulty concentrating, remembering or making decisions? No Information no t available 02/04/2017 Family History Relationship Description Onset Age of this Age Resolved Age Notes LastModified by Organization Details LastModified Time Father Pulmonary emphysema [email or web address] Not available 2016 16:37:54 Father Tuberculosis [email or web address] Not avai lable 02/04/2017 16:38:10 Sister Tuberculosis [email or web address] Not avai lable 02/04/2017 16:38:10 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 No medical history recorded. Immunizations Vaccine Type Date Status Note Provider Nam e and Address Organization Details Recorded Time Influenza, split virus, quadrivalent, preservative 7 completed Not Available [facility]/23[facility] 03:54:44 Past Encounters Encounter ID Performer Location Encounter Start Date Encounter Closed Date Diagnosis/Indication Diagnosis SNOMED-CT Code Diagnosis ICD10 Code Diagnosis IMO Codes Diagnosis Note [id number] Hernandez Fritz MD [facility] [address] [place] [address] 02/04/2017 14:52:11 02/04/2017 17:50:25 Uncontrolled type 2 diabetes mellitus 573782714 E11.65 Chronic back pain 537617 002 G89.29 Urinary incontinence 165 436437 R32 Administra tion of influenza vaccine 51351108 Z23 [id number] Hernandez Fritz MD [facility] [address] [place] [address] 03/06/2017 16:19:13 03/06/2017 20:15:29 Uncontrolled type 2 diabetes mellitus 659639192 E11.65 Arthritis 9242873 M19.90 Pain of joint 52313919 M 25.50 Gouty arthropathy 210380 008 M10.09 Dysuria 83400854 R30.0 Medication monitoring 39 0921209 Z51.81 [id number] Hernandez Fritz MD [facility] [address] [place] [address] 04/01/2017 15:22:28 04/01/2017 17:39:50 Upper respiratory infection 62018178 J06.9 Uncontroll ed type 2 diabetes mellitus 410655903 E11.65 Body mass index 40+ - severely obese 121146318 Z68.41 Edema of l ower extremity 455789744 R60.0 Chronic back pain 964245 002 G89.29 [id number] Hernandez Fritz MD [address] [place] [address] 04/05/2017 15:30:53 04/20/2017 23:22:29 Uncontrolled type 2 diabetes mellitus 383528043 E11.65 [id number] Hernandez Fritz MD [address] [place] [address] 05/03/2017 13:23:45 05/03/2017 15:52:19 Arthritis 4560323 M19.90 Pain of joint 64277940 M 25.50 Chronic ob structive pulmonary disease 13924714 J44.9 Coronary arteriosclerosis 52099884 I25.10 [id number] Hernandez Fritz MD [address] [place] [address] 06/07/2017 12:26:24 06/07/2017 14:14:34 Renewal of prescription 410184197 Z76.0 Uncontroll ed type 2 diabetes mellitus 159059890 E11.65 Chronic at rial fibrillation 939693090 I48.2 Arthritis 6829440 M19.90 Pain of joint 32186680 M 25.50 Gouty arthropathy 380348 008 M10.09 Chronic back pain 691091 002 G89.29 Body mass index 40+ - severely obese 502353600 Z68.41 Chronic ob structive pulmonary disease 14149206 J44.9 [id number] Hernandez Fritz MD [address] [place] [address] 07/05/2017 13:56:32 07/05/2017 15:48:21 Uncontrolled type 2 diabetes mellitus 999189339 E11.65 Chronic at rial fibrillation 362890283 I48.2 Chronic ob structive pulmonary disease 81629941 J44.9 Gastroesop hageal reflux disease without esophagitis 455410555 K21.9 Chronic back pain 724929 002 G89.29 Body mass index 30+ - obesity 301886453 Z68.39 Respiratory crackles 484 36390 R09.89 Shoulder joint pain 2679 44331 M25.748 [id number] Hernandez Fritz MD [address] [place] [address] 07/19/2017 12:27:13 07/19/2017 13:47:46 Chronic obstructive pulmonary disease 46920677 J44.9 Radiologic infiltrate of lung 668057618 R91.8 [id number] Hernandez Fritz MD [address] [place] [address] 08/05/2017 14:29:29 08/05/2017 16:29:14 Chronic obstructive pulmonary disease 35024234 J44.9 Gastroesop hageal reflux disease without esophagitis 810536640 K21.9 Chronic back pain 928433 002 G89.29 Long-term drug therapy 508663397 Z79.899 Erosive osteoarthrosis 450083546 M15.4 Chronic pain 52957886 G8 9.29 Neck pain 76122831 M54.2 [id number] Hernandez Fritz MD [address] [place] [address] 09/20/2017 13:48:49 09/20/2017 15:41:11 Erosive osteoarthrosis 628559196 M15.4 Urinary incontinence 165 812521 R32 Uncontroll ed type 2 diabetes mellitus 996516428 E11.65 Chronic at rial fibrillation 044426523 I48.2 Chronic ob structive pulmonary disease 45996741 J44.9 [id number] Hernandez Fritz MD [address] [place] [address] 11/26/2017 14:00:00 11/26/2017 16:43:50 Uncontrolled type 2 diabetes mellitus 463892545 E11.65 Erosive osteoarthrosis 571685086 M15.4 Chronic at rial fibrillation 312579957 I48.2 Coronary arteriosclerosis 89263450 I25.10 Chronic back pain 784015 002 G89.29 Arthritis 1702432 M19.90 Pain of joint 64800401 M 25.50 Gouty arthropathy 843512 008 M10.09 Nicotine dependence 5629 4008 F17.200 chewing tobacco Chronic neck pain 538414 9922 107 M54.2 Delay when starting to pass urine 2102389 R39.11 Health Concerns Section Related Observation LastModified by Organization Detai ls LastModified Time None Recorded Concern Status LastModified by Organization Details LastModified Time None Recorded Advance Directives Directive N: Payers Insurance Date Sequence Insurance Name Policy Number Policy Zavala Covered Member ID Zavala Member ID Guarantor Name 05/06/2018 1 [employer] (MEDICARE REPLACEMENT/ ADVANTAGE - PPO) [id number] Jessy Vasques [id number] Jessy LarsenHughes Notes Date Note Type Note Provider Name and Address Organization Details Recorded Time 8 text/html Musculoskeletal PainReported by PatientHPIFor location, patient reportsleft neckandleft shoulder(chronic joint and back pain). For severity, patient reportssame. For duration, patient reportspresent for >12 months. For context, patient reportsprior back problemsandused medication for back pain. For alleviating factors, patient reportsrest. For aggravating factors, patient reportsmovement/positioning ,bending over, andtwisting. For associated symptoms, patient reportsno fever. For adl (activities of daily living), patient reportsimprove with medication. For quality, (varies). For timing, (chronic with intermittent worsening). Care Management - Atrial FibrillationReported by PatientCare ManagementFor prognosis, patient reportsexpected outcome: stabilizeandprognosis: guarded. For duration, patient reportsgreater than 12 months (chronic). For medications, patient reportscompliant with medication,rate control with beta mag,rhythm control with other, andanticoagulation for stroke prevention aspirin. For follow up, patient reportsappointment scheduled with pcp yes. Has taken lortabs from someone else. Haylee wilson, [place] - [facility] 07/16/2017 10:28:15 8 text/html COPDReported by PatientHPI:For aggravating factors, patient reportsworse with exertion. For associated symptoms, patient reportsdyspnea during exertionanddecrease in exercise capacitybut reportsno snoring. For onset/timing, patient reportschronic: slowly much worse. For duration, patient reportshas noted for years. For severity, patient reportsmoderate. For quality, patient reportssymptoms do not vary with time of day. For alleviating factors, patient reportsrelieved with bronchodilator. f/u abnormal [facility] x-[facility] 14[facility]47:03 8 text/html Musculoskeletal PainReported by PatientHPIFor location, patient reportsbilateral neck(chronic joint and back pain). For severity, patient reportssame. For duration, patient reportspresent for >12 months. For context, patient reportsprior back problemsandused medication for back pain. For alleviating factors, patient reportsrest. For aggravating factors, patient reportsmovement/positioning ,bending over, andtwisting. For associated symptoms, patient reportsno fever(headache). For adl (activities of daily living), patient reportsimprove with medication. For quality, (varies). For timing, (chronic with intermittent worsening). Care Management - Atrial FibrillationReported by PatientCare ManagementFor prognosis, patient reportsexpected outcome: stabilizeandprognosis: guarded. For duration, patient reportsgreater than 12 months (chronic). For medications, patient reportscompliant with medication,rate control with beta mag,rhythm control with other, andanticoagulation for stroke prevention aspirin. For follow up, patient reportsappointment scheduled with pcp yes. [facility]2017 15:24:41 8 text/html Musculoskeletal PainReported by PatientHPIFor location, patient reportsbilateral neck(chronic joint and back pain). For severity, patient reportssame. For duration, patient reportspresent for >12 months. For context, patient reportsprior back problemsandused medication for back pain. For alleviating factors, patient reportsrest. For aggravating factors, patient reportsmovement/positioning ,bending over, andtwisting. For associated symptoms, patient reportsno fever(headache). For adl (activities of daily living), patient reportsimprove with medication. For quality, (varies). For timing, (chronic with intermittent worsening). Care Management - Atrial FibrillationReported by PatientCare ManagementFor prognosis, patient reportsexpected outcome: stabilizeandprognosis: guarded. For duration, patient reportsgreater than 12 months (chronic). For medications, patient reportscompliant with medication,rate control with beta mag,rhythm control with other, andanticoagulation for stroke prevention aspirin. For follow up, patient reportsappointment scheduled with pcp yes.ROS as noted in the HPI ANGELES Bullock [facility] 09/25/2017 13:26:44 8 text/html Musculoskeletal PainReported by PatientHPIFor severity, patient reportssame. For duration, patient reportspresent for >12 months. For context, patient reportsprior back problemsandused medication for back pain. For alleviating factors, patient reportsrestandrelieved by changing position. For aggravating factors, patient reportsmovement/positioning ,bending over, andtwisting. For associated symptoms, patient reportsno fever,no weak limbs, andno incontinence(neuropathy noted). For location, (chronic joint and back pain). For quality, (varies). For timing, (chronic with intermittent worsening). For adl (activities of daily living), (medication not working). Diabetes F/UReported by PatientHPIFor context, patient reportshome blood sugar range high,not seeing eye doctor yearly,not checking feet regularly, andmissing doses of medication. For associated symptoms, patient reportsweight loss (12 lbs). For labs, patient reportslast a1c result: 12.7. Care Management - Atrial FibrillationReported by PatientCare ManagementFor prognosis, patient reportsexpected outcome: no changeandprognosis: guarded. For duration, patient reportsgreater than 12 months (chronic). For medications, patient reportscompliant with medication,rate control with digoxin,rhythm control with __, andanticoagulation for stroke prevention other. For follow up, patient reportsappointment scheduled with pcp yes. For lifestyle compliance, patient reportscompliant with no tobacco use no,compliant with no drug/alcohol abuse no,compliant with low caffeine intake no, andcompliant with exercise program no.Interim HistoryFor associated symptoms, patient reportsno dizziness,no chest pain, andno easy bruisability. Coronary Artery Disease F/UReported by PatientHPIFor severity, patient reportsno chest discomfort with daily activities,has not needed to use nitroglycerin, andno change since last visit. For context, patient reportsnon-smoker(chews tobacco). For associated symptoms, patient reportsno chest pain,no neck pain,no left arm pain,no dyspnea with exertion,no sweating,no nausea, andno stress. Haylee wilson, [place] - [facility] 01/10/2018 15:41:27
--- OUTSIDE RECORDS SUMMARY | 2025-04-07 14:27 | XMS_ITS | Clinical Summary ---
Author Organization [facility] Address [address] [place] [address] Care Team Providers Care Receiving Lead Name Role Phone Hernandez Fritz MD Primary Care Provider [phone] Allergies Active Allergy Reactions Criticality Noted Date Comments Amoxicillin Unknown - Patient states they do not know rxn details Low 05/05/2024 Penicillins Unknown - Patient states they do not know rxn details Low 05/05/2024 Called [facility] and they were able to verify that Mr. Vasques has received multiple prescriptions for cephalosporins and has had no reported issues with those prescriptions. Medications insulin aspart (NovoLOG, Fiasp) 100 UNIT/ML patient supplied pump Inject 40 Units under the skin 2 (two) times a day. Active HYDROcodone-adrienne taminophen ([place]worth) 7.5-325 MG tablet Take 1 tablet (7.5 [...] Influenza, seasonal, injectable 01/17/2010 Moderna COVID-19 Vaccine ([employer]um [employer]) 12+ years ,06/28/2020 Pneumococcal Polysaccharide PPV23 01/12/2022 [...] any time in the past 12 [address] [facility], were you homeless or living in a [...] Screening 1942 [facility]-Medicare Annual Wellness (AWV) 1942 [facility]-/Child/Adol SDOH Screenings 1942 Diabetes: Dental Exam 1952 [facility]-Zoster Vaccines (1 of 2) 1992 [facility]-RSV Vaccine: 60+ Years or (1 - 1-dose 75+ series) 2017 [facility]-Pneumococcal Vaccine: 50+ Years (2 of 2 - PCV) 01/12/2023 01/12/2022 [facility]-Diabetes: Hemoglobin A1C 08/04/2024 05/05/2024 [facility]- SDOH Screenings 11/08/2024 [facility]-Adult SDOH Screenings 11/08/2024 05/11/2024 [id number] Vaccine (3 - season) 2025 07/28/2020, 06/28/2020 [facility]-Influenza Vaccine (#1) 01/04/202503/30, 03/01/2023, 02/15/2021, Additional [...] 7.5(H) <5.7 % 05/05/2024 2:31 PM EST [facility] Blood Venous blood specimen / Unknown Venipuncture / Unknown 05/05/2024 11:38 AM EST 05/05/2024 12:09 PM EST Narrative [facility] - 05/05/2024 2:31 PM EST HA1C Interpretive Data: Diagnosis of Diabetes: Diabetic > or = 6.5% Pre-diabetic 5.7 to 6.4% Non-diabetic < or = 5.6% Glycemic Targets for Type I and Type II Diabetics: Non- Adults <7.0% Adults <6.0% Children and Adolescents <7.5% Source: [place] [employer]. Standards of medical care in diabetes,2017. Diabetes Care.2017:40 (suppl 1):S1-S135. HbA1c assay performed by an ion-exchange chromatography method that is certified traceable to the DCCT. us Tania Garcia APRN LAB BLOOD ORDERABLES Final R esult [facility] [address] [place] [address] from Last 3 Months or Most Recently Relevant to Health Maintenance [place] [address] [place] [address] MEDICARE Advance Directives * Full Code (Latest Code Status on File) Date Activated Date Inactivated Comments 05/05/2024 11:27 AM 05/06/2024 3:04 PM Question Answer Comments Patient has decision-making capacity? Yes Care Teams Receiving Lead Relationship Specialty Start Date End Date Hernandez Fritz MD [address] [place] [id number] PCP - General 05/05/24
--- OUTSIDE RECORDS SUMMARY | 2025-04-07 14:27 | XMS_ITS | Clinical Summary ---
Author Organization [facility] Address [address] [place] [address] Phone Care Team Providers Care [employer] Name Role Phone Mulugeta GLASER MD, Real [...] the original. Care gap audit completed by Cinyd Knott RN on 03/01/2020. Attribution Problem Noted [...] 75+ series) 2017 COVID-19 Vaccine (3 - 2024-2 6 season) 2025 07/28/2020, 06/28/2020 Influenza Vaccine (#1) 2025 7, 01/17/2010 Hepatitis B Vaccine Aged Out No longe r eligible based on patient's age to complete this topic Meningococcal B Vaccine Aged Out No l onger eligible based on patient's age to complete this topic Insurance [employer] [place] [address] [place] [address] MEDICARE PPO [place] Advance Directives For more information, please contact: [phone] * Full Code (Latest Code Status on File) Date Activated Date Inactivated Comments 01/11/2021 3:20 AM 01/13/2021 8:51 PM * Full Code Date Activated Date Inactivated Comments 06/06/2014 10:40 AM 06/08/2014 5:11 PM Care Teams [employer] Relationship Specialty Start Date End Date Real Dalal III, MD [address] [place] [address] PCP - General Family Medicine 06/18/12
--- NOTE | 2025-04-07 14:36 | PC.NURSE ---
Emergency Technician at bedside
--- NOTE | 2025-04-07 14:45 | PC.NURSE ---
Ade Brody stated that they pt family has chosen [facility]. the director asked if we could put the patient in the cooler because he would be about 2 hours. I informed him we didnt have a cooler system.
[2025-04-07 15:36] VITALS: BP 00/00; PULSE 0; RESP 0; TEMP -17.7; TEMP 0; O2SAT 0; BMI 38.0
--- NOTE | 2025-04-07 15:46 | HMH.EDGENADL ---
Discharge Plan Discharge ED Provider: [facility] HPI General Chief complaint: Cardiac Arrest/CPR Stated complaint: code Time Seen by Provider: 04/07/25 13:59 Mode of Arrival: Ambulatory Source of Information: EMS Description of Symptoms (Recalled from ER Triage Doc. by RN): PT BROUGHT TO ED VIA [facility]. NOTIFIED PER PT'S PCP OFFICE THAT PT WAS EN ROUTE TO ED, NO CALL FROM EMS. PT ARRIVED TO ED REPORTED TO BE BEING PACED BY EMS, HOWEVER NO PACER SPIKES NOTED ON ARRIVAL. CPR INITIATED AT 1353, SEE CODE FLOW SHEET FOR CODE DETAILS. History of Present Illness HPI narrative: This is an 85-year-old female patient, with past medical history of hypertension, hyperlipidemia, diabetes, atrial fibrillation, congestive heart failure, and coronary artery disease status post CABG and numerous coronary stents, who is presenting to the emergency department today for evaluation as a postcode. Reportedly the patient had recently been hospitalized and was following up with his primary care physician today for his posthospitalization evaluation. Upon entering the doctor's office he became cold and blue and was observed to be snoring by family. This was followed by cardiac arrest. Compressions were began and ROSC was obtained. When EMS arrived to the scene they state that he was observed to be an unstable bradycardia. They placed an LMA and also began administering transcutaneous pacing. He was paced the entire way to the hospital and EMS states that they did have both electrical and mechanical capture. Upon arrival to the emergency department the patient was pulseless. Related Data Home Medications ?Medication ?Instructions ?Recorded ?Confirmed clopidogrel 75 mg tablet 75 mg PO DAILY 09/17/24 02/24/25 furosemide 20 mg tablet 20 - 40 mg PO DAILYP PRN Edema 09/17/24 02/24/25 atorvastatin 40 mg tablet 40 mg PO HS 11/07/24 02/24/25 apixaban 5 mg tablet (Eliquis) 5 mg PO BID 11/08/24 02/24/25 Previous Rx's ?Medication ?Instructions ?Recorded pantoprazole 40 mg tablet,delayed 40 mg PO DAILY #30 tabs 04/08/24 release (Protonix) albuterol sulfate 90 mcg/actuation 2 inh inhalation QIDP PRN 08/26/24 aerosol inhaler Shortness Of Breath Or Wheezing #8.5 grams blood sugar diagnostic (Accu-Chek #100 ea 09/21/24 Guide test strips) albuterol sulfate 2.5 mg/3 mL 2.5 mg (3 mL) inhalation Q6H #180 10/26/24 (0.083 %) solution for nebulization mL insulin NPH-regular 70-30 U-100 30 unit (0.3 mL) SQ BID 3 days #0 11/09/24 insulin 100 unit/mL subcutaneous mL pen (Humulin 70/30 U-100 KwikPen) gabapentin 300 mg capsule 300 mg PO TIDP PRN neuropathic 11/16/24 pain #90 caps cholestyramine (with sugar) 4 gram 4 g PO BID PRN diarrhea #378 grams 12/10/24 oral powder (Questran) prochlorperazine maleate 10 mg 10 mg PO Q8H PRN nausea and 12/18/24 tablet (Compazine) vomiting #60 tabs finasteride 5 mg tablet 5 mg PO DAILY #90 tabs 01/28/25 cephalexin 500 mg capsule 500 mg PO Q8H 10 days #30 caps 02/15/25 dapagliflozin propanediol 10 mg 10 mg PO DAILY 30 days #30 tabs 03/05/25 tablet (Farxiga) potassium chloride 20 mEq 20 meq PO DAILY #90 tabs 03/05/25 tablet,extended release(part/cryst) sacubitril 24 mg-valsartan 26 mg See Rx Instructions .Route 03/05/25 tablet (Entresto) .COMPLEX #44 tabs tamsulosin 0.4 mg capsule 0.4 mg PO DAILY #90 caps 03/05/25 trazodone 50 mg tablet 50 mg PO HS #90 tabs 03/05/25 erythromycin 5 mg/gram (0.5 %) eye 0.5 inch ophthalmic (eye) BID #3.5 03/12/25 ointment grams diltiazem HCl 60 mg 60 mg PO TID #90 caps 03/17/25 capsule,extended release 12 hr metoprolol succinate 25 mg 25 mg PO BID #180 tabs 03/17/25 tablet,extended release 24 hr furosemide 40 mg tablet 40 mg PO DAILY 30 days #30 tabs 03/23/25 hydrocodone 7.5 mg-acetaminophen 1 tab PO TIDP PRN pain #90 tabs 04/05/25 325 mg tablet fluticasone 250 mcg-salmeterol 50 1 inh inhalation BID #60 ea 12/03/25 mcg/dose blistr powdr for inhalation Allergies Allergy/AdvReac Type Severity Reaction Status Date / Time amoxicillin (From Augmentin) Allergy Severe edema Verified 02/24/25 13:42 ciprofloxacin (From Cipro) Allergy Severe Redness of Verified 02/24/25 13:42 Skin clavulanic acid (From Allergy Severe edema Verified 02/24/25 13:42 Augmentin) prednisone AdvReac Intermediate Agitated Verified 02/24/25 13:42 [facility] Disclaimer: The information contained in this section may have been updated after the patient was seen, as this information can be updated by other users. 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 Normal colonoscopy Positive laboratory testing for human immunodeficiency virus Nausea & vomiting Abdominal pain, epigastric HFrEF (heart failure with reduced ejection fraction) Retained myringotomy tube Hearing difficulty of right ear Otorrhea of right ear Otalgia, right ear Polypharmacy Chronic back pain greater than 3 months duration Rash BMI 39.0-39.9,adult [place] and COPD overlap syndrome OAB (overactive bladder) CHF (congestive heart failure) Diabetes mellitus Afib HLD (hyperlipidemia) HHD (hypertensive heart disease) CAD (coronary artery disease) MIRELLA and angioplasty (2021) per [facility] in [place] Recent Cath in 08/2020 showed Occluded SVG X 2, patent KINCAID to LAD, patient SVG to diagonal, severe disease OM in 1 stent, mid circ. Medical management in 2018. MIRELLA in 2012. Hx of CABG. Surgical History History of left inguinal hernia repair History of umbilical hernia repair History of left heart catheterization (LHC) Hx of CABG Family History Mother Coronary artery disease Father Tuberculosis Social History (Updated 02/24/25 @ 13:40 by Nola Sanders MA) Smoking Status: Unknown if ever smoked years smoked: 30 smoking status stop date: 1992 alcohol intake: former substance use type: denies use current occupational status: retired and disabled Travel in the last 8 weeks?: None Have you lived/traveled outside [place] in past 30 days?: No Contact w/someone who lives/traveled outside US past 30 days?: No Exposure to someone with infectious disease in past 14 days?: No Do you have a fever (greater than 100.4 F or 38 C)?: No Have you tested positive for COVID-19?: No Exposed to someone with COVID-19 in past 14 days?: No Do you have a sore throat?: No Do you have a cough?: No Do you have any weakness?: No Do you have any diarrhea?: No Are you experiencing any unusual bleeding?: No Do you have any muscle aches/pain?: No Do you have any abdominal pain?: No Are you experiencing loss of taste or smell?: No Other 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 Have you received the Flu Vaccine for this season: No Have you received the Pneumonia Vaccine: Yes ROS Obtained: Yes Systems reviewed as appropriate & no additional complaints except as documented Physical Exam General General appearance: other (See MDM) Respiratory Respiratory exam: Present other (See MDM) Cardiovascular Cardiovascular exam: Present other (See MDM) Neurological Exam Neurological exam: Present other (See MDM) Medical Decision Making Medical Records Medical records reviewed: Yes I reviewed the patient's medical records. Screening: Per USPSTF and CDC recommendations, given the prevalence of disease in our region, it is our hospital?s policy to screen for HIV and viral Hepatitis for all patients aged 18 and over and those with ongoing risk factors. Atul Inquiry Pt receiving controlled substance: No Atul was queried for this patient: No Vital Signs: 04/07/25 15:36 Temperature 0 F L Temperature Source Oral Pulse Rate [Right] 0 L Respiratory Rate 0 L Blood Pressure [Right Arm] 00/00 L 02 Sat by Pulse Oximetry 0 L Lab Data Lab Results 04/07/25 13:55: VBG pH 7.00 L, VBG pCO2 57.4 H, VBG pO2 38.7, VBG HCO3 13.7 L, VBG Total CO2 15.4 L, VBG O2 Saturation 42.1 L, VBG Base Excess -17.7 L, VBG Lactic Acid 10.5 H Orders (Tests/Meds): ORDERS Category Date Time Status Venous Blood Gas Routine RT 04/07/25 13:55 Completed Medical Decision Narrative: In summary, this is an 84-year-old male patient who is presenting to the emergency department today for evaluation after cardiac arrest at his primary care physician's clinic today. ROSC was reportedly obtained in the field and EMS found the patient to be unstable bradycardia and began transcutaneously pacing the patient on arrival to the hospital. When they did arrived to the hospital I did not see any pacer spikes on the [place] and I did not see an organized rhythm on the EMS [place]. The patient was subsequently transferred over to our stretcher and on examination he was pulseless. I placed a probe on his chest and his heart was in cardiac standstill. At this point we initiated resuscitation via usual ACLS protocol. The patient had an LMA in place and we were able to bag with ease. Epinephrine was immediately administered. At this point the etiology of his cardiac arrest was unknown. EMS reported a history of chronic kidney disease so I did empirically administer 2 g of calcium and an ampule of bicarbonate to the patient. A venous blood gas was obtained and the patient had a pH of 7, and a lactate of 10. His potassium was normal. Resuscitation was continued over a period of approximately 20-25 minutes. The patient was in V-fib during several pulse checks and defibrillation was administered but we were unable to achieve return of spontaneous circulation. After approximately 5 rounds of epinephrine we were still unable to achieve return of spontaneous circulation. Time of was ultimately called at 1417 Critical Care Critical Care Time Critical Care Time: Yes Attestation: On 04/07/25, the high probability of a clinically significant, sudden or life threatening deterioration of the following system(s) required my full and direct attention, intervention and personal management. The time I documented below is in addition to time spent performing reported procedures but includes the following listed in this critical care notation. Total Time Total Critical Care Time: 35
--- NOTE | 2025-04-07 17:30 | PC.NURSE ---
Addendum entered by Beth Almanza RN 04/07/25 17:46: [facility] Original Note: pt officially released for [facility]
--- NOTE | 2025-04-07 17:33 | PC.NURSE ---
called and spoke and to Beatris Bryant at [facility] to check on pt status. He stated that he is just leaving the office and will be here to get the patient in about an hour. pt family notified.
[2025-04-07 17:59] LABS: Reflex Lactic Add Lactic Reflex
--- NOTE | 2025-04-07 18:43 | PC.NURSE ---
home at bedside
== END 2025-04-07 19:07 | disposition expired ==
PROVIDERS: Emergency Provider Student in an Organized Health Care Education/Training Program; PCP Family Medicine
DX: I46.9 Cardiac arrest, cause unspecified (principal)
CPT/HCPCS: 82803; 92950; 99285; 99291